=== PATIENT | male | born 1935 | race Caucasian/White ===

== ENCOUNTER → 2017-01-27 | Outpatient (CLI) | payer OTHER ==
[~2017-01-27] MED LIST: ASPEC81 PO; ASPI325T39 PO; ASPI81TA28 PO; BUME2TAB3 PO; CHOL1000 PO; DIGO0.1219 PO; DILT-115 PO; DILT360C8 PO; DIPH-437 PO; DOCU-94 PO; ELQ25 PO; EMOLOIN3 TOP; FINA5TAB4 PO; GABA1CAP PO; GLC5 PO; GLCSR25 PO; GLIP10TA3 PO; INSDGIPEN SC; LNX125 PO; LPR50X PO; LPT40 PO; MCRK20 PO; MELA1TAB5 PO; METO-551 PO; POLY1POW2 PO; POTA10TA PO; PRD/1 PO; PRED-301 PO; RANI300T2 PO; SELE1SHA3; SENN-63 PO; TRIA0.5O TOP; WARF1TAB6 PO
== END | disposition home or self-care (01) ==
LOC: C.RDSM 13:45
PROVIDERS: ATTEND Physical Medicine & Rehabilitation Sports Medicine
DX: Z09 Encounter for follow-up examination after completed treatment for conditions other than malignant neoplasm (principal); S72.011K Unspecified intracapsular fracture of right femur, subsequent encounter for closed fracture with nonunion; Z96.649 Presence of unspecified artificial hip joint; X58.XXXA Exposure to other specified factors, initial encounter

== ENCOUNTER 2017-03-12 16:15 | Emergency (ER) | payer OTHER ==
[~2017-03-12] VITALS: Ht 182.9 cm; Wt 105.5 kg
[2017-03-12 16:05] VITALS: TEMP 36.7; Ht 182.9 cm; Wt 105.5 kg
[~2017-03-12 16:15] MED LIST changes: -ASPEC81 PO; -ASPI325T39 PO; -BUME2TAB3 PO; -CHOL1000 PO; -DILT-115 PO; -DIPH-437 PO; -ELQ25 PO; -EMOLOIN3 TOP; -GLC5 PO; -GLIP10TA3 PO; -INSDGIPEN SC; -LNX125 PO; -LPR50X PO; -LPT40 PO; -MCRK20 PO; -MELA1TAB5 PO; -POLY1POW2 PO; -POTA10TA PO; -PRED-301 PO; -RANI300T2 PO; -SELE1SHA3; -SENN-63 PO; -TRIA0.5O TOP
[2017-03-12] MEDS ORDERED: SODIUM CHLORIDE 0.9% 500ML 500 ML IV STA ×2 (16:29→17:53)
[2017-03-12 16:40] LABS: URINE APPEARANCE CLEAR (CLEAR); URINE BILIRUBIN NEG (NEG); URINE COLOR YELLOW; URINE EPITHELIAL CELL AUTO 0-5 /lpf (0-5); URINE NITRITE NEG (NEG); URINE PH 7.5 (4.5-7.5); URINE SPECIFIC GRAVITY 1.015 (1.000-1.030); UROBILINOGEN NEG (NEG); ZZUR CULT IF INDIC CLEAN CATCH NO
[2017-03-12 16:49] LABS: MANUAL MICROSCOPIC REQUIRED? NO; REVIEW REQ? NO
[2017-03-12 16:52] LABS: BUN/CREATININE RATIO 7.8 (10-20); CALCIUM 9.2 mg/dl (8.5-10.1); CREATININE 1.7 mg/dl (0.60-1.40); POTASSIUM 3.4 mmol/L (3.5-5.1)
[2017-03-12] MEDS ORDERED: DILT-115 PO (16:56)
[2017-03-12] MEDS ORDERED: RANI300T2 PO (16:56)
[2017-03-12] MEDS ORDERED: GLIP10TA3 PO (16:56)
[2017-03-12] MEDS ORDERED: ASPI325T39 PO (16:56)
[2017-03-12] MEDS ORDERED: TRIA0.5O TOP (16:56)
[2017-03-12] MEDS ORDERED: LPR50X PO (16:56)
[2017-03-12] MEDS ORDERED: PRED-301 PO (16:56)
[2017-03-12] MEDS ORDERED: LNX125 PO (16:56)
[2017-03-12] MEDS ORDERED: BUME2TAB3 PO (16:56)
[2017-03-12] MEDS ORDERED: POTA10TA PO (16:56)
[2017-03-12] MEDS ORDERED: SELE1SHA3 (16:56)
[2017-03-12] MEDS ORDERED: GLC5 PO (16:56)
[2017-03-12] MEDS ORDERED: SENN-63 PO (16:56)
[2017-03-12] MEDS ORDERED: EMOLOIN3 TOP (16:56)
[2017-03-12 17:08] LABS: MEAN CORPUSCULAR HGB CONC 33.9 g/dl (32-36)
[2017-03-12 17:09] LABS: VEN BLD GAS O2 SATURATION 69.1 %; VEN BLOOD GAS BASE EXCESS 5.3 mmol/L; VENOUS BLOOD GAS PCO2 45 mmHg (38.0-50.0); VENOUS BLOOD GAS PO2 35 mmHg
[2017-03-12 17:14] LABS: BETA-HYDROXYBUTYRATE 1.45 mg/dL (0.2-2.81)
[2017-03-12 17:27] LABS: HEMATOCRIT 43.6 % (42-52); MEAN CELL VOLUME 91.6 fL (80-100); MEAN CORPUSCULAR HEMOGLOBIN 31.1 pg (25-34); PLATELET COUNT 128 K/uL (130-400); RED BLOOD COUNT 4.76 M/uL (4.7-6.1); WHITE BLOOD COUNT 5.06 K/uL (4.8-10.8)
[2017-03-12 17:28] LABS: BASO % 0.2 %; BASO ABS # 0.01 K/uL (0-0.2); COMPLETE YES; EOS % 1.6 %; IG% 0.2 %; LYMPH % 23.7 %; MONO % 5.5 %; NEUT % 68.8 %; PLT ESTIMATE DECREASED
[2017-03-12] MEDS ORDERED: NovoLIN-R INSULIN PER UNIT CHARGE SC STA (17:53)
--- NOTE | 2017-03-12 18:54 | DIAGNOSTIC IMAGING REPORT ---
HEAD CT NONCONTRAST CT DOSE: 1768.17 mGy.cm HISTORY: Headache. TECHNIQUE: Multiaxial CT images of the head were performed without the use of intravenous contrast. Automated exposure control was utilized for this study. Comparison: Head CT 12/01/2014. Findings: The paranasal sinuses and mastoid air cells are clear. The calvarium and skull base are intact. There is no mass, hematoma, midline shift, acute infarct. White matter hypodensity is nonspecific but suggestive of microvascular ischemic change. The ventricles and sulci demonstrate mild age-related involutional changes. Stable 1.4 cm cluster of calcifications within the right cerebellar hemisphere. Impression: No acute intracranial abnormality. Atrophy and microvascular ischemic changes. Electronically signed by: Andrea Nixon M.D. 03/12/2017 6:52 PM Dictated Date/Time: 03/12/2017 6:48 PM
--- NOTE | 2017-03-12 19:51 | DIAGNOSTIC IMAGING REPORT ---
CHEST ONE VIEW PORTABLE HISTORY: hyperglycemia COMPARISON: Chest 04/06/2015. FINDINGS: Old, healed right-sided rib fractures. The lungs are clear. No pleural effusions. No pneumothorax. The cardiac silhouette is mildly enlarged. IMPRESSION: Mild cardiomegaly. Otherwise, no acute process within the chest. Electronically signed by: Andrea Nixon M.D. 03/12/2017 7:49 PM Dictated Date/Time: 03/12/2017 7:48 PM
[2017-03-12] MEDS ORDERED: POTASSIUM CHLORIDE 10 MEQ TABCR PO STA (20:51)
[2017-03-12 21:08] VITALS: BP 168/91; PULSE 57; O2SAT 95
--- NOTE | 2017-03-12 23:03 | EMERGENCY ROOM VISIT NOTE ---
History Report prepared by Tori: Linus Matthew Under the Supervision of: Dr. Breezy Vance D.O. First contact with patient: 16:18 Chief Complaint: HYPERGLYCEMIA Stated Complaint: HYPERGLYCEMIA Nursing Triage Summary: Patient arrived to ED via EMS. Patient c/o feeling tired and weak as well as dizzy for approx 4 days. BSG for EMS was 570. Pt states he is diabetic but takes only pills. Patient received NSS 500ml from EMS History of Present Illness The patient is a 81 year old male with a history of diabetes who presents to the Emergency Room with complaints of constant weakness beginning five days prior to arrival. He associates high blood sugar with today's symptoms. The patient states he takes pills for his diabetes, but he missed a dose two nights ago. He notes he usually takes two pills in the morning and one in the evening. The patient associates intermittent shortness of breath, increased urination, and dizziness like the room is spinning with today's symptoms, as well. He notes his shortness of breath has been noticeable with exertion over the last couple of weeks, but he denies experiencing it today. The patient states he has intermittent dizziness for the past two years, in which, he experienced some dizziness this morning with movement. It is noted the patient's BSG was 570 for EMS. Pt denies headache, change in vision, fevers, chest pain, abdominal pain, shortness of breath, numbness in the arms or legs, nausea, vomiting, diarrhea, pain with urination, and melena. Source of History: patient Onset: five days [employer] Position: other (global) Quality: other (fatigue) Timing: constant Associated Symptoms: + SOB (intermittent), + urinary symptoms (increased urination), + weakness Note: Associated symptoms: high blood sugar, intermittent dizziness described as spinning, Review of Systems See HPI for pertinent positives & negatives. A total of 10 systems reviewed and were otherwise negative. Past Medical & Surgical Surgical Problems: (1) History of coronary artery stent placement Family History No pertinent family history Social History Smoking Status: Never Smoker Alcohol Use: none Marital Status: single, Housing Status: other Occupation Status: retired Current/Historical Medications Scheduled Aspirin (Aspirin Ec), 325 MG PO DAILY Bumetanide (Bumex), 2 MG PO DAILY Digoxin (Digoxin), 0.125 MG PO QD@1800 Diltiazem Hcl Extended Release (Tiazac 240 Mg), 240 MG PO DAILY Emollient (Aquaphor), 1 APPLN TOP BID Glipizide (Glipizide), 5 MG PO HS Glipizide (Glucotrol), 10 MG PO QAM Metoprolol Tartrate (Metoprolol Tartrate), 50 MG PO BID Potassium Chloride (K-Tabs), 20 MEQ PO DAILY Prednisone (Prednisone), 5 MG PO DAILY Ranitidine (Zantac), 300 MG PO HS Selenium Sulfide (Selsun Blue), UD Triamcinolone Acetonide (Topic (Triamcinolone Acetonide), 1 APPLN TOP BID Scheduled PRN Docusate Sodium (Colace), 200 MG PO BID PRN for Constipation Sennosides (Senokot), 8.6 MG PO DAILY PRN for Constipation Allergies Coded Allergies: Felodipine (Verified Allergy, Unknown, unk, 03/12/17) Furosemide (Unverified Allergy, Unknown, unknown, 03/12/17) Metformin (Verified Allergy, Unknown, unk, 03/12/17) Simvastatin (Verified Allergy, Unknown, unk, 03/12/17) Sulfa Antibiotics (Verified Allergy, Unknown, ., 03/12/17) Sulfamethoxazole w/Trimethoprim (Unverified Allergy, Unknown, unknown, ) Physical Exam Vital Signs Date Time Temp Pulse Resp B/P Pulse Ox O2 Delivery O2 Flow Rate FiO2 03/12/17 21:08 57 18 168/91 95 Room Air 03/12/17 18:41 65 17 128/66 95 Room Air 03/12/17 16:57 72 24 124/70 95 Room Air 03/12/17 16:44 67 03/12/17 16:05 36.7 79 20 163/90 97 Room Air Physical Exam GENERAL: sitting up in bed, disheveled, no acute distress, hard of hearing. EYE EXAM: normal conjunctiva, PERRL and EOM's intact OROPHARYNX: no exudate, no erythema, lips, buccal mucosa, and tongue normal and mucous membranes are moist NECK: supple, no nuchal rigidity, no adenopathy, non-tender LUNGS: Clear to auscultation. Normal chest wall mechanics HEART: no murmurs, S1 normal and S2 normal ABDOMEN: abdomen soft, non-tender, normo-active bowel sounds, no masses, no rebound or guarding. BACK: Back is symmetrical on inspection and there is no deformity, no midline tenderness, no CVA tenderness. SKIN: no rashes and no bruising UPPER EXTREMITIES: upper extremities are grossly normal. LOWER EXTREMITIES: No pitting edema. NEURO EXAM: Normal sensorium, cranial nerves II-XII intact, normal speech, no weakness of arms, no weakness of legs. No drift. Finger to nose intact. Gross sensation intact. Medical Decision & Procedures ER Provider Diagnostic Interpretation: Radiology results as stated below per my review and the radiologist's interpretation: HEAD CT NONCONTRAST CT DOSE: 1768.17 mGy.cm HISTORY: Headache. TECHNIQUE: Multiaxial CT images of the head were performed without the use of intravenous contrast. Automated exposure control was utilized for this study. Comparison: Head CT 12/01/2014. Findings: The paranasal sinuses and mastoid air cells are clear. The calvarium and skull base are intact. There is no mass, hematoma, midline shift, acute infarct. White matter hypodensity is nonspecific but suggestive of microvascular ischemic change. The ventricles and sulci demonstrate mild age-related involutional changes. Stable 1.4 cm cluster of calcifications within the right cerebellar hemisphere. Impression: No acute intracranial abnormality. Atrophy and microvascular ischemic changes. Electronically signed by: Andrea Nixon M.D. 03/12/2017 6:52 PM CHEST ONE VIEW PORTABLE HISTORY: hyperglycemia COMPARISON: Chest 04/06/2015. FINDINGS: Old, healed right-sided rib fractures. The lungs are clear. No pleural effusions. No pneumothorax. The cardiac silhouette is mildly enlarged. IMPRESSION: Mild cardiomegaly. Otherwise, no acute process within the chest. Electronically signed by: Andrea Nixon M.D. 03/12/2017 7:49 PM Laboratory Results 03/12/17 16:56 Red Blood Count 4.76, Mean Corpuscular Volume 91.6, Mean Corpuscular Hemoglobin 31.1, Mean Corpuscular Hemoglobin Concent 33.9, Neutrophils (%) (Auto) 68.8, Lymphocytes (%) (Auto) 23.7, Monocytes (%) (Auto) 5.5, Eosinophils (%) (Auto) 1.6, Basophils (%) (Auto) 0.2, Neutrophils # (Auto) 3.48, Lymphocytes # (Auto) 1.20, Monocytes # (Auto) 0.28, Eosinophils # (Auto) 0.08, Basophils # (Auto) 0.01 03/12/17 15:34 Test 03/12/17 15:34 03/12/17 16:15 03/12/17 16:56 03/12/17 20:34 Anion Gap 9.0 mmol/L (3-11) Est Creatinine Clear Calc Drug Dose 44.2 ml/min Estimated GFR () 43.5 Estimated GFR (Non- 37.5 BUN/Creatinine Ratio 7.8 (10-20) Calcium Level 9.2 mg/dl (8.5-10.1) Total Bilirubin 0.7 mg/dl (0.2-1) Direct Bilirubin 0.2 mg/dl (0-0.2) Aspartate Amino Transf (AST/SGOT) 40 U/L (15-37) Alanine Aminotransferase (ALT/SGPT) 49 U/L (12-78) Alkaline Phosphatase 75 U/L (45-117) Total Protein 7.8 gm/dl (6.4-8.2) Albumin 3.4 gm/dl (3.4-5.0) Lipase 437 U/L (73-393) Beta-Hydroxybutyric Acid 1.45 mg/dL (0.2-2.81) Urine Color YELLOW Urine Appearance CLEAR (CLEAR) Urine pH 7.5 (4.5-7.5) Urine Specific [place] 1.015 (1.000-1.030) Urine Protein NEG (NEG) Urine Glucose (UA) 3+ (NEG) Urine Ketones NEG (NEG) Urine Occult Blood NEG (NEG) Urine Nitrite NEG (NEG) Urine Bilirubin NEG (NEG) Urine Urobilinogen NEG (NEG) Urine Leukocyte Esterase NEG (NEG) Urine WBC (Auto) 0 /hpf (0-5) Urine RBC (Auto) 0-4 /hpf (0-4) Urine Hyaline Casts (Auto) 0 /lpf (0-5) Urine Epithelial Cells (Auto) 0-5 /lpf (0-5) Urine Bacteria (Auto) NEG (NEG) White Blood Count 5.06 K/uL (4.8-10.8) Red Blood Count 4.76 M/uL (4.7-6.1) Hemoglobin 14.8 g/dL (14.0-18.0) Hematocrit 43.6 % (42-52) Mean Corpuscular Volume 91.6 fL (80-100) Mean Corpuscular Hemoglobin 31.1 pg (25-34) Mean Corpuscular Hemoglobin Concent 33.9 g/dl (32-36) Platelet Count 128 K/uL (130-400) Neutrophils (%) (Auto) 68.8 % Lymphocytes (%) (Auto) 23.7 % Monocytes (%) (Auto) 5.5 % Eosinophils (%) (Auto) 1.6 % Basophils (%) (Auto) 0.2 % Neutrophils # (Auto) 3.48 K/uL (1.4-6.5) Lymphocytes # (Auto) 1.20 K/uL (1.2-3.4) Monocytes # (Auto) 0.28 K/uL (0.11-0.59) Eosinophils # (Auto) 0.08 K/uL (0-0.5) Basophils # (Auto) 0.01 K/uL (0-0.2) RDW Standard Deviation 60.6 fL (36.4-46.3) RDW Coefficient of Variation 17.9 % (11.5-14.5) Immature Granulocyte % (Auto) 0.2 % Immature Granulocyte # (Auto) 0.01 K/uL (0.00-0.02) Platelet Estimate DECREASED Venous Blood pH 7.44 (7.36-7.41) Venous Blood Partial Pressure CO2 45 mmHg (38.0-50.0) Venous Blood Partial Pressure O2 35 mmHg Venous Blood HCO3 30 meq/L Venous Blood Oxygen Saturation 69.1 % Venous Blood Base Excess 5.3 mmol/L Bedside Glucose 308 mg/dl (70-99) Laboratory results per my review. Medications Administered Medications (Trade) Dose Ordered Sig/Sandra Route Start Time Stop Time Status Last Admin Dose Admin Sodium Chloride 500 ml @ 999 mls/hr Q31M STAT IV 03/12/17 16:29 03/12/17 16:59 DC 03/12/17 16:50 999 MLS/HR Sodium Chloride (Nss 500ml) 500 ml @ 999 mls/hr Q31M STAT IV 03/12/17 17:53 03/12/17 18:23 DC 03/12/17 19:05 999 MLS/HR Insulin Human Regular (novoLIN-R U-100 PER UNIT) 8 units NOW STAT SC 03/12/17 17:53 03/12/17 17:55 DC 03/12/17 19:07 8 UNITS Potassium Chloride (Klor-Con M10) 30 meq NOW STAT PO 03/12/17 20:51 03/12/17 20:52 DC 03/12/17 21:06 30 MEQ ECG Indication: weakness Rate (beats per minute): 58 Rhythm: atrial fibrillation Findings: T-wave inversion (in lead III), other (Normal axis) Comparison ECG Date: 04/06/2015 Change: no significant change ED Course ED COURSE: Vital signs were reviewed and showed hypertension. The patients medical record was reviewed The above diagnostic studies were performed and reviewed. ED treatments and interventions as stated above. 1622: The patient was evaluated in room C2B. A complete history and physical examination was performed. 162: Ordered Sodium Chloride 500 ml @ 999 mls/hr IV. 165: Reevaluated the patient at this time, and he is getting blood work done. 1752: Ordered Insulin Human Regular 8 units SC, Sodium Chloride 500 ml @ 999 mls /hr IV. 1850: Reevaluated the patient at this time, and he is doing well. 1922: Reevaluated and updated the patient at this time. 2033: Reevaluated the patient at this time, and he is feeling all better. 2050: Ordered Potassium Chloride 30 meq PO. 2104: Upon reevaluation, the patient is doing well.I discussed my findings with the patient and he understands and agrees with the treatment plan. Based on the patients age, coexisting illnesses, exam and lab findings the decision to treat as an outpatient was made. The patient remained stable while under my care. The patient appeared well at the time of discharge. Medical Decision Differential Diagnosis includes but is not limited to dehydration, stroke, anemia, hypoglycemia, hyponatremia, hypernatremia, urinary tract infection, pneumonia, bronchitis, sepsis, gastroenteritis, additional abdominal pathology, metabolic abnormalities and infections. Patient is a 81-year-old male who presents the ER for diffuse weakness which has been going on for the past couple days. Blood sugars were elevated this morning. He has missed a couple doses of his glipizide. He notes dizziness which is unchanged for the past 2 years. He does admit shortness of breath previously but none today. No new cough. Labs were obtained patient was given a bolus normal saline. He is given 8 units subcutaneous insulin. Labs were obtained and show no significant leukocytosis or anemia. BMP shows no anion gap. CO2 of 30. He was dehydrated. Creatinine was slightly elevated at 1.7. Previous was 1.4. Blood sugar trended down from 530 to 308. Lipase is slightly elevated at 437 although he has no abdominal pain or vomiting. I do not believe he has pancreatitis. Beta hydroxybutyric acid was negative. Patient is clearly not in DKA. His symptoms completely resolved following insulin. Sandeep chest x-ray show no signs of infection. Patient was updated regards to his findings. Care management will try to get him into see his PCP tomorrow for his elevated blood sugars and for additional monitoring along with a recheck of his creatinine. Patient's son was present at bedside to come home and was agreeable. Discussed with Pt concerning signs and symptoms to watch out for. Pt was instructed to follow up with their PCP and discussed with the patient their option to return to the ED at anytime for persistent or worsening symptoms. The appropriate anticipatory guidance and out-patient management, including indications for return to the emergency department, were explained at length to the patient and understood. Impression Primary Impression: Hyperglycemia Additional Impressions: HERB (acute kidney injury) Hypokalemia Scribe Attestation The scribe's documentation has been prepared under my direction and personally reviewed by me in its entirety. I confirm that the note above accurately reflects all work, treatment, procedures, and medical decision making performed by me. Departure Information Dispostion Home / Self-Care Referrals Ulysses-García Brenner M.D. (PCP) Forms HOME CARE DOCUMENTATION FORM, IMPORTANT VISIT INFORMATION, WORK / SCHOOL INSTRUCTIONS Patient Instructions ED Hyperglycemia Diabetic, My [facility] Additional Instructions Please follow up with your primary care doctor with in the next 24 hours. Any worsening of your symptoms, please return to the ED immediately. This includes fevers greater than 100.4, chest pain, shortness of breath, dizziness, or any other concerning signs or symptoms from your standpoint. Please follow up with your primary care doctor in regards to your kidney function and elevated blood sugars. Problem Qualifiers
[2017-08-06] MEDS ORDERED: ASPEC81 PO (17:03)
[2017-08-06] MEDS ORDERED: MCRK20 PO (17:03)
[2017-08-06] MEDS ORDERED: LPT40 PO (17:03)
[2017-08-06] MEDS ORDERED: ELQ25 PO (17:03)
[2017-08-06] MEDS ORDERED: INSDGIPEN SC (17:03)
== END 2017-03-12 21:17 | disposition home or self-care (01) ==
LOC: EDBD 16:15 → C.EDC 16:15
DX: E11.65 Type 2 diabetes mellitus with hyperglycemia (principal); N17.9 Acute kidney failure, unspecified; E87.6 Hypokalemia; Z79.82 Long term (current) use of aspirin; Z79.52 Long term (current) use of systemic steroids; Z79.899 Other long term (current) drug therapy

== ENCOUNTER 2017-03-15 00:54 | Emergency (ER) | payer OTHER ==
[~2017-03-15] VITALS: Ht 185.4 cm; Wt 106.8 kg
[~2017-03-15 00:54] MED LIST changes: +ASPI325T39 PO; -ASPI81TA28 PO; +BUME2TAB3 PO; -DIGO0.1219 PO; +DILT-115 PO; -DILT360C8 PO; +EMOLOIN3 TOP; -FINA5TAB4 PO; -GABA1CAP PO; +GLC5 PO; -GLCSR25 PO; +GLIP10TA3 PO; +LNX125 PO; +LPR50X PO; -METO-551 PO; +POTA10TA PO; -PRD/1 PO; +PRED-301 PO; +RANI300T2 PO; +SELE1SHA3; +SENN-63 PO; +TRIA0.5O TOP; -WARF1TAB6 PO
[2017-03-15] MEDS ORDERED: SODIUM CHLORIDE 0.9% 1000ML 1,000 ML IV STA (01:12)
--- NOTE | 2017-03-15 01:15 | EMERGENCY ROOM VISIT NOTE ---
History Report prepared by Tori: Bakari Arreaga Under the Supervision of: Dr. Som Parks D.O. First contact with patient: 01:07 Chief Complaint: HYPERGLYCEMIA Stated Complaint: HYPERGLYCEMIA History of Present Illness The patient is a 81 year old male who presents to the Emergency Room with complaints of worsening hyperglycemia throughout the day. The patient woke up feeling dizzy today. He denies chest pain, abdominal pain, nausea or vomiting. He is feeling very thirsty and has a dry mouth. The patient is not sure what his baseline sugar is as he does not regularly check. The patient was in the ED with hyperglycemia three days ago. The patient is not on insulin but does take Glipizide 5 mg. He is supposed to take 2 pills in the morning and 1 in the evening. Source of History: patient Onset: throughout the day Position: other (global) Quality: other (hyperglycemia) Timing: worsening Associated Symptoms: No abdominal pain, No chest pain, No nausea, No vomiting Review of Systems See HPI for pertinent positives and negatives. A total of ten systems were reviewed and were otherwise negative. Past Medical & Surgical Surgical Problems: (1) History of coronary artery stent placement Family History No pertinent family history Social History Smoking Status: Never Smoker Alcohol Use: none Marital Status: single, Housing Status: other Occupation Status: retired Current/Historical Medications Scheduled Aspirin (Aspirin Ec), 325 MG PO DAILY Bumetanide (Bumex), 2 MG PO DAILY Digoxin (Digoxin), 0.125 MG PO QD@1800 Diltiazem Hcl Extended Release (Tiazac 240 Mg), 240 MG PO DAILY Emollient (Aquaphor), 1 APPLN TOP BID Glipizide (Glipizide), 5 MG PO BID Glipizide (Glucotrol), 10 MG PO QAM Metoprolol Tartrate (Metoprolol Tartrate), 50 MG PO BID Potassium Chloride (K-Tabs), 20 MEQ PO DAILY Prednisone (Prednisone), 5 MG PO DAILY Ranitidine (Zantac), 300 MG PO HS Selenium Sulfide (Selsun Blue), UD Triamcinolone Acetonide (Topic (Triamcinolone Acetonide), 1 APPLN TOP BID Scheduled PRN Docusate Sodium (Colace), 200 MG PO BID PRN for Constipation Sennosides (Senokot), 8.6 MG PO DAILY PRN for Constipation Allergies Coded Allergies: Felodipine (Verified Allergy, Unknown, unk, 03/12/17) Furosemide (Unverified Allergy, Unknown, unknown, 03/12/17) Metformin (Verified Allergy, Unknown, unk, 03/12/17) Simvastatin (Verified Allergy, Unknown, unk, 03/12/17) Sulfa Antibiotics (Verified Allergy, Unknown, ., 03/12/17) Sulfamethoxazole w/Trimethoprim (Unverified Allergy, Unknown, unknown, ) Physical Exam Vital Signs Date Time Temp Pulse Resp B/P Pulse Ox O2 Delivery O2 Flow Rate FiO2 03/15/17 01:43 86 20 187/98 96 Room Air 106 155/105 113 127/87 03/15/17 01:43 97 Room Air 03/15/17 01:02 100 Physical Exam GENERAL: Awake, alert, well-appearing, in no distress HENT: Normocephalic, atraumatic. Oropharynx unremarkable. Hearing aid right ear. EYES: Normal conjunctiva. Sclera non-icteric. NECK: Supple. No nuchal rigidity. FROM. No JVD. RESPIRATORY: Clear to auscultation. CARDIAC: Regular rate, normal rhythm. Extremities warm and well perfused. Pulses equal. ABDOMEN: Soft, non-distended. No tenderness to palpation. No rebound or guarding. No masses. RECTAL: Deferred. MUSCULOSKELETAL: Chest examination reveals no tenderness. The back is symmetrical on inspection without obvious abnormality. There is no CVA tenderness to palpation. No joint edema. LOWER EXTREMITIES: Calves are equal size bilaterally and non-tender. No edema. No discoloration. NEURO: Normal sensorium. No sensory or motor deficits noted. SKIN: No rash or jaundice noted. Medical Decision & Procedures Laboratory Results 03/15/17 01:06 Red Blood Count 5.00, Mean Corpuscular Volume 90.8, Mean Corpuscular Hemoglobin 31.0, Mean Corpuscular Hemoglobin Concent 34.1, Mean Platelet Volume 12.8, Neutrophils (%) (Auto) 50.9, Lymphocytes (%) (Auto) 38.7, Monocytes (%) (Auto) 7.3, Eosinophils (%) (Auto) 2.3, Basophils (%) (Auto) 0.5, Neutrophils # (Auto) 3.38, Lymphocytes # (Auto) 2.56, Monocytes # (Auto) 0.48, Eosinophils # (Auto) 0.15, Basophils # (Auto) 0.03 03/15/17 01:06 Test 03/15/17 01:06 03/15/17 01:12 03/15/17 01:35 White Blood Count 6.62 K/uL (4.8-10.8) Red Blood Count 5.00 M/uL (4.7-6.1) Hemoglobin 15.5 g/dL (14.0-18.0) Hematocrit 45.4 % (42-52) Mean Corpuscular Volume 90.8 fL (80-100) Mean Corpuscular Hemoglobin 31.0 pg (25-34) Mean Corpuscular Hemoglobin Concent 34.1 g/dl (32-36) Platelet Count 152 K/uL (130-400) Mean Platelet Volume 12.8 fL (7.4-10.4) Neutrophils (%) (Auto) 50.9 % Lymphocytes (%) (Auto) 38.7 % Monocytes (%) (Auto) 7.3 % Eosinophils (%) (Auto) 2.3 % Basophils (%) (Auto) 0.5 % Neutrophils # (Auto) 3.38 K/uL (1.4-6.5) Lymphocytes # (Auto) 2.56 K/uL (1.2-3.4) Monocytes # (Auto) 0.48 K/uL (0.11-0.59) Eosinophils # (Auto) 0.15 K/uL (0-0.5) Basophils # (Auto) 0.03 K/uL (0-0.2) RDW Standard Deviation 59.9 fL (36.4-46.3) RDW Coefficient of Variation 17.8 % (11.5-14.5) Immature Granulocyte % (Auto) 0.3 % Immature Granulocyte # (Auto) 0.02 K/uL (0.00-0.02) Anion Gap 12.0 mmol/L (3-11) Est Creatinine Clear Calc Drug Dose 51.2 ml/min Estimated GFR () 50.6 Estimated GFR (Non- 43.7 BUN/Creatinine Ratio 9.4 (10-20) Calcium Level 9.2 mg/dl (8.5-10.1) Total Bilirubin 0.6 mg/dl (0.2-1) Direct Bilirubin mg/dl (0-0.2) Aspartate Amino Transf (AST/SGOT) 46 U/L (15-37) Alanine Aminotransferase (ALT/SGPT) 52 U/L (12-78) Alkaline Phosphatase 84 U/L (45-117) Total Protein 7.7 gm/dl (6.4-8.2) Albumin 3.5 gm/dl (3.4-5.0) Beta-Hydroxybutyric Acid 1.53 mg/dL (0.2-2.81) Chemistry Specimen Hemolysis Bedside Glucose 300 mg/dl (70-99) Urine Color YELLOW Urine Appearance CLEAR (CLEAR) Urine pH 5.5 (4.5-7.5) Urine Specific [place] 1.025 (1.000-1.030) Urine Protein NEG (NEG) Urine Glucose (UA) 3+ (NEG) Urine Ketones NEG (NEG) Urine Occult Blood NEG (NEG) Urine Nitrite NEG (NEG) Urine Bilirubin NEG (NEG) Urine Urobilinogen NEG (NEG) Urine Leukocyte Esterase NEG (NEG) Laboratory results reviewed by me Medications Administered Medications (Trade) Dose Ordered Sig/Sandra Route Start Time Stop Time Status Last Admin Dose Admin Sodium Chloride (Nss 1000ml) 1,000 ml @ 999 mls/hr Q1H1M STAT IV 03/15/17 01:12 03/15/17 02:12 DC 03/15/17 02:46 999 MLS/HR Insulin Human Regular (novoLIN-R U-100 PER UNIT) 6 units NOW STAT SC 03/15/17 01:38 03/15/17 01:39 DC 03/15/17 02:48 6 UNITS ED Course 0107: The patient was evaluated in room B2. A complete history and physical exam was performed. 0112: NSS 1000 ml @ 999 mls/hr. 0138: Insulin Human Regular 6 units SC. 0252: Reassessed the patient. He is is no distress. Discussed the discharged instructions with him. He will be prepared for discharge. Medical Decision Differential diagnosis includes hyperglycemia, metabolic derangement, medication noncompliance. Doubt DKA. Patient resting in no distress blood sugars down I discussed the workup he needs to follow-up with his primary care physician to get better glycemic control. There is no evidence of DKA. I discussed the workup at 2:55 AM Impression Primary Impression: Hyperglycemia Scribe Attestation The scribe's documentation has been prepared under my direction and personally reviewed by me in its entirety. I confirm that the note above accurately reflects all work, treatment, procedures, and medical decision making performed by me. Departure Information Dispostion Home / Self-Care Referrals García Melo M.D. (PCP) Forms HOME CARE DOCUMENTATION FORM, IMPORTANT VISIT INFORMATION, WORK / SCHOOL INSTRUCTIONS Patient Instructions ED Hyperglycemia Diabetic, My [facility]
[2017-03-15 01:36] LABS: BASO % 0.5 %; BASO ABS # 0.03 K/uL (0-0.2); COMPLETE YES; EOS % 2.3 %; HEMATOCRIT 45.4 % (42-52); IG% 0.3 %; LYMPH % 38.7 %; LYMPH ABS # 2.56 K/uL (1.2-3.4); MEAN CELL VOLUME 90.8 fL (80-100); MEAN CORPUSCULAR HGB CONC 34.1 g/dl (32-36); MEAN PLATELET VOLUME 12.8 fL (7.4-10.4); MONO % 7.3 %; NEUT % 50.9 %; PLATELET COUNT 152 K/uL (130-400); WHITE BLOOD COUNT 6.62 K/uL (4.8-10.8)
[2017-03-15] MEDS ORDERED: NovoLIN-R INSULIN PER UNIT CHARGE SC STA (01:38)
[2017-03-15 01:43] VITALS: O2SAT 97
[2017-03-15 01:45] VITALS: TEMP 36.6
[2017-03-15 01:47] VITALS: Ht 185.4 cm; Wt 106.8 kg
[2017-03-15 02:00] LABS: URINE APPEARANCE CLEAR (CLEAR); URINE BILIRUBIN NEG (NEG); URINE COLOR YELLOW; URINE NITRITE NEG (NEG); URINE PH 5.5 (4.5-7.5); URINE SPECIFIC GRAVITY 1.025 (1.000-1.030); UROBILINOGEN NEG (NEG)
[2017-03-15 02:02] LABS: MANUAL MICROSCOPIC REQUIRED? NO; REVIEW REQ? NO
[2017-03-15 02:07] LABS: ALKALINE PHOSPHATASE 84 U/L (45-117); ALT/SGPT 52 U/L (12-78); AST/SGOT 46 U/L (15-37); BLOOD UREA NITROGEN 14 mg/dl (7-18); BUN/CREATININE RATIO 9.4 (10-20); CALCIUM 9.2 mg/dl (8.5-10.1); CARBON DIOXIDE 30 mmol/L (21-32); CHLORIDE 96 mmol/L (98-107); GLUCOSE 371 mg/dl (70-99); POTASSIUM 3.1 mmol/L (3.5-5.1); SODIUM 138 mmol/L (136-145)
[2017-03-15 02:22] LABS: BETA-HYDROXYBUTYRATE 1.53 mg/dL (0.2-2.81)
[2017-03-15] MEDS ORDERED: CHOL1000 PO (03:05)
[2017-03-15 04:14] VITALS: BP 139/99; PULSE 89; O2SAT 94
[2017-08-06] MEDS ORDERED: MCRK20 PO (17:03)
[2017-08-06] MEDS ORDERED: INSDGIPEN SC (17:03)
[2017-08-06] MEDS ORDERED: ASPEC81 PO (17:03)
[2017-08-06] MEDS ORDERED: LPT40 PO (17:03)
[2017-08-06] MEDS ORDERED: ELQ25 PO (17:03)
== END 2017-03-15 04:16 | disposition home or self-care (01) ==
LOC: EDBD 00:54 → C.EDB 00:59
DX: R73.9 Hyperglycemia, unspecified (principal); Z79.82 Long term (current) use of aspirin; Z79.899 Other long term (current) drug therapy; Z79.52 Long term (current) use of systemic steroids

== ENCOUNTER 2017-08-04 11:58 | Inpatient (IN) | payer OTHER ==
[~2017-08-04] VITALS: Ht 185.4 cm; Wt 99.2 kg
[~2017-08-04 11:58] MED LIST changes: +CHOL1000 PO; -GLIP10TA3 PO
[2017-08-04] MEDS ORDERED: INSDGIPEN SC (12:38)
[2017-08-04] MEDS ORDERED: DIPH-437 PO (12:38)
[2017-08-04] MEDS ORDERED: MELA1TAB5 PO (12:38)
[2017-08-04] MEDS ORDERED: POLY1POW2 PO (12:38)
[2017-08-04] MEDS ORDERED: GLIP10TA3 PO (12:38)
[2017-08-04 13:02] LABS: BASO % 0.3 %; BASO ABS # 0.02 K/uL (0-0.2); COMPLETE YES; EOS % 5.8 %; HEMATOCRIT 44.9 % (42-52); IG% 0.3 %; LYMPH % 28.1 %; MEAN CELL VOLUME 94.7 fL (80-100); MEAN CORPUSCULAR HEMOGLOBIN 31.2 pg (25-34); MEAN PLATELET VOLUME 13.3 fL (7.4-10.4); MONO % 7.7 %; NEUT % 57.8 %; PLATELET COUNT 185 K/uL (130-400); RED BLOOD COUNT 4.74 M/uL (4.7-6.1); WHITE BLOOD COUNT 6.77 K/uL (4.8-10.8)
--- NOTE | 2017-08-04 13:02 | DIAGNOSTIC IMAGING REPORT ---
CHEST ONE VIEW PORTABLE CLINICAL HISTORY: Stroke mental status change COMPARISON STUDY: 03/12/2017 FINDINGS: The bones soft tissues and hemidiaphragms are normal. The cardiomediastinal silhouette is normal. The lungs are clear. The pulmonary vasculature is normal. IMPRESSION: Negative chest. The above report was generated using voice recognition software. It may contain grammatical, syntax or spelling errors. Electronically signed by: Blue Mcguire M.D. 08/04/2017 1:01 PM Dictated Date/Time: 08/04/2017 1:01 PM
[2017-08-04 13:10] LABS: MANUAL MICROSCOPIC REQUIRED? NO; REVIEW REQ? YES; URINE APPEARANCE CLOUDY (CLEAR); URINE BILIRUBIN NEG (NEG); URINE COLOR YELLOW; URINE EPITHELIAL CELL AUTO 0-5 /lpf (0-5); URINE NITRITE NEG (NEG); URINE PH 7.5 (4.5-7.5); URINE SPECIFIC GRAVITY 1.012 (1.000-1.030); UROBILINOGEN NEG (NEG); ZZUR CULT IF INDIC CLEAN CATCH NO
[2017-08-04 13:20] LABS: BUN/CREATININE RATIO 10.8 (10-20); CALCIUM 9.2 mg/dl (8.5-10.1); CREATININE 1.4 mg/dl (0.60-1.40); MAGNESIUM 1.9 mg/dl (1.8-2.4); POTASSIUM 2.9 mmol/L (3.5-5.1)
--- NOTE | 2017-08-04 14:02 | DIAGNOSTIC IMAGING REPORT ---
HEAD WITHOUT CONTRAST (CT) CT DOSE: 788.63 mGycm HISTORY: Mental status change dysarthria TECHNIQUE: Multiaxial CT images of the head were performed without the use of intravenous contrast. A dose lowering technique was utilized adhering to the principles of ALARA. Comparison: 03/12/2017 Findings: The paranasal sinuses and mastoid air cells are clear. Moderate chronic small vessel change. No acute intracranial hemorrhage. Benign calcification the medial right tentorium. All findings are unchanged in the prior exam. No acute intracranial hemorrhage. Impression: Chronic and age-related change. No acute process. The above report was generated using voice recognition software. It may contain grammatical, syntax or spelling errors. Electronically signed by: Blue Mcguire M.D. 08/04/2017 2:00 PM Dictated Date/Time: 08/04/2017 1:59 PM
[2017-08-04] MEDS ORDERED: POTASSIUM CHLORIDE 10 MEQ TABCR PO STA (14:13)
[2017-08-04] MEDS ORDERED: ONDANSETRON INJ 2 MG/ML 2 ML VIAL IV PRN (15:30)
[2017-08-04] MEDS ORDERED: ACETAMINOPHEN 325 MG TAB PO PRN (15:30)
[2017-08-04] MEDS ORDERED: SENNA 8.6 MG TAB PO PRN (15:45)
[2017-08-04] MEDS ORDERED: DEXTROSE 50% 50 ML SYR IV PRN (15:45)
[2017-08-04] MEDS ORDERED: GLUCOSE 10 TABS/TUBE PO PRN (15:45)
[2017-08-04] MEDS ORDERED: GLUCAGON FOR INJ 1 MG VIAL SQ PRN (15:45)
[2017-08-04] MEDS ORDERED: DOCUSATE SODIUM 100 MG CAP PO PRN (15:45)
[2017-08-04] MEDS ORDERED: GLUCOSE 40% GEL 15 GM TUBE PO PRN (15:45)
[2017-08-04] MEDS ORDERED: PHARMACIST DISCHARGE MED REC CONSULT PRN (15:45)
--- NOTE | 2017-08-04 15:45 | EMERGENCY ROOM VISIT NOTE ---
History Report prepared by Tori: Denisha Garland Under the Supervision of: Dr. Wayne Vieyra M.D. First contact with patient: 12:37 Chief Complaint: CVA SYMPTOMS Stated Complaint: CVA SYMPTOMS Nursing Triage Summary: Patient arrived by ambulance per medic patient has been having slurred speech for approx three days with generalized weakness and decreased intake. Patient ambulated into bathroom with standby assist on arrival to ED. Patient states he just has not felt like eating or drinking recently. History of Present Illness The patient is an 82 year old male who presents to the Emergency Room with complaints of worsening slurred speech starting 4 days ago. The patient lives at home alone. He is also concerned because his sugars have been elevated recently. They usually run in the 200s, but 4 days ago it was up in the 300s. Last night it was 405. The patient has a history of insulin dependent diabetes. He feels weak all over. He denies any weakness just on one side. He has trouble swallowing. He denies any fever, chills, cough, congestion, nausea, vomiting, or dizziness. He is not on any blood thinners. He has had a stroke before. He has no weakness from that stroke. He is on prednisone. He denies any history of COPD. Source of History: patient Onset: 4 days ago Position: other (global) Quality: other (slurred speech) Timing: worsening Associated Symptoms: + weakness, No fevers, No chills, No cough, No nausea, No vomiting Note: Pt reports high blood sugar, trouble swallowing. Pt denies congestion, dizziness. Review of Systems See HPI for pertinent positives and negatives. A total of ten systems were reviewed and were otherwise negative. Past Medical & Surgical Medical Problems: (1) Slurred speech Surgical Problems: (1) History of coronary artery stent placement Family History No pertinent family history Social History Smoking Status: Former Smoker Alcohol Use: none Marital Status: single, Housing Status: other Occupation Status: retired Current/Historical Medications Scheduled Acetaminophen/Diphenhydramine (Tylenol Pm), 1 TAB PO HS Aspirin (Aspirin Ec), 325 MG PO DAILY Bumetanide (Bumex), 4 MG PO DAILY Cholecalciferol (Vitamin D3), 1,000 UNITS PO DAILY Digoxin (Digoxin), 0.125 MG PO QD@1800 Diltiazem Hcl Extended Release (Tiazac 240 Mg), 240 MG PO DAILY Emollient (Aquaphor), 1 APPLN TOP BID Glipizide (Glucotrol), 20 MG PO BID Insulin Glargine (Lantus Solostar), 20 UNITS SC DAILY Melatonin (Kp Melatonin), 1 TAB PO HS Metoprolol Tartrate (Metoprolol Tartrate), 50 MG PO BID Potassium Chloride (K-Tabs), 20 MEQ PO DAILY Ranitidine (Zantac), 300 MG PO HS Selenium Sulfide (Selsun Blue), UD Triamcinolone Acetonide (Topic (Triamcinolone Acetonide), 1 APPLN TOP BID Scheduled PRN Docusate Sodium (Colace), 200 MG PO BID PRN for Constipation Polyethylene Glycol 3350 (Bulk (Polyethylene Glycol 3350), 17 GM PO BID PRN for Constipation Sennosides (Senokot), 8.6 MG PO DAILY PRN for Constipation Allergies Coded Allergies: Felodipine (Verified Allergy, Unknown, unk, 03/12/17) Furosemide (Unverified Allergy, Unknown, unknown, 03/12/17) Metformin (Verified Allergy, Unknown, unk, 03/12/17) Simvastatin (Verified Allergy, Unknown, unk, 03/12/17) Sulfa Antibiotics (Verified Allergy, Unknown, ., 03/12/17) Sulfamethoxazole w/Trimethoprim (Unverified Allergy, Unknown, unknown, ) Physical Exam Vital Signs Date Time Temp Pulse Resp B/P (MAP) Pulse Ox O2 Delivery O2 Flow Rate FiO2 08/04/17 14:17 71 18 149/69 97 Room Air 08/04/17 14:15 69 18 145/69 94 Room Air 08/04/17 12:12 96 Room Air 08/04/17 12:12 36.6 72 18 161/87 96 Room Air 08/04/17 12:09 65 Physical Exam GENERAL: Awake, alert, well-appearing, in no distress HENT: Normocephalic, atraumatic. Oropharynx unremarkable. Dry mucous membranes. EYES: Normal conjunctiva. Sclera non-icteric. NECK: Supple. No nuchal rigidity. FROM. No JVD. RESPIRATORY: Clear to auscultation. CARDIAC: Regular rate, normal rhythm. Extremities warm and well perfused. Pulses equal. ABDOMEN: Soft, non-distended. No tenderness to palpation. No rebound or guarding. No masses. RECTAL: Deferred. MUSCULOSKELETAL: Chest examination reveals no tenderness. The back is symmetrical on inspection without obvious abnormality. There is no CVA tenderness to palpation. No joint edema. LOWER EXTREMITIES: Calves are equal size bilaterally and non-tender. No edema. No discoloration. NEURO: Normal sensorium. No sensory deficits noted. Very mild dysarthria. Slight dysmetria on finger to nose bilaterally. SKIN: No rash or jaundice noted. Medical Decision & Procedures ER Provider Diagnostic Interpretation: Radiology results as stated below per my review and radiologist interpretation: CHEST ONE VIEW PORTABLE CLINICAL HISTORY: Stroke mental status change COMPARISON STUDY: 03/12/2017 FINDINGS: The bones soft tissues and hemidiaphragms are normal. The cardiomediastinal silhouette is normal. The lungs are clear. The pulmonary vasculature is normal. IMPRESSION: Negative chest. The above report was generated using voice recognition software. It may contain grammatical, syntax or spelling errors. Electronically signed by: Blue Mcguire M.D. 08/04/2017 1:01 PM Dictated Date/Time: 08/04/2017 1:01 PM HEAD WITHOUT CONTRAST (CT) CT DOSE: 788.63 mGycm HISTORY: Mental status change dysarthria TECHNIQUE: Multiaxial CT images of the head were performed without the use of intravenous contrast. A dose lowering technique was utilized adhering to the principles of ALARA. Comparison: 03/12/2017 Findings: The paranasal sinuses and mastoid air cells are clear. Moderate chronic small vessel change. No acute intracranial hemorrhage. Benign calcification the medial right tentorium. All findings are unchanged in the prior exam. No acute intracranial hemorrhage. Impression: Chronic and age-related change. No acute process. The above report was generated using voice recognition software. It may contain grammatical, syntax or spelling errors. Electronically signed by: Blue Mcguire M.D. 08/04/2017 2:00 PM Dictated Date/Time: 08/04/2017 1:59 PM Laboratory Results 08/04/17 12:10 Red Blood Count 4.74, Mean Corpuscular Volume 94.7, Mean Corpuscular Hemoglobin 31.2, Mean Corpuscular Hemoglobin Concent 33.0, Mean Platelet Volume 13.3, Neutrophils (%) (Auto) 57.8, Lymphocytes (%) (Auto) 28.1, Monocytes (%) (Auto) 7.7, Eosinophils (%) (Auto) 5.8, Basophils (%) (Auto) 0.3, Neutrophils # (Auto) 3.92, Lymphocytes # (Auto) 1.90, Monocytes # (Auto) 0.52, Eosinophils # (Auto) 0.39, Basophils # (Auto) 0.02 08/04/17 12:10 Test 08/04/17 12:10 08/04/17 12:20 08/04/17 12:50 White Blood Count 6.77 K/uL (4.8-10.8) Red Blood Count 4.74 M/uL (4.7-6.1) Hemoglobin 14.8 g/dL (14.0-18.0) Hematocrit 44.9 % (42-52) Mean Corpuscular Volume 94.7 fL (80-100) Mean Corpuscular Hemoglobin 31.2 pg (25-34) Mean Corpuscular Hemoglobin Concent 33.0 g/dl (32-36) Platelet Count 185 K/uL (130-400) Mean Platelet Volume 13.3 fL (7.4-10.4) Neutrophils (%) (Auto) 57.8 % Lymphocytes (%) (Auto) 28.1 % Monocytes (%) (Auto) 7.7 % Eosinophils (%) (Auto) 5.8 % Basophils (%) (Auto) 0.3 % Neutrophils # (Auto) 3.92 K/uL (1.4-6.5) Lymphocytes # (Auto) 1.90 K/uL (1.2-3.4) Monocytes # (Auto) 0.52 K/uL (0.11-0.59) Eosinophils # (Auto) 0.39 K/uL (0-0.5) Basophils # (Auto) 0.02 K/uL (0-0.2) RDW Standard Deviation 48.4 fL (36.4-46.3) RDW Coefficient of Variation 13.9 % (11.5-14.5) Immature Granulocyte % (Auto) 0.3 % Immature Granulocyte # (Auto) 0.02 K/uL (0.00-0.02) Anion Gap 10.0 mmol/L (3-11) Est Creatinine Clear Calc Drug Dose 52.8 ml/min Estimated GFR () 54.6 Estimated GFR (Non- 47.1 BUN/Creatinine Ratio 10.8 (10-20) Calcium Level 9.2 mg/dl (8.5-10.1) Magnesium Level 1.9 mg/dl (1.8-2.4) Troponin I 0.024 ng/ml (0-0.045) Pro-B-Type Natriuretic Peptide 2946 pg/ml (0-1800) Digoxin Level 0.5 ng/ml (0.8-2.0) Prothrombin Time 11.8 SECONDS (9.0-12.0) Prothromb Time International Ratio 1.1 (0.9-1.1) Activated Partial Thromboplast Time 27.4 SECONDS (21.0-31.0) Partial Thromboplastin Ratio 1.1 Urine Color YELLOW Urine Appearance CLOUDY (CLEAR) Urine pH 7.5 (4.5-7.5) Urine Specific [place] 1.012 (1.000-1.030) Urine Protein NEG (NEG) Urine Glucose (UA) 1+ (NEG) Urine Ketones NEG (NEG) Urine Occult Blood NEG (NEG) Urine Nitrite NEG (NEG) Urine Bilirubin NEG (NEG) Urine Urobilinogen NEG (NEG) Urine Leukocyte Esterase NEG (NEG) Urine WBC (Auto) 1-5 /hpf (0-5) Urine RBC (Auto) 5-10 /hpf (0-4) Urine Hyaline Casts (Auto) 1-5 /lpf (0-5) Urine Epithelial Cells (Auto) 0-5 /lpf (0-5) Urine Bacteria (Auto) NEG (NEG) Urine Crystals (NONE PRSENT) Laboratory results reviewed by me Medications Administered Medications (Trade) Dose Ordered Sig/Sandra Route Start Time Stop Time Status Last Admin Dose Admin Potassium Chloride (Klor-Con M10) 40 meq NOW STAT PO 08/04/17 14:13 08/04/17 14:16 DC 08/04/17 15:10 40 MEQ ECG Indication: weakness Rate (beats per minute): 61 Rhythm: atrial fibrillation Findings: no acute ischemic change, other (normal axis) Comparison ECG Date: 12-Mar-2017 Change: no significant change ED Course 1241: The patient was evaluated in room C10. A complete history and physical exam was performed. 1413: Potassium Chloride 40 meq PO. 1433: I discussed the patient's case with IRAM Borrego hospitalist service. The patient will be evaluated for further treatment and disposition. 1506: Upon reexamination, the patient was resting comfortably. I discussed the test results and treatment plan with him and his family. The patient will be evaluated for further management. Medical Decision I reviewed the patient's past medical history, medications, and the nursing notes as described above. Differential diagnosis: stroke, dehydration, electrolyte abnormality, hyperglycemia, pneumonia, UTI, ACS. Patient is an 82-year-old gentleman with a past medical history of TIA, A. fib on Coumadin, diabetes, CHF on digoxin presents to the emergency department with dysarthria for the past several days in the setting of generalized fatigue and concern for elevated glucose. On arrival the patient is in no acute distress, afebrile with stable vital signs. Exam the patient has mild dysarthria, mild dysmetria with finger to nose bilaterally, otherwise he is neurologically intact. Considering the symptoms have been ongoing for 3 days there is no indication for stroke activation. NIHSS 2. EKG with afib. K 2.9, BNP 2900 CXR negative. Labs otherwise unremarkable including WBC and trop wnl. CT head unremarkable. Given atient's clear dysarthria which upon arrival of family the also report that this is different from his baseline, MRI ordered to rule out stroke. Case discussed with medicine hospitalist will admit the patient for further management. Medication Reconcilliation Current Medication List: was personally reviewed by me Blood Pressure Screening Patient's blood pressure: Elevated blood pressure Referred to hospitalist. Consults Time Called: 1416 Consulting Physician: IRAM Borrego hospitalist service Returned Call: [phone] Discussed the patient's case. The patient will be evaluated for further treatment and disposition. Impression Primary Impression: Dysarthria Scribe Attestation The scribe's documentation has been prepared under my direction and personally reviewed by me in its entirety. I confirm that the note above accurately reflects all work, treatment, procedures, and medical decision making performed by me. Departure Information Dispostion Being Evaluated By Hospitalist Referrals García Melo M.D. (PCP) Patient Instructions My [facility]
[2017-08-04] MEDS ORDERED: POLYETHYLENE (MIRALAX) 17 GM PACK PO PRN (16:00)
[2017-08-04] MEDS ORDERED: PHARMACY GLYCEMIC MGMT CONSULT PRN (16:06)
--- NOTE | 2017-08-04 16:29 | DIAGNOSTIC IMAGING REPORT ---
MR ANGIOGRAM OF THE BRAIN CLINICAL HISTORY: Slurred speech. Difficulty swallowing. COMPARISON STUDY: MRI of the brain performed concurrently on 08/04/2017. TECHNIQUE: 3-D [id number] MR angiography of the intracranial circulation is performed. 3-D tumble views are created and assessed. IV contrast was not administered for this examination. FINDINGS: The right A1 segment is atretic. The right anterior cerebral artery is supplied via the anterior communicating artery. The internal carotid arteries at the skull base are widely patent bilaterally, as are the anterior and middle cerebral arteries. The vertebral arteries and the basilar artery are patent. The right vertebral artery is dominant. The left posterior cerebral artery is widely patent. The right posterior cerebral artery is not clearly seen. There is no aneurysm identified. IMPRESSION: 1. The right posterior cerebral artery flow void is not clearly identified. This may be due to diminutive vessel caliber; however, occlusion of the vessel is not excluded. There is no large right posterior cerebral artery territory infarct identified on the concurrently performed MRI. 2. Otherwise unremarkable MR angiogram of the brain noting an atretic right A1 segment. Electronically signed by: Jamaal Cordova M.D. 08/04/2017 4:28 PM Dictated Date/Time: 08/04/2017 4:20 PM
--- NOTE | 2017-08-04 16:42 | DIAGNOSTIC IMAGING REPORT ---
BRAIN WITHOUT CONTRAST CLINICAL HISTORY: 82 years-old Male presenting with dysarthria, high blood sugar, difficulty swallowing, no history of cancer. TECHNIQUE: Multisequence, multiplanar MR imaging of the brain was performed without the use of intravenous contrast. IV contrast: None. COMPARISON: MRA head performed earlier the same day. CT head performed earlier the same day. FINDINGS: Proportional ventricular and sulcal prominence, likely age-related parenchymal volume loss. Periventricular and subcortical white matter T2/FLAIR hyperintensity, nonspecific but likely indicative of chronic small vessel ischemic change. Possible old lacunar infarct in the right cerebellum. No mass effect or midline shift. Several small foci of restricted diffusion noted in the right frontal lobe and periventricular white matter. No extra-axial fluid collection. T2 skull base flow voids preserved. Degenerative changes of the atlantoaxial articulation with prominent pannus formation. Bone marrow signal intensity within the calvarium within normal limits. The lovelock lenses of the globes are absent bilaterally. IMPRESSION: Findings consistent with acute embolic infarcts with multifocal diminutive foci of ischemia in the right frontal lobe and periventricular white matter. Electronically signed by: Luis Alberto Montano M.D. 08/04/2017 4:41 PM Dictated Date/Time: 08/04/2017 4:37 PM
[2017-08-04] MEDS ORDERED: ATORVASTATIN 40 MG TAB PO SCH (17:00)
[2017-08-04 17:31] LABS: INR 1.1 (0.9-1.1); PARTIAL THROMBOPLASTIN RATIO 1.1; PROTHROMBIN TIME (PATIENT) 11.8 SECONDS (9.0-12.0)
[2017-08-04] MEDS: DIGOXIN 0.125 MG TAB PO SCH (18:00)
--- NOTE | 2017-08-04 18:09 | DIAGNOSTIC IMAGING REPORT ---
ULTRASOUND OF THE CAROTID ARTERIES CLINICAL HISTORY: Stroke. COMPARISON STUDY: Carotid artery ultrasound dated 12/04/2014. TECHNIQUE: Real-time, grayscale, and color Doppler sonography of the carotid arteries is performed. Images are reviewed in the transverse and longitudinal planes. FINDINGS: Blood pressure in the right arm measures 143/73 and blood pressure in the left arm measures 131/65. The carotid arteries are patent bilaterally and demonstrate antegrade flow. There is advanced echogenic atherosclerotic plaque seen bilaterally, right significantly greater than left. Normal doppler arterial waveforms are seen throughout. Velocity measurements are listed below. Common carotid peak systolic velocity (cm/sec): RIGHT: 69 LEFT: 83 ICA proximal peak systolic velocity (cm/sec): RIGHT: 152 LEFT: 118 ICA mid peak systolic velocity (cm/sec): RIGHT: 214 LEFT: 121 ICA distal peak systolic velocity (cm/sec): RIGHT: 173 LEFT: 97 ICA/CC peak systolic ratio: RIGHT: 3.1 LEFT: 1.5 Antegrade flow was shown in the vertebral arteries. The external carotid arteries are patent. IMPRESSION: 1. 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 This is similar to the 12/04/2014 examination. 2. There is no sonographic evidence of hemodynamically significant stenosis in the left carotid arterial system. 3. Antegrade flow is shown in the vertebral arteries. Electronically signed by: Jamaal Cordova M.D. 08/04/2017 6:08 PM Dictated Date/Time: 08/04/2017 6:05 PM
[2017-08-04 18:10] VITALS: BP 156/80; PULSE 53; TEMP 36.7; O2SAT 95; BMI 28.4
[2017-08-04] MEDS ORDERED: HEPARIN IV LOW DOSE NO BOLUS SCH (18:20)
--- NOTE | 2017-08-04 18:35 | Pharmacy Progress Note ---
Glycemic Control Intl Consult Date of Service Aug 04, 2017. Scope Glycemic Pharmacist consulted by Nati Shepherd on 08/04 for glycemic control and to write orders per [facility] inpatient glycemic control protocol Objective Weight (Kilograms): 102.000 Accuchecks BSG (last 24hrs): Test 08/04/17 12:10 Random Glucose 276 mg/dl (70-99) Laboratory Data (last 24hrs) Test 08/04/17 12:10 Anion Gap 10.0 mmol/L BUN/Creatinine Ratio 10.8 Blood Urea Nitrogen 15 mg/dl Creatinine 1.40 mg/dl Potassium Level 2.9 mmol/L Sodium Level 138 mmol/L White Blood Count 6.77 K/uL Red Blood Count 4.74 M/uL Hemoglobin 14.8 g/dL Hematocrit 44.9 % Mean Corpuscular Volume 94.7 fL Mean Corpuscular Hemoglobin 31.2 pg Mean Corpuscular Hemoglobin Concent 33.0 g/dl Platelet Count 185 K/uL Mean Platelet Volume 13.3 fL Neutrophils (%) (Auto) 57.8 % Lymphocytes (%) (Auto) 28.1 % Monocytes (%) (Auto) 7.7 % Eosinophils (%) (Auto) 5.8 % Basophils (%) (Auto) 0.3 % Neutrophils # (Auto) 3.92 K/uL Lymphocytes # (Auto) 1.90 K/uL Monocytes # (Auto) 0.52 K/uL Eosinophils # (Auto) 0.39 K/uL Basophils # (Auto) 0.02 K/uL HbA1c Test 08/04/17 12:10 Recent Pertinent Medications Outpatient Anti-diabetic Regimen: * glipizide 20mg BID * lantus 20 units SQ daily * A1c = pending 08/04 Assessment & Plan ASSESSMENT: * ADA & AACE recommend a goal blood sugar range 140-180 mg/dl for the majority of critically ill & non-critically ill patients. However, more stringent targets may be selected in individual cases. * Patient was on max dose glipizide (20mg BID) as outpatient, which is concerning given renal function. As such, gave patient one time dose of lantus tonight based on 20% reduction of home dose (20 units SQ daily) as other pertinent labs are pending. Novolog dose based on weight-based estimate with moderate stress. PLAN FOR INPATIENT GLYCEMIC CONTROL: * Holding outpatient oral diabetes medications * Basal insulin with LANTUS 16 units SQ once * Correctional Insulin with NOVOLOG per scale ACHS or Q6hrs * Goal Range: Low 140 mg/dL - High 180 mg/dL * Correction Factor: 25 mg/dL/unit * Nutritional / Prandial insulin per carb ratio of 1 unit per 8 grams CHO consumed * Please note that the plan above was derived based on current level of insulin resistance and hospital stress. These recommendations are appropriate for inpatient admission only. Plan of care upon discharge will need to be reassessed to avoid potential outpatient hypo/hyperglycemia. Thank you.
[2017-08-04] MEDS ORDERED: INSULIN GLARGINE SOLOSTAR 100 UNITS/ML 3 ML PEN SC ONE (20:00)
[2017-08-04 20:28] VITALS: BP 132/69; PULSE 50; TEMP 37; O2SAT 95
[2017-08-04] MEDS ORDERED: HEPARIN 25,000 UNIT/500ML D5W 500 ML IV PRN (20:30)
[2017-08-04] MEDS: ATORVASTATIN 40 MG TAB PO SCH (20:33)
[2017-08-04] MEDS: RANITIDINE HCL 150 MG TAB PO SCH (20:38)
--- NOTE | 2017-08-04 20:39 | History and Physical ---
History & Physical Date & Time of Service: Aug 04, 2017 ~ 15:00 Chief Complaint: Slurred Speech Primary Care Physician: García Melo M.D. History of Present Illness 82 year old male who presents to the ER with slurred speech. Symptoms started 4 days ago and have been persistent. He also notes difficulty swallowing at times. Over the past week he notes large fluctuations in his blood sugars ranging from 100 to 400 at times. He was self adjusting his Lantus. Patient denies any headache. He feels as though his vision has been worsening over the past couple of months. He has chronic dizziness at times which is unchanged. No lightheadedness or syncopal events. He denies any unilateral weakness, numbness or tingling. He reports chronic intermittent chest pain for the past several years which has been unchanged as well. He denies any recent nitroglycerin use. No shortness of breath. He denies abdominal pain, nausea, vomiting, or diarrhea. No fever or chills. He denies urinary symptoms. In the ED, head CT was negative but brain MRI shows acute embolic infarcts with multifocal diminutive foci of ischemia in the right frontal lobe and periventricular white matter. Noted that patient took full dose ASA at home today. Past Medical/Surgical History Medical Problems: (1) Atrial fibrillation Status: Chronic (2) CAD (coronary artery disease) Permanent Comment: ID ~ [id number], s/p 2 stents @ [facility] [place] - details unknown Status: Chronic (3) DM type 2 (diabetes mellitus, type 2) Status: Chronic (4) Dyslipidemia Status: Chronic (5) Hip fracture, right Permanent Comment: s/p OIRF and subsequent revision Status: Chronic (6) HTN (hypertension) Status: Chronic (7) TIA (transient ischemic attack) Status: Chronic Family History non contributory due to patient's advanced age Social History Smoking Status: Former Smoker Alcohol Use: none Multi-Drug Resistant Organisms History of MDRO: No Allergies Coded Allergies: Felodipine (Verified Allergy, Unknown, unk, 03/12/17) Furosemide (Unverified Allergy, Unknown, unknown, 03/12/17) Metformin (Verified Allergy, Unknown, unk, 03/12/17) Simvastatin (Verified Allergy, Unknown, unk, 03/12/17) Sulfa Antibiotics (Verified Allergy, Unknown, ., 03/12/17) Sulfamethoxazole w/Trimethoprim (Unverified Allergy, Unknown, unknown, ) Home Medications Scheduled Acetaminophen/Diphenhydramine (Tylenol Pm), 1 TAB PO HS Aspirin (Aspirin Ec), 325 MG PO DAILY Bumetanide (Bumex), 4 MG PO DAILY Cholecalciferol (Vitamin D3), 1,000 UNITS PO DAILY Digoxin (Digoxin), 0.125 MG PO QD@1800 Diltiazem Hcl Extended Release (Tiazac 240 Mg), 240 MG PO DAILY Emollient (Aquaphor), 1 APPLN TOP BID Glipizide (Glucotrol), 20 MG PO BID Insulin Glargine (Lantus Solostar), 20 UNITS SC DAILY Melatonin (Kp Melatonin), 1 TAB PO HS Metoprolol Tartrate (Metoprolol Tartrate), 50 MG PO BID Potassium Chloride (K-Tabs), 20 MEQ PO DAILY Ranitidine (Zantac), 300 MG PO HS Selenium Sulfide (Selsun Blue), UD Triamcinolone Acetonide (Topic (Triamcinolone Acetonide), 1 APPLN TOP BID Scheduled PRN Docusate Sodium (Colace), 200 MG PO BID PRN for Constipation Polyethylene Glycol 3350 (Bulk (Polyethylene Glycol 3350), 17 GM PO BID PRN for Constipation Sennosides (Senokot), 8.6 MG PO DAILY PRN for Constipation Review of Systems ROS per HPI, all other systems reviewed and negative Physical Exam Vital Signs Date Time Temp Pulse Resp B/P (MAP) Pulse Ox O2 Delivery O2 Flow Rate FiO2 08/04/17 18:10 36.7 53 18 156/80 95 Room Air 08/04/17 18:00 50 08/04/17 16:50 53 18 136/89 93 Room Air 08/04/17 14:17 71 18 149/69 97 Room Air 08/04/17 14:15 69 18 145/69 94 Room Air 08/04/17 12:12 96 Room Air 08/04/17 12:12 36.6 72 18 161/87 96 Room Air 08/04/17 12:09 65 General Appearance: no apparent distress Head: normocephalic Eyes: normal inspection, sclerae normal ENT: hearing grossly normal Neck: supple, no JVD, no carotid bruits Respiratory/Chest: lungs clear, normal breath sounds, no respiratory distress Cardiovascular: no edema, normal peripheral pulses, + irregularly irregular ( rate controlled) Abdomen/GI: normal bowel sounds, non tender, soft Extremities/Musculoskelatal: normal inspection, no calf tenderness Neurologic/Psych: alert, oriented x 3, + pertinent finding (slurred speech noted but speech is understandable; mild difficulty with fine motor movement and finger to nose with the left hand; no other focal deficits noted) Skin: normal color, warm/dry Diagnostics Laboratory Results Results Past 24 Hours Test 08/04/17 12:10 08/04/17 12:20 08/04/17 12:50 08/04/17 18:46 Range/Units White Blood Count 6.77 4.8-10.8 K/uL Red Blood Count 4.74 4.7-6.1 M/uL Hemoglobin 14.8 14.0-18.0 g/dL Hematocrit 44.9 42-52 % Mean Corpuscular Volume 94.7 80-100 fL Mean Corpuscular Hemoglobin 31.2 25-34 pg Mean Corpuscular Hemoglobin Concent 33.0 32-36 g/dl Platelet Count 185 130-400 K/uL Mean Platelet Volume 13.3 7.4-10.4 fL Neutrophils (%) (Auto) 57.8 % Lymphocytes (%) (Auto) 28.1 % Monocytes (%) (Auto) 7.7 % Eosinophils (%) (Auto) 5.8 % Basophils (%) (Auto) 0.3 % Neutrophils # (Auto) 3.92 1.4-6.5 K/uL Lymphocytes # (Auto) 1.90 1.2-3.4 K/uL Monocytes # (Auto) 0.52 0.11-0.59 K/uL Eosinophils # (Auto) 0.39 0-0.5 K/uL Basophils # (Auto) 0.02 0-0.2 K/uL RDW Standard Deviation 48.4 36.4-46.3 fL RDW Coefficient of Variation 13.9 11.5-14.5 % Immature Granulocyte % (Auto) 0.3 % Immature Granulocyte # (Auto) 0.02 0.00-0.02 K/uL Sodium Level 138 136-145 mmol/L Potassium Level 2.9 3.5-5.1 mmol/L Chloride Level 99 98-107 mmol/L Carbon Dioxide Level 29 21-32 mmol/L Anion Gap 10.0 3-11 mmol/L Blood Urea Nitrogen 15 7-18 mg/dl Creatinine 1.40 0.60-1.40 mg/dl Est Creatinine Clear Calc Drug Dose 52.8 ml/min Estimated GFR () 54.6 Estimated GFR (Non- 47.1 BUN/Creatinine Ratio 10.8 10-20 Random Glucose 276 70-99 mg/dl Calcium Level 9.2 8.5-10.1 mg/dl Magnesium Level 1.9 1.8-2.4 mg/dl Troponin I 0.024 0-0.045 ng/ml Pro-B-Type Natriuretic Peptide 2946 0-1800 pg/ml Digoxin Level 0.5 0.8-2.0 ng/ml Prothrombin Time 11.8 9.0-12.0 SECONDS Prothromb Time International Ratio 1.1 0.9-1.1 Activated Partial Thromboplast Time 27.4 21.0-31.0 SECONDS Partial Thromboplastin Ratio 1.1 Urine Color YELLOW Urine Appearance CLOUDY CLEAR Urine pH 7.5 4.5-7.5 Urine Specific [place] 1.012 1.000-1.030 Urine Protein NEG NEG Urine Glucose (UA) 1+ NEG Urine Ketones NEG NEG Urine Occult Blood NEG NEG Urine Nitrite NEG NEG Urine Bilirubin NEG NEG Urine Urobilinogen NEG NEG Urine Leukocyte Esterase NEG NEG Urine WBC (Auto) 1-5 0-5 /hpf Urine RBC (Auto) 5-10 0-4 /hpf Urine Hyaline Casts (Auto) 1-5 0-5 /lpf Urine Epithelial Cells (Auto) 0-5 0-5 /lpf Urine Bacteria (Auto) NEG NEG Urine Crystals NONE PRSENT Bedside Glucose 178 70-99 mg/dl Diagnostic Radiology Head CT Impression: Chronic and age-related change. No acute process. CXR IMPRESSION: Negative chest. BRAIN MRI IMPRESSION: Findings consistent with acute embolic infarcts with multifocal diminutive foci of ischemia in the right frontal lobe and periventricular white matter. HEAD MRA IMPRESSION: 1. The right posterior cerebral artery flow void is not clearly identified. This may be due to diminutive vessel caliber; however, occlusion of the vessel is not excluded. There is no large right posterior cerebral artery territory infarct identified on the concurrently performed MRI. 2. Otherwise unremarkable MR angiogram of the brain noting an atretic right A1 segment CAROTID US IMPRESSION: 1. 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 This is similar to the 12/04/2014 examination. 2. There is no sonographic evidence of hemodynamically significant stenosis in the left carotid arterial system. 3. Antegrade flow is shown in the vertebral arteries. Impression Assessment and Plan ACUTE RIGHT FRONTAL EMBOLIC INFARCTS - admit to tele - patient presenting with slurred speech and difficulty swallowing x 4 days; MRI obtained in the ED showing acute right frontal embolic infarcts - likely cardioembolic source since patient has history of afib and is not anticoagulated - patient reports he was taken off Coumadin a couple of years ago due to rash development - case discussed with Dr. Helton and Dr. Zapata - will start low dose IV heparin for now with consideration of transition to NOAC - noted carotid US with 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 which is unchanged from 11/2014 - will reduce ASA to 81mg daily due to initiation of heparin; start high intensity statin - check echo - neuro checks, swallow eval, PT/OT, speech therapy ATRIAL FIBRILLATION - rate controlled on digoxin, diltiazem, and metoprolol - anticoagulation as above CAD - appears stable - continue ASA and beta katherine DIASTOLIC DYSFUNCTION - appears euvolemic - continue home Bumex DM - continue Lantus and add on SSI - check hgb a1c DVT PROPHYLAXIS - on Heparin gtt CODE STATUS - Patient is a full code as per my discussion with him. DISPO - In my clinical judgment this beneficiary meets acute admission criteria, established by [facility], that includes being hospitalized through two midnights. ADDENDUM: I have seen and examined the patient and have discussed the case with the provider above. I agree with the assessment and plan as stated. DO Dhiraj Level of Care Telemetry Advanced Directives Existing Living Will: Yes Existing Power of Sales Order Coordinator: Yes Resuscitation Status FULL RESUSCITATION VTE Prophylaxis VTE Risk Assessment Done? Y/N: Yes Risk Level: Moderate Given or contraindicated: Other Anticoagulation
[2017-08-04] MEDS: INSULIN ASPART 100 UNITS/ML 3 ML PEN SC SCH (20:40)
[2017-08-04] MEDS: METOPROLOL TARTRATE 50 MG TAB PO SCH (20:52)
[2017-08-04] MEDS: GABAPENTIN 100 MG CAP PO SCH (21:24)
[2017-08-05] VITALS (9 sets, daily range): BP systolic 126–177; BP diastolic 64–94; PULSE 52–79; TEMP 36.5–36.7; O2SAT 94–97; BMI 29.7
[2017-08-05 02:46] LABS: PARTIAL THROMBOPLASTIN RATIO 1.4
[2017-08-05] MEDS ORDERED: HEPARIN IV BOLUS 4,500 UNIT in SYRINGE 0 ML IV STA (03:12)
[2017-08-05 06:25] LABS: ESTIMATED AVERAGE GLUCOSE 252 mg/dl; HA1C FLAG Normal (Normal)
[2017-08-05 06:38] LABS: BASO % 0.2 %; BASO ABS # 0.01 K/uL (0-0.2); COMPLETE YES; HEMATOCRIT 39.1 % (42-52); IG% 0.3 %; LYMPH % 36.5 %; LYMPH ABS # 2.13 K/uL (1.2-3.4); MEAN CELL VOLUME 94.9 fL (80-100); MEAN CORPUSCULAR HEMOGLOBIN 32.5 pg (25-34); MEAN CORPUSCULAR HGB CONC 34.3 g/dl (32-36); MEAN PLATELET VOLUME 12.1 fL (7.4-10.4); MONO % 9.1 %; NEUT % 47.9 %; PLATELET COUNT 147 K/uL (130-400); RED BLOOD COUNT 4.12 M/uL (4.7-6.1); WHITE BLOOD COUNT 5.83 K/uL (4.8-10.8)
[2017-08-05 07:09] LABS: BUN/CREATININE RATIO 10.6 (10-20); CALCIUM 8.4 mg/dl (8.5-10.1); CREATININE 1.3 mg/dl (0.60-1.40); POTASSIUM 2.7 mmol/L (3.5-5.1)
[2017-08-05 07:11] LABS: CHOLESTEROL/HDL RATIO 3.7
[2017-08-05] MEDS: GABAPENTIN 100 MG CAP PO SCH ×2 (08:15→20:25)
[2017-08-05] MEDS: INSULIN ASPART 100 UNITS/ML 3 ML PEN SC SCH ×4 (08:15→20:40)
[2017-08-05] MEDS: CHOLECALCIFEROL 1000 INTER.UNIT TAB PO SCH (08:16)
[2017-08-05] MEDS: BUMETANIDE 1 MG TAB PO SCH (08:16)
[2017-08-05] MEDS: DILTIAZEM HCL 120 MG EXT REL CAP PO SCH (08:17)
[2017-08-05] MEDS: POTASSIUM CHLORIDE 20 MEQ TABCR PO SCH (08:18)
[2017-08-05] MEDS: METOPROLOL TARTRATE 50 MG TAB PO SCH ×2 (08:18→20:25)
[2017-08-05] MEDS: ASPIRIN 81 MG ECTAB PO SCH (08:19)
[2017-08-05] MEDS ORDERED: POTASSIUM CHLORIDE 20 MEQ TABCR PO ONE (09:00)
[2017-08-05] MEDS ORDERED: ASPIRIN 325 MG ECTAB PO SCH (09:00)
--- NOTE | 2017-08-05 09:31 | Progress Note ---
Medicine Progress Note Date & Time of Visit: Aug 05, 2017 at 09:24. Subjective patient seen resting in bedside chair, alert, oriented x 3, not in distress states slurred speech seems to be better today hand and feet paresthesias also seem to be improving has very mild left side weakness no bleeding otherwise denies other symptoms Objective Last 8 Hrs Date Time Temp Pulse Resp B/P (MAP) Pulse Ox O2 Delivery O2 Flow Rate FiO2 08/05/17 07:07 36.6 79 18 177/94 (121) 94 Room Air 08/05/17 04:00 Room Air 08/05/17 04:00 36.7 72 18 134/68 (90) 96 Room Air Physical Exam: General- oriented x 3, not in distress, speaks in sentences with no effort Head- atraumatic Eyes- PERRL, EOMI, anicteric ENT- oropharynx clear Neck- supple, no JVD, no adenopathy Lungs- clear breath sounds bilaterally, no rales/wheezes Heart- regular rhythm; no murmur, normal rate Abdomen- normal bowel sounds, soft, nontender Extremities- no pretibial edema, no calf tenderness Neuro- alert, oriented x 3; PERRL, EOMI; no facial palsy; (+) mild dysarthria; motor 5/5 bilaterally; sensation 100% Skin- warm & dry Laboratory Results: Last 24 Hours Test 08/04/17 12:10 08/04/17 12:20 08/04/17 12:50 08/04/17 18:46 White Blood Count 6.77 K/uL Red Blood Count 4.74 M/uL Hemoglobin 14.8 g/dL Hematocrit 44.9 % Mean Corpuscular Volume 94.7 fL Mean Corpuscular Hemoglobin 31.2 pg Mean Corpuscular Hemoglobin Concent 33.0 g/dl Platelet Count 185 K/uL Mean Platelet Volume 13.3 fL Neutrophils (%) (Auto) 57.8 % Lymphocytes (%) (Auto) 28.1 % Monocytes (%) (Auto) 7.7 % Eosinophils (%) (Auto) 5.8 % Basophils (%) (Auto) 0.3 % Neutrophils # (Auto) 3.92 K/uL Lymphocytes # (Auto) 1.90 K/uL Monocytes # (Auto) 0.52 K/uL Eosinophils # (Auto) 0.39 K/uL Basophils # (Auto) 0.02 K/uL RDW Standard Deviation 48.4 fL RDW Coefficient of Variation 13.9 % Immature Granulocyte % (Auto) 0.3 % Immature Granulocyte # (Auto) 0.02 K/uL Sodium Level 138 mmol/L Potassium Level 2.9 mmol/L Chloride Level 99 mmol/L Carbon Dioxide Level 29 mmol/L Anion Gap 10.0 mmol/L Blood Urea Nitrogen 15 mg/dl Creatinine 1.40 mg/dl Est Creatinine Clear Calc Drug Dose 52.8 ml/min Estimated GFR () 54.6 Estimated GFR (Non- 47.1 BUN/Creatinine Ratio 10.8 Random Glucose 276 mg/dl Estimated Average Glucose 252 mg/dl Hemoglobin A1c 10.4 % Calcium Level 9.2 mg/dl Magnesium Level 1.9 mg/dl Troponin I 0.024 ng/ml Pro-B-Type Natriuretic Peptide 2946 pg/ml Digoxin Level 0.5 ng/ml Prothrombin Time 11.8 SECONDS Prothromb Time International Ratio 1.1 Activated Partial Thromboplast Time 27.4 SECONDS Partial Thromboplastin Ratio 1.1 Urine Color YELLOW Urine Appearance CLOUDY Urine pH 7.5 Urine Specific [place] 1.012 Urine Protein NEG Urine Glucose (UA) 1+ Urine Ketones NEG Urine Occult Blood NEG Urine Nitrite NEG Urine Bilirubin NEG Urine Urobilinogen NEG Urine Leukocyte Esterase NEG Urine WBC (Auto) 1-5 /hpf Urine RBC (Auto) 5-10 /hpf Urine Hyaline Casts (Auto) 1-5 /lpf Urine Epithelial Cells (Auto) 0-5 /lpf Urine Bacteria (Auto) NEG Urine Crystals Bedside Glucose 178 mg/dl Test 08/04/17 20:26 08/05/17 02:27 08/05/17 04:44 08/05/17 06:24 Bedside Glucose 220 mg/dl Activated Partial Thromboplast Time 36.3 SECONDS Partial Thromboplastin Ratio 1.4 White Blood Count 5.83 K/uL Red Blood Count 4.12 M/uL Hemoglobin 13.4 g/dL Hematocrit 39.1 % Mean Corpuscular Volume 94.9 fL Mean Corpuscular Hemoglobin 32.5 pg Mean Corpuscular Hemoglobin Concent 34.3 g/dl Platelet Count 147 K/uL Mean Platelet Volume 12.1 fL Neutrophils (%) (Auto) 47.9 % Lymphocytes (%) (Auto) 36.5 % Monocytes (%) (Auto) 9.1 % Eosinophils (%) (Auto) 6.0 % Basophils (%) (Auto) 0.2 % Neutrophils # (Auto) 2.79 K/uL Lymphocytes # (Auto) 2.13 K/uL Monocytes # (Auto) 0.53 K/uL Eosinophils # (Auto) 0.35 K/uL Basophils # (Auto) 0.01 K/uL RDW Standard Deviation 48.7 fL RDW Coefficient of Variation 14.2 % Immature Granulocyte % (Auto) 0.3 % Immature Granulocyte # (Auto) 0.02 K/uL Sodium Level 141 mmol/L Potassium Level 2.7 mmol/L Chloride Level 104 mmol/L Carbon Dioxide Level 30 mmol/L Anion Gap 7.0 mmol/L Blood Urea Nitrogen 14 mg/dl Creatinine 1.30 mg/dl Est Creatinine Clear Calc Drug Dose 56.9 ml/min Estimated GFR () 59.7 Estimated GFR (Non- 51.5 BUN/Creatinine Ratio 10.6 Random Glucose 115 mg/dl Calcium Level 8.4 mg/dl Triglycerides Level 124 mg/dl Cholesterol Level 118 mg/dl HDL Cholesterol 32 mg/dl LDL Cholesterol, Calculated 61 mg/dl VLDL Cholesterol, Calculated 25 mg/dl Cholesterol/HDL Ratio 3.7 Test 08/05/17 06:36 08/05/17 09:17 Bedside Glucose 107 mg/dl Assessment & Plan ACUTE RIGHT FRONTAL EMBOLIC INFARCTS - patient presenting with slurred speech and difficulty swallowing x 4 days; MRI obtained in the ED showing acute right frontal embolic infarcts - noted carotid US with 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 which is unchanged from 11/2014 - likely cardioembolic source since patient has history of afib and is not anticoagulated - patient reports he was taken off Coumadin a couple of years ago due to rash development - echo: pending - Heparin IV started, will likely need to be transitioned to NOAC Lipitor 80mg po daily started Aspirin reduced to 81mg po -- BP ok -- Neuro and Cardio consulted -- PT/OT/Speech Tx consulted will need Rehab placement ATRIAL FIBRILLATION - rate controlled on digoxin, diltiazem, and metoprolol - anticoagulation as above CAD - appears stable - continue ASA and beta katherine DIASTOLIC DYSFUNCTION - appears euvolemic - continue home Bumex HYPOKALEMIA - from diuretics - additional K ordered check Mg DM - continue Lantus and add on SSI - A1c 10.4 DVT PROPHYLAXIS - on Heparin gtt CODE STATUS - Patient is a full code as per my discussion with him. DISPO will need Rehab/SNF Current Inpatient Medications: Current Inpatient Medications Medications (Trade) Dose Ordered Sig/Sandra Route Start Time Stop Time Status Last Admin Dose Admin Acetaminophen (Tylenol Tab) 650 mg Q4H PRN PO 08/04/17 15:30 09/03/17 15:29 Ondansetron HCl (Zofran Inj) 4 mg Q6H PRN IV 08/04/17 15:30 09/03/17 15:29 Miscellaneous Information (Pharmacist Discharge Med Rec Consult) 1 ea UD PRN N/A 08/04/17 15:45 09/03/17 15:44 Insulin Aspart (novoLOG ASPART) SLIDING SCALE If C... ACHS SC 08/04/17 18:30 09/03/17 18:29 08/05/17 08:15 2 UNITS Glucose (Glucose 40% Gel) 15-30 GRAMS 15 GRAMS... UD PRN PO 08/04/17 15:45 09/03/17 15:44 Glucose (Glucose Chew Tab) 4-8 Tablets 4 Tabl... UD PRN PO 08/04/17 15:45 09/03/17 15:44 Dextrose (Dextrose 50% 50ML Syringe) 25-50ML OF 50% DW IV FOR... UD PRN IV 08/04/17 15:45 09/03/17 15:44 Glucagon (Glucagon Inj) 1 mg UD PRN SQ 08/04/17 15:45 09/03/17 15:44 Miscellaneous Information (Consult Glycemic Management Pharmacy) 1 ea UD PRN N/A 08/04/17 16:06 09/03/17 16:05 Bumetanide (Bumex Tab) 4 mg DAILY PO 08/05/17 09:00 09/04/17 08:59 08/05/17 08:16 4 MG Cholecalciferol (Vitamin D Tab) 1,000 inter.unit DAILY PO 08/05/17 09:00 09/04/17 08:59 08/05/17 08:16 1,000 INTER.UNIT Digoxin (Lanoxin Tab) 0.125 mg QD@1800 PO 08/04/17 18:00 09/03/17 17:59 Diltiazem HCl (TIAzac CAP) 240 mg DAILY PO 08/05/17 09:00 09/04/17 08:59 08/05/17 08:17 240 MG Docusate Sodium (coLACE CAP) 200 mg BID PRN PO 08/04/17 15:45 09/03/17 15:44 Metoprolol Tartrate (Lopressor Tab) 50 mg BID PO 08/04/17 21:00 09/03/17 20:59 08/05/17 08:18 50 MG Senna (Senokot Tab) 8.6 mg DAILY PRN PO 08/04/17 15:45 09/03/17 15:44 Polyethylene (Miralax Powder Packet) 17 gm BID PRN PO 08/04/17 16:00 09/03/17 15:59 Potassium Chloride (Klor-Con Tab) 20 meq DAILY PO 08/05/17 09:00 09/04/17 08:59 08/05/17 08:18 20 MEQ Ranitidine HCl (zANTac TAB) 300 mg HS PO 08/04/17 21:00 09/03/17 20:59 08/04/17 20:38 300 MG Aspirin (Ecotrin Tab) 81 mg QAM PO 08/05/17 09:00 09/04/17 08:59 08/05/17 08:19 81 MG Atorvastatin Calcium (Lipitor Tab) 80 mg DAILY@2000 PO 08/04/17 20:00 09/03/17 19:59 08/04/17 20:33 80 MG Heparin Sodium/ Dextrose 500 ml @ 24 mls/hr [id number] PRN IV 08/04/17 20:30 09/03/17 20:29 08/04/17 20:30 20 MLS/HR Gabapentin (Neurontin Cap) 100 mg BID PO 08/04/17 21:00 09/03/17 20:59 08/05/17 08:15 100 MG
[2017-08-05 09:56] LABS: PARTIAL THROMBOPLASTIN RATIO 2.2
--- NOTE | 2017-08-05 11:10 | ECHOCARDIOGRAM REPORT ---
*NOTICE TO RECEIVING CONSTITUTION PARTY AGENCY This information is strictly Confidential and protected under [place] law. [place] law prohibits you from making any further disclosure of this information unless further disclosure is expressly permitted by the written consent of the person to whom it pertains or is authorized by law. A general authorization for the release of medical or other information is not sufficient for this purpose. Hospital accepts no responsibility if the information is made available to any other person, INCLUDING THE PATIENT. Interpretation Summary * Name: DEANA SPEAR Study Date: 08/05/2017 07:11 AM BP: 134/68 mmHg * Patient Location: .2T\S\E216\S\1 HR: 89 * : 1935 (M/d/yyyy) Gender: Male Height: 71 in * Age: 82 yrs Ethnicity: [place] Weight: 224 lb * Ordering Physician: Nati Shepherd * Referring Physician: Self, Referred * Performed By: Meryl Cedeno RCS * * Reason For Study: Stroke * BSA: 2.2 m2 * -- Conclusions -- * Atrial fibrillation with controlled ventricualar rate was present during the echocardiogram. * There is mild concentric left ventricular hypertrophy. * The basal septum is thickened and angulated consistent with sigmoid septum. * No regional wall motion abnormalities noted. * Left ventricular systolic function is normal. * The LV Ejection Fraction = 60-65%. * Severe biatrial enlargement is present. * There is mild tricuspid regurgitation. * Doppler findings do not suggest pulmonary hypertension. * Compared to the prior study dated 12/02/14, biatrial enlargement is now present. Procedure Details * A saline contrast injection was performed to assess for cardiac shunting. * The injection was performed through an intravenous line in the left arm. * The attending nurse who injected the saline contrast was ED, RN. * A total of 9 cc of agitated saline was given. * A complete two-dimensional transthoracic echocardiogram was performed (2D, M-mode, Doppler and color flow Doppler). Left Ventricle * The left ventricle is normal in size. * There is mild concentric left ventricular hypertrophy. * The basal septum is thickened and angulated consistent with sigmoid septum. * Ejection Fraction = 60-65%. * Left ventricular systolic function is normal. * The left ventricular wall motion is normal. * No regional wall motion abnormalities noted. Right Ventricle * The right ventricle is normal size. * The right ventricular systolic function is normal as assessed by tricuspid annular plane systolic excursion (TAPSE) (normal >1.5 cm). Atria * The left atrium is severely dilated. * The right atrium is severely dilated. * There is no evidence of atrial septal defect, but resolution does not allow assessment for a patent foramen ovale. Mitral Valve * The mitral valve is normal. * There is no mitral valve stenosis. * Significant mitral regurgitation is absent. Tricuspid Valve * The tricuspid valve is normal. * There is no tricuspid stenosis. * There is mild tricuspid regurgitation. * Doppler findings do not suggest pulmonary hypertension. Aortic Valve * The aortic valve is trileaflet. * Aortic valve sclerosis moderate, without significant aortic valvular stenosis. * Aortic stenosis is absent. * There is no significant aortic regurgitation. Pulmonic Valve * The pulmonary valve is not well seen, but the Doppler examination is normal without significant regurgitation or stenosis. Great Vessels * The aortic root and proximal ascending aorta are normal sized. Pericardium/Pleural * There is no pericardial effusion. Great Vessels * Normal inferior vena cava diameter and respiratory variation suggests normal central venous pressure. * There is no evidence of pulmonary hypertension. The PA systolic pressure is less than 36 mmHg. Left Ventricular Diastolic Function * The LV diastolic function is abnormal based on left atrial enlargement. MMode 2D Measurements and Calculations IVSd 1.3 cm LVIDd 3.4 cm LVIDs 2.2 cm LVPWd 1.3 cm IVS/LVPW 1.0 FS 33.9 % EDV(Teich) 46.3 ml ESV(Teich) 16.7 ml EF(Teich) 64.0 % EDV(cubed) 38.2 ml ESV(cubed) 11.0 ml EF(cubed) 71.1 % LV mass(C)d 138.8 grams LV mass(C)dI 62.7 grams/m\S\2 SV(Teich) 29.6 ml SI(Teich) 13.4 ml/m\S\2 SV(cubed) 27.1 ml SI(cubed) 12.3 ml/m\S\2 Ao root diam 3.7 cm Ao root area 10.5 cm\S\2 LVOT diam 2.1 cm LVOT area 3.6 cm\S\2 LVOT area(traced) 3.5 cm\S\2 LVAd ap4 30.6 cm\S\2 LVLd ap4 8.4 cm EDV(MOD-sp4) 92.4 ml LVAs ap4 16.0 cm\S\2 LVLs ap4 6.8 cm ESV(MOD-sp4) 32.8 ml EF(MOD-sp4) 64.5 % LVAd ap2 24.4 cm\S\2 LVLd ap2 8.0 cm EDV(MOD-sp2) 63.4 ml LVAs ap2 14.3 cm\S\2 LVLs ap2 6.7 cm ESV(MOD-sp2) 27.2 ml EF(MOD-sp2) 57.1 % SV(MOD-sp4) 59.6 ml SI(MOD-sp4) 26.9 ml/m\S\2 SV(MOD-sp2) 36.2 ml SI(MOD-sp2) 16.4 ml/m\S\2 Doppler Measurements and Calculations Ao V2 max 109.8 cm/sec Ao max PG 4.8 mmHg Ao max PG (full) 1.9 mmHg IKER(V,A) 2.8 cm\S\2 IKER(V,D) 2.8 cm\S\2 LV V1 max PG 2.9 mmHg LV V1 max 85.9 cm/sec TR max maggy 240.5 cm/sec
--- NOTE | 2017-08-05 11:48 | Cardiology Consultation ---
Cardiology Consultation Date of Consultation: Aug 05, 2017 History of Present Illness Perla Patino is a 82 year old male seen in cardiology consultation per the request of IRAM Cee for cardiology advice regarding atrial fibrillation, stroke , and anticoagulation advice. 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 The patient presented via the emergency room yesterday with acute onset of slurred speech. He is also known to have hyperglycemia. EKG revealed atrial fibrillation which is chronic for him. He went on to have an MRI performed 08/04 that revealed changes in the right frontal lobe consistent with acute embolic infarcts as well as a second area suggestive of a chronic lacunar infarction. The patient was placed on anticoagulation with heparin, and overnight, he is done well. He just completed a walking trial with physical therapy. He still has some degree of residual slurred speech. The patient lives independently. He has a history of coronary artery disease and apparent to cardiac stents in the past performed in [place] in approximately 2012. He had been seen by Dr. Villafuerte of our practice in March 2015 for chest discomfort and a nuclear stress test performed at [facility] revealed a fixed apical perfusion defect with no ischemia and normal LVEF at that time. The patient had since been seen once in our office on 03/31/15 and preoperative evaluation prior to a right hip revision. At that time, he was noted to have what was felt to be chronic atrial fibrillation. Was recommended that since Coumadin was planned for postoperative DVT prophylaxis, that long-term Coumadin should be continued for stroke prevention. The patient apparently finished a course of Coumadin, but this was subsequently discontinued. He cites that he was not tolerant to the medications with multiple emergency room visits for epistaxis, and bleeding per rectum. History PAST MEDICAL HISTORY: 1. Coronary artery disease status post stents x2. He believes in 2 different arteries in about 2012 in [place]. 2. History of transient ischemic attack. 3. History of diabetes. 4. History of hypertension. 5. Dyslipidemia. 6. chronic atrial fibrillation PAST SURGICAL HISTORY: 1. Cardiac catheterization, 2-3 years ago. 2. History of surgical intervention to the toes, details unknown. 3. Femur fracture/repair 11/2014 revision, FAMILY HISTORY: Noncontributory. SOCIAL HISTORY: The patient is a nonsmoker, denies alcohol use. 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 Review Of Systems See above for pertinent positives & negatives. A total of 10 systems reviewed and were otherwise negative. Allergies Coded Allergies: Felodipine (Verified Allergy, Unknown, unk, 03/12/17) Furosemide (Unverified Allergy, Unknown, unknown, 03/12/17) Metformin (Verified Allergy, Unknown, unk, 03/12/17) Simvastatin (Verified Allergy, Unknown, unk, 03/12/17) Sulfa Antibiotics (Verified Allergy, Unknown, ., 03/12/17) Sulfamethoxazole w/Trimethoprim (Unverified Allergy, Unknown, unknown, ) Medications Reported Home Medications Medications Dose Route/Sig Max Daily Dose Days Date Category Dose Instructions Tylenol Pm (Acetaminophen/Diphenhydramine HCl) 500 Mg/25 Mg Tab 1 Tab PO HS 08/04/17 Reported Kp Melatonin (Melatonin) 3 Mg Tab 1 Tab PO HS 30 08/04/17 Reported Polyethylene Glycol 3350 (Polyethylene Glycol 3350 (Bulk) 1 Pow Pow 17 Gm PO BID PRN 08/04/17 Reported Glucotrol (Glipizide) 10 Mg Tab 20 Mg PO BID 08/04/17 Reported Lantus Solostar (Insulin Glargine) 100 Unit/Ml Inj 20 Units SC DAILY 08/04/17 Reported Vitamin D3 (Cholecalciferol) 1,000 Unit Tab 1,000 Units PO DAILY 03/15/17 Reported Zantac (Ranitidine HCl) 300 Mg Tab 300 Mg PO HS 03/12/17 Reported Bumex (Bumetanide) 2 Mg Tab 4 Mg PO DAILY 03/12/17 Reported Aspirin Ec (Aspirin) 325 Mg Tab 325 Mg PO DAILY 03/12/17 Reported Triamcinolone Acetonide (Triamcinolone Acetonide (Topic) 0.5 % Oin 1 Appln TOP BID 03/12/17 Reported APPLY TO LEGS TWICE DAILY, COVER WITH SARAN WRAP FOR 2 HOURS. Senokot (Sennosides) 8.6 Mg Tab 8.6 Mg PO DAILY PRN 03/12/17 Reported Selsun Blue (Selenium Sulfide) 1 % Sha UD 03/12/17 Reported APPLY SMALL AMOUNT TO SKIN BID, LATHER WITH SMALL AMOUNT OF WATER AND APPLY TO NECK AND CHEST, ALLOW TO SIT ON SKIN 10 MINUTES, THEN RINSE OFF. K-Tabs (Potassium Chloride) 10 Meq Tab 20 Meq PO DAILY 03/12/17 Reported Aquaphor (Emollient) 1 Oin Oin 1 Appln TOP BID 03/12/17 Reported Tiazac 240 Mg (Diltiazem Hcl Extended Release) 240 Mg Cap 240 Mg PO DAILY 03/12/17 Reported Digoxin 0.125 Mg Tab 0.125 Mg PO QD@1800 03/12/17 Reported Metoprolol Tartrate 50 Mg Tab 50 Mg PO BID 03/12/17 Reported Colace (Docusate Sodium) 100 Mg Cap 200 Mg PO BID PRN 06/29/16 Reported Physical Exam Vital Signs (Last 8hrs): Last 8 Hrs Date Time Temp Pulse Resp B/P (MAP) Pulse Ox O2 Delivery O2 Flow Rate FiO2 08/05/17 07:07 36.6 79 18 177/94 (121) 94 Room Air 08/05/17 04:00 Room Air 08/05/17 04:00 36.7 72 18 134/68 (90) 96 Room Air General Appearance: Alert and Oriented x3. NAD. Head: Normocephalic Atraumatic. Eyes: PERRLA, EOMI, conjunctiva and sclera clear Neck: Supple. No carotid bruits noted. No JVD. No HJD. Respiratory: Breath sounds clear to auscultation bilaterally. No w/r/r. Cardiovascular: Irregular rhythm, no murmurs Abdomen: Normal bowel sounds, soft nontender. no abdominal bruits. Extremities: Trace ankle edema, chronic venous stasis changes Neuro: Slurred speech, follows commands, no focal motor deficits Psychiatric: Normal affect. Data Last Resulted 08/05/17 06:24 Red Blood Count 4.12, Mean Corpuscular Volume 94.9, Mean Corpuscular Hemoglobin 32.5, Mean Corpuscular Hemoglobin Concent 34.3, Mean Platelet Volume 12.1, Neutrophils (%) (Auto) 47.9, Lymphocytes (%) (Auto) 36.5, Monocytes (%) (Auto) 9.1, Eosinophils (%) (Auto) 6.0, Basophils (%) (Auto) 0.2, Neutrophils # (Auto) 2.79, Lymphocytes # (Auto) 2.13, Monocytes # (Auto) 0.53, Eosinophils # (Auto) 0.35, Basophils # (Auto) 0.01 Last Resulted 08/05/17 06:24 Past 24 Hours Test 08/04/17 12:10 08/04/17 12:20 Range/Units Troponin I 0.024 0-0.045 ng/ml Prothromb Time International Ratio 1.1 0.9-1.1 Prothrombin Time 11.8 9.0-12.0 SECONDS EKG performed 08/04/70 reviewed independently by the undersigned: Atrial fibrillation at 61 bpm, no significant ST changes. MRI performed 08/04/17, per radiology report reveals right frontal lobe acute embolic infarctions. Carotid duplex: 50-60% right internal carotid artery stenosis No significant left internal carotid artery stenosis Telemetry: Ongoing rate controlled atrial fibrillation Echocardiogram performed today 08/05/70 reviewed independently by the undersigned : Normal biventricular wall motion and systolic function. Mild tricuspid regurgitation. Severe biatrial enlargement Assessment & Plan Impression: 82-year-old male 1. 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 History of coronary artery disease, past coronary stents 3. Normal LVEF 4. Hypokalemia Discussion/recommendations: The patient states she did not tolerate Coumadin in the past. Yesterday there was concern that there and perhaps been a rash. But when I discussed this with the patient, he cites concerns over epistaxis and blood per rectum. I spoke to the patient's primary care provider by telephone, García Brenner MD of the [facility]. He reviewed the patient's chart. He noted that the patient has a history of adjusting his own medications and taking a lot of [id number] supplements instead of taking prescribed medications in the past. I discussed the options of proceeding with a direct oral anticoagulant medication, and the patient stated he was agreeable to this if we could find an affordable solution. Dr. Melo stated that Eliquis could be obtained on the [place] formulary in setting of coumadin intolerance. Although the patient is 82 years old, his creatinine is less than 1.5 milligrams per deciliter, and his weight is over 60 kg, and therefore the appropriate anticoagulation dose in the setting of atrial fibrillation is 5 mg by mouth twice a day. I plan to have his heparin infusion discontinued at 20:00 hours tonight, and then start the first is felt was an hour later at 2100 on 08/05/17. Typically I would should off the heparin and start the Eliquis at the same time , however given the patient's age, and bleeding risk in the setting of a recent stroke, I think it is most prudent to hold the heparin for an hour before starting the other medication which will likely come to full effect within 30 minutes after administration. A repeat potassium level is planned for 2:00 PM as already ordered by the primary team. 45 minutes were spent in direct patient care this patient including reviewing prior records, examining and interviewing the patient, and discussing the case with his primary care provider, Dr Helton of neurology, and pharmacy to coordinate care. Rae Zapata DO
--- NOTE | 2017-08-05 12:33 | Pharmacy Progress Note ---
Glycemic Control Progress Note Date of Service Aug 05, 2017. Scope Glycemic Pharmacist consulted for glycemic control to write orders per [facility] inpatient glycemic control protocol. Objective Accuchecks BSG (last 24hrs): Test 08/04/17 18:46 08/04/17 20:26 08/05/17 06:24 08/05/17 06:36 Bedside Glucose 178 mg/dl (70-99) 220 mg/dl (70-99) 107 mg/dl (70-99) Random Glucose 115 mg/dl (70-99) Test 08/05/17 11:11 Bedside Glucose 222 mg/dl (70-99) HbA1c: Test 08/04/17 12:10 Hemoglobin A1c 10.4 % (4.5-5.6) H Recent Pertinent Medications The patient is currently receiving: * Basal insulin: Lantus 16 units every 24 hours * Correctional Insulin: Novolog Correction per scale ACHS Goal Range: Low 140 mg/dL - High 180 mg/dL Correction Factor: 25 mg/dL/unit * Prandial insulin: Per carb ratio of 1 unit per 8 grams CHO consumed * Oral Agents: on hold Outpatient Anti-Diabetic Meds Oral Agents Basal Insulin Assessment & Plan ASSESSMENT: * See progress note from 08/04/17 for more background info, in short: * Pt receiving SQ basal bolus insulin regimen for hyperglycemia secondary to baseline DM (outpatient regimen on hold) * BSGs ranging 107 - 276 mg/dl over the past 24hrs * Changes needed to insulin regimen: * AM Fasting BSG = 107 mg/dl. This is near goal for patient based on inpatient targets and co-morbidities. Lantus was reduced 20% (from home dose) last evening. We have not seen full effect of this change. Lantus will be ordered per scale tonight (16 or 20 units) in the event that BSGs become elevated. * Post-prandial BSGs are elevated, therefore need to tighten CF/CR. PLAN FOR INPATIENT GLYCEMIC CONTROL: * Oral Agents * Continue to hold outpatient oral diabetes medications. * Basal insulin * Lantus 16-20 units SQ BID * 16 units for BSG less than 180 mg/dL * 20 units for BSG 180 mg/dL or more * Bolus insulin * NovoLog per scale ACHS or Q6hrs while NPO * Goal Range: Low 140 mg/dL - High 180 mg/dL * Correction Factor: 20 mg/dL/unit * Nutritional / Prandial insulin per carb ratio of 1 unit per 7 grams CHO consumed RECOMMENDATIONS FOR DISCHARGE: * Poor outpatient control evidenced by A1c of 10.4% (08/04/17) * Patient is agreeable to adding meal coverage with short acting insulin on discharge (set doses) * Recommend continuing Lantus 20 units SQ daily * will determine Novolog doses when more BSG data is available * Please note that the plan above was derived based on current level of insulin resistance and hospital stress. These recommendations are appropriate for inpatient admission only. Plan of care upon discharge will need to be reassessed to avoid potential outpatient hypo/hyperglycemia. Thank you.
--- NOTE | 2017-08-05 13:06 | Neurology Consultation ---
Neurology Consultation Date of Consultation: Aug 05, 2017. Attending Physician: Wilber Suarez MD Primary Care Physician: García Melo M.D. Reason for Consultation: CVA History of Present Illness Source: patient, hospital records Perla is a 82 year old male with a PMH CAD, IL, TIA, DM, HTN, DL afib, who presents to the ER with slurred speech. Symptoms started 4 days ago and have been persistent. He also notes difficulty swallowing at times. Over the past week he notes large fluctuations in his blood sugars ranging from 100 to 400 at times. He was self adjusting his Lantus. He feels as though his vision has been worsening over the past couple of months. He has chronic dizziness at times which is unchanged. No lightheadedness or syncopal events. He states his chronic intermittent chest pain for the past several years which has been unchanged as well. He denies any recent nitroglycerin use. No shortness of breath. He denies abdominal pain, nausea, vomiting, or diarrhea. No fever or chills. In the ED, head CT was negative but brain MRI shows acute embolic infarcts with multifocal diminutive foci of ischemia in the right frontal lobe and periventricular white matter. Noted that patient took full dose ASA at home. Currently he is lying in bed states his speech is still somewhat effected. Some weakness in his right arm and LE weakness which has persisted since his hip replacement surgery. Past Medical/Surgical History Medical Problems: (1) Encounter for removal of nasal packing Status: Acute (2) Hyperglycemia Status: Acute (3) Hypokalemia Status: Acute Social History Alcohol Use: none Housing Status: other Allergies Coded Allergies: Felodipine (Verified Allergy, Unknown, unk, 03/12/17) Furosemide (Unverified Allergy, Unknown, unknown, 03/12/17) Metformin (Verified Allergy, Unknown, unk, 03/12/17) Simvastatin (Verified Allergy, Unknown, unk, 03/12/17) Sulfa Antibiotics (Verified Allergy, Unknown, ., 03/12/17) Sulfamethoxazole w/Trimethoprim (Unverified Allergy, Unknown, unknown, ) Current Inpatient Medications Current Inpatient Medications Medications (Trade) Dose Ordered Sig/Sandra Route Start Time Stop Time Status Last Admin Dose Admin Acetaminophen (Tylenol Tab) 650 mg Q4H PRN PO 08/04/17 15:30 09/03/17 15:29 Ondansetron HCl (Zofran Inj) 4 mg Q6H PRN IV 08/04/17 15:30 09/03/17 15:29 Miscellaneous Information (Pharmacist Discharge Med Rec Consult) 1 ea UD PRN N/A 08/04/17 15:45 09/03/17 15:44 Insulin Aspart (novoLOG ASPART) SLIDING SCALE If C... ACHS SC 08/04/17 18:30 09/03/17 18:29 08/05/17 11:44 5 UNITS Glucose (Glucose 40% Gel) 15-30 GRAMS 15 GRAMS... UD PRN PO 08/04/17 15:45 09/03/17 15:44 Glucose (Glucose Chew Tab) 4-8 Tablets 4 Tabl... UD PRN PO 08/04/17 15:45 09/03/17 15:44 Dextrose (Dextrose 50% 50ML Syringe) 25-50ML OF 50% DW IV FOR... UD PRN IV 08/04/17 15:45 09/03/17 15:44 Glucagon (Glucagon Inj) 1 mg UD PRN SQ 08/04/17 15:45 09/03/17 15:44 Miscellaneous Information (Consult Glycemic Management Pharmacy) 1 UD PRN N/A 08/04/17 16:06 09/03/17 16:05 Bumetanide (Bumex Tab) 4 mg DAILY PO 08/05/17 09:00 09/04/17 08:59 08/05/17 08:16 4 MG Cholecalciferol (Vitamin D Tab) 1,000 inter.unit DAILY PO 08/05/17 09:00 09/04/17 08:59 08/05/17 08:16 1,000 INTER.UNIT Digoxin (Lanoxin Tab) 0.125 mg QD@1800 PO 08/04/17 18:00 09/03/17 17:59 Diltiazem HCl (TIAzac CAP) 240 mg DAILY PO 08/05/17 09:00 09/04/17 08:59 08/05/17 08:17 240 MG Docusate Sodium (coLACE CAP) 200 mg BID PRN PO 08/04/17 15:45 09/03/17 15:44 Metoprolol Tartrate (Lopressor Tab) 50 mg BID PO 08/04/17 21:00 09/03/17 20:59 08/05/17 08:18 50 MG Senna (Senokot Tab) 8.6 mg DAILY PRN PO 08/04/17 15:45 09/03/17 15:44 Polyethylene (Miralax Powder Packet) 17 gm BID PRN PO 08/04/17 16:00 09/03/17 15:59 Potassium Chloride (Klor-Con Tab) 20 meq DAILY PO 08/05/17 09:00 09/04/17 08:59 08/05/17 08:18 20 MEQ Ranitidine HCl (zANTac TAB) 300 mg HS PO 08/04/17 21:00 09/03/17 20:59 08/04/17 20:38 300 MG Aspirin (Ecotrin Tab) 81 mg QAM PO 08/05/17 09:00 09/04/17 08:59 08/05/17 08:19 81 MG Atorvastatin Calcium (Lipitor Tab) 80 mg DAILY@1999 PO 08/04/17 20:00 09/03/17 19:59 08/04/17 20:33 80 MG Heparin Sodium/ Dextrose 500 ml @ 24 mls/hr [id number] PRN IV 08/04/17 20:30 09/03/17 20:29 08/04/17 20:30 20 MLS/HR Gabapentin (Neurontin Cap) 100 mg BID PO 08/04/17 21:00 09/03/17 20:59 08/05/17 08:15 100 MG Apixaban (Eliquis Tab) 5 mg BID PO 08/05/17 21:00 09/04/17 20:59 Miscellaneous (Stop Order) 1 ea TODAY@1999 ONCE N/A 08/05/17 20:00 08/05/17 20:01 Insulin Glargine (Lantus Solostar Pen) SEE PROTOCOL TEXT HS SC 08/05/17 21:00 09/04/17 20:59 Physical Exam Vital Signs (Past 24 Hrs): Date Time Temp Pulse Resp B/P (MAP) Pulse Ox O2 Delivery O2 Flow Rate FiO2 08/05/17 12:00 96 Room Air 08/05/17 11:29 36.5 71 18 155/86 (109) 97 Room Air 08/05/17 08:00 95 Room Air 08/05/17 07:07 36.6 79 18 177/94 (121) 94 Room Air 08/05/17 04:00 Room Air 08/05/17 04:00 36.7 72 18 134/68 (90) 96 Room Air 08/05/17 00:01 Room Air 08/05/17 00:00 36.6 52 20 136/64 (88) 97 Room Air 08/04/17 20:28 37.0 50 18 132/69 (90) 95 Room Air 08/04/17 20:00 Room Air 08/04/17 18:10 36.7 53 18 156/80 95 Room Air 08/04/17 18:00 50 08/04/17 16:50 53 18 136/89 93 Room Air 08/04/17 14:17 71 18 149/69 97 Room Air 08/04/17 14:15 69 18 145/69 94 Room Air Physical Exam: Constitutional:appearance nourished, healthy and normal Ears, Nose, Mouth and Throat: mucous membranes moist, no injection and skin normal, eyes normal Cardiovascular: irregular Respiratory: clear to auscultation (CTA) and no rales, rhonchi or wheeze Musculoskeletal: no peripheral edema and good distal pulses Skin: LE neurocutaneous disease noted Eyes: extraocular muscles intact (EOMI) and pupils equal, round and reactive to light (PERRL) NEUROLOGIC EXAMINATION: Mental status: Alert and interactive, able to say no ifs ands or buts, able to close eye point to ceiling, stick out tongue Oriented to full date and location, [facility], 2017 knowsupa Frost is the president Oriented to person Speech dysarthria Cranial Nerves smile symmetric, eye brow raise symmetric, tongue midline Reflexes: Deep tendon reflexes were symmetrical and graded 2/5. Plantar decreased Sensory: decreased sensation to light touch left GT proprioception absent, right intact, vibration diminished bilaterally Coordination: finger to nose without bi pass Gait/Stance: Posture laying in bed Motor: Negative for pronator drift of out stretched arms with eyes closed. 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, hip flex 4/5 bilaterally plantar flex ext 5/5 Laboratory Results Past 24 Hours: 08/05/17 06:24 Red Blood Count 4.12, Mean Corpuscular Volume 94.9, Mean Corpuscular Hemoglobin 32.5, Mean Corpuscular Hemoglobin Concent 34.3, Mean Platelet Volume 12.1, Neutrophils (%) (Auto) 47.9, Lymphocytes (%) (Auto) 36.5, Monocytes (%) (Auto) 9.1, Eosinophils (%) (Auto) 6.0, Basophils (%) (Auto) 0.2, Neutrophils # (Auto) 2.79, Lymphocytes # (Auto) 2.13, Monocytes # (Auto) 0.53, Eosinophils # (Auto) 0.35, Basophils # (Auto) 0.01 08/05/17 06:24 Test 08/04/17 12:50 08/05/17 06:24 08/05/17 09:17 08/05/17 11:11 Urine Color YELLOW Urine Appearance CLOUDY (CLEAR) Urine pH 7.5 (4.5-7.5) Urine Specific [place] 1.012 (1.000-1.030) Urine Protein NEG (NEG) Urine Glucose (UA) 1+ (NEG) Urine Ketones NEG (NEG) Urine Occult Blood NEG (NEG) Urine Nitrite NEG (NEG) Urine Bilirubin NEG (NEG) Urine Urobilinogen NEG (NEG) Urine Leukocyte Esterase NEG (NEG) Urine WBC (Auto) 1-5 /hpf (0-5) Urine RBC (Auto) 5-10 /hpf (0-4) Urine Hyaline Casts (Auto) 1-5 /lpf (0-5) Urine Epithelial Cells (Auto) 0-5 /lpf (0-5) Urine Bacteria (Auto) NEG (NEG) Urine Crystals (NONE PRSENT) White Blood Count 5.83 K/uL (4.8-10.8) Red Blood Count 4.12 M/uL (4.7-6.1) Hemoglobin 13.4 g/dL (14.0-18.0) Hematocrit 39.1 % (42-52) Mean Corpuscular Volume 94.9 fL (80-100) Mean Corpuscular Hemoglobin 32.5 pg (25-34) Mean Corpuscular Hemoglobin Concent 34.3 g/dl (32-36) Platelet Count 147 K/uL (130-400) Mean Platelet Volume 12.1 fL (7.4-10.4) Neutrophils (%) (Auto) 47.9 % Lymphocytes (%) (Auto) 36.5 % Monocytes (%) (Auto) 9.1 % Eosinophils (%) (Auto) 6.0 % Basophils (%) (Auto) 0.2 % Neutrophils # (Auto) 2.79 K/uL (1.4-6.5) Lymphocytes # (Auto) 2.13 K/uL (1.2-3.4) Monocytes # (Auto) 0.53 K/uL (0.11-0.59) Eosinophils # (Auto) 0.35 K/uL (0-0.5) Basophils # (Auto) 0.01 K/uL (0-0.2) RDW Standard Deviation 48.7 fL (36.4-46.3) RDW Coefficient of Variation 14.2 % (11.5-14.5) Immature Granulocyte % (Auto) 0.3 % Immature Granulocyte # (Auto) 0.02 K/uL (0.00-0.02) Anion Gap 7.0 mmol/L (3-11) Est Creatinine Clear Calc Drug Dose 56.9 ml/min Estimated GFR () 59.7 Estimated GFR (Non- 51.5 BUN/Creatinine Ratio 10.6 (10-20) Calcium Level 8.4 mg/dl (8.5-10.1) Triglycerides Level 124 mg/dl (0-150) Cholesterol Level 118 mg/dl (0-200) HDL Cholesterol 32 mg/dl LDL Cholesterol, Calculated 61 mg/dl VLDL Cholesterol, Calculated 25 mg/dl Cholesterol/HDL Ratio 3.7 Activated Partial Thromboplast Time 56.6 SECONDS (21.0-31.0) Partial Thromboplastin Ratio 2.2 Magnesium Level 1.8 mg/dl (1.8-2.4) Bedside Glucose 222 mg/dl (70-99) Imaging MRI brain-Findings consistent with acute embolic infarcts with multifocal diminutive foci of ischemia in the right frontal lobe and periventricular white matter. MRA brain- The right posterior cerebral artery flow void is not clearly identified. This may be due to diminutive vessel caliber; however, occlusion of the vessel is not excluded. There is no large right posterior cerebral artery territory infarct identified on the concurrently performed MRI. Otherwise unremarkable MR angiogram of the brain noting an atretic right A1 segment. carotid doppler- Findings are consistent with 50-69% stenosis in the proximal to mid right internal carotid artery by velocity criteria. This is similar to the 12/04/2014 examination. There is no sonographic evidence of hemodynamically significant stenosis in the left carotid arterial system. Antegrade flow is shown in the vertebral arteries. TTE- Atrial fibrillation with controlled ventricualar rate was present during the echocardiogram. * There is mild concentric left ventricular hypertrophy. * The basal septum is thickened and angulated consistent with sigmoid septum. * No regional wall motion abnormalities noted. * Left ventricular systolic function is normal. * The LV Ejection Fraction = 60-65%. * Severe biatrial enlargement is present. * There is mild tricuspid regurgitation. * Doppler findings do not suggest pulmonary hypertension. * Compared to the prior study dated 12/02/14, biatrial enlargement is now present. NO ASD Impression 82 year old male CVA with history of afib off anticoagulation-cardiology to start Eliquis Plan 1. PT/OT speech for discharge needs 2. optimize DL, DM, HTN 3. fall precautions 4. cardiology for anticoag recommendations ok with neurology to start Eliquis at Dr Zapata's discretion 5. may need physical therapy prior to return home 6. 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
[2017-08-05] MEDS: DIGOXIN 0.125 MG TAB PO SCH (17:23)
[2017-08-05] MEDS ORDERED: POTASSIUM CHLORIDE 10 MEQ TABCR PO ONE (17:45)
[2017-08-05] MEDS: APIXABAN 2.5 MG TAB PO SCH (20:25)
[2017-08-05] MEDS: RANITIDINE HCL 150 MG TAB PO SCH (20:25)
[2017-08-05] MEDS: ATORVASTATIN 40 MG TAB PO SCH (20:26)
[2017-08-05] MEDS ORDERED: INSULIN GLARGINE SOLOSTAR 100 UNITS/ML 3 ML PEN SC SCH (21:00)
[2017-08-06] VITALS (9 sets, daily range): BP systolic 134–176; BP diastolic 73–98; PULSE 67–88; TEMP 36.7–37.1; O2SAT 92–96; Ht 185.4 cm; Wt 99.2 kg
[2017-08-06 05:52] LABS: BASO % 0.2 %; BASO ABS # 0.01 K/uL (0-0.2); COMPLETE YES; EOS % 5.4 %; HEMATOCRIT 41.8 % (42-52); IG% 0.2 %; LYMPH % 34.1 %; LYMPH ABS # 1.82 K/uL (1.2-3.4); MEAN CELL VOLUME 95.2 fL (80-100); MEAN CORPUSCULAR HEMOGLOBIN 30.8 pg (25-34); MEAN CORPUSCULAR HGB CONC 32.3 g/dl (32-36); MEAN PLATELET VOLUME 12.7 fL (7.4-10.4); MONO % 9.9 %; NEUT % 50.2 %; PLATELET COUNT 152 K/uL (130-400); RED BLOOD COUNT 4.39 M/uL (4.7-6.1); WHITE BLOOD COUNT 5.34 K/uL (4.8-10.8)
[2017-08-06 06:21] LABS: BUN/CREATININE RATIO 12.8 (10-20); CALCIUM 8.3 mg/dl (8.5-10.1); CREATININE 1.3 mg/dl (0.60-1.40); POTASSIUM 3.3 mmol/L (3.5-5.1)
--- NOTE | 2017-08-06 07:29 | Clinical Documentation Query ---
CLINICAL DOCUMENTATION QUERY 82 year old male who presents to the Emergency Room with complaints of worsening slurred speech. H&P states patient has diastolic dysfunction and is on Bumex. In your clinical opinion is this patient being managed for: ( ) Chronic diastolic CHF treated with continued Bumex ( ) Not Agree ( ) Other explanation of clinical findings (Please Explain) ( ) Unable to determine (Please Define) ( ) Need to Discuss The medical record reflects the following clinical findings, treatment, and risk factors. Clinical Indicators: Diastolic dysfunction by H&P. Echo showes normal EF with tricuspid regurgitation, and new biatrial enlargement. Treatment: Bumex, Metoprolol, Diltiazem, I/O's, daily weights, telemetry Risk Factors: Age, Afib, HTN, diastolic dysfunction Please clarify and document your clinical opinion in the progress notes and discharge summary. Terms such as "probable", "suspected", "likely", "questionable", "possible", or "still to be ruled out" are acceptable. IF IN AGREEMENT, YOU MUST DOCUMENT ABOVE DIAGNOSTIC STATEMENT IN DAILY PROGRESS NOTES AND DISCHARGE SUMMARY. This document is not part of the patient's record. Thank You, Ramon Shelby, RN [phone]
[2017-08-06] MEDS ORDERED: INSULIN GLARGINE SOLOSTAR 100 UNITS/ML 3 ML PEN SC SCH (09:00)
[2017-08-06] MEDS: METOPROLOL TARTRATE 50 MG TAB PO SCH (09:16)
[2017-08-06] MEDS: GABAPENTIN 100 MG CAP PO SCH (09:16)
[2017-08-06] MEDS: ASPIRIN 81 MG ECTAB PO SCH (09:16)
[2017-08-06] MEDS: APIXABAN 2.5 MG TAB PO SCH (09:16)
[2017-08-06] MEDS: CHOLECALCIFEROL 1000 INTER.UNIT TAB PO SCH (09:17)
[2017-08-06] MEDS: POTASSIUM CHLORIDE 20 MEQ TABCR PO SCH (09:17)
[2017-08-06] MEDS: DILTIAZEM HCL 120 MG EXT REL CAP PO SCH (09:17)
[2017-08-06] MEDS: BUMETANIDE 1 MG TAB PO SCH (09:18)
[2017-08-06] MEDS: INSULIN ASPART 100 UNITS/ML 3 ML PEN SC SCH ×3 (09:31→16:15)
--- NOTE | 2017-08-06 09:42 | Cardiology Follow-Up ---
Subjective General Date of Service: Aug 06, 2017. Chief Complaint: follow up dysarthria, AF, stroke Pt evaluation today including: conversation w/ patient, physical exam History of Present Illness The patient is a 82 year old male seen in follow up. Patient without complaints. Still has dysarthria. Telemetry reveals rate controlled AF. Mildly elevated ventricular rates with walking, but acceptable. Allergies Coded Allergies: Felodipine (Verified Allergy, Unknown, unk, 03/12/17) Furosemide (Unverified Allergy, Unknown, unknown, 03/12/17) Metformin (Verified Allergy, Unknown, unk, 03/12/17) Simvastatin (Verified Allergy, Unknown, unk, 03/12/17) Sulfa Antibiotics (Verified Allergy, Unknown, ., 03/12/17) Sulfamethoxazole w/Trimethoprim (Unverified Allergy, Unknown, unknown, ) Social History Smoking Status: Former Smoker Hx Tobacco Use In Past Year?: No Hx Alcohol Use - Type And Amou: No Hx Substance Use - Type And Am: No Problem List Medical Problems: (1) Encounter for removal of nasal packing Status: Acute (2) Hyperglycemia Status: Acute (3) Hypokalemia Status: Acute Physical Exam Vital Signs Last Vital Signs Documentation Date Time Temp Pulse Resp B/P (MAP) Pulse Ox O2 Delivery O2 Flow Rate FiO2 08/06/17 07:28 36.8 82 20 176/98 (124) 96 Room Air Physical Exam Constitutional: Level of Distress: NAD Head: normocephalic, atraumatic Neck: supple Lungs: Auscultation: no wheezing, no rales/crackles, no rhonchi Cardiovascular: Heart Auscultation: no murmurs, no rubs, irregular rate rhythm Extremities: no edema Neurologic: Gait & Station: pertinent finding (dysarthria, follows commands, no motor deficits.) Assessment and Plan Assessment and Plan Summary of transthoracic echocardiogram performed 08/05/70 and reviewed independently by the undersigned: * Atrial fibrillation with controlled ventricular rate was present during the echocardiogram. * There is mild concentric left ventricular hypertrophy. * The basal septum is thickened and angulated consistent with sigmoid septum. * No regional wall motion abnormalities noted. * Left ventricular systolic function is normal. * The LV Ejection Fraction = 60-65%. * Severe biatrial enlargement is present. * There is mild tricuspid regurgitation. * Doppler findings do not suggest pulmonary hypertension. * Compared to the prior study dated 12/02/14, biatrial enlargement is now present. Impression: 82-year-old male 1. 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 History of coronary artery disease, past coronary stents 3. Normal LVEF 4. Hypokalemia 5. HTN Plan: Patient has been transitioned from heparin to Eliquis and is tolerating it so far. Did not tolerate coumadin in the past due to personal preference, recurrent nose bleeds, blood per rectum. Need to be on aspirin given history of CAD, coronary stents. I spoke to Pt's PCP at [facility] yesterday who placed order for Eliquis. pt states it usually takes 3 days for meds to arrive in the mail from the [place] pharmacy. Will need to perhaps provide home travel pack for patient to remain on Eliquis in interim if discharged or will need to remain in the hospital, as his risk of recurrent stroke off of anticoagulation is high. Continue PT. Will need speech therapy. Laboratory Results Last 24 Hours Test 08/05/17 11:11 08/05/17 13:48 08/05/17 15:41 08/05/17 20:21 Bedside Glucose 222 mg/dl 180 mg/dl 189 mg/dl Potassium Level 3.1 mmol/L Test 08/06/17 05:32 08/06/17 07:03 White Blood Count 5.34 K/uL Red Blood Count 4.39 M/uL Hemoglobin 13.5 g/dL Hematocrit 41.8 % Mean Corpuscular Volume 95.2 fL Mean Corpuscular Hemoglobin 30.8 pg Mean Corpuscular Hemoglobin Concent 32.3 g/dl Platelet Count 152 K/uL Mean Platelet Volume 12.7 fL Neutrophils (%) (Auto) 50.2 % Lymphocytes (%) (Auto) 34.1 % Monocytes (%) (Auto) 9.9 % Eosinophils (%) (Auto) 5.4 % Basophils (%) (Auto) 0.2 % Neutrophils # (Auto) 2.68 K/uL Lymphocytes # (Auto) 1.82 K/uL Monocytes # (Auto) 0.53 K/uL Eosinophils # (Auto) 0.29 K/uL Basophils # (Auto) 0.01 K/uL RDW Standard Deviation 50.0 fL RDW Coefficient of Variation 14.2 % Immature Granulocyte % (Auto) 0.2 % Immature Granulocyte # (Auto) 0.01 K/uL Sodium Level 140 mmol/L Potassium Level 3.3 mmol/L Chloride Level 104 mmol/L Carbon Dioxide Level 33 mmol/L Anion Gap 3.0 mmol/L Blood Urea Nitrogen 17 mg/dl Creatinine 1.30 mg/dl Est Creatinine Clear Calc Drug Dose 56.2 ml/min Estimated GFR () 59.7 Estimated GFR (Non- 51.5 BUN/Creatinine Ratio 12.8 Random Glucose 148 mg/dl Calcium Level 8.3 mg/dl Bedside Glucose 151 mg/dl
--- NOTE | 2017-08-06 10:48 | Pharmacy Progress Note ---
Glycemic Control Progress Note Date of Service Aug 06, 2017. Scope Glycemic Pharmacist consulted for glycemic control to write orders per [facility] inpatient glycemic control protocol. Objective Accuchecks BSG (last 24hrs): Test 08/05/17 11:11 08/05/17 15:41 08/05/17 20:21 08/06/17 05:32 Bedside Glucose 222 mg/dl (70-99) 180 mg/dl (70-99) 189 mg/dl (70-99) Random Glucose 148 mg/dl (70-99) Test 08/06/17 07:03 Bedside Glucose 151 mg/dl (70-99) HbA1c: Test 08/04/17 12:10 Hemoglobin A1c 10.4 % (4.5-5.6) H Recent Pertinent Medications The patient is currently receiving: * Basal insulin: Lantus 16-20 units every 24 hours * Correctional Insulin: Novolog Correction per scale ACHS Goal Range: Low 140 mg/dL - High 180 mg/dL Correction Factor: 20 mg/dL/unit * Prandial insulin: Per carb ratio of 1 unit per 7 grams CHO consumed * Oral Agents: on hold Outpatient Anti-Diabetic Meds Oral Agents Basal Insulin Assessment & Plan ASSESSMENT: * See progress note from 08/04/17 for more background info, in short: * Pt receiving SQ basal bolus insulin regimen for hyperglycemia secondary to baseline DM (outpatient regimen on hold) * BSGs ranging 107 - 222 mg/dl over the past 24hrs * Changes needed to insulin regimen: * AM Fasting BSG = 151 mg/dl. This is above goal range based on inpatient targets and co-morbidities. Will give additional 5 units of Lantus this morning and continue to titrate to goal. * Post-prandial BSGs are improving but remain elevated. Continue to tighten CF/ CR. * Anticipate needing about 40-50 units of insulin per day. PLAN FOR INPATIENT GLYCEMIC CONTROL: * Oral Agents * Continue to hold outpatient oral diabetes medications. * Basal insulin * Lantus 5 units SQ this am * Lantus 20-25 units SQ qHS (25 units for BSG 180 mg/dL or greater) * Bolus insulin * NovoLog per scale ACHS or Q6hrs while NPO * Goal Range: Low 110 mg/dL - High 140 mg/dL * Correction Factor: 18 mg/dL/unit * Nutritional / Prandial insulin per carb ratio of 1 unit per 6 grams CHO consumed RECOMMENDATIONS FOR DISCHARGE: * Poor outpatient control evidenced by A1c of 10.4% (08/04/17) * Patient is agreeable to adding meal coverage with short acting insulin on discharge (set doses) * Recommend discharge on Lantus and Novolog * Lantus 20 units SQ daily * Novolog 6-8 units SQ TID with meals. - If premeal BSG is 200 mg/dL or less, administer 6 units - If premeal BSG is greater than 200 mg/dL, administer 8 units * Titrate doses per PCP * Please note that the plan above was derived based on current level of insulin resistance and hospital stress. These recommendations are appropriate for inpatient admission only. Plan of care upon discharge will need to be reassessed to avoid potential outpatient hypo/hyperglycemia. Thank you.
[2017-08-06 15:09] LABS: POTASSIUM 3.3 mmol/L (3.5-5.1)
[2017-08-06 15:13] LABS: MAGNESIUM 2.1 mg/dl (1.8-2.4)
[2017-08-06] MEDS ORDERED: POTASSIUM CHLORIDE 20 MEQ TABCR PO ONE (16:30)
--- NOTE | 2017-08-06 16:53 | Progress Note ---
Medicine Progress Note Date & Time of Visit: Aug 06, 2017 at 16:46. Subjective patient seen resting in bed, family at bedside states he feels fine overall still has dysarthria but states it is improving, family agrees denies new weakness, numbness or any other focal neuro deficits denies signs of bleeding no other symptoms states he is ready and would like to be discharged home today Objective Last 8 Hrs Date Time Temp Pulse Resp B/P (MAP) Pulse Ox O2 Delivery O2 Flow Rate FiO2 08/06/17 15:21 36.7 86 18 145/92 (109) 96 Room Air 08/06/17 12:09 Room Air 08/06/17 12:04 134/90 (105) 08/06/17 11:15 36.7 78 19 153/84 (107) 96 Room Air 08/06/17 10:05 96 Room Air Physical Exam: General- oriented x 3, not in distress, speaks in sentences with no effort Head- atraumatic Eyes- EOMI, anicteric Neck- supple, no JVD Lungs- clear breath sounds bilaterally, no rales/wheezes Heart- regular rhythm; no murmur, normal rate Abdomen- normal bowel sounds, soft, nontender Extremities- no pretibial edema, no calf tenderness Neuro- alert, oriented x 3; PERRL, EOMI; no facial palsy; (+) mild dysarthria; motor 5/5 bilaterally; sensation 100% Skin- warm & dry Laboratory Results: Last 24 Hours Test 08/05/17 20:21 08/06/17 05:32 08/06/17 07:03 08/06/17 10:54 Bedside Glucose 189 mg/dl 151 mg/dl 264 mg/dl White Blood Count 5.34 K/uL Red Blood Count 4.39 M/uL Hemoglobin 13.5 g/dL Hematocrit 41.8 % Mean Corpuscular Volume 95.2 fL Mean Corpuscular Hemoglobin 30.8 pg Mean Corpuscular Hemoglobin Concent 32.3 g/dl Platelet Count 152 K/uL Mean Platelet Volume 12.7 fL Neutrophils (%) (Auto) 50.2 % Lymphocytes (%) (Auto) 34.1 % Monocytes (%) (Auto) 9.9 % Eosinophils (%) (Auto) 5.4 % Basophils (%) (Auto) 0.2 % Neutrophils # (Auto) 2.68 K/uL Lymphocytes # (Auto) 1.82 K/uL Monocytes # (Auto) 0.53 K/uL Eosinophils # (Auto) 0.29 K/uL Basophils # (Auto) 0.01 K/uL RDW Standard Deviation 50.0 fL RDW Coefficient of Variation 14.2 % Immature Granulocyte % (Auto) 0.2 % Immature Granulocyte # (Auto) 0.01 K/uL Sodium Level 140 mmol/L Potassium Level 3.3 mmol/L Chloride Level 104 mmol/L Carbon Dioxide Level 33 mmol/L Anion Gap 3.0 mmol/L Blood Urea Nitrogen 17 mg/dl Creatinine 1.30 mg/dl Est Creatinine Clear Calc Drug Dose 56.2 ml/min Estimated GFR () 59.7 Estimated GFR (Non- 51.5 BUN/Creatinine Ratio 12.8 Random Glucose 148 mg/dl Calcium Level 8.3 mg/dl Test 08/06/17 14:47 Potassium Level 3.3 mmol/L Magnesium Level 2.1 mg/dl Assessment & Plan ACUTE RIGHT FRONTAL EMBOLIC INFARCTS - patient presenting with slurred speech and difficulty swallowing x 4 days; MRI obtained in the ED showing acute right frontal embolic infarcts - noted carotid US with 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 which is unchanged from 11/2014 - likely cardioembolic source since patient has history of afib and is not anticoagulated - patient reports he was taken off Coumadin a couple of years ago due to rash development - echo: noted - Heparin IV started,then transitioned to Eliquis (coumadin not preferred due to history of intolerance) Lipitor 80mg po daily started Aspirin reduced to 81mg po will need good blood glucose control -- Neuro and Cardio consulted cleared for discharge -- patient and family advised that patient may benefit from going to short term Rehab to get stronger they politely declined, home health services with Speech therapy was set up by Case Management per daughter, the patient's son will check on him twice a day ATRIAL FIBRILLATION - rate controlled on digoxin, diltiazem, and metoprolol - anticoagulation with Eliquis as above CAD - stable - continue ASA and beta katherine DIASTOLIC DYSFUNCTION - appears euvolemic - continue home Bumex HYPOKALEMIA - from diuretics increase Potassium to 40meqs p daily repeat K level on ff up with PCP DM - A1c 10.4 - increase Lantus to 25 units further management per PCP DVT PROPHYLAXIS - heparin CODE STATUS - Patient is a full code DISPO d/c home with home health ff up with PCP in 3-5 days ff up with [facility] Dr. Zapata and Neurologist Dr. Helton in 2 weeks Current Inpatient Medications: Current Inpatient Medications Medications (Trade) Dose Ordered Sig/Sandra Route Start Time Stop Time Status Last Admin Dose Admin Acetaminophen (Tylenol Tab) 650 mg Q4H PRN PO 08/04/17 15:30 09/03/17 15:29 Ondansetron HCl (Zofran Inj) 4 mg Q6H PRN IV 08/04/17 15:30 09/03/17 15:29 Miscellaneous Information (Pharmacist Discharge Med Rec Consult) 1 ea UD PRN N/A 08/04/17 15:45 09/03/17 15:44 Insulin Aspart (novoLOG ASPART) SLIDING SCALE If C... ACHS SC 08/04/17 18:30 09/03/17 18:29 08/06/17 12:08 14 UNITS Glucose (Glucose 40% Gel) 15-30 GRAMS 15 GRAMS... UD PRN PO 08/04/17 15:45 09/03/17 15:44 Glucose (Glucose Chew Tab) 4-8 Tablets 4 Tabl... UD PRN PO 08/04/17 15:45 09/03/17 15:44 Dextrose (Dextrose 50% 50ML Syringe) 25-50ML OF 50% DW IV FOR... UD PRN IV 08/04/17 15:45 09/03/17 15:44 Glucagon (Glucagon Inj) 1 mg UD PRN SQ 08/04/17 15:45 09/03/17 15:44 Miscellaneous Information (Consult Glycemic Management Pharmacy) 1 ea UD PRN N/A 08/04/17 16:06 09/03/17 16:05 Bumetanide (Bumex Tab) 4 mg DAILY PO 08/05/17 09:00 09/04/17 08:59 08/06/17 09:18 4 MG Cholecalciferol (Vitamin D Tab) 1,000 inter.unit DAILY PO 08/05/17 09:00 09/04/17 08:59 08/06/17 09:17 1,000 INTER.UNIT Digoxin (Lanoxin Tab) 0.125 mg QD@1800 PO 08/04/17 18:00 09/03/17 17:59 08/05/17 17:23 0.125 MG Diltiazem HCl (TIAzac CAP) 240 mg DAILY PO 08/05/17 09:00 09/04/17 08:59 08/06/17 09:17 240 MG Docusate Sodium (coLACE CAP) 200 mg BID PRN PO 08/04/17 15:45 09/03/17 15:44 Metoprolol Tartrate (Lopressor Tab) 50 mg BID PO 08/04/17 21:00 09/03/17 20:59 08/06/17 09:16 50 MG Senna (Senokot Tab) 8.6 mg DAILY PRN PO 08/04/17 15:45 09/03/17 15:44 Polyethylene (Miralax Powder Packet) 17 gm BID PRN PO 08/04/17 16:00 09/03/17 15:59 Potassium Chloride (Klor-Con Tab) 20 meq DAILY PO 08/05/17 09:00 09/04/17 08:59 08/06/17 09:17 20 MEQ Ranitidine HCl (zANTac TAB) 300 mg HS PO 08/04/17 21:00 09/03/17 20:59 08/05/17 20:25 300 MG Aspirin (Ecotrin Tab) 81 mg QAM PO 08/05/17 09:00 09/04/17 08:59 08/06/17 09:16 81 MG Atorvastatin Calcium (Lipitor Tab) 80 mg DAILY@2000 PO 08/04/17 20:00 09/03/17 19:59 08/05/17 20:26 80 MG Gabapentin (Neurontin Cap) 100 mg BID PO 08/04/17 21:00 09/03/17 20:59 08/06/17 09:16 100 MG Apixaban (Eliquis Tab) 5 mg BID PO 08/05/17 21:00 09/04/17 20:59 08/06/17 09:16 5 MG Insulin Glargine (Lantus Solostar Pen) SEE PROTOCOL TEXT HS SC 08/05/17 21:00 09/04/17 20:59 08/05/17 20:41 20 UNITS
[2017-08-06] MEDS ORDERED: MCRK20 PO (17:03)
[2017-08-06] MEDS ORDERED: LPT40 PO (17:03)
[2017-08-06] MEDS ORDERED: ELQ25 PO (17:03)
[2017-08-06] MEDS ORDERED: INSDGIPEN SC (17:03)
[2017-08-06] MEDS ORDERED: ASPEC81 PO (17:03)
--- NOTE | 2017-08-06 17:11 | Discharge Instructions ---
Discharge Instructions Date of Service Aug 06, 2017. Admission Reason for Admission: Slurred Speech Discharge Discharge Diagnosis / Problem: STROKE Discharge Goals Goal(s): Diagnostic testing, Therapeutic intervention Activity Recommendations Activity Limitations: as noted below (NO HEAVY EXERTION UNTIL RE-EVALUATION BY PRIMARY CARE PHYSICIAN) Lifting Limitations: until after follow-up appointment Exercise/Sports Limitations: until after follow-up appointment . Instructions / Follow-Up Instructions / Follow-Up PLEASE REVIEW YOUR NEW MEDICATION LIST AND FOLLOW INSTRUCTIONS CAREFULLY. ALWAYS TAKE ELIQUIS DIRECTED. ALWAYS BE CAREFUL AMBULATING. PROCEED TO ER IMMEDIATELY FOR EVALUATION IF YOU HAVE ANY HEAD TRAUMA. FOR MINOR BLEEDING, CALL PRIMARY CARE PHYSICIAN FOR ADVICE. IF YOU HAVE ANY MAJOR BLEEDING, CALL 911. CONTINUE SPEECH THERAPY AT HOME. FOLLOW UP WITH PRIMARY CARE PHYSICIAN IN 1 WEEK. FOLLOW UP WITH INTAKE ASSESSOR DR. BENITES IN 2 WEEKS. TEL. NO. FOLLOW UP WITH NEUROLOGIST DR. MELO IN 2 WEEKS. TEL. NO. Risk Factors for Stroke: You can reduce your chances of stroke by working with your medical provider to adopt a healthy lifestyle. Some specific ways to lower your chance of stroke are: * If you are a smoker, now is the time to stop smoking cigarettes * If you are diabetic, improve the control of your blood sugars * Avoid excessive amounts of alcohol * Control high blood pressure * Lose weight if you are overweight * Be sure to lead an active lifestyle * Eat a healthy diet low in salt, cholesterol and fat You should know about other risk factors for stroke that you are unable to control. These include: * Age 55 years or older * Male gender * Certain racial groups: , or / * Family History of Stroke, Mini stroke or Heart Attack * Sickle Cell Disease Follow Up: It is important for you to keep your follow up appointments with your medical provider. Current Hospital Diet Patient's current hospital diet: AHA Diet (Heart Healthy), Diabetes Type 2 Diet Discharge Diet Recommended Diet: AHA Diet (Heart Healthy), Diabetes Type 2 Diet Procedures Procedures Performed: BRAIN MRI, HEAD MRA, 2 DECHO Pending Studies Studies pending at discharge: no Laboratory Results Hemoglobin A1c Test 08/04/17 12:10 Range/Units Estimated Average Glucose 252 mg/dl Hemoglobin A1c 10.4 H 4.5-5.6 % Lipid Panel Test 08/05/17 06:24 Range/Units Triglycerides Level 124 0-150 mg/dl Cholesterol Level 118 0-200 mg/dl HDL Cholesterol 32 mg/dl Cholesterol/HDL Ratio 3.7 LDL Cholesterol, Calculated 61 mg/dl Medical Emergencies . Who to Call and When: Medical Emergencies: Call 911 immediately if you experience any of the following warning signs and symptoms of Stroke: * Sudden numbness or weakness of the face, arm or leg, especially on one side of the body * Sudden confusion, trouble speaking or understanding * Sudden trouble seeing in one or both eyes * Sudden trouble walking, dizziness, loss of balance or coordination * Sudden severe headache with no cause Do not delay calling 911 if you experience any warning signs or symptoms of a stroke. Delay in seeking medical attention may affect what treatments can be given to you. . Non-Emergent Contact Non-Emergency issues call your: Primary Care Provider Call Non-Emergent contact if: you have a fever, you have any medication questions . . "Provider Documentation" section prepared by Tom Hart. . Stroke Core Measures Reason no t-PA for Stroke: Treatment not indicated Reason no antithrom by day 2: Treatment provided - N/A Reason no antithrom at D/C: Treatment provided - N/A Reason no statin at D/C: Treatment provided - N/A Reason no anticoag w/a fib: Treatment provided - N/A VTE Core Measure Inpt VTE Proph given/why not?: Other Anticoagulation (ELIQUIS)
--- NOTE | 2017-08-06 17:16 | Discharge Summary ---
Discharge Summary Date of Service Aug 06, 2017. Discharge Summary Admission Date: Aug 04, 2017 at 15:32 Discharge Date: Aug 06, 2017 Discharge Disposition: Home with services Principal Diagnosis: ACUTE CVA, RIGHT FRONTAL EMBOLIC INFARCTS Secondary Diagnoses/Problems: PLEASE REFER TO HOSPITAL COURSE BELOW. Procedures: BRAIN WITHOUT CONTRAST CLINICAL HISTORY: 82 years-old Male presenting with dysarthria, high blood sugar, difficulty swallowing, no history of cancer. TECHNIQUE: Multisequence, multiplanar MR imaging of the brain was performed without the use of intravenous contrast. IV contrast: None. COMPARISON: MRA head performed earlier the same day. CT head performed earlier the same day. FINDINGS: Proportional ventricular and sulcal prominence, likely age-related parenchymal volume loss. Periventricular and subcortical white matter T2/FLAIR hyperintensity, nonspecific but likely indicative of chronic small vessel ischemic change. Possible old lacunar infarct in the right cerebellum. No mass effect or midline shift. Several small foci of restricted diffusion noted in the right frontal lobe and periventricular white matter. No extra-axial fluid collection. T2 skull base flow voids preserved. Degenerative changes of the atlantoaxial articulation with prominent pannus formation. Bone marrow signal intensity within the calvarium within normal limits. The nez perce lenses of the globes are absent bilaterally. IMPRESSION: Findings consistent with acute embolic infarcts with multifocal diminutive foci of ischemia in the right frontal lobe and periventricular white matter. MR ANGIOGRAM OF THE BRAIN CLINICAL HISTORY: Slurred speech. Difficulty swallowing. COMPARISON STUDY: MRI of the brain performed concurrently on 08/04/2017. TECHNIQUE: 3-D [id number] MR angiography of the intracranial circulation is performed. 3-D tumble views are created and assessed. IV contrast was not administered for this examination. FINDINGS: The right A1 segment is atretic. The right anterior cerebral artery is supplied via the anterior communicating artery. The internal carotid arteries at the skull base are widely patent bilaterally, as are the anterior and middle cerebral arteries. The vertebral arteries and the basilar artery are patent. The right vertebral artery is dominant. The left posterior cerebral artery is widely patent. The right posterior cerebral artery is not clearly seen. There is no aneurysm identified. IMPRESSION: 1. The right posterior cerebral artery flow void is not clearly identified. This may be due to diminutive vessel caliber; however, occlusion of the vessel is not excluded. There is no large right posterior cerebral artery territory infarct identified on the concurrently performed MRI. 2. Otherwise unremarkable MR angiogram of the brain noting an atretic right A1 segment. ULTRASOUND OF THE CAROTID ARTERIES CLINICAL HISTORY: Stroke. COMPARISON STUDY: Carotid artery ultrasound dated 12/04/2014. TECHNIQUE: Real-time, grayscale, and color Doppler sonography of the carotid arteries is performed. Images are reviewed in the transverse and longitudinal planes. FINDINGS: Blood pressure in the right arm measures 143/73 and blood pressure in the left arm measures 131/65. The carotid arteries are patent bilaterally and demonstrate antegrade flow. There is advanced echogenic atherosclerotic plaque seen bilaterally, right significantly greater than left. Normal doppler arterial waveforms are seen throughout. Velocity measurements are listed below. Common carotid peak systolic velocity (cm/sec): RIGHT: 69 LEFT: 83 ICA proximal peak systolic velocity (cm/sec): RIGHT: 152 LEFT: 118 ICA mid peak systolic velocity (cm/sec): RIGHT: 214 LEFT: 121 ICA distal peak systolic velocity (cm/sec): RIGHT: 173 LEFT: 97 ICA/CC peak systolic ratio: RIGHT: 3.1 LEFT: 1.5 Antegrade flow was shown in the vertebral arteries. The external carotid arteries are patent. IMPRESSION: 1. 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 This is similar to the 12/04/2014 examination. 2. There is no sonographic evidence of hemodynamically significant stenosis in the left carotid arterial system. 3. Antegrade flow is shown in the vertebral arteries. 2D ECHO: Interpretation Summary * Name: DEANA SPEAR Study Date: 08/05/2017 07:11 AM BP: 134/68 mmHg * Patient Location: [facility]1 HR: 89 * : 1935 (M/d/yyyy) Gender: Male Height: 71 in * Age: 82 yrs Ethnicity: [place] Weight: 224 lb * Ordering Physician: Nati Shepherd * Referring Physician: Self, Referred * Performed By: Meryl Cedeno RCS * * Reason For Study: Stroke * BSA: 2.2 m2 * -- Conclusions -- * Atrial fibrillation with controlled ventricualar rate was present during the echocardiogram. * There is mild concentric left ventricular hypertrophy. * The basal septum is thickened and angulated consistent with sigmoid septum. * No regional wall motion abnormalities noted. * Left ventricular systolic function is normal. * The LV Ejection Fraction = 60-65%. * Severe biatrial enlargement is present. * There is mild tricuspid regurgitation. * Doppler findings do not suggest pulmonary hypertension. * Compared to the prior study dated 12/02/14, biatrial enlargement is now present. Procedure Details * A saline contrast injection was performed to assess for cardiac shunting. * The injection was performed through an intravenous line in the left arm. * The attending nurse who injected the saline contrast was RODNEY, RN. * A total of 9 cc of agitated saline was given. * A complete two-dimensional transthoracic echocardiogram was performed (2D, M- mode, Doppler and color flow Doppler). Left Ventricle * The left ventricle is normal in size. * There is mild concentric left ventricular hypertrophy. * The basal septum is thickened and angulated consistent with sigmoid septum. * Ejection Fraction = 60-65%. * Left ventricular systolic function is normal. * The left ventricular wall motion is normal. * No regional wall motion abnormalities noted. Right Ventricle * The right ventricle is normal size. * The right ventricular systolic function is normal as assessed by tricuspid annular plane systolic excursion (TAPSE) (normal >1.5 cm). Atria * The left atrium is severely dilated. * The right atrium is severely dilated. * There is no evidence of atrial septal defect, but resolution does not allow assessment for a patent foramen ovale. Mitral Valve * The mitral valve is normal. * There is no mitral valve stenosis. * Significant mitral regurgitation is absent. Tricuspid Valve * The tricuspid valve is normal. * There is no tricuspid stenosis. * There is mild tricuspid regurgitation. * Doppler findings do not suggest pulmonary hypertension. Aortic Valve * The aortic valve is trileaflet. * Aortic valve sclerosis moderate, without significant aortic valvular stenosis. * Aortic stenosis is absent. * There is no significant aortic regurgitation. Pulmonic Valve * The pulmonary valve is not well seen, but the Doppler examination is normal without significant regurgitation or stenosis. Great Vessels * The aortic root and proximal ascending aorta are normal sized. Pericardium/Pleural * There is no pericardial effusion. Great Vessels * Normal inferior vena cava diameter and respiratory variation suggests normal central venous pressure. * There is no evidence of pulmonary hypertension. The PA systolic pressure is less than 36 mmHg. Left Ventricular Diastolic Function * The LV diastolic function is abnormal based on left atrial enlargement. Consultations: NEUROLOGIST DR. MELO, CORRUGATOR DR. BENITES Pending Studies/Follow-Up: Insulin increased to 25 units, ff up response; Monitor K and LFTs (re: hypokalemia; started on Lipitor 80mg po daily); Please refer to hospital course below for further details. Medication Reconciliation New Medications: Potassium Chloride (Klor-Con M20) 20 Meq Tabcr 40 MEQ PO DAILY for 30 Days, #60 TABS 2 Refills Apixaban (Eliquis) 2.5 Mg Tab 5 MG PO BID for 30 Days, #120 TAB 2 Refills Aspirin (Aspirin EC Low Dose) 81 Mg Ectab 81 MG PO QAM for 30 Days, #30 TABS 2 Refills Atorvastatin (Atorvastatin Calcium) 40 Mg Tab 80 MG PO DAILY@2000 for 30 Days, #60 TAB 2 Refills Changed Medications: Insulin Glargine (Lantus Solostar) 100 Unit/Ml Inj 25 UNITS SC DAILY for 30 Days (Changed from: 20 UNITS) Continued Medications: Acetaminophen/Diphenhydramine (Tylenol Pm) 500 Mg/25 Mg Tab 1 TAB PO HS, TAB Bumetanide (Bumex) 2 Mg Tab 4 MG PO DAILY, TAB Cholecalciferol (Vitamin D3) 1,000 Unit Tab 1000 UNITS PO DAILY, TAB Digoxin (Digoxin) 0.125 Mg Tab 0.125 MG PO QD@1800 Diltiazem Hcl Extended Release (Tiazac 240 Mg) 240 Mg Cap 240 MG PO DAILY, CAP Docusate Sodium (Colace) 100 Mg Cap 200 MG PO BID PRN for Constipation Emollient (Aquaphor) 1 Oin Oin 1 APPLN TOP BID Glipizide (Glucotrol) 10 Mg Tab 20 MG PO BID, TAB Melatonin (Kp Melatonin) 3 Mg Tab 1 TAB PO HS for 30 Days, #30 TAB Metoprolol Tartrate (Metoprolol Tartrate) 50 Mg Tab 50 MG PO BID Polyethylene Glycol 3350 (Bulk (Polyethylene Glycol 3350) 1 Pow Pow 17 GM PO BID PRN for Constipation Ranitidine (Zantac) 300 Mg Tab 300 MG PO HS, TAB Selenium Sulfide (Selsun Blue) 1 % Sha UD APPLY SMALL AMOUNT TO SKIN BID, LATHER WITH SMALL AMOUNT OF WATER AND APPLY TO NECK AND CHEST, ALLOW TO SIT ON SKIN 10 MINUTES, THEN RINSE OFF. Sennosides (Senokot) 8.6 Mg Tab 8.6 MG PO DAILY PRN for Constipation, TAB Triamcinolone Acetonide (Topic (Triamcinolone Acetonide) 0.5 % Oin 1 APPLN TOP BID APPLY TO LEGS TWICE DAILY, COVER WITH SARAN WRAP FOR 2 HOURS. Discontinued Medications: Aspirin (Aspirin Ec) 325 Mg Tab 325 MG PO DAILY Potassium Chloride (K-Tabs) 10 Meq Tab 20 MEQ PO DAILY Admission Information HPI (per Admitting provider): 82 year old male who presents to the ER with slurred speech. Symptoms started 4 days ago and have been persistent. He also notes difficulty swallowing at times. Over the past week he notes large fluctuations in his blood sugars ranging from 100 to 400 at times. He was self adjusting his Lantus. Patient denies any headache. He feels as though his vision has been worsening over the past couple of months. He has chronic dizziness at times which is unchanged. No lightheadedness or syncopal events. He denies any unilateral weakness, numbness or tingling. He reports chronic intermittent chest pain for the past several years which has been unchanged as well. He denies any recent nitroglycerin use. No shortness of breath. He denies abdominal pain, nausea, vomiting, or diarrhea. No fever or chills. He denies urinary symptoms. In the ED, head CT was negative but brain MRI shows acute embolic infarcts with multifocal diminutive foci of ischemia in the right frontal lobe and periventricular white matter. Noted that patient took full dose ASA at home today. Physical Exam (per Admitting): General Appearance: no apparent distress Head: normocephalic Eyes: normal inspection, sclerae normal ENT: hearing grossly normal Neck: supple, no JVD, no carotid bruits Respiratory/Chest: lungs clear, normal breath sounds, no respiratory distress Cardiovascular: no edema, normal peripheral pulses, + irregularly irregular (rate controlled) Abdomen/GI: normal bowel sounds, non tender, soft Extremities/Musculoskelatal: normal inspection, no calf tenderness Neurologic/Psych: alert, oriented x 3, + pertinent finding (slurred speech noted but speech is understandable; mild difficulty with fine motor movement and finger to nose with the left hand; no other focal deficits noted) Skin: normal color, warm/dry Hospital Course ACUTE CVA, RIGHT FRONTAL EMBOLIC INFARCTS - patient presenting with slurred speech and difficulty swallowing x 4 days MRI obtained in the ED showing acute right frontal embolic infarcts carotid US with 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 which is unchanged from 11/2014 echo: normal LVEF - likely cardioembolic source since patient has history of afib and is not anticoagulated - patient reports he was taken off Coumadin a couple of years ago due to rash development - Cardiology and Neurology consulted Heparin IV started,then transitioned to Eliquis (coumadin not preferred due to history of intolerance) Lipitor 80mg po daily started (monitor LFTs) Aspirin reduced to 81mg po will need good blood glucose control -- Neuro and Cardio cleared patient for discharge -- patient and family advised that patient may benefit from going to short term Rehab for further therapy, medical management they declined at this time, home health services with Speech therapy was set up by Case Management per daughter, the patient's son will check on him twice a day -- ff up with Neurologist Dr. Melo and Sporting Goods Sales Associate Dr. Benites in 2 weeks ATRIAL FIBRILLATION - rate controlled on digoxin, diltiazem, and metoprolol - anticoagulation restarted with Eliquis as above CAD - stable - continue ASA and beta katherine DIASTOLIC DYSFUNCTION - appears euvolemic - continue home Bumex HYPOKALEMIA - from diuretics increase Potassium to 40meqs p daily repeat K level on ff up with PCP DM - A1c 10.4 - increase Lantus to 25 units further management per PCP DVT PROPHYLAXIS - heparin given CODE STATUS - Patient is a full code DISPO d/c home with home health ff up with PCP in 3-5 days ff up with Sporting Goods Sales Associate Dr. Benites and Neurologist Dr. Melo in 2 weeks Total time spent on discharge = 45 minutes This includes examination of the patient, discharge planning, medication reconciliation, and communication with other providers. Discharge Instructions Discharge Instructions Date of Service Aug 06, 2017. Admission Reason for Admission: Slurred Speech Discharge Discharge Diagnosis / Problem: STROKE Discharge Goals Goal(s): Diagnostic testing, Therapeutic intervention Activity Recommendations Activity Limitations: as noted below (NO HEAVY EXERTION UNTIL RE-EVALUATION BY PRIMARY CARE PHYSICIAN) Lifting Limitations: until after follow-up appointment Exercise/Sports Limitations: until after follow-up appointment . Instructions / Follow-Up Instructions / Follow-Up PLEASE REVIEW YOUR NEW MEDICATION LIST AND FOLLOW INSTRUCTIONS CAREFULLY. ALWAYS TAKE ELIQUIS DIRECTED. ALWAYS BE CAREFUL AMBULATING. PROCEED TO ER IMMEDIATELY FOR EVALUATION IF YOU HAVE ANY HEAD TRAUMA. FOR MINOR BLEEDING, CALL PRIMARY CARE PHYSICIAN FOR ADVICE. IF YOU HAVE ANY MAJOR BLEEDING, CALL 911. CONTINUE SPEECH THERAPY AT HOME. FOLLOW UP WITH PRIMARY CARE PHYSICIAN IN 1 WEEK. FOLLOW UP WITH CORRUGATOR DR. BENITES IN 2 WEEKS. TEL. NO. FOLLOW UP WITH NEUROLOGIST DR. MELO IN 2 WEEKS. TEL. NO. Risk Factors for Stroke: You can reduce your chances of stroke by working with your medical provider to adopt a healthy lifestyle. Some specific ways to lower your chance of stroke are: * If you are a smoker, now is the time to stop smoking cigarettes * If you are diabetic, improve the control of your blood sugars * Avoid excessive amounts of alcohol * Control high blood pressure * Lose weight if you are overweight * Be sure to lead an active lifestyle * Eat a healthy diet low in salt, cholesterol and fat You should know about other risk factors for stroke that you are unable to control. These include: * Age 55 years or older * Male gender * Certain racial groups: , or / * Family History of Stroke, Mini stroke or Heart Attack * Sickle Cell Disease Follow Up: It is important for you to keep your follow up appointments with your medical provider. Current Hospital Diet Patient's current hospital diet: AHA Diet (Heart Healthy), Diabetes Type 2 Diet Discharge Diet Recommended Diet: AHA Diet (Heart Healthy), Diabetes Type 2 Diet Procedures Procedures Performed: BRAIN MRI, HEAD MRA, 2 DECHO Pending Studies Studies pending at discharge: no Laboratory Results Hemoglobin A1c Test 08/04/17 12:10 Range/Units Estimated Average Glucose 252 mg/dl Hemoglobin A1c 10.4 H 4.5-5.6 % Lipid Panel Test 08/05/17 06:24 Range/Units Triglycerides Level 124 0-150 mg/dl Cholesterol Level 118 0-200 mg/dl HDL Cholesterol 32 mg/dl Cholesterol/HDL Ratio 3.7 LDL Cholesterol, Calculated 61 mg/dl Medical Emergencies . Who to Call and When: Medical Emergencies: Call 911 immediately if you experience any of the following warning signs and symptoms of Stroke: * Sudden numbness or weakness of the face, arm or leg, especially on one side of the body * Sudden confusion, trouble speaking or understanding * Sudden trouble seeing in one or both eyes * Sudden trouble walking, dizziness, loss of balance or coordination * Sudden severe headache with no cause Do not delay calling 911 if you experience any warning signs or symptoms of a stroke. Delay in seeking medical attention may affect what treatments can be given to you. . Non-Emergent Contact Non-Emergency issues call your: Primary Care Provider Call Non-Emergent contact if: you have a fever, you have any medication questions . . "Provider Documentation" section prepared by Tom Hart. . Stroke Core Measures Reason no t-PA for Stroke: Treatment not indicated Reason no antithrom by day 2: Treatment provided - N/A Reason no antithrom at D/C: Treatment provided - N/A Reason no statin at D/C: Treatment provided - N/A Reason no anticoag w/a fib: Treatment provided - N/A VTE Core Measure Inpt VTE Proph given/why not?: Other Anticoagulation (ELIQUIS)
--- NOTE | 2017-08-06 17:55 | PROGRESS NOTE ---
DATE: 08/06/2017 SUBJECTIVE: Perla was seen today. His speech is still significantly dysarthric but better than yesterday. He has no left-sided robbi-motor or hemisensory deficits. 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 Hopefully, this will be paid by the [place] insurance. I really do not think he needs regular neurologic follow up. This was clearly a series of embolic infarctions originating from his atrial fibrillation and certainly could be handled through the [facility] if necessary, but if his primary care physician wants neurology to take a look at him in the future, would be happy to take a reassessment in about a month. RUBI
[2017-08-06] MEDS: DIGOXIN 0.125 MG TAB PO SCH (18:33)
--- NOTE | 2017-08-06 19:27 | Pharmacy Progress Note ---
Pharmacist Stroke Counseling Date of Service Aug 06, 2017. Scope Pharmacy has been consulted to provide medication discharge counseling for this patient admitted with ischemic stroke as per the Pharmacist Discharge Counseling for Stroke Patients Protocol. Medications on Discharge New Medications: Potassium Chloride (Klor-Con M20) 20 Meq Tabcr 40 MEQ PO DAILY for 30 Days, #60 TABS 2 Refills Apixaban (Eliquis) 2.5 Mg Tab 5 MG PO BID for 30 Days, #120 TAB 2 Refills Aspirin (Aspirin EC Low Dose) 81 Mg Ectab 81 MG PO QAM for 30 Days, #30 TABS 2 Refills Atorvastatin (Atorvastatin Calcium) 40 Mg Tab 80 MG PO DAILY@2000 for 30 Days, #60 TAB 2 Refills Changed Medications: Insulin Glargine (Lantus Solostar) 100 Unit/Ml Inj 25 UNITS SC DAILY for 30 Days (Changed from: 20 UNITS) Continued Medications: Acetaminophen/Diphenhydramine (Tylenol Pm) 500 Mg/25 Mg Tab 1 TAB PO HS, TAB Bumetanide (Bumex) 2 Mg Tab 4 MG PO DAILY, TAB Cholecalciferol (Vitamin D3) 1,000 Unit Tab 1000 UNITS PO DAILY, TAB Digoxin (Digoxin) 0.125 Mg Tab 0.125 MG PO QD@1800 Diltiazem Hcl Extended Release (Tiazac 240 Mg) 240 Mg Cap 240 MG PO DAILY, CAP Docusate Sodium (Colace) 100 Mg Cap 200 MG PO BID PRN for Constipation Emollient (Aquaphor) 1 Oin Oin 1 APPLN TOP BID Glipizide (Glucotrol) 10 Mg Tab 20 MG PO BID, TAB Melatonin (Kp Melatonin) 3 Mg Tab 1 TAB PO HS for 30 Days, #30 TAB Metoprolol Tartrate (Metoprolol Tartrate) 50 Mg Tab 50 MG PO BID Polyethylene Glycol 3350 (Bulk (Polyethylene Glycol 3350) 1 Pow Pow 17 GM PO BID PRN for Constipation Ranitidine (Zantac) 300 Mg Tab 300 MG PO HS, TAB Selenium Sulfide (Selsun Blue) 1 % Sha UD APPLY SMALL AMOUNT TO SKIN BID, LATHER WITH SMALL AMOUNT OF WATER AND APPLY TO NECK AND CHEST, ALLOW TO SIT ON SKIN 10 MINUTES, THEN RINSE OFF. Sennosides (Senokot) 8.6 Mg Tab 8.6 MG PO DAILY PRN for Constipation, TAB Triamcinolone Acetonide (Topic (Triamcinolone Acetonide) 0.5 % Oin 1 APPLN TOP BID APPLY TO LEGS TWICE DAILY, COVER WITH SARAN WRAP FOR 2 HOURS. Discontinued Medications: Aspirin (Aspirin Ec) 325 Mg Tab 325 MG PO DAILY Potassium Chloride (K-Tabs) 10 Meq Tab 20 MEQ PO DAILY Action The above medications, specifically ones for stroke treatment/prophylaxis, have been reviewed in detail with the patient and his daughter prior to discharge. This includes indication, common adverse reactions, drug interactions, and medication administration. Medication counseling has been employed using the teach-back method to ensure understanding. Outcome The patient and his daughter have demonstrated understanding of the medications. Please note, they are aware that the pharmacist will call them within 72 hours post-discharge to confirm that the appropriate medications are being taken and answer any further medication related questions the patient might have at that time. Contact information Individual to be contacted: patient Relationship to patient (if applicable): Phone number: [phone] Best time to call: anytime but between 10 am - 12 pm would be best Additional comments: I met with the patient and his daughter prior to discharge and performed a thorough review of his discharge medications, in addition to providing him with a pillbox. Since he gets his prescriptions through the [place] and it usually takes a few days to get new prescriptions, a plan was already worked out to have him case picker a few days supply of his new medications at [facility] [place] and the [place] would reimburse him. The daughter asked if the Rx[facility] were also [facility] the [facility]. The nurse spoke with Tanner about this and he will take care of tonight or tomorrow AM. I told the patient that we would f/u to make sure this was done when we called him. Of note, the Lipitor was noted on his med list to be given at 1999. I told him this is bedtime but he would be fine to take it at any time of day. Zocor is listed on his allergy list but patient could not tell me what the reaction was. He has been tolerating Lipitor while in the hospital. He is aware to stop taking the ASA 325 mg and will now be taking a baby ASA. Patient also made aware this is OTC. I stressed the importance of monitoring for s/sx bleeding since he will be on the ASA and now apixaban. He reports having nosebleeds w/ warfarin so was taken off of this before. I noted that this could potentially happen with apixaban too. The patient and his daughter were both appreciative of the counseling provided today. Thank you for allowing pharmacy to be involved in the care of this patient. Please call [phone] or [phone] with any additional questions
--- NOTE | 2017-08-08 10:33 | Pharmacy Progress Note ---
Pharmacist Post D/C Phone Note Date of phone call: Aug 08, 2017. Individual with whom pharmacist spoke to: Patient The following questions were reviewed during the phone call with responses listed below each: Medications Dose Route/Sig Max Daily Dose Days Date Category Dose Instructions Klor-Con M20 (Potassium Chloride) 20 Meq Tabcr 40 Meq PO DAILY 30 08/06/17 Rx Aspirin EC Low Dose (Aspirin) 81 Mg Ectab 81 Mg PO QAM 30 08/06/17 Rx Atorvastatin Calcium (Atorvastatin) 40 Mg Tab 80 Mg PO DAILY@1999 30 08/06/17 Rx Eliquis (Apixaban) 5 Mg Tab 5 Mg PO BID 30 08/06/17 Rx Lantus Solostar (Insulin Glargine) 100 Unit/Ml Inj 25 Units SC DAILY 30 08/06/17 Rx Tylenol Pm (Acetaminophen/Diphenhydramine HCl) 500 Mg/25 Mg Tab 1 Tab PO HS 08/04/17 Reported Kp Melatonin (Melatonin) 3 Mg Tab 1 Tab PO HS 30 08/04/17 Reported Polyethylene Glycol 3350 (Polyethylene Glycol 3350 (Bulk) 1 Pow 17 Gm PO BID PRN 08/04/17 Reported Glucotrol (Glipizide) 10 Mg Tab 20 Mg PO BID 08/04/17 Reported Vitamin D3 (Cholecalciferol) 1,000 Unit Tab 1,000 Units PO DAILY 03/15/17 Reported Zantac (Ranitidine HCl) 300 Mg Tab 300 Mg PO HS 03/12/17 Reported Bumex (Bumetanide) 2 Mg Tab 4 Mg PO DAILY 03/12/17 Reported Triamcinolone Acetonide (Triamcinolone Acetonide (Topic) 0.5 % Oin 1 Appln TOP BID 03/12/17 Reported APPLY TO LEGS TWICE DAILY, COVER WITH SARAN WRAP FOR 2 HOURS. Senokot (Sennosides) 8.6 Mg Tab 8.6 Mg PO DAILY PRN 03/12/17 Reported Selsun Blue (Selenium Sulfide) 1 % Sha UD 03/12/17 Reported APPLY SMALL AMOUNT TO SKIN BID, LATHER WITH SMALL AMOUNT OF WATER AND APPLY TO NECK AND CHEST, ALLOW TO SIT ON SKIN 10 MINUTES, THEN RINSE OFF. Aquaphor (Emollient) 1 Oin 1 Appln TOP BID 03/12/17 Reported Tiazac 240 Mg (Diltiazem Hcl Extended Release) 240 Mg Cap 240 Mg PO DAILY 4/26/17 Reported Digoxin 0.125 Mg Tab 0.125 Mg PO QD@1800 03/12/17 Reported Metoprolol Tartrate 50 Mg Tab 50 Mg PO BID 03/12/17 Reported Colace (Docusate Sodium) 100 Mg Cap 200 Mg PO BID PRN 06/29/16 Reported Can you tell me the medications that you are currently taking as well as when and how you take each medication? - Nursing agency was over yesterday filled pillbox per [facility] discharge summary medications and new Rx labels. He is taking his pills as prescribed. When have you missed any doses of your medications? - Yes - he did not get Lipitor filled because he thought that he had some of this at home. He is going to get this filled today after our conversation. He did not realize this was important for stroke prevention. -- Of note, * pt did not buy new baby aspirin because he had this at home. He was previously on this before coumadin. Ensured me that the medication was not . * pt did not fill potassium since he has this at home as well. He is now taking 2 instead of one. What side effects are you having from your medications? - None What questions do you have about your medications? - None What problems are you having obtaining your medications? - May not be able to ge Apixaban from the [place]. He has purchased a 5 day supply from Rx sent to pharmacy ([facility]). [facility] called him and wanted him to try Coumadin again. [facility] in [place] (3pm) to be evaluated for Apixaban. Pt was on Coumadin before but was taken off for various reasons (nose bleeds? herb interactions?). When he was taken off of Coumadin he was switched to Aspirin 235mg daily (from Aspirin 81mg/day). When is your next appointment with your primary care doctor? - [facility] on Friday in [place] (3pm) As per the Pharmacist Discharge Counseling for Stroke Patients Protocol, this phone call has been completed within 72 hours of discharge. Thank you for allowing us to be involved in the care of this patient.
== END 2017-08-06 18:50 | disposition home health service (06) | DRG 66 ==
LOC: EDBD 11:58 → C.EDC 11:59 → C.2T 15:32 → EDBEDREQ 15:42 → ENRESERV 16:29
PROVIDERS: ADMIT Hospitalist; ATTEND Internal Medicine
DX: I63.40 Cerebral infarction due to embolism of unspecified cerebral artery (principal); I65.21 Occlusion and stenosis of right carotid artery; E11.9 Type 2 diabetes mellitus without complications; I48.2 Chronic atrial fibrillation; I25.10 Atherosclerotic heart disease of native coronary artery without angina pectoris; E78.5 Hyperlipidemia, unspecified; I10 Essential (primary) hypertension; E87.6 Hypokalemia; Z79.4 Long term (current) use of insulin; Z79.82 Long term (current) use of aspirin; Z79.899 Other long term (current) drug therapy; Z87.891 Personal history of nicotine dependence

== ENCOUNTER 2019-10-15 11:07 | Inpatient (IN) ==
[2019-10-15] MEDS ORDERED: MECLIZINE HCL 25 MG TAB PO STA (12:26)
[2019-10-15] MEDS ORDERED: SODIUM CHLORIDE 0.9% 1000ML 1,000 ML IV SCH (12:30)
[2019-10-15 12:45] LABS: Appearance Urine Clear (Clear); Bacteria Urine Automated Negative (Negative); Bilirubin Urine Negative (Negative); Blood Urine Negative (Negative); Color Urine Yellow; Glucose Urine UA Negative (Negative); Ketones Urine Negative (Negative); Leukocyte Esterase Urine Negative (Negative); Nitrite Urine Negative (Negative); Protein Urine Trace (Negative); RBC Urine Automated 0-4 /hpf (0-4); Specific Gravity Urine 1.016 (1.000-1.030); Urobilinogen Urine Negative (Negative)
[2019-10-15 12:49] LABS: Basophils # (auto) 0.02 K/uL (0-0.2); Basophils % (auto) 0.3 %; Eosinophils # (auto) 0.26 K/uL (0-0.5); Eosinophils % (auto) 3.3 %; Hematocrit (blood only) 46.9 % (42-52); Hemoglobin 15.8 g/dL (14.0-18.0); Immature Granulocytes # (auto) 0.02 K/uL (0.00-0.02); Immature Granulocytes % (auto) 0.3 %; Lymphocytes # (auto) 2.15 K/uL (1.2-3.4); Lymphocytes % (auto) 27.4 %; Mean Corpuscular Hemoglobin 34.1 pg (25-34); Mean Corpuscular Hgb Conc 33.7 g/dL (32-36); Mean Corpuscular Volume 101.1 fL (80-100); Mean Platelet Volume 12.4 fL (7.4-10.4); Monocytes # (auto) 0.54 K/uL (0.11-0.59); Monocytes % (auto) 6.9 %; Neutrophils # (auto) 4.86 K/uL (1.4-6.5); Neutrophils % (auto) 61.8 %; Platelet Count 183 K/uL (130-400); RDW Coefficient of Variation 13.5 % (11.5-14.5); RDW Standard Deviation 49.8 fL (36.4-46.3); Red Blood Count 4.64 M/uL (4.7-6.1); White Blood Count 7.85 K/uL (4.8-10.8)
--- NOTE | 2019-10-15 12:56 | XRay Report ---
XR chest 1V portable CLINICAL HISTORY: dizzy COMPARISON STUDY: 08/04/2017 FINDINGS: The bones soft tissues and hemidiaphragms are normal. The cardiomediastinal silhouette is n ormal. The lungs are clear. The pulmonary vasculature is normal. IMPRESSION: Negative chest. The above report was generated using voice recognition software. It may contain grammatical, syntax or spelling errors. Electronically signed by: Blue Mcguire M.D. 10/15/2019 12:55 PM
[2019-10-15 12:57] LABS: INR 1.1 (0.9-1.1); Prothrombin Time 11.6 Seconds (9.0-12.0)
[2019-10-15 13:16] LABS: Albumin Level 3.6 gm/dl (3.4-5.0); BUN Creatinine Ratio 8.7 (10-20); Calcium 9.7 mg/dl (8.5-10.1); Creatinine Clr Calc Pharmacy 33.9 ml/min; Est GFR (African American) 37.2; Est GFR (Non-African American) 32.1; Potassium 3.6 mmol/L (3.5-5.1)
[2019-10-15 13:24] LABS: Albumin Globulin Ratio 0.8 (0.9-2); Globulin 4.7 gm/dl (2.5-4.0); Total Protein 8.3 gm/dl (6.4-8.2); Troponin I 0.023 ng/ml (0-0.045)
--- NOTE | 2019-10-15 13:28 | CT Scan Report ---
CT SCAN OF THE BRAIN WITHOUT IV CONTRAST CLINICAL HISTORY: Dizziness. COMPARISON STUDY: CT of the brain dated 08/04/2017. TECHNIQUE: Unenhanced axial CT scan of the brain is performed from the vertex to the skull base. A do se lowering technique was utilized adhering to the principles of ALARA. CT DOSE: 810.83 mGy.cm FINDINGS: Brain parenchyma: There are age-related involutional changes noting moderate patchy subcortical and periventricular microangiopathic change. There is no hemorrhage, mass effect, or evidence of acute te rritorial ischemia by CT criteria. A right cerebellar calcification is unchanged from 2017. Allan-whit e matter differentiation is preserved. No extra-axial fluid collection is seen. Ventricles, sulci, cisterns: Prominent secondary to involutional change. Intracranial vasculature: There is atherosclerotic calcification of the cavernous carotid and vertebr al arteries. Calvarium: Unremarkable. Sinuses and mastoids: The visualized paranasal sinuses are clear. The mastoid air cells are well pneu matized. Orbits: The bony orbits are grossly intact. There are bilateral ocular lens implants. IMPRESSION: There is no hemorrhage, mass effect, or evidence of acute territorial ischemia by CT vanna ortiz. Electronically signed by: Jamaal Cordova M.D. 10/15/2019 1:26 PM
[2019-10-15] MEDS ORDERED: ASPIRIN CHEW 324 MG PO STA (14:33)
[2019-10-15] MEDS ORDERED: DEXTROSE 50% 50 ML SYRINGE IV PRN (16:22)
[2019-10-15] MEDS ORDERED: PHARMACIST DISCHARGE MED REC CONSULT PRN (16:22)
[2019-10-15] MEDS ORDERED: CARBOHYDRATES FOR HYPOGLYCEMIA PO PRN (16:22)
[2019-10-15] MEDS ORDERED: GLUCOSE 10 TABS/TUBE PO PRN (16:22)
[2019-10-15] MEDS ORDERED: GLUCAGON FOR INJ 1 MG VIAL SQ PRN (16:22)
[2019-10-15] MEDS ORDERED: GLUCOSE 40% GEL 15 GM TUBE PO PRN (16:22)
--- NOTE | 2019-10-15 16:36 | Emergency Department Note ---
Entered by Vanesa Ellison acting as a scribe for Breezy Vance DO History of Present Illness General Chief complaint: Vertigo Source: patient History of Present Illness Onset (ago): day(s) (last night) Location: head (general) Pain Consistency: + intermittent Maximum Pain Intensity: 7 Quality: + other (dizziness) Associated symptoms: + denies other symptoms (recent falls, abdominal pain, ) and + other (blurred vision, sinus drainage); no chest pain and no shortness of breath The patient is a 84 year old male who presents to the Emergency Room with complaints of intermittent dizziness beginning last night. The patient states the dizziness occurs when standing up, but not with head movement. The patient reports constant blurred vision beginning around the same time. He reports left- sided weakness different feeling in his face, left upper extremity and left lower extremity. He notes worsening sinus drainage over the past couple of days. The patient denies recent falls, chest pain, abdominal pain, shortness of breath, and any new medications. The patient reports previous episodes of dizziness, but denies a history of vertigo. Home Medications Home Medications Medication Instructions Recorded Confirmed Type acetaminophen [Tylenol] 650 mg PO TID PRN 10/15/19 10/15/19 History apixaban 2.5 mg PO BID 10/15/19 10/15/19 History artificial saliva (yerbas-lyt) 1 spray MUCOUS MEMBRANE UD PRN 10/15/19 10/15/19 History bumetanide 4 mg PO DAILY 10/15/19 10/15/19 History calcium carbonate [Tums] 1,000 mg PO BID PRN 10/15/19 10/15/19 History cholecalciferol (vitamin D3) 1,000 unit PO DAILY 10/15/19 10/15/19 History digoxin [Digox] 125 mcg PO QPM 10/15/19 10/15/19 History diltiazem HCl [Tiazac] 240 mg PO DAILY 10/15/19 10/15/19 History glipizide 20 mg PO BID 10/15/19 10/15/19 History insulin glargine [Lantus Solostar 32 unit SUBCUT HS 10/15/19 10/15/19 History U-100 Insulin] metoprolol tartrate [Lopressor] 50 mg PO BID 10/15/19 10/15/19 History nitroglycerin [Nitrostat] 0.4 mg SUBLINGUAL UD PRN 10/15/19 10/15/19 History omeprazole 20 mg PO DAILY 10/15/19 10/15/19 History pravastatin 40 mg PO DAILY 10/15/19 10/15/19 History sennosides [senna] 17.2 mg PO BID PRN 10/15/19 10/15/19 History triamcinolone acetonide 1 applic TOPICAL BID 10/15/19 10/15/19 History trolamine salicylate [Arthricream] 1 applic TOPICAL TID PRN 10/15/19 10/15/19 History urea 1 applic TOPICAL BID 10/15/19 10/15/19 History urea 1 applic TOPICAL Q3D 10/15/19 10/15/19 History Allergies Allergy/AdvReac Type Severity Reaction Status Date / Time Bactrim Allergy Unknown unknown Unverified 03/12/17 16:36 felodipine Allergy Unknown unk Verified 10/15/19 13:20 furosemide Allergy Unknown unknown Unverified 10/15/19 13:20 metformin Allergy Unknown unk Verified 10/15/19 13:20 simvastatin Allergy Unknown unk Verified 10/15/19 13:20 Sulfa (Sulfonamide Allergy Unknown . Verified 10/15/19 13:20 Antibiotics) sulfamethoxazole Allergy Unknown unknown Unverified 10/15/19 13:20 trimethoprim Allergy Unknown unknown Unverified 10/15/19 13:20 Past Med/Surg History Medical History Atrial fibrillation (Chronic) CAD (coronary artery disease) (Chronic) "[place] ~ 2012, s/p 2 stents @ [facility] [place] - details unknown" Diastolic dysfunction (Chronic) "echo 11/2014 - EF 65-70%, diastolic dysfunction" DM type 2 (diabetes mellitus, type 2) (Chronic) Dyslipidemia (Chronic) Hip fracture, right (Chronic) "s/p OIRF and subsequent revision" History of CVA (cerebrovascular accident) HTN (hypertension) (Chronic) TIA (transient ischemic attack) (Chronic) Surgical History No pertinent past surgical history Family History Other Family history non-contributory Social History Preferred Language: Bulgarian Communication Ability: Effective Storage Engineer Required: No Beliefs That Will Affect Care: Adventist Adventist Beliefs: Caodaism. Current Living Situation: Alone Other Information That Helps Us Care for You: No Feels Safe at Home: Yes Safety Concerns: Feels Safe At This Time Smoking Status: Never smoker Hx Alcohol Use: No Hx Substance Use: No Review of Systems See HPI for pertinent positives & negatives. and A total of 10 systems reviewed and were otherwise negative Physical Exam Vital Signs Vital Signs - 24 hr 10/15/19 11:17 10/15/19 11:50 10/15/19 11:53 Temperature 36.3 C L Temperature Source Oral Pulse Rate - Lying Pulse Rate - Sitting Pulse Rate - Standing Pulse Rate 71 61 Pulse Rate [Left] 56 L Respiratory Rate 16 18 Respiratory Effort / Characteristics Non-Labored Spontaneous Respiratory Depth Normal Blood Pressure - Lying Blood Pressure - Sitting Blood Pressure- Standing Blood Pressure 150/76 H Blood Pressure [Right Arm] 156/86 H Blood Pressure Mean 100 Blood Pressure Mean [Right Arm] 109 Blood Pressure Position Sitting Blood Pressure Position [Right Arm] Lying Pulse Oximetry 99 95 98 Oxygen Delivery Method Room Air Room Air Room Air Sepsis Recent Fever Within 48 Hours No Sepsis Action Taken by Nursing No Action Required 10/15/19 14:02 10/15/19 14:29 Temperature Temperature Source Pulse Rate - Lying 67 Pulse Rate - Sitting 74 Pulse Rate - Standing 79 Pulse Rate Pulse Rate [Left] 53 L Respiratory Rate 18 Respiratory Effort / Characteristics Non-Labored Spontaneous Respiratory Depth Normal Blood Pressure - Lying 172/104 H Blood Pressure - Sitting 170/87 H Blood Pressure- Standing 140/76 Blood Pressure Blood Pressure [Right Arm] 140/76 Blood Pressure Mean Blood Pressure Mean [Right Arm] 97 Blood Pressure Position Blood Pressure Position [Right Arm] Standing Pulse Oximetry 93 Oxygen Delivery Method Room Air Sepsis Recent Fever Within 48 Hours Sepsis Action Taken by Nursing GENERAL: Sitting up, garbled speech, disheveled, non-toxic EYE EXAM: normal conjunctiva, PERRL and EOM's grossly intact OROPHARYNX: no exudate, no erythema, lips, buccal mucosa, and tongue normal and mucous membranes are moist NECK: supple, no nuchal rigidity, no adenopathy, non-tender LUNGS: Clear to auscultation. Normal chest wall mechanics HEART: no murmurs, S1 normal and S2 normal ABDOMEN: abdomen soft, non-tender, normo-active bowel sounds, no masses, no rebound or guarding. BACK: Back is symmetrical on inspection and there is no deformity, no midline tenderness, no CVA tenderness. SKIN: no rashes and no bruising UPPER EXTREMITIES: upper extremities are grossly normal. LOWER EXTREMITIES: No pitting edema. NEURO EXAM: Normal sensorium, cranial nerves II-XII intact, garbled speech, no weakness of arms, no weakness of legs. Course Course ED COURSE: Vital signs were reviewed and showed situational hypertension The patients medical record was reviewed The above diagnostic studies were performed and reviewed. ED treatments and interventions as stated above. 1218: The patient was evaluated in room C01B. A complete history and physical examination was performed. 1415: Upon reevaluation, the patient is resting more comfortably.I discussed my findings with the patient and he understands and agrees with the treatment plan. 1435: The patient is complaining of left arm and leg numbness which he reported to the nurse. Based on the patients age, coexisting illnesses, exam and lab findings the decision to treat as an inpatient was made. I reviewed the patient's case with Nati GARCIA. Dr. Jimenez [facility] Hospitalist will evaluate the patient for further management. The patient remained stable while under my care. The patient will be evaluated for further management. Administered Medications Digoxin (Lanoxin) 0.125 mg PO DAILY@1800 [facility] Stop: 11/14/19 17:59 Last Admin: 10/15/19 17:59 Dose: 0.125 mg Documented by: [id number] Sodium Chloride (Nss 1000ml) 1,000 mls @ 80 mls/hr IV .[id number] CHRIS Stop: 11/14/19 16:21 Last Admin: 10/15/19 17:53 Dose: 80 mls/hr Documented by: [id number] Insulin Aspart (Novolog Flexpen) 0 units SC ACHS CHRIS Stop: 11/14/19 16:29 Last Admin: 10/15/19 17:57 Dose: 4 units Documented by: [id number] Cosigned by: [id number] Discontinued Medications Aspirin (Aspirin) 324 mg PO NOW [facility] Stop: 10/15/19 14:34 Last Admin: 10/15/19 14:43 Dose: 324 mg Documented by: [id number] Sodium Chloride (Nss 1000ml) 1,000 mls @ 999 mls/hr IV .[id number] CHRIS Stop: 10/15/19 13:30 Last Infusion: 10/15/19 14:01 Dose: 0 mls/hr Documented by: [id number] Admin: 10/15/19 12:52 Dose: 999 mls/hr Documented by: [id number] Meclizine HCl (Antivert) 25 mg PO NOW STA Stop: 10/15/19 12:27 Last Admin: 10/15/19 12:52 Dose: 25 mg Documented by: [id number] Medical Decision Making Differential Diagnosis Differential diagnosis includes etiologies such as benign positional vertigo, dehydration, hypovolemia, anemia, tumor, infection, hypoglycemia, electrolyte abnormalities, cardiac sources, intracerebral event, toxicologic, neurologic, as well as others were entertained. Medical Records Attestation: I reviewed the patient's medical records. Home Medications Current Medication List: was personally reviewed by me Laboratory Data Attestation: I reviewed the patient's lab results. Result diagrams: 10/15/19 12:35 10/15/19 12:35 Lab Results 10/15/19 10/15/19 10/15/19 Range/Units 12:30 12:35 12:35 WBC 7.85 (4.8-10.8) K/uL RBC 4.64 L (4.7-6.1) M/uL Hgb 15.8 (14.0-18.0) g/dL Hct 46.9 (42-52) % MCV 101.1 H (80-100) fL MCH 34.1 H (25-34) pg MCHC 33.7 (32-36) g/dL RDW Std Deviation 49.8 H (36.4-46.3) fL RDW Coeff of Liya 13.5 (11.5-14.5) % Plt Count 183 (130-400) K/uL MPV 12.4 H (7.4-10.4) fL Immature Gran % (Auto) 0.3 % Neut % (Auto) 61.8 % Lymph % (Auto) 27.4 % [place] % (Auto) 6.9 % Eos % (Auto) 3.3 % Baso % (Auto) 0.3 % Immature Gran # (Auto) 0.02 (0.00-0.02) K/uL Neut # (Auto) 4.86 (1.4-6.5) K/uL Lymph # (Auto) 2.15 (1.2-3.4) K/uL [place] # (Auto) 0.54 (0.11-0.59) K/uL Eos # (Auto) 0.26 (0-0.5) K/uL Baso # (Auto) 0.02 (0-0.2) K/uL PT 11.6 (9.0-12.0) Seconds INR 1.1 (0.9-1.1) Sodium (136-145) mmol/L Potassium (3.5-5.1) mmol/L Chloride (98-107) mmol/L Carbon Dioxide (21-32) mmol/L Anion Gap (3-11) BUN (7-18) mg/dl Creatinine (0.6-1.4) mg/dl Est Cr Clr Drug Dosing ml/min Est GFR ( Amer) Est GFR (Non-Af Amer) BUN/Creatinine Ratio (10-20) Glucose (70-99) mg/dl Calcium (8.5-10.1) mg/dl Total Bilirubin (0.2-1) mg/dl AST (15-37) U/L ALT (12-78) U/L Alkaline Phosphatase (45-117) U/L Troponin I (0-0.045) ng/ml Total Protein (6.4-8.2) gm/dl Albumin (3.4-5.0) gm/dl Globulin (2.5-4.0) gm/dl Albumin/Globulin Ratio (0.9-2) Urine Color Yellow Urine Appearance Clear (Clear) Urine pH 6.0 (4.5-7.5) Ur Specific [place] 1.016 (1.000-1.030) Urine Protein Trace H (Negative) Urine Glucose (UA) Negative (Negative) Urine Ketones Negative (Negative) Urine Blood Negative (Negative) Urine Nitrite Negative (Negative) Urine Bilirubin Negative (Negative) Urine Urobilinogen Negative (Negative) Ur Leukocyte Esterase Negative (Negative) Urine WBC (Auto) 1-5 (0-5) /hpf Urine RBC (Auto) 0-4 (0-4) /hpf U Hyaline Cast (Auto) 1-5 (0-5) /lpf U Epithel Cells (Auto) 5-10 H (0-5) /lpf Urine Bacteria (Auto) Negative (Negative) 10/15/19 Range/Units 12:35 WBC (4.8-10.8) K/uL RBC (4.7-6.1) M/uL Hgb (14.0-18.0) g/dL Hct (42-52) % MCV (80-100) fL MCH (25-34) pg MCHC (32-36) g/dL RDW Std Deviation (36.4-46.3) fL RDW Coeff of Liya (11.5-14.5) % Plt Count (130-400) K/uL MPV (7.4-10.4) fL Immature Gran % (Auto) % Neut % (Auto) % Lymph % (Auto) % [place] % (Auto) % Eos % (Auto) % Baso % (Auto) % Immature Gran # (Auto) (0.00-0.02) K/uL Neut # (Auto) (1.4-6.5) K/uL Lymph # (Auto) (1.2-3.4) K/uL [place] # (Auto) (0.11-0.59) K/uL Eos # (Auto) (0-0.5) K/uL Baso # (Auto) (0-0.2) K/uL PT (9.0-12.0) Seconds INR (0.9-1.1) Sodium 139 (136-145) mmol/L Potassium 3.6 (3.5-5.1) mmol/L Chloride 102 (98-107) mmol/L Carbon Dioxide 31 (21-32) mmol/L Anion Gap 6.0 (3-11) BUN 17 (7-18) mg/dl Creatinine 1.90 H (0.6-1.4) mg/dl Est Cr Clr Drug Dosing 33.9 ml/min Est GFR ( Amer) 37.2 Est GFR (Non-Af Amer) 32.1 BUN/Creatinine Ratio 8.7 L (10-20) Glucose 233 H (70-99) mg/dl Calcium 9.7 (8.5-10.1) mg/dl Total Bilirubin 1.0 (0.2-1) mg/dl AST 20 (15-37) U/L ALT 21 (12-78) U/L Alkaline Phosphatase 70 (45-117) U/L Troponin I 0.023 (0-0.045) ng/ml Total Protein 8.3 H (6.4-8.2) gm/dl Albumin 3.6 (3.4-5.0) gm/dl Globulin 4.7 H (2.5-4.0) gm/dl Albumin/Globulin Ratio 0.8 L (0.9-2) Urine Color Urine Appearance (Clear) Urine pH (4.5-7.5) Ur Specific [place] (1.000-1.030) Urine Protein (Negative) Urine Glucose (UA) (Negative) Urine Ketones (Negative) Urine Blood (Negative) Urine Nitrite (Negative) Urine Bilirubin (Negative) Urine Urobilinogen (Negative) Ur Leukocyte Esterase (Negative) Urine WBC (Auto) (0-5) /hpf Urine RBC (Auto) (0-4) /hpf U Hyaline Cast (Auto) (0-5) /lpf U Epithel Cells (Auto) (0-5) /lpf Urine Bacteria (Auto) (Negative) Imaging Data Radiologist's Impression: Radiology results as stated below per my review and the radiologist's interpretation: CT SCAN OF THE BRAIN WITHOUT IV CONTRAST CLINICAL HISTORY: Dizziness. COMPARISON STUDY: CT of the brain dated 08/04/2017. TECHNIQUE: Unenhanced axial CT scan of the brain is performed from the vertex to the skull base. A dose lowering technique was utilized adhering to the principles of ALARA. CT DOSE: 810.83 mGy.cm FINDINGS: Brain parenchyma: There are age-related involutional changes noting moderate patchy subcortical and periventricular microangiopathic change. There is no hemorrhage, mass effect, or evidence of acute territorial ischemia by CT criteria. A right cerebellar calcification is unchanged from 2017. Allan-white matter differentiation is preserved. No extra-axial fluid collection is seen. Ventricles, sulci, cisterns: Prominent secondary to involutional change. Intracranial vasculature: There is atherosclerotic calcification of the cavernous carotid and vertebral arteries. Calvarium: Unremarkable. Sinuses and mastoids: The visualized paranasal sinuses are clear. The mastoid air cells are well pneumatized. Orbits: The bony orbits are grossly intact. There are bilateral ocular lens implants. IMPRESSION: There is no hemorrhage, mass effect, or evidence of acute territorial ischemia by CT criteria. Electronically signed by: Jamaal Cordova M.D. 10/15/2019 1:26 PM XR chest 1V portable CLINICAL HISTORY: dizzy COMPARISON STUDY: 08/04/2017 FINDINGS: The bones soft tissues and hemidiaphragms are normal. The cardiomediastinal silhouette is normal. The lungs are clear. The pulmonary vasculature is normal. IMPRESSION: Negative chest. The above report was generated using voice recognition software. It may contain grammatical, syntax or spelling errors. Electronically signed by: Blue Mcguire M.D. 10/15/2019 12:55 PM ECG Data Attestation: I personally reviewed and interpreted this ECG as follows: Indication: + weakness Rate (beats per minute): 51 Rhythm: + atrial fibrillation ECG [place]: + Normal ECG Findings: + Other (poor baseline, normal QTC); no PVCs Blood Pressure Blood Pressure Findings: Elevated blood pressure Blood Pressure Disposition: further management by hospitalist LEVY Narrative Patient is an 84-year-old male that presents to the ER for dizziness which started yesterday. He notes that this is mainly positional with getting up or sitting up. He also admits to some blurry vision, sinus drainage and left-sided numbness/weakness. This also started yesterday. On my exam there is no obvious focal weakness. He is neurologically intact but does have some garbled speech which son notes is normal for him. He is on a 10 a inhibitor. IV was established blood work is obtained and showed no significant leukocytosis or anemia. INR was unremarkable. BMP with a creatinine 1.9 up from a baseline of 1.3. Glucose was elevated to 33. Troponin was detectable but negative. Bilirubin LFTs was unremarkable. UA was negative. Digoxin was low. CT of the head was negative. Chest x-ray without a focal infiltrate. Discussed with the patient. He was given IV fluids. Discussed with the son as well at bedside and recommended observation due to the weakness. He has a previous MRI which shows diminished/no flow in the posterior circulation. Question if this could be getting worse. Cannot CTA him at this time due to the creatinine. Impression & Plan TIA (transient ischemic attack), Dizziness, Paresthesias Discharge Plan Visit Data *Final* Discharge Date/Time: 10/15/19 15:51 Chief Complaint: Vertigo ED Provider: Breezy Vance Discharge Problem: TIA (transient ischemic attack), Dizziness, Paresthesias Patient Disposition: Admitted As Inpatient Discharge Instructions Interventions: ED Discharge Assessment Last Done: 10/15/19 15:51 The scribe's documentation has been prepared under my direction and personally reviewed by me in its entirety. I confirm that the note above accurately reflects all work, treatment, procedures, and medical decision making performed by me.
--- NOTE | 2019-10-15 16:40 | History & Physical Report ---
Date of Service October 15, 2019 Assessment & Plan (1) Lightheadedness: (2) Dizziness: (3) Ambulatory dysfunction: (4) History of CVA (cerebrovascular accident): -Admit to telemetry -Patient presenting from home with reports of lightheadedness, dizziness, "feelings of off balance"; patient is somewhat of a poor historian and has difficulty describing his symptoms -History of CVA in 2017 with underlying atrial fibrillation; patient admits to noncompliance with Eliquis at times -Head CT negative for acute findings; check brain MRI and MRA - may need echo and carotid Doppler if positive -Neurochecks -Also noted to have positive orthostatic BPs, which could be contributing symptoms as well; hold diuretics and give gentle IVF, continue to monitor orthostatic BPs (5) Abnormal kidney function: -Creatinine noted to be 1.9, was 1.3 in 2017, no other labs to compare to at this time -Holding diuretics and giving gentle IVF due to positive orthostatic BPs -Continue monitor renal functions (6) Atrial fibrillation: -Rate controlled on digoxin, diltiazem, metoprolol -Anticoagulated on apixaban (patient reports intermittent noncompliance with medications) (7) DM type 2 (diabetes mellitus, type 2): -Unknown HgbA1c, will check with a.m. labs -Hold oral agents and utilize Lantus and NovoLog per protocol hospitalized (8) CAD (coronary artery disease): -Appears stable, no reports of chest pain -Continue beta-katherine and statin (9) Diastolic dysfunction: -Appears euvolemic on exam -Holding diuretics due to orthostasis as above (10) DVT prophylaxis: -Anticoagulated on apixaban History of Present Illness Chief Complaint: Dizziness, feeling off balance Primary Care Provider: García Melo MD 84-year-old male who presents the ED for evaluation of dizziness and feeling off balance. Patient is somewhat of a poor historian. Reports his symptoms have been going on for the past several weeks however have acutely worsened over the past 1 week. Reports that when he attempts to ambulate, he feels dizzy, lightheaded, and off-balance. Patient denies any unilateral weakness, numbness, tingling. No syncopal events. Has some occasional headaches which are unchanged from baseline. No visual changes. Has had slurred speech since CVA in 2017, patient feels as though his speech has been worsening over the past 1 year. He denies chest pain shortness of breath. Denies any other recent illness, fevers, chills. No abdominal pain, nausea, vomiting, diarrhea. He denies any urinary symptoms. In the ED, patient's head CT is negative for acute findings. Orthostatic BPs are found to be positive. Labs show creatinine 1.9 (was 1.3 in 2017, no other labs to compare to at this time), other labs unremarkable. Vital signs are stable. Patient was given full dose aspirin, meclizine, IVF. Allergies Allergy/AdvReac Type Severity Reaction Status Date / Time Bactrim Allergy Unknown unknown Unverified 03/12/17 16:36 felodipine Allergy Unknown unk Verified 10/15/19 13:20 furosemide Allergy Unknown unknown Unverified 10/15/19 13:20 metformin Allergy Unknown unk Verified 10/15/19 13:20 simvastatin Allergy Unknown unk Verified 10/15/19 13:20 Sulfa (Sulfonamide Allergy Unknown . Verified 10/15/19 13:20 Antibiotics) sulfamethoxazole Allergy Unknown unknown Unverified 10/15/19 13:20 trimethoprim Allergy Unknown unknown Unverified 10/15/19 13:20 Home Medications Home Medications Medication Instructions Recorded Confirmed Type acetaminophen [Tylenol] 650 mg PO TID PRN 10/15/19 10/15/19 History apixaban 2.5 mg PO BID 10/15/19 10/15/19 History artificial saliva (yerbas-lyt) 1 spray MUCOUS MEMBRANE UD PRN 10/15/19 10/15/19 History bumetanide 4 mg PO DAILY 10/15/19 10/15/19 History calcium carbonate [Tums] 1,000 mg PO BID PRN 10/15/19 10/15/19 History cholecalciferol (vitamin D3) 1,000 unit PO DAILY 10/15/19 10/15/19 History digoxin [Digox] 125 mcg PO QPM 10/15/19 10/15/19 History diltiazem HCl [Tiazac] 240 mg PO DAILY 10/15/19 10/15/19 History glipizide 20 mg PO BID 10/15/19 10/15/19 History insulin glargine [Lantus Solostar 32 unit SUBCUT HS 10/15/19 10/15/19 History U-100 Insulin] metoprolol tartrate [Lopressor] 50 mg PO BID 10/15/19 10/15/19 History nitroglycerin [Nitrostat] 0.4 mg SUBLINGUAL UD PRN 10/15/19 10/15/19 History omeprazole 20 mg PO DAILY 10/15/19 10/15/19 History pravastatin 40 mg PO DAILY 10/15/19 10/15/19 History sennosides [senna] 17.2 mg PO BID PRN 10/15/19 10/15/19 History triamcinolone acetonide 1 applic TOPICAL BID 10/15/19 10/15/19 History trolamine salicylate [Arthricream] 1 applic TOPICAL TID PRN 10/15/19 10/15/19 History urea 1 applic TOPICAL BID 10/15/19 10/15/19 History urea 1 applic TOPICAL Q3D 10/15/19 10/15/19 History Past Med/Surg History Medical History Atrial fibrillation (Chronic) CAD (coronary artery disease) (Chronic) "[place] ~ 2012, s/p 2 stents @ [facility] [place] - details unknown" Diastolic dysfunction (Chronic) "echo 11/2014 - EF 65-70%, diastolic dysfunction" DM type 2 (diabetes mellitus, type 2) (Chronic) Dyslipidemia (Chronic) Hip fracture, right (Chronic) "s/p OIRF and subsequent revision" History of CVA (cerebrovascular accident) HTN (hypertension) (Chronic) TIA (transient ischemic attack) (Chronic) Surgical History No pertinent past surgical history Family History Other Family history non-contributory Social History Preferred Language: Thai Communication Ability: Effective Household Chores Required: No Beliefs That Will Affect Care: Worship Worship Beliefs: Orthodox. Current Living Situation: Alone Other Information That Helps Us Care for You: No Feels Safe at Home: Yes Safety Concerns: Feels Safe At This Time Smoking Status: Never smoker Hx Alcohol Use: No Hx Substance Use: No Review of Systems Review of Systems: ROS per HPI, all other systems reviewed and negative Physical Exam Constitutional: WD/WN, vitals as above Eyes: PERRL, conjunctivae normal, anicteric sclerae ENMT: external ear and nose normal, oropharynx normal Respiratory: normal respiratory effort, lungs clear to auscultation Cardiovascular: Rate/Rhythm: regular rate and + irregularly irregular Vessels: normal peripheral pulses Extremities: no edema Gastrointestinal (Abdomen): normal bowel sounds, soft, nontender, no hepatosplenomegaly Musculoskeletal: no cyanosis or clubbing, extremities motor strength 5/5 Skin: no rashes, warm and dry Neurologic: moves all extremities and awake Speech / Cognition: + abnormal speech (Mild slurred speech noted) Cranial Nerves: PERRL, normal accommodation, EOM intact bilaterally and normal facial strength Coordination: + abnormal jmnjas-fg-wevk test (Mild difficulty with gpauvj-mx-qsxp BLUE); normal zegr-mb-qjed test Psychiatric: A+Ox3, euthymic affect Results & Data Vital Signs (Past 12 Hours) Vital Signs Temp Pulse Pulse Resp BP BP Pulse Ox 10/15/19 15:51 80 16 151/82 H 96 10/15/19 14:02 53 L 18 140/76 93 10/15/19 11:53 56 L 18 156/86 H 98 10/15/19 11:50 61 95 10/15/19 11:17 36.3 C L 71 16 150/76 H 99 Laboratory Results Short CBC 10/15/19 Range/Units 12:35 WBC 7.85 (4.8-10.8) K/uL Hgb 15.8 (14.0-18.0) g/dL Hct 46.9 (42-52) % Plt Count 183 (130-400) K/uL BMP 10/15/19 12:35 Sodium 139 Potassium 3.6 Chloride 102 Carbon Dioxide 31 BUN 17 Creatinine 1.90 H Glucose 233 H Calcium 9.7 Cardiac Enzymes 10/15/19 Range/Units 12:35 Troponin I 0.023 (0-0.045) ng/ml Liver Function 10/15/19 Range/Units 12:35 Total Bilirubin 1.0 (0.2-1) mg/dl AST 20 (15-37) U/L ALT 21 (12-78) U/L Alkaline Phosphatase 70 (45-117) U/L Albumin 3.6 (3.4-5.0) gm/dl Urine 10/15/19 Range/Units 12:30 Urine Color Yellow Urine Appearance Clear (Clear) Urine pH 6.0 (4.5-7.5) Ur Specific [place] 1.016 (1.000-1.030) Urine Protein Trace H (Negative) Urine Glucose (UA) Negative (Negative) Diagnostic Findings CXR IMPRESSION: Negative chest. HEAD CT IMPRESSION: There is no hemorrhage, mass effect, or evidence of acute territorial ischemia by CT criteria. Code Status & VTE Plan Code Status Patient is a full code as per my discussion with him. VTE Prophylaxis Plan VTE Prophylaxis will be ordered: Yes Supervising Physician Co-Signing Physician Notes Attending addendum Pt seen and examined care co ordinated with Nati WALDEN this is a 84 yo M with PMHx of Afib,on eliquis ;prior hx of CVA ' type 2 DM presented to ER with complain of dizzy spell PHYSICAL EXAM no focal neurological deficit appreciated in exam GENERAL: No sign of distress, HEENT: Sclera nonicteric, pink-purple bilateral equal reactive to light extraocular muscle intact Normal oral mucosa, neck: No JVD, no thyromegaly, trachea midline Lungs: Clear to auscultate, no wheeze or rales Cardiovascular: Regular S1 and S2, no murmur or gallop, no JVD, no lower extremity edema Abdomen: Soft, nontender, bowel sounds active, no hepatosplenomegaly Extremities: No rash or deformity, normal joint, Neuro: No focal neurological deficit, , no facial droop DIZZY SPELL will observe in tele remain rate controlled afib CT HEAD: no acute change MRI/ MRA of brain ordered orthostatic hypotension noted ordered for IVF ACUTE RENAL FAILURE with unknown baseline ivf hold diuretics avoid nephrotoxin drugs please refer to further documentation by Nati WALDEN for discussion of other chronic issues Morena Yost MD
[2019-10-15] MEDS: SODIUM CHLORIDE 0.9% 1000ML 1,000 ML IV SCH (17:53)
[2019-10-15] MEDS: INSULIN ASPART 100 UNITS/ML 3 ML PEN SC SCH ×2 (17:57→20:18)
[2019-10-15] MEDS ORDERED: DIGOXIN 0.125 MG TAB PO SCH (18:00)
--- NOTE | 2019-10-15 19:52 | Magnetic Resonance Report ---
MRI OF THE BRAIN WITHOUT CONTRAST CLINICAL HISTORY: ataxia COMPARISON STUDY: August 04, 2017 FINDINGS: The patient was only able to tolerate a sagittal T1-weighted sequence. No mass lesions are visualized on this sagittal T1 weighted sequence. There is corpus callosal thinni ng. There is no significant hydrocephalus. IMPRESSION: 1. Incomplete study. The the patient was only able to tolerate a single sagittal T1-weighted sequence 2. No evidence of hydrocephalus. No mass lesions identified on this single sequence. Electronically signed by: Quang House M.D. 10/15/2019 7:51 PM
--- NOTE | 2019-10-15 20:01 | Magnetic Resonance Report ---
MR ANGIOGRAPHY OF THE [place] OF [place] NO CONTRAST CLINICAL HISTORY: ataxia BLURRY VISION. COMPARISON STUDY: August 04, 2017 A 3-D xvzu-km-gapfcz MR angiographic sequence of the [place] of [place] was performed. Both the source and projection images were reviewed. No aneurysms are visualized. There is a diminutive right posterior cerebral artery, unchanged from th e preceding study. Slightly diminished signal within the right MCA territory as compared to the left remains unchanged from the prior study. No discrete stenotic lesions or major branch occlusions are v isualized. IMPRESSION: 1. No significant change when compared the preceding study 2. Diminutive right posterior cerebral artery 3. No evidence of aneurysm Electronically signed by: Quang House M.D. 10/15/2019 7:59 PM
[2019-10-15] MEDS: METOPROLOL TARTRATE 50 MG TAB PO SCH (20:12)
[2019-10-15] MEDS: APIXABAN 2.5 MG TAB PO SCH (20:12)
[2019-10-15] MEDS: INSULIN GLARGINE SOLOSTAR 100 UNITS/ML 3 ML PEN SC SCH (20:13)
[2019-10-15] MEDS: ACETAMINOPHEN 325 MG TAB PO PRN (22:26)
[2019-10-16] MEDS: SODIUM CHLORIDE 0.9% 1000ML 1,000 ML IV SCH (04:58)
[2019-10-16 06:53] LABS: Basophils # (auto) 0.02 K/uL (0-0.2); Basophils % (auto) 0.3 %; Eosinophils # (auto) 0.36 K/uL (0-0.5); Eosinophils % (auto) 5.4 %; Hematocrit (blood only) 41.6 % (42-52); Hemoglobin 13.5 g/dL (14.0-18.0); Lymphocytes # (auto) 2.34 K/uL (1.2-3.4); Lymphocytes % (auto) 35.1 %; Mean Corpuscular Hemoglobin 32.4 pg (25-34); Mean Corpuscular Hgb Conc 32.5 g/dL (32-36); Mean Corpuscular Volume 99.8 fL (80-100); Mean Platelet Volume 12.1 fL (7.4-10.4); Monocytes # (auto) 0.46 K/uL (0.11-0.59); Monocytes % (auto) 6.9 %; Neutrophils # (auto) 3.49 K/uL (1.4-6.5); Neutrophils % (auto) 52.3 %; Platelet Count 162 K/uL (130-400); RDW Coefficient of Variation 13.5 % (11.5-14.5); RDW Standard Deviation 48.4 fL (36.4-46.3); Red Blood Count 4.17 M/uL (4.7-6.1); White Blood Count 6.67 K/uL (4.8-10.8)
[2019-10-16 07:06] LABS: Estimated Average Glucose 192 mg/dl; Hemoglobin A1C 8.3 % (4.5-5.6)
[2019-10-16 07:26] LABS: BUN Creatinine Ratio 9.5 (10-20); Calcium 8.7 mg/dl (8.5-10.1); Creatinine Clr Calc Pharmacy 39.2 ml/min; Est GFR (African American) 44.5; Est GFR (Non-African American) 38.4
[2019-10-16] MEDS: ACETAMINOPHEN 325 MG TAB PO PRN (08:18)
[2019-10-16] MEDS: INSULIN ASPART 100 UNITS/ML 3 ML PEN SC SCH ×2 (08:19→12:09)
[2019-10-16] MEDS: APIXABAN 2.5 MG TAB PO SCH (08:20)
[2019-10-16] MEDS: INSULIN GLARGINE SOLOSTAR 100 UNITS/ML 3 ML PEN SC SCH (08:20)
[2019-10-16] MEDS: METOPROLOL TARTRATE 50 MG TAB PO SCH (08:21)
[2019-10-16] MEDS ORDERED: CHOLECALCIFEROL 1,000 UNITS TAB PO SCH (09:00)
[2019-10-16] MEDS ORDERED: PANTOprazole 40 MG TAB PO SCH (09:00)
[2019-10-16] MEDS ORDERED: PRAVASTATIN SOD 40 MG TAB PO SCH (09:00)
[2019-10-16] MEDS ORDERED: dilTIAZem ER 120 MG CAPCR PO SCH (09:00)
[2019-10-16] MEDS ORDERED: POTASSIUM CHLORIDE 20 MEQ TABCR PO ONE (12:30)
--- NOTE | 2019-10-16 12:39 | Hospitalist Progress Note ---
Date of Service October 16, 2019 Assessment & Plan (1) Lightheadedness: possible due to dehydration orthostatic drop on BP noted in ER symptom resolved after IV hydration will hold pt;s home diuretics follow up with PCP in a week for readjustment of meds (2) Dizziness: due to above symptom resolved after IV hydration no evidence of CVA in MRI/MRA of brain (3) Ambulatory dysfunction: (4) History of CVA (cerebrovascular accident): - -History of CVA in 2017 with underlying atrial fibrillation; patient admits to noncompliance with Eliquis at times -Head CT negative for acute findings; MRI and MRA -no evidence of acute CVA pt is continued with current meds counselling provided for medication compliance ACUTE RENAL FAILURE IN SETTING OF CKD STAGE 3 : cr improved from 1.9 to 1.6 with iv hydration unknown baseline will need close follow up with family physician and referral to Nephrology for CKD /diabetic nephropathy (5) Atrial fibrillation: -Rate controlled on digoxin, diltiazem, metoprolol -Anticoagulated on apixaban - counselling provided for compliance of meds (6) DM type 2 (diabetes mellitus, type 2): poorly controlled Hb a1 C > 8 pt will cont with basal Lantus and glipizide needs close follow up with Family Physician for diabetic management (7) CAD (coronary artery disease): stable, no reports of chest pain -Continue beta-katherine and statin (8) Diastolic dysfunction: -Appears euvolemic on exam -Holding diuretics due to orthostasis as above pt is asked not to resume the diuretics till seen by his family physician (9) DVT prophylaxis: -Anticoagulated on apixaban DISPOSITION : discharged home today Subjective awake and alert no complain of dizzy spell or lightheadedness no arrythmia noted on tele very eager to be discharged home Ambulated on the hallway with no dizzy spell or lightheadedness noted stable to be discharged home today with close follow up with Family physician Physical Exam Constitutional: WD/WN, vitals as above Eyes: PERRL, conjunctivae normal, anicteric sclerae ENMT: external ear and nose normal, oropharynx normal Respiratory: normal respiratory effort, lungs clear to auscultation Cardiovascular: Rate/Rhythm: regular rate and + irregularly irregular Vessels: normal peripheral pulses Extremities: no edema Gastrointestinal (Abdomen): normal bowel sounds, soft, nontender, no hepatosplenomegaly Musculoskeletal: no cyanosis or clubbing, extremities motor strength 5/5 Skin: no rashes, warm and dry Neurologic: PERRL, EOMI, accommodation nl, no face palsy, no dysarthria moves all extremities and awake Cranial Nerves: PERRL, normal accommodation, EOM intact bilaterally and normal facial strength Coordination: + abnormal ddlvbj-dh-wtec test (Mild difficulty with ikgmiy-ju-bqry BLUE); normal pajl-yo-gpuk test Psychiatric: A+Ox3, euthymic affect Results & Data Vital Signs (Past 12 Hours) Vital Signs Temp Pulse Resp BP Pulse Ox 10/16/19 11:10 36.4 C L 52 L 20 152/71 H 97 10/16/19 07:45 36.4 C L 60 20 164/98 H 94 10/16/19 04:19 36.9 C 70 20 162/90 H 99
[2019-10-16] MEDS ORDERED: STROKE PATIENT DISCHARGE STA (13:56)
--- NOTE | 2019-10-16 15:55 | Discharge Summary ---
Date of Service October 16, 2019 Admission HPI Per Admitting Provider 84-year-old male who presents the ED for evaluation of dizziness and feeling off balance. Patient is somewhat of a poor historian. Reports his symptoms have been going on for the past several weeks however have acutely worsened over the past 1 week. Reports that when he attempts to ambulate, he feels dizzy, lightheaded, and off-balance. Patient denies any unilateral weakness, numbness, tingling. No syncopal events. Has some occasional headaches which are unchanged from baseline. No visual changes. Has had slurred speech since CVA in 2017, patient feels as though his speech has been worsening over the past 1 year. He denies chest pain shortness of breath. Denies any other recent illness, fevers, chills. No abdominal pain, nausea, vomiting, diarrhea. He denies any urinary symptoms. In the ED, patient's head CT is negative for acute findings. Orthostatic BPs are found to be positive. Labs show creatinine 1.9 (was 1.3 in 2017, no other labs to compare to at this time), other labs unremarkable. Vital signs are stable. Patient was given full dose aspirin, meclizine, IVF. Principal Diagnosis SYNCOPE /DIZZY SPELL /NO EVIDENCE OF STROKE Discharge Exam Constitutional WD/WN, vitals as above Eyes PERRL, conjunctivae normal, anicteric sclerae ENMT external ear and nose normal, oropharynx normal Respiratory normal respiratory effort, lungs clear to auscultation Cardiovascular Rate/Rhythm: regular rate and + irregularly irregular Vessels: normal peripheral pulses Extremities: no edema Gastrointestinal (Abdomen) normal bowel sounds, soft, nontender, no hepatosplenomegaly Musculoskeletal no cyanosis or clubbing, extremities motor strength 5/5 Skin no rashes, warm and dry Neurologic PERRL, EOMI, accommodation nl, no face palsy, no dysarthria moves all extremities and awake Speech / Cognition: + abnormal speech (Mild slurred speech noted) Cranial Nerves: PERRL, normal accommodation, EOM intact bilaterally and normal facial strength Coordination: + abnormal fhqwqj-vm-icgy test (Mild difficulty with izmtkj-dr-alwt BLUE); normal xauh-hf-cepw test Psychiatric A+Ox3, euthymic affect Discharge Data Allergies Allergy/AdvReac Type Severity Reaction Status Date / Time Bactrim Allergy Unknown unknown Unverified 03/12/17 16:36 felodipine Allergy Unknown unk Verified 10/15/19 13:20 furosemide Allergy Unknown unknown Unverified 10/15/19 13:20 metformin Allergy Unknown unk Verified 10/15/19 13:20 simvastatin Allergy Unknown unk Verified 10/15/19 13:20 Sulfa (Sulfonamide Allergy Unknown . Verified 10/15/19 13:20 Antibiotics) sulfamethoxazole Allergy Unknown unknown Unverified 10/15/19 13:20 trimethoprim Allergy Unknown unknown Unverified 10/15/19 13:20 Consultations 10/15/19 14:24 ED Decision to Admit Stat 10/15/19 16:22 Consult Case Management - Discharge Planning Routine Consult Case Management - Discharge Planning Routine Ordered Studies 10/15/19 12:26 CT head/brain wo con Stat 10/15/19 16:22 MR brain wo con Routine 10/15/19 16:22 MR angio head wo con Urgent Hospital Course (1) Lightheadedness: possible due to dehydration orthostatic drop on BP noted in ER symptom resolved after IV hydration will hold pt;s home diuretics follow up with PCP in a week for readjustment of meds (2) Dizziness: due to above symptom resolved after IV hydration no evidence of CVA in MRI/MRA of brain (3) Ambulatory dysfunction: (4) History of CVA (cerebrovascular accident): - -History of CVA in 2017 with underlying atrial fibrillation; patient admits to noncompliance with Eliquis at times -Head CT negative for acute findings; MRI and MRA -no evidence of acute CVA pt is continued with current meds counselling provided for medication compliance ACUTE RENAL FAILURE IN SETTING OF CKD STAGE 3 : cr improved from 1.9 to 1.6 with iv hydration unknown baseline will need close follow up with family physician and referral to Nephrology for CKD /diabetic nephropathy (5) Atrial fibrillation: -Rate controlled on digoxin, diltiazem, metoprolol -Anticoagulated on apixaban - counselling provided for compliance of meds (6) DM type 2 (diabetes mellitus, type 2): poorly controlled Hb a1 C > 8 pt will cont with basal Lantus and glipizide needs close follow up with Family Physician for diabetic management (7) CAD (coronary artery disease): stable, no reports of chest pain -Continue beta-katherine and statin (8) Diastolic dysfunction: -Appears euvolemic on exam -Holding diuretics due to orthostasis as above pt is asked not to resume the diuretics till seen by his family physician (9) DVT prophylaxis: -Anticoagulated on apixaban DISPOSITION : discharged home today Total Time Total Time Spent Total Time Spent (In Minutes): 35 mins Total Time Includes: Examination of the Patient, Discharge Planning and Medica tion Reconciliation Discharge Plan Discharge Items Patient Disposition: Home - Self-Care Reason For Visit: TIA VS CVA Discharge Diagnosis: SYNCOPE /DIZZY SPELL /NO EVIDENCE OF STROKE Activity: Resume your previous activity Non-emergency contact: Primary Care Provider Call non-emergency contact if: you have any medication questions Follow-up/Referrals: García Melo MD [Primary Care Provider] - Diet: Heart Healthy Addtl Attending Provider Instructions: follow up with family physician in 1 week it is very important to take your medicine as directed your Diabetes is not well controlled please follow up with family physician for close follow up -medication adjustment , diet and exercise periodic Eye and foot exam Pending Studies at Discharge: No Stand-Alone Forms: My [employer], Smoking Cessation Medications and DC Order Prescriptions: Continued sennosides [senna] 8.6 mg Tablet 17.2 mg PO BID PRN (Reason: Constipation) RF: 0 acetaminophen [Tylenol] 325 mg Tablet 650 mg PO TID PRN (Reason: Pain (Scale Score 1-3)) RF: 0 pravastatin 40 mg Tablet 40 mg PO DAILY RF: 0 urea 40 % Cream 1 applic TOPICAL BID RF: 0 glipizide 10 mg Tablet 20 mg PO BID RF: 0 diltiazem HCl [Tiazac] 240 mg Capsule,Extended Release 24 Hr 240 mg PO DAILY RF: 0 triamcinolone acetonide 0.5 % Ointment 1 applic TOPICAL BID RF: 0 calcium carbonate [Tums] 200 mg calcium (500 mg) Tablet,Chewable 1,000 mg PO BID PRN (Reason: upset stomach) RF: 0 metoprolol tartrate [Lopressor] 50 mg Tablet 50 mg PO BID RF: 0 urea 10 % Cream 1 applic TOPICAL Q3D RF: 0 nitroglycerin [Nitrostat] 0.4 mg Tablet, Sublingual 0.4 mg sublingual UD PRN (Reason: Chest Pain) RF: 0 omeprazole 20 mg Capsule,Delayed Release(Dr/Ec) 20 mg PO DAILY RF: 0 digoxin [Digox] 125 mcg (0.125 mg) Tablet 125 mcg PO QPM RF: 0 trolamine salicylate [Arthricream] 10 % Cream 1 applic TOPICAL TID PRN (Reason: Pain) RF: 0 artificial saliva (yerbas-lyt) Aerosol,[place] 1 spray MUCOUS MEMBRANE UD PRN (Reason: Dry Mouth) RF: 0 cholecalciferol (vitamin D3) 25 mcg (1,000 unit) Tablet 1,000 unit PO DAILY RF: 0 Lantus Solostar U-100 Insulin 100 unit/mL (3 mL) Insulin Pen 32 unit SUBCUT HS RF: 0 apixaban 5 mg Tablet 2.5 mg PO BID RF: 0 Discontinued bumetanide 2 mg Tablet 4 mg PO DAILY RF: 0 Discharge Orders: Discharge Order (Routine); Ordered 10/16/19 Ordered By: Morena Sanders/Other Patient Handouts: Blood Sugar Check, Diabetes Healthy Meals, Diabetes Carbs, Diabetes Eating Out, Blood Sugar Manage Exercise, Diabetes Keep Feet Healthy, Diabetes Inspect Feet, Diabetes Shopping Preparing Meals, Diabetes Exercise Benefits, Diabetes Exercise Get Started, Diabetes Activity Tips, Diabetes Exams Tests, Diabetes Living Life, Diabetes Exercise Plan, Diabetes Meal Planning, Diabetes Get Support, Diabetes Foot Care Program, A1C Admission Data Admit Date/Time: 10/15/19 15:03 Attending Provider: Morena Yost Admit Provider: Morena Yost Primary Care Provider: García Melo Other Providers: Camila Jimenez Other Interventions: Discharge Summary Assessment (RN) Last Done: 10/16/19 14:49
== END 2019-10-16 16:27 | disposition home or self-care (01) | DRG 149 ==
LOC: ED 11:07 → 2E 15:03

== ENCOUNTER 2021-09-18 12:51 | Inpatient (IN) ==
--- NOTE | 2021-09-18 13:33 | XRay Report ---
SINGLE VIEW CHEST CLINICAL HISTORY: Generalized weakness. FINDINGS: An AP, portable, upright chest radiograph is compared to study dated 10/15/2019. The examin ation is degraded by portable technique and patient rotation. The patient's head partially obscures t he apices. The heart is enlarged noting atherosclerotic calcification of the thoracic aorta. The pulm onary vasculature is noncongested. Enlargement of the central pulmonary arteries suggests pulmonary a rtery hypertension. Chronic interstitial thickening is similar to previous. No airspace consolidation or large pleural effusion is identified. No pneumothorax is seen. The skeletal structures are osteop enic. The bony thorax is grossly intact. Arthritic change is seen in the shoulders. IMPRESSION: Cardiomegaly with no acute cardiopulmonary abnormality. ACT 112: Negative or not required by law. Electronically signed by: Jamaal Cordova M.D. 09/18/2021 1:32 PM
[2021-09-18 14:19] LABS: Basophils # (auto) 0.02 K/uL (0-0.2); Basophils % (auto) 0.3 %; Eosinophils # (auto) 0.07 K/uL (0-0.5); Eosinophils % (auto) 1.2 %; Hematocrit (blood only) 46.5 % (42-52); Hemoglobin 15.8 g/dL (14.0-18.0); Immature Granulocytes # (auto) 0.01 K/uL (0.00-0.02); Immature Granulocytes % (auto) 0.2 %; Lymphocytes # (auto) 1.84 K/uL (1.2-3.4); Lymphocytes % (auto) 31.5 %; Mean Corpuscular Hemoglobin 30.6 pg (25-34); Mean Corpuscular Volume 89.9 fL (80-100); Mean Platelet Volume 12.7 fL (7.4-10.4); Monocytes # (auto) 0.76 K/uL (0.11-0.59); Neutrophils # (auto) 3.14 K/uL (1.4-6.5); Neutrophils % (auto) 53.8 %; Platelet Count 175 K/uL (130-400); RDW Coefficient of Variation 16.6 % (11.5-14.5); RDW Standard Deviation 55.1 fL (36.4-46.3); Red Blood Count 5.17 M/uL (4.7-6.1); White Blood Count 5.84 K/uL (4.8-10.8)
[2021-09-18 14:30] LABS: Alanine Aminotransferase 36 U/L (12-78); Albumin Level 3.3 gm/dl (3.4-5.0); Aspartate Aminotransferase 57 U/L (15-37); BUN Creatinine Ratio 12.1 (10-20); Blood Urea Nitrogen 28 mg/dl (7-18); Calcium 9.4 mg/dl (8.5-10.1); Carbon Dioxide 25 mmol/L (21-32); Chloride 96 mmol/L (98-107); Est GFR (African American) 28.8 ml/min; Est GFR (Non-African American) 24.9 ml/min; Glucose 116 mg/dl (70-99); Potassium 2.9 mmol/L (3.5-5.1); Sodium 133 mmol/L (136-145)
[2021-09-18 14:33] LABS: Albumin Globulin Ratio 0.6 (0.9-2); Alkaline Phosphatase 67 U/L (45-117); Bilirubin,Total 1.7 mg/dl (0.2-1); Globulin 5.3 gm/dl (2.5-4.0); Total Protein 8.6 gm/dl (6.4-8.2)
--- NOTE | 2021-09-18 15:52 | Emergency Department Note ---
Impression & Plan COVID-19, Hypokalemia, Acute on chronic renal insufficiency ED Provider Note NAME: DEANA SPEAR AGE: 86 SEX: M ARRIVES VIA: Walk-In INFORMANT: Patient, ED PROVIDER(S): Wayne Vieyra MD CHIEF COMPLAINT: Weakness, poor oral intake. PLAN: Disposition: Admit MEDICAL DECISION MAKING: The patient is a pleasant 86-year-old gentleman with a past medical history of CVA, CKD, GERD, hypertension, diabetes, atrial fibrillation on Eliquis, CAD who presents to the emergency department, accompanied by his son with concern for generalized weakness and decreased appetite evolving over the past week where the patient has not been eating or drinking very well. They report they feel it is difficult to swallow and he did have recent outpatient testing for this which per the son's description suggests aspiration. They deny any fevers, cough, congestion, chest pain, vomiting, diarrhea or urinary symptoms. They deny any known COVID-19 exposures. He is not vaccinated for Covid-19. On arrival patient is fatigued appearing but no distress, afebrile stable vital signs. He appears clinically dry. Abdomen is benign. He has subtle dysarthria which the patient's son reports is his baseline. He has no focal extremity weakness. EKG without overt acute ischemia. CXR negative for acute cardiopulmonary process. WBC, H/H, platelets wnl. Chemistry without acidosis. Cr. 2.3 increased from prior range of 1.6-1.9. Potassium 2.9 with repletion initiated. Total bilirubin 1.7 and AST 57, nonspecific. CPK 400, nonspecific. Troponin 0.025, wnl. UA without convincing evidence of infection. Covid-19 PCR positive. Patient denies any prior Covid-19 infection and so likely represents acute infection. CT head negative for acute process. CT abd/pelvis with minimal groundglass opacities of right lung base, nonspecific. Upon re-evaluation the patient did feel somewhat improved following IVF hydration. However, given the patient's Covid-19 with decreased oral intake patient and his son did agree with plan for admission. Case was discussed with Dr. Hinds, [facility] hospitalist, who will evaluate the patient for admission. Triage Nursing notes reviewed and agree them. Prior medical records reviewed Vital Signs: reviewed and remarkable for no significant abnormalities Differential diagnosis: Infection, dehydration, metabolic abnormality, hypo/hyperglycemia, electrolyte disturbance, anemia, hypoxia, cardiac sources, intracerebral event, toxicologic, neurologic, as well as other pathologies. ER treatment provided: See below. Diagnostics interpreted by me: ECG: Atrial fibrillation, 94 bpm, no ectopy, nonspecific ST abnormality, no overt ST elevation or depression. Cardiac Monitoring: An order for continuous cardiac monitoring was placed and demonstrated Atrial fibrillation, 94 bpm, no ectopy. Laboratory studies: See below Imaging studies: See below Consultation(s): Case was discussed with Dr. Hinds, [facility] hospitalist, who will evaluate the patient for admission. HPI: The patient is a pleasant 86-year-old gentleman with a past medical history of CVA, CKD, GERD, hypertension, diabetes, atrial fibrillation on Eliquis, CAD who presents to the emergency department, accompanied by his son with concern for generalized weakness and decreased appetite evolving over the past week where the patient has not been eating or drinking very well. They report they feel it is difficult to swallow and he did have recent outpatient testing for this which per the son's description suggests aspiration. They deny any fevers, cough, congestion, chest pain, vomiting, diarrhea or urinary symptoms. They deny any known COVID-19 exposures. He is not vaccinated for Covid-19. ROS: See above HPI for pertinent positives & negatives. A total of 10 systems reviewed and were otherwise negative. PAST MEDICAL HISTORY:See Below PAST SURGICAL HISTORY:See Below FAMILY HISTORY:See Below SOCIAL HISTORY:See Below HOME MEDICATIONS:See Below ALLERGIES:See Below VITALS:See Below PHYSICAL EXAMINATION: GENERAL: Awake, alert, fatigued-appearing, in no distress HENT: Normocephalic, atraumatic. Oropharynx with dry mucous membranes and otherwise unremarkable. EYES: Normal conjunctiva. Sclera non-icteric. NECK: Supple. No nuchal rigidity. FROM. No JVD. RESPIRATORY: Clear to auscultation. CARDIAC: Regular rate, normal rhythm. Extremities warm and well perfused. Pulses equal. ABDOMEN: Soft, non-distended. No tenderness to palpation. No rebound or guarding. No masses. RECTAL: Deferred. MUSCULOSKELETAL: Chest examination reveals no tenderness. The back is symmetrical on inspection without obvious abnormality. There is no CVA ten derness to palpation. No joint edema. LOWER EXTREMITIES: Calves are equal size bilaterally and non-tender. No edema. No discoloration. NEURO: Mild dysarthria which is the patient's baseline. No focal extremity weakness with 4/5 strength and SILT x4 EXT. SKIN: No rash or jaundice noted. Wayne Vieyra MD Past Med/Surg History Medical History Atrial fibrillation CAD (coronary artery disease) "NH ~ 2012, s/p 2 stents @ [facility] [place] - details unknown" Diastolic dysfunction "echo 11/2014 - EF 65-70%, diastolic dysfunction" DM type 2 (diabetes mellitus, type 2) Dyslipidemia Hip fracture, right "s/p OIRF and subsequent revision" History of CVA (cerebrovascular accident) HTN (hypertension) TIA (transient ischemic attack) Surgical History No pertinent past surgical history Family History Other Family history non-contributory Social History Smoking Status: Smoker, status unknown Hx Alcohol Use: No Hx Substance Use: No Preferred Language: Yi Communication Ability: Effective Lapper Required: No Beliefs That Will Affect Care: None marital status: / Current Living Situation: Family Current Living Situation Comment: Lives with son Feels Safe at Home: Yes Assistive Devices: Hearing Aid - Bilateral and Walker Allergies Allergies Allergy/AdvReac Type Severity Reaction Status Date / Time Bactrim Allergy Unknown unknown Unverified 03/12/17 16:36 felodipine Allergy Unknown unk Verified 09/18/21 16:41 furosemide Allergy Unknown unknown Unverified 09/18/21 16:41 metformin Allergy Unknown unk Verified 09/18/21 16:41 simvastatin Allergy Unknown unk Verified 09/18/21 16:41 Sulfa (Sulfonamide Allergy Unknown . Verified 09/18/21 16:41 Antibiotics) sulfamethoxazole Allergy Unknown unknown Unverified 09/18/21 16:41 trimethoprim Allergy Unknown unknown Unverified 09/18/21 16:41 Home Meds Home Medications Medication Instructions Recorded Confirmed acetaminophen 325 mg tablet 650 mg PO TID PRN 10/15/19 10/15/19 (Tylenol) apixaban 5 mg tablet 2.5 mg PO BID 10/15/19 10/15/19 artificial saliva (yerba connor and 1 spray MUCOUS MEMBRANE UD PRN 10/15/19 10/15/19 lytes) spray calcium carbonate 200 mg calcium 1,000 mg PO BID PRN 10/15/19 10/15/19 (500 mg) chewable tablet (Tums) cholecalciferol (vitamin D3) 25 1,000 unit PO DAILY 10/15/19 10/15/19 mcg (1,000 unit) tablet digoxin 125 mcg (0.125 mg) tablet 125 mcg PO QPM 10/15/19 10/15/19 (Digox) diltiazem HCl 240 mg capsule,24 240 mg PO DAILY 10/15/19 10/15/19 hr,extended release (Tiazac) glipizide 10 mg tablet 20 mg PO BID 10/15/19 10/15/19 insulin glargine 100 unit/mL (3 32 unit SUBCUT HS 10/15/19 10/15/19 mL) subcutaneous pen (Lantus Solostar U-100 Insulin) metoprolol tartrate 50 mg tablet 50 mg PO BID 10/15/19 10/15/19 (Lopressor) nitroglycerin 0.4 mg sublingual 0.4 mg SUBLINGUAL UD PRN 10/15/19 10/15/19 tablet (Nitrostat) omeprazole 20 mg capsule,delayed 20 mg PO DAILY 10/15/19 10/15/19 release pravastatin 40 mg tablet 40 mg PO DAILY 10/15/19 10/15/19 sennosides 8.6 mg tablet (senna) 17.2 mg PO BID PRN 10/15/19 10/15/19 triamcinolone acetonide 0.5 % 1 applic TOPICAL BID 10/15/19 10/15/19 topical ointment trolamine salicylate 10 % topical 1 applic TOPICAL TID PRN 10/15/19 10/15/19 cream (Arthricream) urea 10 % topical cream 1 applic TOPICAL Q3D 10/15/19 10/15/19 urea 40 % topical cream 1 applic TOPICAL BID 10/15/19 10/15/19 Results & Data (ED) Vital Signs Vital Signs - 24 hr 09/18/21 12:54 09/18/21 15:30 09/18/21 17:00 Temperature 36.2 C L Temperature Source Temporal Artery Scan Pulse Rate 91 H Pulse Rate [Right Finger] 115 H 99 H Pulse Rhythm [Right Finger] Regular Irregular Pulse Strength [Right Finger] Normal Normal Respiratory Rate 18 16 26 H Respiratory Effort / Characteristics Non-Labored Non-Labored Respiratory Depth Normal Normal Normal Respiratory Pattern Regular Tachypnea Blood Pressure 121/79 Blood Pressure [Right Arm] 165/103 H 161/94 H Blood Pressure Mean 93 Blood Pressure Mean [Right Arm] 123 116 Blood Pressure Position [Right Arm] Lying Lying Pulse Oximetry 93 92 92 Oxygen Delivery Method Room Air Room Air Room Air Sepsis Recent Fever Within 48 Hours No Sepsis New/Unexplained Change in Mental Status No Sepsis Action Taken by Nursing No Action Required Laboratory Data Attestation: I reviewed the patient's lab results. Result diagrams: 09/18/21 13:55 09/18/21 13:55 Lab Results 09/18/21 09/18/21 09/18/21 Range/Units 13:55 13:55 16:35 WBC 5.84 (4.8-10.8) K/uL RBC 5.17 (4.7-6.1) M/uL Hgb 15.8 (14.0-18.0) g/dL Hct 46.5 (42-52) % MCV 89.9 (80-100) fL MCH 30.6 (25-34) pg MCHC 34.0 (32-36) g/dL RDW Std Deviation 55.1 H (36.4-46.3) fL RDW Coeff of Liya 16.6 H (11.5-14.5) % Plt Count 175 (130-400) K/uL MPV 12.7 H (7.4-10.4) fL Immature Gran % (Auto) 0.2 % Neut % (Auto) 53.8 % Lymph % (Auto) 31.5 % Bee % (Auto) 13.0 % Eos % (Auto) 1.2 % Baso % (Auto) 0.3 % Neut # (Auto) 3.14 (1.4-6.5) K/uL Lymph # (Auto) 1.84 (1.2-3.4) K/uL Bee # (Auto) 0.76 H (0.11-0.59) K/uL Eos # (Auto) 0.07 (0-0.5) K/uL Baso # (Auto) 0.02 (0-0.2) K/uL Immature Gran # (Auto) 0.01 (0.00-0.02) K/uL PT (9.0-12.0) Seconds INR (0.9-1.1) Sodium 133 L (136-145) mmol/L Potassium 2.9 L (3.5-5.1) mmol/L Chloride 96 L (98-107) mmol/L Carbon Dioxide 25 (21-32) mmol/L Anion Gap 12.0 H (3-11) BUN 28 H (7-18) mg/dl Creatinine 2.32 H (0.6-1.4) mg/dl Est Cr Clr Drug Dosing Not Reportable Est GFR ( Amer) 28.8 ml/min Est GFR (Non-Af Amer) 24.9 ml/min BUN/Creatinine Ratio 12.1 (10-20) Glucose 116 H (70-99) mg/dl Calcium 9.4 (8.5-10.1) mg/dl Phosphorus (2.5-4.9) mg/dl Magnesium (1.8-2.4) mg/dl Total Bilirubin 1.7 H (0.2-1) mg/dl AST 57 H (15-37) U/L ALT 36 (12-78) U/L Alkaline Phosphatase 67 (45-117) U/L Total Creatine Kinase (39-308) U/L Troponin I (0-0.045) ng/ml C-Reactive Protein (0-0.29) mg/dl Total Protein 8.6 H (6.4-8.2) gm/dl Albumin 3.3 L (3.4-5.0) gm/dl Globulin 5.3 H (2.5-4.0) gm/dl Albumin/Globulin Ratio 0.6 L (0.9-2) Urine Color Dark Yellow Urine Appearance Clear (Clear) Urine pH 6.0 (4.5-7.5) Ur Specific [place] 1.011 (1.000-1.030) Urine Protein Trace H (Negative) Urine Glucose (UA) Negative (Negative) Urine Ketones Negative (Negative) Urine Blood Negative (Negative) Urine Nitrite Negative (Negative) Urine Bilirubin Negative (Negative) Urine Urobilinogen Negative (Negative) Ur Leukocyte Esterase Negative (Negative) Urine WBC (Auto) 1-5 (0-5) /hpf Urine RBC (Auto) 0-4 (0-4) /hpf U Hyaline Cast (Auto) 10-30 H (0-5) /lpf U Epithel Cells (Auto) 10-20 H (0-5) /lpf Urine Bacteria (Auto) Negative (Negative) COVID-19 Eval Order SARS-CoV-2 (PCR) (Negative) 09/18/21 09/18/21 09/18/21 Range/Units 16:36 16:36 16:45 WBC (4.8-10.8) K/uL RBC (4.7-6.1) M/uL Hgb (14.0-18.0) g/dL Hct (42-52) % MCV (80-100) fL MCH (25-34) pg MCHC (32-36) g/dL RDW Std Deviation (36.4-46.3) fL RDW Coeff of Liya (11.5-14.5) % Plt Count (130-400) K/uL MPV (7.4-10.4) fL Immature Gran % (Auto) % Neut % (Auto) % Lymph % (Auto) % Bee % (Auto) % Eos % (Auto) % Baso % (Auto) % Neut # (Auto) (1.4-6.5) K/uL Lymph # (Auto) (1.2-3.4) K/uL Bee # (Auto) (0.11-0.59) K/uL Eos # (Auto) (0-0.5) K/uL Baso # (Auto) (0-0.2) K/uL Immature Gran # (Auto) (0.00-0.02) K/uL PT 12.0 (9.0-12.0) Seconds INR 1.2 H (0.9-1.1) Sodium (136-145) mmol/L Potassium (3.5-5.1) mmol/L Chloride (98-107) mmol/L Carbon Dioxide (21-32) mmol/L Anion Gap (3-11) BUN (7-18) mg/dl Creatinine (0.6-1.4) mg/dl Est Cr Clr Drug Dosing Est GFR ( Amer) ml/min Est GFR (Non-Af Amer) ml/min BUN/Creatinine Ratio (10-20) Glucose (70-99) mg/dl Calcium (8.5-10.1) mg/dl Phosphorus (2.5-4.9) mg/dl Magnesium (1.8-2.4) mg/dl Total Bilirubin (0.2-1) mg/dl AST (15-37) U/L ALT (12-78) U/L Alkaline Phosphatase (45-117) U/L Total Creatine Kinase (39-308) U/L Troponin I (0-0.045) ng/ml C-Reactive Protein (0-0.29) mg/dl Total Protein (6.4-8.2) gm/dl Albumin (3.4-5.0) gm/dl Globulin (2.5-4.0) gm/dl Albumin/Globulin Ratio (0.9-2) Urine Color Urine Appearance (Clear) Urine pH (4.5-7.5) Ur Specific [place] (1.000-1.030) Urine Protein (Negative) Urine Glucose (UA) (Negative) Urine Ketones (Negative) Urine Blood (Negative) Urine Nitrite (Negative) Urine Bilirubin (Negative) Urine Urobilinogen (Negative) Ur Leukocyte Esterase (Negative) Urine WBC (Auto) (0-5) /hpf Urine RBC (Auto) (0-4) /hpf U Hyaline Cast (Auto) (0-5) /lpf U Epithel Cells (Auto) (0-5) /lpf Urine Bacteria (Auto) (Negative) COVID-19 Eval Order Covid19 at [facility] SARS-CoV-2 (PCR) POSITIVE A* (Negative) 09/18/21 Range/Units 16:45 WBC (4.8-10.8) K/uL RBC (4.7-6.1) M/uL Hgb (14.0-18.0) g/dL Hct (42-52) % MCV (80-100) fL MCH (25-34) pg MCHC (32-36) g/dL RDW Std Deviation (36.4-46.3) fL RDW Coeff of Liya (11.5-14.5) % Plt Count (130-400) K/uL MPV (7.4-10.4) fL Immature Gran % (Auto) % Neut % (Auto) % Lymph % (Auto) % Bee % (Auto) % Eos % (Auto) % Baso % (Auto) % Neut # (Auto) (1.4-6.5) K/uL Lymph # (Auto) (1.2-3.4) K/uL Bee # (Auto) (0.11-0.59) K/uL Eos # (Auto) (0-0.5) K/uL Baso # (Auto) (0-0.2) K/uL Immature Gran # (Auto) (0.00-0.02) K/uL PT (9.0-12.0) Seconds INR (0.9-1.1) Sodium (136-145) mmol/L Potassium (3.5-5.1) mmol/L Chloride (98-107) mmol/L Carbon Dioxide (21-32) mmol/L Anion Gap (3-11) BUN (7-18) mg/dl Creatinine (0.6-1.4) mg/dl Est Cr Clr Drug Dosing Est GFR ( Amer) ml/min Est GFR (Non-Af Amer) ml/min BUN/Creatinine Ratio (10-20) Glucose (70-99) mg/dl Calcium (8.5-10.1) mg/dl Phosphorus 3.7 (2.5-4.9) mg/dl Magnesium 2.1 (1.8-2.4) mg/dl Total Bilirubin (0.2-1) mg/dl AST (15-37) U/L ALT (12-78) U/L Alkaline Phosphatase (45-117) U/L Total Creatine Kinase 405 H (39-308) U/L Troponin I 0.025 (0-0.045) ng/ml C-Reactive Protein 1.20 H (0-0.29) mg/dl Total Protein (6.4-8.2) gm/dl Albumin (3.4-5.0) gm/dl Globulin (2.5-4.0) gm/dl Albumin/Globulin Ratio (0.9-2) Urine Color Urine Appearance (Clear) Urine pH (4.5-7.5) Ur Specific [place] (1.000-1.030) Urine Protein (Negative) Urine Glucose (UA) (Negative) Urine Ketones (Negative) Urine Blood (Negative) Urine Nitrite (Negative) Urine Bilirubin (Negative) Urine Urobilinogen (Negative) Ur Leukocyte Esterase (Negative) Urine WBC (Auto) (0-5) /hpf Urine RBC (Auto) (0-4) /hpf U Hyaline Cast (Auto) (0-5) /lpf U Epithel Cells (Auto) (0-5) /lpf Urine Bacteria (Auto) (Negative) COVID-19 Eval Order SARS-CoV-2 (PCR) (Negative) Administered Medications Benzonatate (Benzonatate 100 Mg Capsule) 100 mg PO TID CHRIS Stop: 10/18/21 22:59 Last Admin: 09/18/21 23:47 Dose: 100 mg Documented by: [id number] Lactated Ringer's (Lr) 1,000 mls @ 100 mls/hr IV .Q10H CHRIS Stop: 09/19/21 18:59 Last Admin: 09/18/21 23:12 Dose: 100 mls/hr Documented by: [id number] Insulin Aspart (Insulin Aspart 100 Units/Ml 3 Ml Pen) 0 units SC ACHS CHRIS Stop: 10/18/21 22:59 Last Admin: 09/18/21 23:48 Dose: Not Given Documented by: [id number] Cosigned by: [id number] Insulin Glargine (Insulin Glargine Solostar 100 Units/Ml 3 Ml Pen) 10 units SC BID CHRIS Stop: 10/18/21 22:59 Last Admin: 09/18/21 23:48 Dose: 10 units Documented by: [id number] Cosigned by: [id number] Discontinued Medications Potassium Chloride (K Evangelist / Wtr) 10 meq in 100 mls @ 100 mls/hr IV Q1H CHRIS Stop: 09/18/21 18:14 Last Infusion: 09/18/21 22:04 Dose: 0 mls/hr Documented by: [id number] Admin: 09/18/21 19:27 Dose: 70 mls/hr Documented by: [id number] Infusion: 09/18/21 18:36 Dose: 0 mls/hr Documented by: [id number] Admin: 09/18/21 17:34 Dose: 100 mls/hr Documented by: [id number] Sodium Chloride (Nss 1000ml) 1,000 mls @ 999 mls/hr IV .Q1H1M ONE Stop: 11/02/21 17:06 Last Infusion: 09/18/21 18:36 Dose: 0 mls/hr Documented by: [id number] Admin: 09/18/21 17:33 Dose: 999 mls/hr Documented by: [id number] Lactated Ringer's (Lr) 1,000 mls @ 125 mls/hr IV .Q8H CHRIS Stop: 10/18/21 19:14 Last Admin: 09/18/21 23:33 Dose: Not Given Documented by: [id number] Potassium Chloride (Potassium Chloride 20 Meq/15 Ml Udc) 60 meq PO NOW STA Stop: 09/18/21 20:15 Last Admin: 09/18/21 22:13 Dose: 60 meq Documented by: [id number] Imaging Data Radiologist's Impression: Abdomen/Pelvis CT 09/18/21 16:04 CT SCAN OF THE ABDOMEN AND PELVIS WITHOUT IV CONTRAST CLINICAL HISTORY: Change in mental status. Generalized weakness. Lethargy. Loss of appetite. COMPARISON STUDY: Abdominal CT dated 12/01/2014. TECHNIQUE: CT scan of the abdomen and pelvis is performed from the lung bases to the proximal femora. Images are reviewed in the axial, sagittal, and coronal planes. IV contrast was not administered for this examination. Note that the examination is significantly suboptimal without oral and IV contrast. There is streak artifact from the arms which could not be elevated above the abdomen, as well as motion artifact. A dose lowering technique was utilized adhering to the principles of ALARA. CT DOSE: 755.69 mGy.cm FINDINGS: Lung bases: The heart is enlarged and without pericardial effusion. The coronary arteries are densely calcified. There is a small hiatal hernia. Mild patchy groundglass opacities are present at the right lung base. No pleural effusion is seen. Liver: The unenhanced liver is normal in size, contour, and attenuation. There is no intrahepatic biliary ductal dilatation. Gallbladder: Unremarkable. Spleen: Normal in size and attenuation. Pancreas: The unenhanced pancreas is moderately atrophic and grossly unremarkable. Adrenal glands: Unremarkable. Kidneys: The unenhanced kidneys demonstrate cortical atrophy and are without hydronephrosis. There are no renal calculi identified. A 1.9 cm cyst arises from the right upper pole. Abdominal vasculature: The abdominal aorta is normal in course and caliber noting advanced atherosclerotic calcification. 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 A 1.7 cm aneurysm is noted in the left internal iliac artery. Bowel: There are scattered colonic diverticula without CT evidence of acute diverticulitis. No bowel obstruction is seen. Mild/moderate fecal retention is noted throughout the colon. The appendix is normal as visualized. Peritoneum: There is no intraperitoneal free air or abdominal ascites. Lymphadenopathy: None. Pelvic viscera: Evaluation of the pelvis is degraded by streak artifact from a right hip arthroplasty. The prostate gland is enlarged and heterogeneous. The bladder wall appears thickened and trabeculated indicating chronic outlet obstruction. Skeletal structures: The skeletal structures are osteopenic. There is a mild chronic superior endplate compression deformity of T12. There is moderate to advanced lumbosacral spondylosis. No lytic or blastic lesions are seen. A right hip arthroplasty is in place. IMPRESSION: 1. Significantly suboptimal examination without oral and IV contrast. There is also significant streak and motion artifact. 2. No acute infectious or inflammatory findings are identified in the abdomen or pelvis. 3. Minimal groundglass opacities are seen at the right lung base. This could present atelectasis versus a mild infectious/inflammatory pneumonitis and clinical correlation will be required. 4. Mild to moderate clonic fecal retention. 5. 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 6. Cardiomegaly. 7. Additional findings as above. ACT 112: Negative or not required by law. Electronically signed by: Jamaal Cordova M.D. 09/18/2021 5:[address] 09/18/21 16:08 CT SCAN OF THE BRAIN WITHOUT IV CONTRAST CLINICAL HISTORY: Generalized weakness. Nausea. Change in mental status. COMPARISON STUDY: CT of the brain dated 10/15/2019. TECHNIQUE: Unenhanced axial CT scan of the brain is performed from the vertex to the skull base. A dose lowering technique was utilized adhering to the principles of ALARA. CT DOSE: 691.05 mGy.cm FINDINGS: Brain parenchyma: There are age-related involutional changes noting moderate subcortical and periventricular microangiopathic change. There is no hemorrhage, mass effect, or evidence of acute territorial ischemia by CT criteria. Right cerebellar calcifications are unchanged. Allan-white matter differentiation is preserved. No extra-axial fluid collection is seen. Ventricles, sulci, cisterns: Prominent secondary to involutional change. Intracranial vasculature: There is atherosclerotic calcification of the cave rnous carotid and vertebral arteries. Calvarium: Unremarkable. Sinuses and mastoids: There is trace mucosal thickening within the maxillary antra. Mild mucosal thickening is noted within the frontal and ethmoid sinuses. The mastoid air cells are well pneumatized. Orbits: The bony orbits are grossly intact. There are bilateral ocular lens implants. IMPRESSION: There is no hemorrhage, mass effect, or evidence of acute territorial ischemia by CT criteria. ACT 112: Negative or not required by law. Electronically signed by: Jamaal Cordova M.D. 09/18/2021 5:28 PM Discharge Plan Visit Data Chief Complaint: Weakness Stated Complaint: NO APPETITE ED Provider: Wayne Vieyra Discharge Problem: COVID-19, Hypokalemia, Acute on chronic renal insufficiency Patient Disposition: Admitted As Inpatient Discharge Instructions Interventions: ED Discharge Assessment Last Done: 09/18/21 22:35
[2021-09-18] MEDS ORDERED: SODIUM CHLORIDE 0.9% 1000ML 1,000 ML IV ONE (16:06)
--- NOTE | 2021-09-18 16:43 | Electrocardiogram Report ---
Test Reason : Blood Pressure : / mmHG Vent. Rate : 094 BPM Atrial Rate : 178 BPM P-R Int : 000 ms QRS Dur : 096 ms QT Int : 410 ms P-R-T Axes : 000 -19 -27 degrees QTc Int : 512 ms Atrial fibrillation Nonspecific ST abnormality Prolonged QT Abnormal ECG When compared with ECG of 15-OCT-2019 14:35, No significant change was found Confirmed by Ravinder Narvaez ([id number]) on 09/18/2021 4:42:49 PM Referred By: Confirmed By:Wily Narvaez
[2021-09-18 17:03] LABS: Appearance Urine Clear (Clear); Bacteria Urine Automated Negative (Negative); Bilirubin Urine Negative (Negative); Blood Urine Negative (Negative); Color Urine Dark Yellow; Glucose Urine UA Negative (Negative); Ketones Urine Negative (Negative); Leukocyte Esterase Urine Negative (Negative); Nitrite Urine Negative (Negative); Protein Urine Trace (Negative); RBC Urine Automated 0-4 /hpf (0-4); Specific Gravity Urine 1.011 (1.000-1.030); Urobilinogen Urine Negative (Negative)
[2021-09-18 17:18] LABS: INR 1.2 (0.9-1.1)
[2021-09-18 17:29] LABS: Magnesium 2.1 mg/dl (1.8-2.4); Phosphorus 3.7 mg/dl (2.5-4.9); Troponin I 0.025 ng/ml (0-0.045)
--- NOTE | 2021-09-18 17:30 | CT Scan Report ---
CT SCAN OF THE BRAIN WITHOUT IV CONTRAST CLINICAL HISTORY: Generalized weakness. Nausea. Change in mental status. COMPARISON STUDY: CT of the brain dated 10/15/2019. TECHNIQUE: Unenhanced axial CT scan of the brain is performed from the vertex to the skull base. A do se lowering technique was utilized adhering to the principles of ALARA. CT DOSE: 691.05 mGy.cm FINDINGS: Brain parenchyma: There are age-related involutional changes noting moderate subcortical and periven tricular microangiopathic change. There is no hemorrhage, mass effect, or evidence of acute territori al ischemia by CT criteria. Right cerebellar calcifications are unchanged. Allan-white matter differen tiation is preserved. No extra-axial fluid collection is seen. Ventricles, sulci, cisterns: Prominent secondary to involutional change. Intracranial vasculature: There is atherosclerotic calcification of the cavernous carotid and vertebr al arteries. Calvarium: Unremarkable. Sinuses and mastoids: There is trace mucosal thickening within the maxillary antra. Mild mucosal thic kening is noted within the frontal and ethmoid sinuses. The mastoid air cells are well pneumatized. Orbits: The bony orbits are grossly intact. There are bilateral ocular lens implants. IMPRESSION: There is no hemorrhage, mass effect, or evidence of acute territorial ischemia by CT vanna ortiz. ACT 112: Negative or not required by law. Electronically signed by: Jamaal Cordova M.D. 09/18/2021 5:28 PM
[2021-09-18] MEDS: POTASSIUM CHLORIDE / WTR 10 MEQ/100 ML PLCT IV SCH ×2 (17:34→19:27)
--- NOTE | 2021-09-18 17:47 | CT Scan Report ---
CT SCAN OF THE ABDOMEN AND PELVIS WITHOUT IV CONTRAST CLINICAL HISTORY: Change in mental status. Generalized weakness. Lethargy. Loss of appetite. COMPARISON STUDY: Abdominal CT dated 12/01/2014. TECHNIQUE: CT scan of the abdomen and pelvis is performed from the lung bases to the proximal femora. Images are reviewed in the axial, sagittal, and coronal planes. IV contrast was not administered for this examination. Note that the examination is significantly suboptimal without oral and IV contrast . There is streak artifact from the arms which could not be elevated above the abdomen, as well as mo tion artifact. A dose lowering technique was utilized adhering to the principles of ALARA. CT DOSE: 755.69 mGy.cm FINDINGS: Lung bases: The heart is enlarged and without pericardial effusion. The coronary arteries are densely calcified. There is a small hiatal hernia. Mild patchy groundglass opacities are present at the righ t lung base. No pleural effusion is seen. Liver: The unenhanced liver is normal in size, contour, and attenuation. There is no intrahepatic ingrid iary ductal dilatation. Gallbladder: Unremarkable. Spleen: Normal in size and attenuation. Pancreas: The unenhanced pancreas is moderately atrophic and grossly unremarkable. Adrenal glands: Unremarkable. Kidneys: The unenhanced kidneys demonstrate cortical atrophy and are without hydronephrosis. There ar e no renal calculi identified. A 1.9 cm cyst arises from the right upper pole. Abdominal vasculature: The abdominal aorta is normal in course and caliber noting advanced atheroscle rotic calcification. 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 A 1.7 cm aneurysm is not ed in the left internal iliac artery. Bowel: There are scattered colonic diverticula without CT evidence of acute diverticulitis. No bowel obstruction is seen. Mild/moderate fecal retention is noted throughout the colon. The appendix is no rmal as visualized. Peritoneum: There is no intraperitoneal free air or abdominal ascites. Lymphadenopathy: None. Pelvic viscera: Evaluation of the pelvis is degraded by streak artifact from a right hip arthroplasty . The prostate gland is enlarged and heterogeneous. The bladder wall appears thickened and trabeculat ed indicating chronic outlet obstruction. Skeletal structures: The skeletal structures are osteopenic. There is a mild chronic superior endplat e compression deformity of T12. There is moderate to advanced lumbosacral spondylosis. No lytic or bl astic lesions are seen. A right hip arthroplasty is in place. IMPRESSION: 1. Significantly suboptimal examination without oral and IV contrast. There is also significant strea k and motion artifact. 2. No acute infectious or inflammatory findings are identified in the abdomen or pelvis. 3. Minimal groundglass opacities are seen at the right lung base. This could present atelectasis vers us a mild infectious/inflammatory pneumonitis and clinical correlation will be required. 4. Mild to moderate clonic fecal retention. 5. 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 6. Cardiomegaly. 7. Additional findings as above. ACT 112: Negative or not required by law. Electronically signed by: Jamaal Cordova M.D. 09/18/2021 5:46 PM
[2021-09-18] MEDS ORDERED: LACTATED RINGER'S 1,000 ML IV SCH (19:15)
[2021-09-18] MEDS ORDERED: POTASSIUM CHLORIDE 20 MEQ/15 ML UDC PO STA (20:14)
--- NOTE | 2021-09-18 20:35 | History & Physical Report ---
Date of Service September 18, 2021 Assessment & Plan (1) COVID-19: Plan: 86yo male with history of HTN, DM, HLP, CAD, prior CVA and AF presenting with one month of progressive weakness, fatigue, poor PO intake. Also with cough, congestion and SOB. Found to be positive for Covid-19 infection. He is not vaccinated against Covid. Normal oxygenation in the ER. Afebrile. CXR and lung bases noted on CT of the abdomen with only mild bibasilar ground glass opacities -Admit to medical -Maintain isolation precautions -Monitor respiratory status - no Dexamethasone at this time -Albuterol PRN -Tylenol PRN -Check Procalcitonin, CRP (2) CAD (coronary artery disease): Plan: Patient reports some chest discomfort. No acute ischemic changes on EKG -Continue Metoprolol at home dose -Continue Pravastatin (3) DM type 2 (diabetes mellitus, type 2): Plan: Chronic. Blood sugar = 116 at present. Patient is on Lantus 32u qHS as wel as Glipizide as an outpatient. Last HgbA1c in 2018 = 8.3 -Hold Glipizide -Lantus 10u BID, ISS, goal blood sugar 100 - 140. -Check Hgb A1C with AM labs (4) HTN (hypertension): Plan: Blood pressure mildly elevated -Continue home medications, Diltiazem, Metoprolol (5) Dyslipidemia: Plan: Chronic -Continue Pravastatin (6) Atrial fibrillation: Plan: Chronic. Rate controlled -Continue Diltiazem, Metoprolol -Continue Digoxin -Continue Apixaban (7) History of CVA (cerebrovascular accident): Plan: Chronic -Continue Atorvastatin. Patient is on Apixaban as well. No antiplatelet therapy (8) HERB (acute kidney injury): Plan: Elevated BUN and Cr at 28 and 2.32 (from 16 and 1.64) Most likely pre-renal etiology in setting of decreased intake. Administered 1L NSS in the ER and LR at 125mL/hr -Continue LR at 100ml/hr x 1 liter- cautious use of fluids in patient with Covid -Repeat chemistry in AM -Avoid nephrotoxic agents -Renal dosing where needed (9) Hypokalemia: Plan: K=2.9 -KCL 60mEq elixir ordered - patient states he has difficulty swallowing - mucus membranes are quite dry -Repeat chemistry in AM Plan: F/E/N - LR at 100ml/hr x 1 L, K repletion as above, AHA/CC diet as tolerated Ppx - Apixaban as above Code - Conditional - would not want to be intubated or mechanically ventilated in event of respiratory failure Dispo - observation to medical, maintain isolation precautions Of note - unable to fully verify patient's home medications. Medication reconciliation team in the ER exhausted options. He receives his primary care at the NH, unable to access records- last record of hospitalization is in 2019. Patient is unaware of his medications. Recommend contacting NH in AM to confirm home medications. History of Present Illness Chief Complaint: Covid-19 Primary Care Provider: García Melo MD Perla Patino is an 86yo male with histoyr of AF, CAD, DM, HLP, HTN and prior CVA with mild residual left sided deficit presenting with progressive weakness, fatigue and poor oral intake over the last month with rapid decline over the last week. Patient has had minimal PO intake for the last week. Has been having difficulty ambulating in his home due to weakness. He also reports dry cough and progressive SOB over the last month as well as nasal congestion. He states he had a subjective fever with sweats approximately 2 weeks ago but does not believe he has had a fever since. Lives alone, ambulates with use of a walker. His son checks in on him daily. Is not vaccinated against Covid-19 No additional complaints at this time On arrival to the ER patient afebrile, HD stable, RR of 26, saturating 92% on room air ER Course: NSS x 1L +10mEq KCl, LR at 125mL/hr, KCl 60mEq Allergies Allergy/AdvReac Type Severity Reaction Status Date / Time Bactrim Allergy Unknown unknown Unverified 03/12/17 16:36 felodipine Allergy Unknown unk Verified 09/18/21 16:41 furosemide Allergy Unknown unknown Unverified 09/18/21 16:41 metformin Allergy Unknown unk Verified 09/18/21 16:41 simvastatin Allergy Unknown unk Verified 09/18/21 16:41 Sulfa (Sulfonamide Allergy Unknown . Verified 09/18/21 16:41 Antibiotics) sulfamethoxazole Allergy Unknown unknown Unverified 09/18/21 16:41 trimethoprim Allergy Unknown unknown Unverified 09/18/21 16:41 Home Medications Medication Instructions Recorded Confirmed Type acetaminophen 325 mg tablet 650 mg PO TID PRN 10/15/19 10/15/19 History (Tylenol) apixaban 5 mg tablet 2.5 mg PO BID 10/15/19 10/15/19 History artificial saliva (yerba connor and 1 spray MUCOUS MEMBRANE UD PRN 10/15/19 10/15/19 History lytes) spray calcium carbonate 200 mg calcium 1,000 mg PO BID PRN 10/15/19 10/15/19 History (500 mg) chewable tablet (Tums) cholecalciferol (vitamin D3) 25 1,000 unit PO DAILY 10/15/19 10/15/19 History mcg (1,000 unit) tablet digoxin 125 mcg (0.125 mg) tablet 125 mcg PO QPM 10/15/19 10/15/19 History (Digox) diltiazem HCl 240 mg capsule,24 240 mg PO DAILY 10/15/19 10/15/19 History hr,extended release (Tiazac) glipizide 10 mg tablet 20 mg PO BID 10/15/19 10/15/19 History insulin glargine 100 unit/mL (3 32 unit SUBCUT HS 10/15/19 10/15/19 History mL) subcutaneous pen (Lantus Solostar U-100 Insulin) metoprolol tartrate 50 mg tablet 50 mg PO BID 10/15/19 10/15/19 History (Lopressor) nitroglycerin 0.4 mg sublingual 0.4 mg SUBLINGUAL UD PRN 10/15/19 10/15/19 Hi story tablet (Nitrostat) omeprazole 20 mg capsule,delayed 20 mg PO DAILY 10/15/19 10/15/19 History release pravastatin 40 mg tablet 40 mg PO DAILY 10/15/19 10/15/19 History sennosides 8.6 mg tablet (senna) 17.2 mg PO BID PRN 10/15/19 10/15/19 History triamcinolone acetonide 0.5 % 1 applic TOPICAL BID 10/15/19 10/15/19 History topical ointment trolamine salicylate 10 % topical 1 applic TOPICAL TID PRN 10/15/19 10/15/19 History cream (Arthricream) urea 10 % topical cream 1 applic TOPICAL Q3D 10/15/19 10/15/19 History urea 40 % topical cream 1 applic TOPICAL BID 10/15/19 10/15/19 History Past Med/Surg History Medical History (Updated 09/18/21 @ 20:30 by Neida Hinds DO) Atrial fibrillation CAD (coronary artery disease) "DC ~ 2012, s/p 2 stents @ [facility] [place] - details unknown" Diastolic dysfunction "echo 11/2014 - EF 65-70%, diastolic dysfunction" DM type 2 (diabetes mellitus, type 2) Dyslipidemia Hip fracture, right "s/p OIRF and subsequent revision" History of CVA (cerebrovascular accident) HTN (hypertension) TIA (transient ischemic attack) Surgical History No pertinent past surgical history Family History Other Family history non-contributory Social History Smoking Status: Never smoker Hx Alcohol Use: No Hx Substance Use: No Preferred Language: Syrian Communication Ability: Effective Mortgage Loan Processor Required: No Beliefs That Will Affect Care: Mandaeism Mandaeism Beliefs: Religious. marital status: / Current Living Situation: Alone Feels Safe at Home: Yes Assistive Devices: Walker Review of Systems Review of Systems: All systems reviewed & are unremarkable except as noted in HPI & below Physical Exam Physical Exam: General: patient resting comfortably, NAD, non-toxic in appearance, AA&O x 4 Skin: warm, dry, intact, chronic venous stasis changes of bilateral LE HEENT: NC/AT, PERRL, EOMI, anicteric sclera, conjunctiva without injection, external ear normal to inspection and nontender, nares patent, dry mucus membranes, dentition intact, no oropharyngeal lesions, neck supple, trachea midline, no LAD, no thyromegaly, no JVD Heart: +S1/S2, irregularly irregular, no m/r/g Lungs: equal air entry bilaterally, no rales/rhonchi/wheezes Abd: +BS, soft, NT/ND, no masses/organomegaly/ascites Ext: warm, 2+ pulses in UE/LE bilaterally, no clubbing/cyanosis or edema Neuro: nonfocal, patient AA&O x 4, speech mildly garbled, no facial droop, moving all extremities on command, very mild weakness LUE Results & Data Results & Data ([facility] [place]) Vital Signs (Past 12 Hours) Vital Signs Temp Pulse Pulse Resp BP BP Pulse Ox 09/18/21 17:00 99 H 26 H 161/94 H 92 09/18/21 15:30 115 H 16 165/103 H 92 09/18/21 12:54 36.2 C L 91 H 18 121/79 93 Laboratory Results Laboratory Results WBC 5.84 K/uL (4.8-10.8) 09/18/21 13:55 RBC 5.17 M/uL (4.7-6.1) 09/18/21 13:55 Hgb 15.8 g/dL (14.0-18.0) 09/18/21 13:55 Hct 46.5 % (42-52) 09/18/21 13:55 MCV 89.9 fL (80-100) 09/18/21 13:55 MCH 30.6 pg (25-34) 09/18/21 13:55 MCHC 34.0 g/dL (32-36) 09/18/21 13:55 RDW Std Deviation 55.1 fL (36.4-46.3) H 09/18/21 13:55 RDW Coeff of Liya 16.6 % (11.5-14.5) H 09/18/21 13:55 Plt Count 175 K/uL (130-400) 09/18/21 13:55 MPV 12.7 fL (7.4-10.4) H 09/18/21 13:55 Immature Gran % (Auto) 0.2 % 09/18/21 13:55 Neut % (Auto) 53.8 % 09/18/21 13:55 Lymph % (Auto) 31.5 % 09/18/21 13:55 [place] % (Auto) 13.0 % 09/18/21 13:55 Eos % (Auto) 1.2 % 09/18/21 13:55 Baso % (Auto) 0.3 % 09/18/21 13:55 Neut # (Auto) 3.14 K/uL (1.4-6.5) 09/18/21 13:55 Lymph # (Auto) 1.84 K/uL (1.2-3.4) 09/18/21 13:55 [place] # (Auto) 0.76 K/uL (0.11-0.59) H 09/18/21 13:55 Eos # (Auto) 0.07 K/uL (0-0.5) 09/18/21 13:55 Baso # (Auto) 0.02 K/uL (0-0.2) 09/18/21 13:55 Immature Gran # (Auto) 0.01 K/uL (0.00-0.02) 09/18/21 13:55 PT 12.0 Seconds (9.0-12.0) 09/18/21 16:45 INR 1.2 (0.9-1.1) H 09/18/21 16:45 Sodium 133 mmol/L (136-145) L 09/18/21 13:55 Potassium 2.9 mmol/L (3.5-5.1) L 09/18/21 13:55 Chloride 96 mmol/L (98-107) L 09/18/21 13:55 Carbon Dioxide 25 mmol/L (21-32) 09/18/21 13:55 Anion Gap 12.0 (3-11) H 09/18/21 13:55 BUN 28 mg/dl (7-18) H 09/18/21 13:55 Creatinine 2.32 mg/dl (0.6-1.4) H 09/18/21 13:55 Est Cr Clr Drug Dosing Not Reportable 09/18/21 13:55 Est GFR ( Amer) 28.8 ml/min 09/18/21 13:55 Est GFR (Non-Af Amer) 24.9 ml/min 09/18/21 13:55 BUN/Creatinine Ratio 12.1 (10-20) 09/18/21 13:55 Glucose 116 mg/dl (70-99) H 09/18/21 13:55 Calcium 9.4 mg/dl (8.5-10.1) 09/18/21 13:55 Phosphorus 3.7 mg/dl (2.5-4.9) 09/18/21 16:45 Magnesium 2.1 mg/dl (1.8-2.4) 09/18/21 16:45 Total Bilirubin 1.7 mg/dl (0.2-1) H 09/18/21 13:55 AST 57 U/L (15-37) H 09/18/21 13:55 ALT 36 U/L (12-78) 09/18/21 13:55 Alkaline Phosphatase 67 U/L (45-117) 09/18/21 13:55 Total Creatine Kinase 405 U/L (39-308) H 09/18/21 16:45 Troponin I 0.025 ng/ml (0-0.045) 09/18/21 16:45 Total Protein 8.6 gm/dl (6.4-8.2) H 09/18/21 13:55 Albumin 3.3 gm/dl (3.4-5.0) L 09/18/21 13:55 Globulin 5.3 gm/dl (2.5-4.0) H 09/18/21 13:55 Albumin/Globulin Ratio 0.6 (0.9-2) L 09/18/21 13:55 Urine Color Dark Yellow 09/18/21 16:35 Urine Appearance Clear (Clear) 09/18/21 16:35 Urine pH 6.0 (4.5-7.5) 09/18/21 16:35 Ur Specific [place] 1.011 (1.000-1.030) 09/18/21 16:35 Urine Protein Trace (Negative) H 09/18/21 16:35 Urine Glucose (UA) Negative (Negative) 09/18/21 16:35 Urine Ketones Negative (Negative) 09/18/21 16:35 Urine Blood Negative (Negative) 09/18/21 16:35 Urine Nitrite Negative (Negative) 09/18/21 16:35 Urine Bilirubin Negative (Negative) 09/18/21 16:35 Urine Urobilinogen Negative (Negative) 09/18/21 16:35 Ur Leukocyte Esterase Negative (Negative) 09/18/21 16:35 Urine WBC (Auto) 1-5 /hpf (0-5) 09/18/21 16:35 Urine RBC (Auto) 0-4 /hpf (0-4) 09/18/21 16:35 U Hyaline Cast (Auto) 10-30 /lpf (0-5) H 09/18/21 16:35 U Epithel Cells (Auto) 10-20 /lpf (0-5) H 09/18/21 16:35 Urine Bacteria (Auto) Negative (Negative) 09/18/21 16:35 COVID-19 Eval Order Covid19 at [facility] 09/18/21 16:36 SARS-CoV-2 (PCR) POSITIVE (Negative) A* 09/18/21 16:36 Impressions Chest X-Ray 09/18/21 12:57 SINGLE VIEW CHEST CLINICAL HISTORY: Generalized weakness. FINDINGS: An AP, portable, upright chest radiograph is compared to study dated 10/15/2019. The examination is degraded by portable technique and patient rotation. The patient's head partially obscures the apices. The heart is enlarged noting atherosclerotic calcification of the thoracic aorta. The pulmonary vasculature is noncongested. Enlargement of the central pulmonary arteries suggests pulmonary artery hypertension. Chronic interstitial thickening is similar to previous. No airspace consolidation or large pleural effusion is identified. No pneumothorax is seen. The skeletal structures are osteopenic. The bony thorax is grossly intact. Arthritic change is seen in the shoulders. IMPRESSION: Cardiomegaly with no acute cardiopulmonary abnormality. ACT 112: Negative or not required by law. Electronically signed by: Jamaal Cordova M.D. 09/18/2021 1:32 PM Abdomen/Pelvis CT 09/18/21 16:04 CT SCAN OF THE ABDOMEN AND PELVIS WITHOUT IV CONTRAST CLINICAL HISTORY: Change in mental status. Generalized weakness. Lethargy. Loss of appetite. COMPARISON STUDY: Abdominal CT dated 12/01/2014. TECHNIQUE: CT scan of the abdomen and pelvis is performed from the lung bases to the proximal femora. Images are reviewed in the axial, sagittal, and coronal planes. IV contrast was not administered for this examination. Note that the examination is significantly suboptimal without oral and IV contrast. There is streak artifact from the arms which could not be elevated above the abdomen, as well as motion artifact. A dose lowering technique was utilized adhering to the principles of ALARA. CT DOSE: 755.69 mGy.cm FINDINGS: Lung bases: The heart is enlarged and without pericardial effusion. The coronary arteries are densely calcified. There is a small hiatal hernia. Mild patchy groundglass opacities are present at the right lung base. No pleural effusion is seen. Liver: The unenhanced liver is normal in size, contour, and attenuation. There is no intrahepatic biliary ductal dilatation. Gallbladder: Unremarkable. Spleen: Normal in size and attenuation. Pancreas: The unenhanced pancreas is moderately atrophic and grossly unremarkable. Adrenal glands: Unremarkable. Kidneys: The unenhanced kidneys demonstrate cortical atrophy and are without h ydronephrosis. There are no renal calculi identified. A 1.9 cm cyst arises from the right upper pole. Abdominal vasculature: The abdominal aorta is normal in course and caliber noting advanced atherosclerotic calcification. 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 A 1.7 cm aneurysm is noted in the left internal iliac artery. Bowel: There are scattered colonic diverticula without CT evidence of acute diverticulitis. No bowel obstruction is seen. Mild/moderate fecal retention is noted throughout the colon. The appendix is normal as visualized. Peritoneum: There is no intraperitoneal free air or abdominal ascites. Lymphadenopathy: None. Pelvic viscera: Evaluation of the pelvis is degraded by streak artifact from a right hip arthroplasty. The prostate gland is enlarged and heterogeneous. The bladder wall appears thickened and trabeculated indicating chronic outlet obstruction. Skeletal structures: The skeletal structures are osteopenic. There is a mild chronic superior endplate compression deformity of T12. There is moderate to advanced lumbosacral spondylosis. No lytic or blastic lesions are seen. A right hip arthroplasty is in place. IMPRESSION: 1. Significantly suboptimal examination without oral and IV contrast. There is also significant streak and motion artifact. 2. No acute infectious or inflammatory findings are identified in the abdomen or pelvis. 3. Minimal groundglass opacities are seen at the right lung base. This could present atelectasis versus a mild infectious/inflammatory pneumonitis and clinical correlation will be required. 4. Mild to moderate clonic fecal retention. 5. 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 6. Cardiomegaly. 7. Additional findings as above. ACT 112: Negative or not required by law. Electronically signed by: Jamaal Cordova M.D. 09/18/2021 5:[address] 09/18/21 16:08 CT SCAN OF THE BRAIN WITHOUT IV CONTRAST CLINICAL HISTORY: Generalized weakness. Nausea. Change in mental status. COMPARISON STUDY: CT of the brain dated 10/15/2019. TECHNIQUE: Unenhanced axial CT scan of the brain is performed from the vertex to the skull base. A dose lowering technique was utilized adhering to the principles of ALARA. CT DOSE: 691.05 mGy.cm FINDINGS: Brain parenchyma: There are age-related involutional changes noting moderate s ubcortical and periventricular microangiopathic change. There is no hemorrhage, mass effect, or evidence of acute territorial ischemia by CT criteria. Right cerebellar calcifications are unchanged. Allan-white matter differentiation is preserved. No extra-axial fluid collection is seen. Ventricles, sulci, cisterns: Prominent secondary to involutional change. Intracranial vasculature: There is atherosclerotic calcification of the cavernous carotid and vertebral arteries. Calvarium: Unremarkable. Sinuses and mastoids: There is trace mucosal thickening within the maxillary antra. Mild mucosal thickening is noted within the frontal and ethmoid sinuses. The mastoid air cells are well pneumatized. Orbits: The bony orbits are grossly intact. There are bilateral ocular lens implants. IMPRESSION: There is no hemorrhage, mass effect, or evidence of acute territorial ischemia by CT criteria. ACT 112: Negative or not required by law. Electronically signed by: Jamaal Cordova M.D. 09/18/2021 5:28 PM ECG Additional Comments: DICTATED BY:Ravinder Narvaez MD Test Reason : Blood Pressure : / mmHG Vent. Rate : 094 BPM Atrial Rate : 178 BPM P-R Int : 000 ms QRS Dur : 096 ms QT Int : 410 ms P-R-T Axes : 000 -19 -27 degrees QTc Int : 512 ms Atrial fibrillation Nonspecific ST abnormality Prolonged QT Abnormal ECG When compared with ECG of 15-OCT-2019 14:35, No significant change was found Confirmed by Ravinder Narvaez ([id number]) on 09/18/2021 4:42:49 PM Referred By: Confirmed By:Wily Narvaez Code Status & VTE Plan VTE Prophylaxis Plan VTE Prophylaxis will be ordered: Yes PG Care Time/CCT Total # of Minutes Spent Total Time Spent with Patient: Total time spent is greater than 50% in coordination of care (as documented) at patient's floor/unit and/or counseling patient: Coding Level of Care Code 67615 Initial Inpt Care Lvl 3 Diagnoses CAD (coronary artery disease) I25.10 DM type 2 (diabetes mellitus, type 2) E11.9 HTN (hypertension) I10 Dyslipidemia E78.5 Atrial fibrillation I48.91 History of CVA (cerebrovascular accident) Z86.73 COVID-19 U07.1 HERB (acute kidney injury) N17.9 Hypokalemia E87.6
[2021-09-18] MEDS ORDERED: DOCUSATE SODIUM 100 MG CAP PO PRN (22:46)
[2021-09-18] MEDS ORDERED: POLYETHYLENE (MIRALAX) 17 GM PACK PO PRN (22:46)
[2021-09-18] MEDS ORDERED: DEXTROSE 50% 50 ML SYRINGE IV PRN (22:46)
[2021-09-18] MEDS ORDERED: GLUCAGON FOR INJ 1 MG VIAL SQ PRN (22:46)
[2021-09-18] MEDS ORDERED: bisacodyL 10 MG SUPP PR PRN (22:46)
[2021-09-18] MEDS ORDERED: CARBOHYDRATES FOR HYPOGLYCEMIA PO PRN (22:46)
[2021-09-18] MEDS ORDERED: GLUCOSE 10 TABS/TUBE PO PRN (22:46)
[2021-09-18] MEDS ORDERED: ACETAMINOPHEN 325 MG TAB PO PRN (22:46)
[2021-09-18] MEDS ORDERED: ONDANSETRON INJ 2 MG/ML 2 ML VIAL IV PRN (22:46)
[2021-09-18] MEDS ORDERED: GLUCOSE 40% GEL 15 GM TUBE PO PRN (22:46)
[2021-09-18] MEDS: LACTATED RINGER'S 1,000 ML IV SCH (23:12)
[2021-09-18] MEDS: BENZONATATE 100 MG CAPSULE PO SCH (23:47)
[2021-09-18] MEDS: INSULIN GLARGINE SOLOSTAR 100 UNITS/ML 3 ML PEN SC SCH (23:48)
[2021-09-18] MEDS: INSULIN ASPART 100 UNITS/ML 3 ML PEN SC SCH (23:48)
[2021-09-19 00:31] LABS: C Reactive Protein 1.2 mg/dl (0-0.29)
[2021-09-19 06:23] LABS: Basophils # (auto) 0.01 K/uL (0-0.2); Basophils % (auto) 0.2 %; Eosinophils # (auto) 0.08 K/uL (0-0.5); Eosinophils % (auto) 1.8 %; Hematocrit (blood only) 42.4 % (42-52); Hemoglobin 14.3 g/dL (14.0-18.0); Immature Granulocytes # (auto) 0.01 K/uL (0.00-0.02); Immature Granulocytes % (auto) 0.2 %; Lymphocytes # (auto) 1.16 K/uL (1.2-3.4); Lymphocytes % (auto) 26.4 %; Mean Corpuscular Hemoglobin 30.4 pg (25-34); Mean Corpuscular Hgb Conc 33.7 g/dL (32-36); Mean Corpuscular Volume 90.2 fL (80-100); Mean Platelet Volume 12.9 fL (7.4-10.4); Monocytes # (auto) 0.59 K/uL (0.11-0.59); Monocytes % (auto) 13.4 %; Neutrophils # (auto) 2.55 K/uL (1.4-6.5); Platelet Count 148 K/uL (130-400); RDW Coefficient of Variation 16.7 % (11.5-14.5)
[2021-09-19 06:52] LABS: Albumin Level 2.7 gm/dl (3.4-5.0); BUN Creatinine Ratio 14.9 (10-20); Bilirubin Direct 0.4 mg/dl (0-0.2); Calcium 8.8 mg/dl (8.5-10.1); Creatinine Clr Calc Pharmacy 31.9 ml/min; Est GFR (African American) 35.6 ml/min; Est GFR (Non-African American) 30.7 ml/min; Potassium 2.9 mmol/L (3.5-5.1)
[2021-09-19 06:55] LABS: Bilirubin,Total 1.5 mg/dl (0.2-1); Total Protein 7.4 gm/dl (6.4-8.2)
[2021-09-19 09:29] LABS: Estimated Average Glucose 163 mg/dl; Hemoglobin A1C 7.3 % (4.5-5.6)
[2021-09-19] MEDS: LACTATED RINGER'S 1,000 ML IV SCH (09:39)
[2021-09-19] MEDS: BENZONATATE 100 MG CAPSULE PO SCH ×3 (09:41→20:45)
[2021-09-19] MEDS: APIXABAN 2.5 MG TAB PO SCH ×2 (09:41→20:45)
[2021-09-19] MEDS: METOPROLOL TARTRATE 50 MG TAB PO SCH ×2 (09:45→20:48)
[2021-09-19] MEDS: dilTIAZem ER 120 MG CAPCR PO SCH (09:45)
[2021-09-19] MEDS: INSULIN GLARGINE SOLOSTAR 100 UNITS/ML 3 ML PEN SC SCH ×2 (09:46→20:49)
[2021-09-19] MEDS: INSULIN ASPART 100 UNITS/ML 3 ML PEN SC SCH ×4 (09:48→20:45)
[2021-09-19] MEDS: DIGOXIN 0.125 MG TAB PO SCH (15:43)
[2021-09-19] MEDS: POTASSIUM CHLORIDE / WTR 10 MEQ/100 ML PLCT IV SCH ×4 (17:55→22:03)
[2021-09-19] MEDS: PRAVASTATIN SOD 40 MG TAB PO SCH (17:55)
[2021-09-19] MEDS ORDERED: CALCIUM CARBONATE 500 MG CHEWABLE TAB PO STA (19:39)
--- NOTE | 2021-09-19 20:43 | Hospitalist Progress Note ---
Date of Service September 19, 2021 Assessment & Plan (1) COVID-19: Plan: 86yo male with history of HTN, DM, HLP, CAD, prior CVA and AF presenting with one month of progressive weakness, fatigue, poor PO intake. Also with cough, congestion and SOB. Found to be positive for Covid-19 infection. He is not vaccinated against Covid. Normal oxygenation in the ER. Afebrile. CXR and lung bases noted on CT of the abdomen with only mild bibasilar ground glass opacities -Admit to medical -Maintain isolation precautions -Monitor respiratory status: now requiring 2 liters nasal cannula - Dexamethasone will be started at this time -Albuterol PRN -Tylenol PRN (2) CAD (coronary artery disease): Plan: Patient reports some chest discomfort. No acute ischemic changes on EKG -Continue Metoprolol at home dose -Continue Pravastatin (3) DM type 2 (diabetes mellitus, type 2): Plan: Chronic. Blood sugar = 116 at present. Patient is on Lantus 32u qHS as wel as Glipizide as an outpatient. Last HgbA1c in 2018 = 8.3 -Hold Glipizide -Lantus 10u BID, ISS, goal blood sugar 100 - 140. (4) HTN (hypertension): Plan: Blood pressure mildly elevated -Continue home medications, Diltiazem, Metoprolol (5) Dyslipidemia: Plan: Chronic -Continue Pravastatin (6) Atrial fibrillation: Plan: Chronic. Rate controlled -Continue Diltiazem, Metoprolol -Continue Digoxin -Continue Apixaban (7) History of CVA (cerebrovascular accident): Plan: Chronic -Continue Atorvastatin. Patient is on Apixaban as well. No antiplatelet therapy (8) HERB (acute kidney injury): Plan: Elevated BUN and Cr at 28 and 2.32 (from 16 and 1.64) Most likely pre-renal etiology in setting of decreased intake. Administered 1L NSS in the ER and LR at 125mL/hr -Continue LR at 100ml/hr x 1 liter- cautious use of fluids in patient with Covid -Repeat chemistry in AM -Avoid nephrotoxic agents -Renal dosing where needed (9) Hypokalemia: Plan: K=2.9 remains at this level. will replenish and recheck on 09/20 Plan: F/E/N - LR at 100ml/hr x 1 L, K repletion as above, AHA/CC diet as tolerated Ppx - Apixaban as above Code - Conditional - would not want to be intubated or mechanically ventilated in event of respiratory failure Admission and Anticipated Discharge Date Admission Date: September 18, 2021 Subjective 86 yo male is hard of hearing. He reports no new complaints. Is comforable on 2 liters nasal cannula. Updated son. Review of Systems Review of Systems: All systems reviewed & are unremarkable except as noted in HPI & below Physical Exam Physical Exam: General: patient resting comfortably, NAD, non-toxic in appearance, AA&O x 4 Skin: warm, dry, intact, chronic venous stasis changes of bilateral LE HEENT: NC/AT, PERRL, EOMI, neck supple, trachea midline, no LAD, no thyrom egaly, no JVD Heart: +S1/S2, irregularly irregular, no m/r/g Lungs: equal air entry bilaterally, no rales/rhonchi/wheezes Abd: +BS, soft, NT/ND, no masses/organomegaly/ascites Ext: warm, 2+ pulses in UE/LE bilaterally, no clubbing/cyanosis or edema Neuro: nonfocal, no facial droop, moving all extremities on command, very mild weakness LUE Results & Data Results & Data ([facility]) Vital Signs (Past 12 Hours) Vital Signs Temp Pulse Pulse Resp BP Pulse Ox 09/19/21 15:43 55 L 09/19/21 15:25 36.7 C 56 L 20 122/71 97 09/19/21 09:44 92 H 152/93 H PG Care Time/CCT Total # of Minutes Spent Total Time Spent with Patient: Total time spent is greater than 50% in coordination of care (as documented) at patient's floor/unit and/or counseling patient: Coding Level of Care Code 03832 Subseq Hosp Care Lvl 2 Diagnoses COVID-19 U07.1 CAD (coronary artery disease) I25.10 DM type 2 (diabetes mellitus, type 2) E11.9 HTN (hypertension) I10 Dyslipidemia E78.5 Atrial fibrillation I48.91 History of CVA (cerebrovascular accident) Z86.73 HERB (acute kidney injury) N17.9 Hypokalemia E87.6
[2021-09-19] MEDS: dexAMETHasone 6 MG in SYRINGE 0 ML IV SCH (21:17)
[2021-09-20 07:00] LABS: Hematocrit (blood only) 43.3 % (42-52); Hemoglobin 14.3 g/dL (14.0-18.0); Mean Corpuscular Hemoglobin 30.6 pg (25-34); Mean Corpuscular Volume 92.7 fL (80-100); Mean Platelet Volume 12.9 fL (7.4-10.4); Platelet Count 129 K/uL (130-400); Platelet Estimate Decreased (Normal); RDW Coefficient of Variation 16.7 % (11.5-14.5); RDW Standard Deviation 56.6 fL (36.4-46.3); Red Blood Count 4.67 M/uL (4.7-6.1); White Blood Count 2.71 K/uL (4.8-10.8)
[2021-09-20 07:06] LABS: BUN Creatinine Ratio 16.1 (10-20); C Reactive Protein 1.09 mg/dl (0-0.29); Creatinine Clr Calc Pharmacy 35.9 ml/min; Est GFR (African American) 41.1 ml/min; Est GFR (Non-African American) 35.5 ml/min; Potassium 3.6 mmol/L (3.5-5.1)
--- NOTE | 2021-09-20 08:38 | XRay Report ---
XR chest 1V portable CLINICAL HISTORY: hypoxia TECHNIQUE: Single frontal radiograph of the chest was obtained. Comparison: Comparison is made to chest one view 09/18/2021 FINDINGS: No lines and tubes are seen. Cardiomegaly is noted. Calcified aortic knob is seen. Trace atelectasis is at the left lung base. No evidence of pleural effusion or pneumothorax. IMPRESSION: Cardiomegaly without acute abnormality. ACT 112: Negative or not required by law. Electronically signed by: Tomi Luke M.D. 09/20/2021 8:37 AM
[2021-09-20] MEDS: BENZONATATE 100 MG CAPSULE PO SCH ×3 (09:16→23:03)
[2021-09-20] MEDS: APIXABAN 2.5 MG TAB PO SCH ×2 (09:16→23:03)
[2021-09-20] MEDS: METOPROLOL TARTRATE 50 MG TAB PO SCH ×2 (09:17→21:46)
[2021-09-20] MEDS: dilTIAZem ER 120 MG CAPCR PO SCH (09:17)
[2021-09-20] MEDS: INSULIN GLARGINE SOLOSTAR 100 UNITS/ML 3 ML PEN SC SCH ×2 (09:18→21:30)
[2021-09-20] MEDS: INSULIN ASPART 100 UNITS/ML 3 ML PEN SC SCH ×4 (09:20→21:30)
[2021-09-20] MEDS: dexAMETHasone 6 MG in SYRINGE 0 ML IV SCH (15:07)
[2021-09-20] MEDS: DIGOXIN 0.125 MG TAB PO SCH (15:07)
[2021-09-20] MEDS ORDERED: CALCIUM CARBONATE 500 MG CHEWABLE TAB PO PRN (15:43)
[2021-09-20] MEDS: PRAVASTATIN SOD 40 MG TAB PO SCH (17:12)
--- NOTE | 2021-09-20 20:20 | Hospitalist Progress Note ---
Date of Service September 20, 2021 Assessment & Plan (1) COVID-19: Plan: 86yo male with history of HTN, DM, HLP, CAD, prior CVA and AF presenting with one month of progressive weakness, fatigue, poor PO intake. Also with cough, congestion and SOB. Found to be positive for Covid-19 infection. He is not vaccinated against Covid. Normal oxygenation in the ER. Afebrile. CXR and lung bases noted on CT of the abdomen with only mild bibasilar ground glass opacities -Admitted to medical This is day 2 on 2 liters nasal cannula. CRP is also low. Patient is on dexamethasone. will complete 10 days. Today is day 2. Will consult PT/OT. Likely discharge tomorrow. -Albuterol PRN -Tylenol PRN (2) CAD (coronary artery disease): Plan: Patient reports some chest discomfort. No acute ischemic changes on EKG -Continue Metoprolol at home dose -Continue Pravastatin (3) DM type 2 (diabetes mellitus, type 2): Plan: Chronic. Blood sugar = 116 at present. Patient is on Lantus 32u qHS as wel as Glipizide as an outpatient. Last HgbA1c in 2018 = 8.3 -Hold Glipizide -Lantus 10u BID, ISS, goal blood sugar 100 - 140. (4) HTN (hypertension): Plan: Blood pressure mildly elevated -Continue home medications, Diltiazem, Metoprolol (5) Dyslipidemia: Plan: Chronic -Continue Pravastatin (6) Atrial fibrillation: Plan: Chronic. Rate controlled -Continue Diltiazem, Metoprolol -Continue Digoxin -Continue Apixaban (7) History of CVA (cerebrovascular accident): Plan: Chronic -Continue Atorvastatin. Patient is on Apixaban as well. No antiplatelet therapy (8) HERB (acute kidney injury): Plan: Elevated BUN and Cr at 28 and 2.32 (from 16 and 1.64) Most likely pre-renal etiology in setting of decreased intake. Administered 1L NSS in the ER and LR at 125mL/hr -Continue LR at 100ml/hr x 1 liter- cautious use of fluids in patient with Covid -Repeat chemistry in AM -Avoid nephrotoxic agents -Renal dosing where needed (9) Hypokalemia: Plan: K=3.6 Plan: Ppx - Apixaban as above Code - Conditional - would not want to be intubated or mechanically ventilated in event of respiratory failure Admission and Anticipated Discharge Date Admission Date: September 19, 2021 Subjective Patient reports feeling well. He has no new complaints. Updated his son Fadi. Review of Systems Review of Systems: All systems reviewed & are unremarkable except as noted in HPI & below Physical Exam Physical Exam: General: patient resting comfortably, NAD, non-toxic in appearance, AA&O x 4 Skin: warm, dry, intact, chronic venous stasis changes of bilateral LE HEENT: NC/AT, PERRL, EOMI, neck supple, trachea midline, no LAD, no thyromegaly, no JVD Heart: +S1/S2, irregularly irregular, no m/r/g Lungs: equal air entry bilaterally, no rales/rhonchi/wheezes Abd: +BS, soft, NT/ND, no masses/organomegaly/ascites Ext: warm, 2+ pulses in UE/LE bilaterally, no clubbing/cyanosis or edema Neuro: nonfocal, no facial droop, moving all extremities on command, very mild weakness LUE Results & Data Results & Data ([facility]) Vital Signs (Past 12 Hours) Vital Signs Temp Pulse Pulse Resp BP Pulse Ox 09/20/21 15:07 51 L 09/20/21 15:04 36.5 C 51 L 18 126/76 97 09/20/21 09:14 99 H 111/73 PG Care Time/CCT Total # of Minutes Spent Total Time Spent with Patient: Total time spent is greater than 50% in coordination of care (as documented) at patient's floor/unit and/or counseling patient: Coding Level of Care Code 92322 Subseq Hosp Care Lvl 2 Diagnoses COVID-19 U07.1 CAD (coronary artery disease) I25.10 DM type 2 (diabetes mellitus, type 2) E11.9 HTN (hypertension) I10 Dyslipidemia E78.5 Atrial fibrillation I48.91 History of CVA (cerebrovascular accident) Z86.73 HERB (acute kidney injury) N17.9 Hypokalemia E87.6
[2021-09-21 06:22] LABS: Mean Corpuscular Hgb Conc 33.2 g/dL (32-36)
[2021-09-21 06:53] LABS: Hemoglobin 13.6 g/dL (14.0-18.0); Mean Corpuscular Hemoglobin 30.6 pg (25-34); Mean Corpuscular Volume 92.1 fL (80-100); RDW Coefficient of Variation 16.7 % (11.5-14.5); RDW Standard Deviation 55.9 fL (36.4-46.3); Red Blood Count 4.45 M/uL (4.7-6.1)
[2021-09-21 06:55] LABS: BUN Creatinine Ratio 18.1 (10-20); Calcium 8.8 mg/dl (8.5-10.1); Creatinine Clr Calc Pharmacy 35.1 ml/min; Est GFR (Non-African American) 34.5 ml/min; Potassium 3.6 mmol/L (3.5-5.1)
[2021-09-21 07:48] LABS: Platelet Count 148 K/uL (130-400); Platelet Estimate Decreased (Normal)
[2021-09-21] MEDS: BENZONATATE 100 MG CAPSULE PO SCH ×2 (08:47→13:11)
[2021-09-21] MEDS: APIXABAN 2.5 MG TAB PO SCH (08:47)
[2021-09-21] MEDS: METOPROLOL TARTRATE 50 MG TAB PO SCH (08:47)
[2021-09-21] MEDS: dilTIAZem ER 120 MG CAPCR PO SCH (08:48)
[2021-09-21] MEDS: INSULIN GLARGINE SOLOSTAR 100 UNITS/ML 3 ML PEN SC SCH (08:48)
[2021-09-21] MEDS: dexAMETHasone 6 MG in SYRINGE 0 ML IV SCH (08:48)
[2021-09-21] MEDS: INSULIN ASPART 100 UNITS/ML 3 ML PEN SC SCH ×3 (08:49→17:15)
[2021-09-21] MEDS: DIGOXIN 0.125 MG TAB PO SCH (16:09)
[2021-09-21] MEDS: PRAVASTATIN SOD 40 MG TAB PO SCH (17:14)
--- NOTE | 2021-09-23 16:17 | Discharge Summary ---
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 Patient has had minimal PO intake for the last week. Has been having difficulty ambulating in his home due to weakness. He also reports dry cough and progressive SOB over the last month as well as nasal congestion. He states he had a subjective fever with sweats approximately 2 weeks ago but does not believe he has had a fever since. Lives alone, ambulates with use of a walker. His son checks in on him daily. Is not vaccinated against Covid-19 No additional complaints at this time On arrival to the ER patient afebrile, HD stable, RR of 26, saturating 92% on room air ER Course: NSS x 1L +10mEq KCl, LR at 125mL/hr, KCl 60mEq Principal Diagnosis COVID 19 Discharge Exam General: patient resting comfortably, NAD, non-toxic in appearance, AA&O x 4 Skin: warm, dry, intact, chronic venous stasis changes of bilateral LE HEENT: NC/AT, PERRL, EOMI, neck supple, trachea midline, no LAD, no thyromegaly, no JVD Heart: +S1/S2, irregularly irregular, no m/r/g Lungs: equal air entry bilaterally, no rales/rhonchi/wheezes Abd: +BS, soft, NT/ND, no masses/organomegaly/ascites Ext: warm, 2+ pulses in UE/LE bilaterally, no clubbing/cyanosis or edema Neuro: nonfocal, no facial droop, moving all extremities on command, very mild weakness LUE Discharge Data Allergies Allergy/AdvReac Type Severity Reaction Status Date / Time Bactrim Allergy Unknown unknown Unverified 03/12/17 16:36 felodipine Allergy Unknown unk Verified 09/18/21 16:41 furosemide Allergy Unknown unknown Unverified 09/18/21 16:41 metformin Allergy Unknown unk Verified 09/18/21 16:41 simvastatin Allergy Unknown unk Verified 09/18/21 16:41 Sulfa (Sulfonamide Allergy Unknown . Verified 09/18/21 16:41 Antibiotics) sulfamethoxazole Allergy Unknown unknown Unverified 09/18/21 16:41 trimethoprim Allergy Unknown unknown Unverified 09/18/21 16:41 Consultations 09/18/21 19:05 ED Decision to Admit Stat 09/20/21 10:00 Consult Health Information Management Routine Ordered Studies 09/18/21 16:04 CT abd pelvis wo con Stat 09/18/21 16:08 CT head/brain wo con Stat Hospital Course (1) COVID-19: 86yo male with history of HTN, DM, HLP, CAD, prior CVA and AF presenting with one month of progressive weakness, fatigue, poor PO intake. Also with cough, congestion and SOB. Found to be positive for Covid-19 infection. He is not vaccinated against Covid. Normal oxygenation in the ER. Afebrile. CXR and lung bases noted on CT of the abdomen with only mild bibasilar ground glass opacities -Admitted to medical patient required 2 liters of nasal cannula but improved on day of discharge. CRP is also low. Patient is on dexamethasone. will complete 10 days. Likely discharge tomorrow. -Albuterol PRN -Tylenol PRN Updated son. Agreeable to discharge. (2) CAD (coronary artery disease): Patient reports some chest discomfort. No acute ischemic changes on EKG -Continue Metoprolol at home dose -Continue Pravastatin (3) DM type 2 (diabetes mellitus, type 2): Chronic. Blood sugar = 116 at present. Patient is on Lantus 32u qHS as wel as Glipizide as an outpatient. Last HgbA1c in 2018 = 8.3 -Hold Glipizide -Lantus 10u BID, ISS, goal blood sugar 100 - 140. (4) HTN (hypertension): Blood pressure mildly elevated -Continue home medications, Diltiazem, Metoprolol (5) Dyslipidemia: Chronic -Continue Pravastatin (6) Atrial fibrillation: Chronic. Rate controlled -Continue Diltiazem, Metoprolol -Continue Digoxin -Continue Apixaban (7) History of CVA (cerebrovascular accident): Chronic -Continue Atorvastatin. Patient is on Apixaban as well. No antiplatelet therapy (8) HERB (acute kidney injury): Elevated BUN and Cr at 28 and 2.32 (from 16 and 1.64) Most likely pre- renal etiology in setting of decreased intake. Administered 1L NSS in the ER and LR at 125mL/hr -Continue LR at 100ml/hr x 1 liter- cautious use of fluids in patient with Covid -Repeat chemistry in AM -Avoid nephrotoxic agents -Renal dosing where needed (9) Hypokalemia: K=3.6 replaced Ppx - Apixaban as above Code - Conditional - would not want to be intubated or mechanically ventilated in event of respiratory failure Total Time Total Time Spent Total Time Spent (In Minutes): 32 Discharge Plan Discharge Items Patient Disposition: Home - Home Health Services Reason For Visit: COVID-19 Discharge Diagnosis: COVID 19 Activity: Resume your previous activity Non-emergency contact: Primary Care Provider Call non-emergency contact if: you have any medication questions Follow-up/Referrals: García Melo MD [Primary Care Provider] - (Per the [facility], please call them to schedule a follow up appt with your PCP.) Diet: Regular Addtl Attending Provider Instructions: You have been hospitalized for an acute medical problem. During your stay at [facility], we have made an effort to correct the problem that brought you to the hospital while keeping you as comfortable as possible. Medications were used to bring your condition under control and your discharge instructions will include directions for any medications you should take after leaving the hospital. Please make sure you see your Primary Care Provider as part of your follow up plan. Will need Dexamethasone for 7 more days. Pending Studies at Discharge: No Stand-Alone Forms: My [facility], Smoking Cessation Medications and DC Order Prescriptions: New dexamethasone 6 mg tablet 6 mg PO DAILY Qty: 7 RF: 0 Continued sennosides [senna] 8.6 mg Tablet 17.2 mg PO BID PRN (Reason: Constipation) RF: 0 acetaminophen [Tylenol] 325 mg Tablet 650 mg PO TID PRN (Reason: Pain (Scale Score 1-3)) RF: 0 pravastatin 40 mg Tablet 40 mg PO DAILY RF: 0 urea 40 % Cream 1 applic TOPICAL BID RF: 0 glipizide 10 mg Tablet 20 mg PO BID RF: 0 diltiazem HCl [Tiazac] 240 mg Capsule,Extended Release 24 Hr 240 mg PO DAILY RF: 0 triamcinolone acetonide 0.5 % Ointment 1 applic TOPICAL BID RF: 0 calcium carbonate [Tums] 200 mg calcium (500 mg) Tablet,Chewable 1,000 mg PO BID PRN (Reason: upset stomach) RF: 0 metoprolol tartrate [Lopressor] 50 mg Tablet 50 mg PO BID RF: 0 urea 10 % Cream 1 applic TOPICAL Q3D RF: 0 nitroglycerin [Nitrostat] 0.4 mg Tablet, Sublingual 0.4 mg sublingual UD PRN (Reason: Chest Pain) RF: 0 omeprazole 20 mg Capsule,Delayed Release(Dr/Ec) 20 mg PO DAILY RF: 0 digoxin [Digox] 125 mcg (0.125 mg) Tablet 125 mcg PO QPM RF: 0 trolamine salicylate [Arthricream] 10 % Cream 1 applic TOPICAL TID PRN (Reason: Pain) RF: 0 artificial saliva (yerbas-lyt) Aerosol,Ryan 1 spray MUCOUS MEMBRANE UD PRN (Reason: Dry Mouth) RF: 0 cholecalciferol (vitamin D3) 25 mcg (1,000 unit) Tablet 1,000 unit PO DAILY RF: 0 Lantus Solostar U-100 Insulin 100 unit/mL (3 mL) Insulin Pen 32 unit SUBCUT HS RF: 0 apixaban 5 mg Tablet 2.5 mg PO BID RF: 0 Discharge Orders: Discharge Order (Routine); Ordered 09/21/21 Ordered By: Casey Sanders/Other Patient Handouts: How COVID-19 Spreads, COVID-19 Home Care, High Blood Sugar (Hyperglycemia), Hypoglycemia (Low Blood Sugar), Managing Type 2 Diabetes Admission Data Admit Date/Time: 09/18/21 20:14 Attending Provider: Casey Costa Admit Provider: Neida Hinds Primary Care Provider: García Melo Other Providers: Neida Hinds ; [facility] Other Interventions: Discharge Summary Assessment (RN) Last Done: 09/21/21 13:42 Coding Level of Care Code D/C DAY MANAGEMENT >30 MINS Diagnoses COVID-19 U07.1 CAD (coronary artery disease) I25.10 DM type 2 (diabetes mellitus, type 2) E11.9 HTN (hypertension) I10 Dyslipidemia E78.5 Atrial fibrillation I48.91 History of CVA (cerebrovascular accident) Z86.73 HERB (acute kidney injury) N17.9 Hypokalemia E87.6
== END 2021-09-21 19:57 | disposition home health service (06) | DRG 178 ==
LOC: 3W 12:51 → ED 12:51 → SUATTDRO 20:14 → 3W 22:35

== ENCOUNTER 2022-06-10 21:31 | Inpatient (IN) ==
--- NOTE | 2022-06-10 21:53 | Emergency Department Note ---
History of Present Illness General Chief complaint: Chest Pain Stated complaint: chest pain Time Seen by Provider: 06/10/22 21:32 History of Present Illness Maximum Pain Intensity: 4 This 86-year-old on Eliquis and digoxin for A. fib but a prior heart attack 15 years ago with stent placement at [place] presents to the ER complaining of intermittent exertional chest pain for the past week Location: Chest Quality: Discomfort Severity: Moderate Duration: Past week Timing: Started a week ago Context: Symptoms got worse and patient came in Modifying factors: better with nitroglycerin; worse with activity Patient states with activity he gets chest pain that radiates down both arms. Patient denies abdominal pain, fever, chills, flulike illness. He is on Eliquis for A. fib. [facility] [place]. Home Medications Medication Instructions Recorded Confirmed Type apixaban 5 mg tablet 2.5 mg PO BID 10/15/19 06/10/22 History calcium carbonate 200 mg calcium 1,000 mg PO QPM 10/15/19 06/10/22 History (500 mg) chewable tablet (Tums) cholecalciferol (vitamin D3) 25 1,000 unit PO DAILY 10/15/19 06/10/22 History mcg (1,000 unit) tablet digoxin 125 mcg (0.125 mg) tablet 125 mcg PO QPM 10/15/19 06/10/22 History (Digox) insulin glargine 100 unit/mL (3 30 unit subcut BID 10/15/19 06/10/22 History mL) subcutaneous pen (Lantus Solostar U-100 Insulin) pravastatin 40 mg tablet 40 mg PO DAILY 10/15/19 06/10/22 History sennosides 8.6 mg tablet (senna) 17.2 mg PO BID PRN Constipation 10/15/19 06/10/22 History triamcinolone acetonide 0.5 % 1 applic topical BID 10/15/19 06/10/22 History topical ointment urea 10 % topical cream 1 applic topical DAILY 10/15/19 06/10/22 History alogliptin 12.5 mg tablet 12.5 mg PO DAILY 06/10/22 06/10/22 History amlodipine 10 mg tablet 10 mg PO DAILY 06/10/22 06/10/22 History famotidine 40 mg tablet 40 mg PO BID 06/10/22 06/10/22 History ketotifen fumarate 0.025 % (0.035 1 drp OPB BID 06/10/22 06/10/22 History %) eye drops magnesium oxide 420 mg tablet 420 mg PO DAILY 06/10/22 06/10/22 History metoprolol succinate 100 mg 100 mg PO DAILY 06/10/22 06/10/22 History tablet,extended release 24 hr polyethylene glycol 3350 17 34 g PO DAILY PRN Constipation 06/10/22 06/10/22 History gram/dose oral powder (Miralax) potassium chloride 20 mEq 40 meq PO DAILY 06/10/22 06/10/22 History tablet,extended release Allergies Allergy/AdvReac Type Severity Reaction Status Date / Time Sulfa (Sulfonamide Allergy Intermediate RASH, DRY Verified 06/10/22 22:36 Antibiotics) MOUTH sulfamethoxazole Allergy Intermediate RASH, DRY Verified 06/10/22 22:36 MOUTH trimethoprim Allergy Intermediate RASH, DRY Verified 06/10/22 22:36 MOUTH felodipine AdvReac Intermediate EDEMA Verified 06/10/22 22:36 furosemide AdvReac Intermediate DERMATITIS Verified 06/10/22 22:36 metformin AdvReac Intermediate CONSTIPATIO Verified 06/10/22 22:36 N/DIARRHEA simvastatin AdvReac Intermediate Muscle Pain Verified 06/10/22 22:36 Past Med/Surg History Medical History (Updated 06/10/22 @ 23:59 by Merari Willard PA-C) Atrial fibrillation CAD (coronary artery disease) "ID ~ 2012, s/p 2 stents @ [facility] [place] - details unknown" Diastolic dysfunction "echo 11/2014 - EF 65-70%, diastolic dysfunction" DM type 2 (diabetes mellitus, type 2) Dyslipidemia Hip fracture, right "s/p OIRF and subsequent revision" History of CVA (cerebrovascular accident) HTN (hypertension) TIA (transient ischemic attack) Surgical History No pertinent past surgical history Family History Other Family history non-contributory Social History Smoking Status: Never smoker Hx Alcohol Use: No Hx Substance Use: No Preferred Language: [place] Communication Ability: Effective 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 Required: No Beliefs That Will Affect Care: None marital status: Single Current Living Situation: Family Current Living Situation Comment: Lives with son How many Children do You have: 1 Feels Safe at Home: Yes Assistive Devices: Glasses, Hearing Aid - Bilateral and Walker Review of Systems A total of 10 systems reviewed and were otherwise negative Physical Exam Vital Signs Vital Signs - 24 hr 06/10/22 21:39 06/10/22 21:39 06/10/22 22:00 Temperature 37.1 C Temperature Source Oral Pulse Rate 68 Pulse Rate [Apical] 94 H Pulse Rhythm Regular Pulse Rhythm [Apical] Regular Pulse Strength Normal Pulse Strength [Apical] Normal Respiratory Rate 20 18 Respiratory Effort / Characteristics Non-Labored Spontaneous Non-Labored Spontaneous SOB on Exertion Non-Labored Spontaneous Respiratory Depth Normal Normal Normal Respiratory Pattern Regular Regular Blood Pressure 206/112 H Blood Pressure [Right Arm] 146/86 H Blood Pressure Mean 143 Blood Pressure Mean [Right Arm] 106 Blood Pressure Position Sitting Blood Pressure Position [Right Arm] Semi-fowlers Pulse Oximetry 94 96 Oxygen Delivery Method Room Air Room Air Sepsis Recent Fever Within 48 Hours No Sepsis New/Unexplained Change in Mental Status N/A Sepsis Action Taken by Nursing No Action Required 06/11/22 00:00 Temperature Temperature Source Pulse Rate Pulse Rate [Apical] 56 L Pulse Rhythm Pulse Rhythm [Apical] Regular Pulse Strength Pulse Strength [Apical] Normal Respiratory Rate 18 Respiratory Effort / Characteristics Non-Labored Spontaneous Respiratory Depth Normal Respiratory Pattern Regular Blood Pressure Blood Pressure [Right Arm] 108/82 Blood Pressure Mean Blood Pressure Mean [Right Arm] 90 Blood Pressure Position Blood Pressure Position [Right Arm] Semi-fowlers Pulse Oximetry 95 Oxygen Delivery Method Room Air Sepsis Recent Fever Within 48 Hours Sepsis New/Unexplained Change in Mental Status Sepsis Action Taken by Nursing VITALS: Vitals are noted on the nurse's note and reviewed by myself. Vital signs hypertensive. GENERAL: Pleasant elderly male hard of hearing, in no acute distress, nondiaphoretic, well-developed well-nourished. SKIN: The skin was without rashes, erythema, edema, or bruising. There is no tenting of the skin. Capillary reflex less than 2 seconds. HEAD: Normocephalic atraumatic. EARS: External auditory canals clear EYES: Pupils equal round and reactive to light and accommodation. Conjunctivae without injection, sclerae without icterus. Extraocular movements intact. NOSE: Patent, turbinates without inflammation or discharge. MOUTH: Mucous membranes moist. Pharynx without erythema or exudate. Uvula m idline. Airway patent. Tongue does not deviate. NECK: Supple without nuchal rigidity. No lymphadenopathy. No thyromegaly. Cervical spine is nontender. No JVD. HEART: Irregularly irregular LUNGS: Clear to auscultation bilaterally without wheezes, rales or rhonchi. No retractions or accessory muscle use. ABDOMEN: Positive bowel sounds x 4. Normal tympanic percussion. Soft, nontender, without masses or organomegaly. Hinojosa sign negative. No guarding or rebound tenderness. No CVA tenderness MUSCULOSKELETAL: No muscle atrophy noted. NEURO: Patient was alert and oriented to person place and time. Normal sensation to light and sharp touch. No focal neurological deficits. Course Administered Medications Heparin Sodium/Dextrose (Heparin Sodium/Dextrose) 25,000 units in 500 mls @ 30 mls/hr IV [id number] [facility]; Protocol Stop: 07/10/22 23:44 Last Admin: 06/11/22 00:51 Dose: 1,500 units/hr, 30 mls/hr Documented By: MARLYS Co-signed By: HG Discontinued Medications Nitroglycerin (Nitroglycerin 2% Ointment 30gm Tube) 0.5 inch EXT NOW ONE Stop: 06/10/22 22:12 Last Admin: 06/10/22 22:32 Dose: 0.5 inch Documented By: MARLYS Critical Care Time Critical Care Time: Yes Total Critical Care Time: 35 I have personally spent 35 minutes of critical care time in the direct management of this patient. This includes bedside care, interpretation of diagnostic studies, and testing, discussion with consultants, patient, and family members, and other required patient management activities. This 35 minutes is in excess of all separately billable procedures. Medical Decision Making Medical Records Attestation: I reviewed the patient's medical records. Home Medications Current Medication List: was personally reviewed by me Laboratory Data Attestation: I reviewed the patient's lab results. Result diagrams: 06/10/22 21:30 06/10/22 21:30 Lab Results 06/10/22 06/10/22 06/10/22 Range/Units 21:30 21:30 21:30 WBC 7.50 (4.8-10.8) K/ul RBC 4.96 (4.63-6.08) M/uL Hgb 15.0 (14.0-18.0) g/dl Hct 44.8 (40.1-51.0) % MCV 90.3 (80.0-100.0) fL MCH 30.2 (25.0-34.0) pg MCHC 33.5 (32.0-36.0) g/dL RDW Std Deviation 50.1 H (36.4-46.3) fL RDW Coeff of Liya 15.3 H (11.5-14.5) % Plt Count 168 (130-400) K/uL MPV 13.7 H (9.4-12.4) fL Immature Gran % (Auto) 0.4 % Neut % (Auto) 46.6 % Lymph % (Auto) 35.1 % Cloud % (Auto) 10.4 % Eos % (Auto) 6.8 % Baso % (Auto) 0.7 % Neut # (Auto) 3.50 (1.4-6.5) K/uL Lymph # (Auto) 2.63 (1.2-3.4) K/uL Cloud # (Auto) 0.78 (0.24-0.82) K/uL Eos # (Auto) 0.51 H (0-0.50) K/uL Baso # (Auto) 0.05 (0-0.2) K/uL Immature Gran # (Auto) 0.03 H (0.00-0.02) K/uL PT (9.0-12.0) Seconds INR (0.9-1.1) APTT (21.0-31.0) Seconds PTT Ratio Sodium 135 L (136-145) mmol/L Potassium 3.3 L (3.5-5.1) mmol/L Chloride 98 (98-107) mmol/L Carbon Dioxide 26 (21-32) mmol/L Anion Gap 11 (3-11) BUN 18 (6-23) mg/dl Creatinine 1.60 H (0.6-1.4) mg/dl Est Cr Clr Drug Dosing 38.8 ml/min Est GFR ( Amer) 45.2 ml/min Est GFR (Non-Af Amer) 39.0 ml/min BUN/Creatinine Ratio 11.3 (10-20) Glucose 194 H (70-99(Fasting)) mg/dl Calcium 10.2 H (8.5-10.1) mg/dl Total Bilirubin 1.0 (0.2-1.0) mg/dl AST 19 (13-39) U/L ALT 12 (7-52) U/L Alkaline Phosphatase 67 (34-104) U/L Troponin I High Sens 36.1 H (0-20) pg/ml B-Natriuretic Peptide (0-100) pg/ml Total Protein 7.7 (6.0-8.3) gm/dl Albumin 3.7 (3.4-5.0) gm/dl Globulin 4.0 (2.5-4.0) gm/dl Albumin/Globulin Ratio 0.9 (0.9-2) Lipase 66 (11-82) U/L Digoxin 0.6 L (0.8-2.0) ng/ml SARS-CoV-2, RNA, NAAT (NEGATIVE) 06/10/22 06/10/22 06/10/22 Range/Units 21:47 21:49 22:14 WBC (4.8-10.8) K/ul RBC (4.63-6.08) M/uL Hgb (14.0-18.0) g/dl Hct (40.1-51.0) % MCV (80.0-100.0) fL MCH (25.0-34.0) pg MCHC (32.0-36.0) g/dL RDW Std Deviation (36.4-46.3) fL RDW Coeff of Liya (11.5-14.5) % Plt Count (130-400) K/uL MPV (9.4-12.4) fL Immature Gran % (Auto) % Neut % (Auto) % Lymph % (Auto) % Cloud % (Auto) % Eos % (Auto) % Baso % (Auto) % Neut # (Auto) (1.4-6.5) K/uL Lymph # (Auto) (1.2-3.4) K/uL Cloud # (Auto) (0.24-0.82) K/uL Eos # (Auto) (0-0.50) K/uL Baso # (Auto) (0-0.2) K/uL Immature Gran # (Auto) (0.00-0.02) K/uL PT 11.5 (9.0-12.0) Seconds INR 1.1 (0.9-1.1) APTT 28.6 (21.0-31.0) Seconds PTT Ratio 1.0 Sodium (136-145) mmol/L Potassium (3.5-5.1) mmol/L Chloride (98-107) mmol/L Carbon Dioxide (21-32) mmol/L Anion Gap (3-11) BUN (6-23) mg/dl Creatinine (0.6-1.4) mg/dl Est Cr Clr Drug Dosing ml/min Est GFR ( Amer) ml/min Est GFR (Non-Af Amer) ml/min BUN/Creatinine Ratio (10-20) Glucose (70-99(Fasting)) mg/dl Calcium (8.5-10.1) mg/dl Total Bilirubin (0.2-1.0) mg/dl AST (13-39) U/L ALT (7-52) U/L Alkaline Phosphatase (34-104) U/L Troponin I High Sens (0-20) pg/ml B-Natriuretic Peptide 207 H (0-100) pg/ml Total Protein (6.0-8.3) gm/dl Albumin (3.4-5.0) gm/dl Globulin (2.5-4.0) gm/dl Albumin/Globulin Ratio (0.9-2) Lipase (11-82) U/L Digoxin (0.8-2.0) ng/ml SARS-CoV-2, RNA, NAAT NEGATIVE (NEGATIVE) 06/10/22 Range/Units 22:14 WBC (4.8-10.8) K/ul RBC (4.63-6.08) M/uL Hgb (14.0-18.0) g/dl Hct (40.1-51.0) % MCV (80.0-100.0) fL MCH (25.0-34.0) pg MCHC (32.0-36.0) g/dL RDW Std Deviation (36.4-46.3) fL RDW Coeff of Liya (11.5-14.5) % Plt Count (130-400) K/uL MPV (9.4-12.4) fL Immature Gran % (Auto) % Neut % (Auto) % Lymph % (Auto) % Cloud % (Auto) % Eos % (Auto) % Baso % (Auto) % Neut # (Auto) (1.4-6.5) K/uL Lymph # (Auto) (1.2-3.4) K/uL Cloud # (Auto) (0.24-0.82) K/uL Eos # (Auto) (0-0.50) K/uL Baso # (Auto) (0-0.2) K/uL Immature Gran # (Auto) (0.00-0.02) K/uL PT (9.0-12.0) Seconds INR (0.9-1.1) APTT (21.0-31.0) Seconds PTT Ratio Sodium (136-145) mmol/L Potassium (3.5-5.1) mmol/L Chloride (98-107) mmol/L Carbon Dioxide (21-32) mmol/L Anion Gap (3-11) BUN (6-23) mg/dl Creatinine (0.6-1.4) mg/dl Est Cr Clr Drug Dosing ml/min Est GFR ( Amer) ml/min Est GFR (Non-Af Amer) ml/min BUN/Creatinine Ratio (10-20) Glucose (70-99(Fasting)) mg/dl Calcium (8.5-10.1) mg/dl Total Bilirubin (0.2-1.0) mg/dl AST (13-39) U/L ALT (7-52) U/L Alkaline Phosphatase (34-104) U/L Troponin I High Sens 43.2 H (0-20) pg/ml B-Natriuretic Peptide (0-100) pg/ml Total Protein (6.0-8.3) gm/dl Albumin (3.4-5.0) gm/dl Globulin (2.5-4.0) gm/dl Albumin/Globulin Ratio (0.9-2) Lipase (11-82) U/L Digoxin (0.8-2.0) ng/ml SARS-CoV-2, RNA, NAAT (NEGATIVE) Imaging Data Attestation: I personally reviewed and interpreted this imaging study as follows: MDM Narrative Prior records/ancillary studies reviewed. Triage Nursing notes reviewed. Additional history obtained from EMS. The patient's history was concerning for chest pain. Differential diagnosis: Etiologies such as cardiac ischemia, aortic dissection, pulmonary embolism, pneumonia, pneumothorax, musculoskeletal, infections, pericarditis, myocarditis, esophageal rupture, gastrointestinal, as well as others were entertained. Physical examination: As above. ER treatment provided: An order was placed for continuous cardiac monitoring. The monitor shows a rate of 60-100 with a A. fib rhythm. EMS gave aspirin. Nitropaste was ordered On reassessment the patient felt better. Diagnostic interpretation by me: #1 the electrocardiogram was ordered for chest pain EKG: Irregularly irregular with ST depressions in the lateral leads, ventricular rate of 71. Impression A. fib rate controlled with ST depressions in the lateral leads interpreted by myself EKG shows no interval abnormalities such as QT prolongation or WPW. There are no findings to suggest Brugada syndrome. Cardiac monitoring in the emergency department reveals no tachycardic or bradycardic dysrhythmia. Hypertrophic cardiomyopathy was considered but there are no clear historical elements pointing toward this. EKG is not suggestive. The QRS voltage is not extremely large and there are no suggestive Q waves. #2 EKG ordered for chest pain EKG: Irregularly irregular with ventricular rate of 72. No acute ST-T wave changes. Impression A. fib rate controlled with improvement of ST depression in the lateral leads interpreted by myself EKG shows no interval abnormalities such as QT prolongation or WPW. There are no findings to suggest Brugada syndrome. Cardiac monitoring in the emergency department reveals no tachycardic or bradycardic dysrhythmia. Hypertrophic cardiomyopathy was considered but there are no clear historical elements pointing toward this. EKG is not suggestive. The QRS voltage is not extremely large and there are no suggestive Q waves. The labs revealed elevated troponin and repeat is higher Stable creatinine per chart review Imaging studies: Chest x-ray with no acute consolidation, pneumothorax or free air per my interp retation HEART SCORE: Hx: high/mod/low suspicion: 1 ECG: ST depression/nonspecific changes/normal: 1 Age: Greater than 65/45-64/less than 45: 2 Risk factors: (Hypertension, hyperlipidemia, diabetes, coronary disease, tobacco use, cocaine use): 2 Troponin: Greater than 2 times normal limits/1-2 times normal limits/normal: 1 Total: 7 Consultation: A consultation was placed with the hospitalist. The case was discussed and diagnostics were reviewed. The patient was evaluated in the ER for further treatment. Exam and history seem consistent with NSTEMI. Patient started on heparin. His last dose of Eliquis was on the morning. Patient was pain-free in the ER. He had new EKG changes. Medicine was consulted. He will be evaluated for admission. By the evaluation outlined above emergent etiologies such as aortic dissection, pulmonary embolism, pneumonia, pneumothorax, infections, pericarditis, myocarditis, gastrointestinal, as well as others were deemed relatively unlikely. The pt informed about the findings as listed above. All questions were answered and pleased with the treatment. The chart was completed utilizing [employer] Speech voice recognition software. Grammatical errors, random word insertions, pronoun errors, and incomplete sentences are an occassional consequence of this system due to software limitations, ambient noise, and hardware issues. Any formal questions or concerns about the content, text, or information contained within the body of this dictation should be directly addressed to the physician rehabilitation assistant for clarification. Impression & Plan Non-ST elevation ID (NSTEMI), Chest pain, Elevated troponin Discharge Plan Visit Data Chief Complaint: Chest Pain Stated Complaint: chest pain ED Provider: Kavya Alvarado ED Midlevel Provider: Merari Willard Discharge Problem: Non-ST elevation ID (NSTEMI), Chest pain, Elevated troponin Patient Disposition: Admitted As Inpatient Condition: Fair : Chest pain Qualifiers: Chest pain type: unspecified Qualified Code(s): R07.9 - Chest pain, unspecified
[2022-06-10 21:56] LABS: Hematocrit (blood only) 44.8 % (40.1-51.0); Mean Corpuscular Hemoglobin 30.2 pg (25.0-34.0); Mean Corpuscular Hgb Conc 33.5 g/dL (32.0-36.0); Mean Corpuscular Volume 90.3 fL (80.0-100.0); RDW Coefficient of Variation 15.3 % (11.5-14.5); RDW Standard Deviation 50.1 fL (36.4-46.3); Red Blood Count 4.96 M/uL (4.63-6.08)
[2022-06-10 22:01] LABS: Basophils # (auto) 0.05 K/uL (0-0.2); Basophils % (auto) 0.7 %; Eosinophils # (auto) 0.51 K/uL (0-0.50); Eosinophils % (auto) 6.8 %; Immature Granulocytes # (auto) 0.03 K/uL (0.00-0.02); Immature Granulocytes % (auto) 0.4 %; Lymphocytes # (auto) 2.63 K/uL (1.2-3.4); Lymphocytes % (auto) 35.1 %; Mean Platelet Volume 13.7 fL (9.4-12.4); Monocytes # (auto) 0.78 K/uL (0.24-0.82); Monocytes % (auto) 10.4 %; Neutrophils % (auto) 46.6 %; Platelet Count 168 K/uL (130-400)
[2022-06-10] MEDS ORDERED: NITROGLYCERIN 2% OINTMENT 30GM TUBE EXT ONE (22:11)
[2022-06-10 22:26] LABS: Albumin Globulin Ratio 0.9 (0.9-2); Albumin Level 3.7 gm/dl (3.4-5.0); BUN Creatinine Ratio 11.3 (10-20); Calcium 10.2 mg/dl (8.5-10.1); Creatinine Clr Calc Pharmacy 38.8 ml/min; Est GFR (African American) 45.2 ml/min; Potassium 3.3 mmol/L (3.5-5.1); Total Protein 7.7 gm/dl (6.0-8.3)
[2022-06-10 22:30] LABS: Troponin I High Sensitivity 36.1 pg/ml (0-20)
[2022-06-10] MEDS ORDERED: Heparin IV Adult Wt-Based Standard *NO* Bolus Protocol IV ONE (23:36)
[2022-06-11 00:01] LABS: INR 1.1 (0.9-1.1); Partial Thromboplastin Time 28.6 Seconds (21.0-31.0); Prothrombin Time 11.5 Seconds (9.0-12.0)
--- NOTE | 2022-06-11 00:27 | History & Physical Report ---
Date of Service June 11, 2022 Assessment & Plan (1) Non-ST elevation [place] (NSTEMI): Plan: 86yo male with history of stent placement (appx 2012 at [facility]) presenting with exertional chest discomfort with associated SOB, diaphoresis. Pain has become more severe and frequent over the last two weeks. HS-troponin initially 36.1 --> 43.2. Initial EKG with ST depressions in lateral leads. Patient is presently chest pain free. -Admit to medical with telemetry -Heparin gtt initiated in ER - will continue -Trend troponin -EKG as needed with chest pain -Nitro as needed for chest pain -Continue Metoprolol, Atorvastatin -Cardiology consultation appreciated -Will keep patient NPO for possible cardiac catheterization in AM (2) CAD (coronary artery disease): Plan: Chronic -Continue Metoprolol -Continue Pravastatin -Cardiology consultation (3) DM type 2 (diabetes mellitus, type 2): Plan: Chronic -Decrease lantus to 15u BID -ISS -Goal blood sugar 100 - 140 (4) HTN (hypertension): Plan: Chronic. Well controlled -Continue metoprolol 100mg po daily -Hold Amlodipine for now -Continue to monitor (5) Dyslipidemia: Plan: Chronic -Continue Pravastatin 40mg po daily (6) Atrial fibrillation: Plan: Rate controlled. Anticoagulated on Apixaban -Continue metoprolol 100mg po daily -Continue Digoxin -Hold Apixaban for now -Heparin gtt (7) Hypokalemia: Plan: K=3.3 -KCl 40mEq po given -Repeat chemistry in AM Plan F/E/N - [place]. K repletion. NPO for now Ppx - Heparin gtt Code -Full Dispo - Admit to medical with telemetry History of Present Illness Chief Complaint: exertional chest pain Primary Care Provider: García Melo MD Perla Patino is a pleasant 86yo male with history of CAD s/p stent placement in [place] in appx 2012, atrial fibrillation on Apixaban anticoagulation, HTN, HLP, DM and prior CVA. Patient presents today with exertional chest discomfort. He reports this has been ongoing for the last 2 weeks and has been increasing in frequency and severity. He describes the discomfort as substernal heaviness that occurs intermittently with exertion and straining. Pain radiates down arms and with associated shortness of breath and occasional diaphoresis as well. Relieved by rest and Nitro. Pain is non-pleuritic and non-positional. Denies palpitations, nausea, vomiting, diarrhea, constipation, fevers, chills Patient had a cardiac event in 2012 and was seen in [place] - had placement of stents (details unknown). He follows with [facility]. He reports having a chemical stress test appx 6-8 months ago which he reports was unremarkable. Presently chest pain free ER Course: Heparin gtt Allergies Allergy/AdvReac Type Severity Reaction Status Date / Time Sulfa (Sulfonamide Allergy Intermediate RASH, DRY Verified 06/10/22 22:36 Antibiotics) MOUTH sulfamethoxazole Allergy Intermediate RASH, DRY Verified 06/10/22 22:36 MOUTH trimethoprim Allergy Intermediate RASH, DRY Verified 06/10/22 22:36 MOUTH felodipine AdvReac Intermediate EDEMA Verified 06/10/22 22:36 furosemide AdvReac Intermediate DERMATITIS Verified 06/10/22 22:36 metformin AdvReac Intermediate CONSTIPATIO Verified 06/10/22 22:36 N/DIARRHEA simvastatin AdvReac Intermediate Muscle Pain Verified 06/10/22 22:36 Home Medications Medication Instructions Recorded Confirmed Type apixaban 5 mg tablet 2.5 mg PO BID 10/15/19 06/10/22 History calcium carbonate 200 mg calcium 1,000 mg PO QPM 10/15/19 06/10/22 History (500 mg) chewable tablet (Tums) cholecalciferol (vitamin D3) 25 1,000 unit PO DAILY 10/15/19 06/10/22 History mcg (1,000 unit) tablet digoxin 125 mcg (0.125 mg) tablet 125 mcg PO QPM 10/15/19 06/10/22 History (Digox) insulin glargine 100 unit/mL (3 30 unit subcut BID 10/15/19 06/10/22 History mL) subcutaneous pen (Lantus Solostar U-100 Insulin) pravastatin 40 mg tablet 40 mg PO DAILY 10/15/19 06/10/22 History sennosides 8.6 mg tablet (senna) 17.2 mg PO BID PRN Constipation 10/15/19 06/10/22 History triamcinolone acetonide 0.5 % 1 applic topical BID 10/15/19 06/10/22 History topical ointment urea 10 % topical cream 1 applic topical DAILY 10/15/19 06/10/22 History alogliptin 12.5 mg tablet 12.5 mg PO DAILY 06/10/22 06/10/22 History amlodipine 10 mg tablet 10 mg PO DAILY 06/10/22 06/10/22 History famotidine 40 mg tablet 40 mg PO BID 06/10/22 06/10/22 History ketotifen fumarate 0.025 % (0.035 1 drp OPB BID 06/10/22 06/10/22 History %) eye drops magnesium oxide 420 mg tablet 420 mg PO DAILY 06/10/22 06/10/22 History metoprolol succinate 100 mg 100 mg PO DAILY 06/10/22 06/10/22 History tablet,extended release 24 hr polyethylene glycol 3350 17 34 g PO DAILY PRN Constipation 06/10/22 06/10/22 History gram/dose oral powder (Miralax) potassium chloride 20 mEq 40 meq PO DAILY 06/10/22 06/10/22 History tablet,extended release Past Med/Surg History Medical History (Updated 06/10/22 @ 23:59 by Merari Willard PA-C) Atrial fibrillation CAD (coronary artery disease) "[place] ~ 2012, s/p 2 stents @ [facility] [place] - details unknown" Diastolic dysfunction "echo 11/2014 - EF 65-70%, diastolic dysfunction" DM type 2 (diabetes mellitus, type 2) Dyslipidemia Hip fracture, right "s/p OIRF and subsequent revision" History of CVA (cerebrovascular accident) HTN (hypertension) TIA (transient ischemic attack) Surgical History No pertinent past surgical history Family History Other Family history non-contributory Social History Smoking Status: Never smoker Hx Alcohol Use: No Hx Substance Use: No Preferred Language: Citizen Of [place] Communication Ability: Effective Crisis Mental Health Therapist Required: No Beliefs That Will Affect Care: None marital status: Single Current Living Situation: Family Current Living Situation Comment: Lives with son How many Children do You have: 1 Feels Safe at Home: Yes Assistive Devices: Glasses, Hearing Aid - Bilateral and Walker Review of Systems Review of Systems: All systems reviewed & are unremarkable except as noted in HPI & below Physical Exam Physical Exam: General: patient resting comfortably, NAD, non-toxic in appearance, AA&O x 4 Skin: warm, dry, intact, no rashes or lesions HEENT: NC/AT, PERRL, EOMI, anicteric sclera, conjunctiva without injection, external ear normal to inspection and nontender, nares patent, moist mucus membranes, dentition intact, no oropharyngeal lesions, neck supple, trachea midline, no LAD, no thyromegaly, no JVD Heart: +S1/S2, regular, no m/r/g, no reproducible chest wall pain Lungs: equal air entry bilaterally, no rales/rhonchi/wheezes Abd: +BS, soft, NT/ND, no masses/organomegaly/ascites Ext: warm, 2+ pulses in UE/LE bilaterally, no clubbing/cyanosis or edema Neuro: nonfocal, patient AA&O x 4, speech intact, no facial droop, moving all extremities on command with equal strength 5/5 Results & Data Results & Data ([facility]) Vital Signs (Past 12 Hours) Vital Signs Temp Pulse Pulse Resp BP BP Pulse Ox 06/10/22 22:00 94 H 18 146/86 H 96 06/10/22 21:39 37.1 C 68 20 206/112 H 94 O2 Del Method 06/10/22 22:00 Room Air 06/10/22 21:39 Room Air Laboratory Results Laboratory Results WBC 7.50 K/ul (4.8-10.8) 06/10/22 21:30 RBC 4.96 M/uL (4.63-6.08) 06/10/22 21:30 Hgb 15.0 g/dl (14.0-18.0) 06/10/22 21:30 Hct 44.8 % (40.1-51.0) 06/10/22 21:30 MCV 90.3 fL (80.0-100.0) 06/10/22 21:30 MCH 30.2 pg (25.0-34.0) 06/10/22 21:30 MCHC 33.5 g/dL (32.0-36.0) 06/10/22 21:30 RDW Std Deviation 50.1 fL (36.4-46.3) H 06/10/22 21: RDW Coeff of Liya 15.3 % (11.5-14.5) H 06/10/22: Plt Count 168 K/uL (130-400) 06/10/22 21: MPV 13.7 fL (9.4-12.4) H 06/10/22 21: Immature Gran % (Auto) 0.4 % 06/10/22: Neut % (Auto) 46.6 % 06/10/22: Lymph % (Auto) 35.1 % 06/10/22: Grand % (Auto) 10.4 % 06/10/22: Eos % (Auto) 6.8 % 06/10/22: Baso % (Auto) 0.7 % 06/10/22: Neut # (Auto) 3.50 K/uL (1.4-6.5) 06/10/22: Lymph # (Auto) 2.63 K/uL (1.2-3.4) 06/10/22 21: Grand # (Auto) 0.78 K/uL (0.24-0.82) 06/10/22 21: Eos # (Auto) 0.51 K/uL (0-0.50) H 06/10/22: Baso # (Auto) 0.05 K/uL (0-0.2) 06/10/22: Immature Gran # (Auto) 0.03 K/uL (0.00-0.02) H 06/10/22 21: PT 11.5 Seconds (9.0-12.0) 06/10/22: INR 1.1 (0.9-1.1) 06/10/22: APTT 28.6 Seconds (21.0-31.0) 06/10/22: PTT Ratio 1.0 06/10/22: Sodium 135 mmol/L (136-145) L 06/10/22 21: Potassium 3.3 mmol/L (3.5-5.1) L 06/10/22: Chloride 98 mmol/L (98-107) 06/10/22: Carbon Dioxide 26 mmol/L (21-32) 06/10/22 21:30 Anion Gap 11 (3-11) 06/10/22 21:30 BUN 18 mg/dl (6-23) 06/10/22 21:30 Creatinine 1.60 mg/dl (0.6-1.4) H 06/10/22 21:30 Est Cr Clr Drug Dosing 38.8 ml/min 06/10/22 21:30 Est GFR ( Amer) 45.2 ml/min 06/10/22 21:30 Est GFR (Non-Af Amer) 39.0 ml/min 06/10/22 21:30 BUN/Creatinine Ratio 11.3 (10-20) 06/10/22 21:30 Glucose 194 mg/dl (70-99(Fasting)) H 06/10/22 21: Calcium 10.2 mg/dl (8.5-10.1) H 06/10/22 21:30 Total Bilirubin 1.0 mg/dl (0.2-1.0) 06/10/22 21:30 AST 19 U/L (13-39) 06/10/22 21:30 ALT 12 U/L (7-52) 06/10/22 21:30 Alkaline Phosphatase 67 U/L (34-104) 06/10/22 21:30 Troponin I High Sens 43.2 pg/ml (0-20) H 06/10/22 22:14 B-Natriuretic Peptide 207 pg/ml (0-100) H 06/10/22 22:14 Total Protein 7.7 gm/dl (6.0-8.3) 06/10/22 21:30 Albumin 3.7 gm/dl (3.4-5.0) 06/10/22 21:30 Globulin 4.0 gm/dl (2.5-4.0) 06/10/22 21:30 Albumin/Globulin Ratio 0.9 (0.9-2) 06/10/22 21:30 Lipase 66 U/L (11-82) 06/10/22 21:30 Digoxin 0.6 ng/ml (0.8-2.0) L 06/10/22 21:30 SARS-CoV-2, RNA, NAAT NEGATIVE (NEGATIVE) 06/10/22 21:49 ECG Additional Comments: EKG with AF at 71bpm, ST depressions V4-V6 EKG with AF at 72bpm, no acute ischemic changes Code Status & VTE Plan VTE Prophylaxis Plan VTE Prophylaxis will be ordered: Yes PG Care Time/CCT Total # of Minutes Spent Total Time Spent with Patient: Total time spent is greater than 50% in coordination of care (as documented) at patient's floor/unit and/or counseling patient: Coding Level of Care Code 29354 Initial Inpt Care Lvl 3 Diagnoses Non-ST elevation IL (NSTEMI) I21.4 CAD (coronary artery disease) I25.10 DM type 2 (diabetes mellitus, type 2) E11.9 HTN (hypertension) I10 Dyslipidemia E78.5 Atrial fibrillation I48.91 Hypokalemia E87.6
[2022-06-11] MEDS: HEPARIN SODIUM/DEXTROSE 25,000 UNITS/500 ML BAG IV SCH ×2 (00:51→18:34)
[2022-06-11] MEDS ORDERED: SENNA 8.6 MG TAB PO PRN (01:27)
[2022-06-11] MEDS ORDERED: DEXTROSE 50% 50 ML SYRINGE IV PRN (01:27)
[2022-06-11] MEDS ORDERED: POLYETHYLENE (MIRALAX) 17 GM PACK PO PRN (01:27)
[2022-06-11] MEDS ORDERED: CARBOHYDRATES FOR HYPOGLYCEMIA PO PRN (01:27)
[2022-06-11] MEDS ORDERED: GLUCOSE 40% GEL 15 GM TUBE PO PRN (01:27)
[2022-06-11] MEDS ORDERED: GLUCAGON FOR INJ 1 MG VIAL SQ PRN (01:27)
[2022-06-11] MEDS ORDERED: ONDANSETRON INJ 2 MG/ML 2 ML VIAL IV PRN (01:27)
[2022-06-11] MEDS ORDERED: GLUCOSE 10 TAB/TUBE PO PRN (01:27)
[2022-06-11] MEDS ORDERED: POTASSIUM CHLORIDE CRTAB 20 MEQ TABCR PO STA (02:22)
[2022-06-11] MEDS: INSULIN ASPART PER UNIT SC SCH ×3 (06:12→17:36)
--- NOTE | 2022-06-11 07:16 | XRay Report ---
XR chest 1V portable HISTORY: 86 years-old Male Chest Pain acute atypical chest pain COMPARISON: Chest radiograph 09/20/2021 TECHNIQUE: Portable AP view of the chest FINDINGS: The cardiac silhouette is enlarged. Atherosclerosis of the thoracic aorta. No pneumothorax, pleural e ffusion, airspace consolidation or overt pulmonary edema. Mild chronic interstitial coarsening of the lung bases. Healed chronic right-sided rib fractures. Degenerative changes of the shoulders and spin e. IMPRESSION: Cardiomegaly without acute process. ACT 112: Negative or not required by law. The above report was generated using voice recognition software. It may contain grammatical, syntax o r spelling errors. Electronically signed by: Kg Mcbride M.D. 06/11/2022 7:15 AM
[2022-06-11] MEDS ORDERED: CALCIUM CARBONATE 500 MG CHEWABLE TAB PO PRN (07:35)
[2022-06-11 07:41] LABS: Chol HDL Ratio 5.2 (0-5); Magnesium 1.9 mg/dl (1.7-2.4); Partial Thromboplastin Ratio 2.9; Phosphorus 2.7 mg/dl (2.5-4.9)
[2022-06-11 07:48] LABS: Troponin I High Sensitivity 52.7 pg/ml (0-20)
[2022-06-11 08:18] LABS: Estimated Average Glucose 171 mg/dl; Hemoglobin A1C 7.6 % (4.5-5.6)
[2022-06-11 08:52] LABS: Partial Thromboplastin Time 81.1 Seconds (21.0-31.0)
[2022-06-11] MEDS: METOPROLOL SUCC 50MG EXT REL TAB PO SCH (09:29)
--- NOTE | 2022-06-11 11:21 | Cardiology Consultation ---
Date of Consultation June 11, 2022 Assessment & Plan (1) CKD (chronic kidney disease): (2) CAD (coronary artery disease): (3) Non-STEMI (non-ST elevated myocardial infarction): (4) Atrial fibrillation: Plan This is an elderly 87-year-old male patient who most likely is experiencing angina. He has some difficulty with speech which may be related to previous stroke. He also probably has some cognitive impairment. I spoke to his son by phone today. The issue is whether or not to treat this patient medically versus invasively and proceeding with a cardiac catheterization. Performing cardiac catheterization in this elderly patient with renal insufficiency is not without its risk. He is functional at home with a walker. We could potentially try medical treatment to see if that works for this patient and improves his angina. The patient's son is going to come in later today and speak with his dad. I have added Plavix and aspirin to his current medical regiment. He is currently on heparin which should be continued. I will also add Imdur. History of Present Illness Attending Physician: Luis Alberto Amaral MD History of Present Illness This is an 86-year-old soon-to-be 87 male patient who in 2012 received coronary stents at [facility]. The patient was admitted with chest pain. He is a reasonable historian but may have some cognitive slowing. The patient states that over the past 3 to 4 months he has been experiencing chest pain which at times he takes a Tums for relief but other times he takes sublingual nitroglycerin. He feels its been getting worse and on the day of admission he had what he describes as a severe episode. On admission his EKG showed atrial fibrillation which is chronic and no acute changes. He did have a slight bump in his high-sensitivity troponin which has remained consistently elevated without much of a delta change. He denies progressive shortness of breath orthopnea. He does utilize a walker to ambulate at home. He has had no dizziness lightheadedness or syncope. Allergies Allergy/AdvReac Type Severity Reaction Status Date / Time Sulfa (Sulfonamide Allergy Intermediate RASH, DRY Verified 06/10/22 22:36 Antibiotics) MOUTH sulfamethoxazole Allergy Intermediate RASH, DRY Verified 06/10/22 22:36 MOUTH trimethoprim Allergy Intermediate RASH, DRY Verified 06/10/22 22:36 MOUTH felodipine AdvReac Intermediate EDEMA Verified 06/10/22 22:36 furosemide AdvReac Intermediate DERMATITIS Verified 06/10/22 22:36 metformin AdvReac Intermediate CONSTIPATIO Verified 06/10/22 22:36 N/DIARRHEA simvastatin AdvReac Intermediate Muscle Pain Verified 06/10/22 22:36 Home Medications Medication Instructions Recorded Confirmed Type apixaban 5 mg tablet 2.5 mg PO BID 10/15/19 06/10/22 History calcium carbonate 200 mg calcium 1,000 mg PO QPM 10/15/19 06/10/22 History (500 mg) chewable tablet (Tums) cholecalciferol (vitamin D3) 25 1,000 unit PO DAILY 10/15/19 06/10/22 History mcg (1,000 unit) tablet digoxin 125 mcg (0.125 mg) tablet 125 mcg PO QPM 10/15/19 06/10/22 History (Digox) insulin glargine 100 unit/mL (3 30 unit subcut BID 10/15/19 06/10/22 History mL) subcutaneous pen (Lantus Solostar U-100 Insulin) pravastatin 40 mg tablet 40 mg PO DAILY 10/15/19 06/10/22 History sennosides 8.6 mg tablet (senna) 17.2 mg PO BID PRN Constipation 10/15/19 06/10/22 History triamcinolone acetonide 0.5 % 1 applic topical BID 10/15/19 06/10/22 History topical ointment urea 10 % topical cream 1 applic topical DAILY 10/15/19 06/10/22 History alogliptin 12.5 mg tablet 12.5 mg PO DAILY 06/10/22 06/10/22 History amlodipine 10 mg tablet 10 mg PO DAILY 06/10/22 06/10/22 History famotidine 40 mg tablet 40 mg PO BID 06/10/22 06/10/22 History ketotifen fumarate 0.025 % (0.035 1 drp OPB BID 06/10/22 06/10/22 History %) eye drops magnesium oxide 420 mg tablet 420 mg PO DAILY 06/10/22 06/10/22 History metoprolol succinate 100 mg 100 mg PO DAILY 06/10/22 06/10/22 History tablet,extended release 24 hr polyethylene glycol 3350 17 34 g PO DAILY PRN Constipation 06/10/22 06/10/22 History gram/dose oral powder (Miralax) potassium chloride 20 mEq 40 meq PO DAILY 06/10/22 06/10/22 History tablet,extended release Patient History Medical History (Updated 06/11/22 @ 11:27 by Fadi Heart DO) Atrial fibrillation CAD (coronary artery disease) "[place] ~ [place], s/p [address] [facility] [place] - details unknown" Diastolic dysfunction "echo 11/2014 - EF 65-70%, diastolic dysfunction" DM type 2 (diabetes mellitus, type 2) Dyslipidemia Hip fracture, right "s/p OIRF and subsequent revision" History of CVA (cerebrovascular accident) HTN (hypertension) TIA (transient ischemic attack) Surgical History No pertinent past surgical history Family History Other Family history non-contributory Social History Smoking Status: Never smoker Hx Alcohol Use: No Hx Substance Use: No Preferred Language: Greenlandic Communication Ability: Effective Child Support Case Officer Required: No Beliefs That Will Affect Care: None marital status: Single Current Living Situation: Alone Current Living Situation Comment: son checks in on patient throughout the day and daughter lives close by How many Children do You have: 1 Feels Safe at Home: Yes Assistive Devices: Walker Review of Systems Review of Systems: Review of Systems: See HPI for pertinent positives. All other 10 point review of systems are negative. Physical Exam Physical Exam: General: no acute distress and stated age Head: normocephalic, no masses, lesions, tenderness or abnormalities Eyes: conjunctiva are pink and non-injected, sclera clear Neck: supple, no adenopathy, no bruits, normal jugular venous pulse, no hepatojugular reflux Chest: normal shape and normal respiratory effort Lungs: clear to auscultation and percussion Cardiac Exam: - irregular rate & rhythm, no murmurs gallops or rubs - normal S1, normal S2 Pulses: 2(+) throughout Abdomen: abdomen soft, non-tender, no abnormal masses and no hepatosplenomegaly Musculoskeletal: no gait disturbance, no joint inflammation, no deforming arthritis Extremities: no edema and no cyanosis Neuro: grossly normal exam Results & Data ([facility]) Vital Signs (Past 12 Hours) Vital Signs Temp Pulse Pulse Pulse Resp BP BP 06/11/22 10:38 36.3 C L 57 L 20 136/82 06/11/22 09:41 36.8 C 57 L 18 151/81 H 06/11/22 09:34 06/11/22 09:33 46 L 06/11/22 00:15 06/11/22 06:22 53 L 20 145/81 H 06/11/22 04:20 77 20 158/71 H 06/11/22 03:07 54 L 20 178/101 H 06/11/22 00:00 56 L 18 108/82 Pulse Ox O2 Del Method 06/11/22 10:38 20 L 06/11/22 09:41 98 Room Air 06/11/22 09:34 Room Air 06/11/22 09:33 06/11/22 00:15 Room Air 06/11/22 06:22 92 Room Air 06/11/22 04:20 94 Room Air 06/11/22 03:07 90 06/11/22 00:00 95 Room Air Laboratory Results Laboratory Results - last 24 hr 06/10/22 06/10/22 06/10/22 21:30 21:30 21:30 WBC 7.50 RBC 4.96 Hgb 15.0 Hct 44.8 MCV 90.3 MCH 30.2 MCHC 33.5 RDW Std Deviation 50.1 H RDW Coeff of Liya 15.3 H Plt Count 168 MPV 13.7 H Immature Gran % (Auto) 0.4 Neut % (Auto) 46.6 Lymph % (Auto) 35.1 [place] % (Auto) 10.4 Eos % (Auto) 6.8 Baso % (Auto) 0.7 Neut # (Auto) 3.50 Lymph # (Auto) 2.63 [place] # (Auto) 0.78 Eos # (Auto) 0.51 H Baso # (Auto) 0.05 Immature Gran # (Auto) 0.03 H PT INR APTT PTT Ratio Sodium 135 L Potassium 3.3 L Chloride 98 Carbon Dioxide 26 Anion Gap 11 BUN 18 Creatinine 1.60 H Est Cr Clr Drug Dosing 38.8 Est GFR ( Amer) 45.2 Est GFR (Non-Af Amer) 39.0 BUN/Creatinine Ratio 11.3 Glucose 194 H POC Glucose Estimat Average Glucose Hemoglobin A1c Calcium 10.2 H Phosphorus Magnesium Total Bilirubin 1.0 AST 19 ALT 12 Alkaline Phosphatase 67 Troponin I High Sens 36.1 H B-Natriuretic Peptide Total Protein 7.7 Albumin 3.7 Globulin 4.0 Albumin/Globulin Ratio 0.9 Triglycerides Cholesterol LDL Cholesterol, Calc VLDL Cholesterol, Calc HDL Cholesterol Cholesterol/HDL Ratio Lipase 66 Digoxin 0.6 L SARS-CoV-2, RNA, NAAT 06/10/22 06/10/22 06/10/22 21:47 21:49 22:14 WBC RBC Hgb Hct MCV MCH MCHC RDW Std Deviation RDW Coeff of Liya Plt Count MPV Immature Gran % (Auto) Neut % (Auto) Lymph % (Auto) [place] % (Auto) Eos % (Auto) Baso % (Auto) Neut # (Auto) Lymph # (Auto) [place] # (Auto) Eos # (Auto) Baso # (Auto) Immature Gran # (Auto) PT 11.5 INR 1.1 APTT 28.6 PTT Ratio 1.0 Sodium Potassium Chloride Carbon Dioxide Anion Gap BUN Creatinine Est Cr Clr Drug Dosing Est GFR ( Amer) Est GFR (Non-Af Amer) BUN/Creatinine Ratio Glucose POC Glucose Estimat Average Glucose Hemoglobin A1c Calcium Phosphorus Magnesium Total Bilirubin AST ALT Alkaline Phosphatase Troponin I High Sens B-Natriuretic Peptide 207 H Total Protein Albumin Globulin Albumin/Globulin Ratio Triglycerides Cholesterol LDL Cholesterol, Calc VLDL Cholesterol, Calc HDL Cholesterol Cholesterol/HDL Ratio Lipase Digoxin SARS-CoV-2, RNA, NAAT NEGATIVE 06/10/22 06/11/22 06/11/22 22:14 05:52 06:45 WBC RBC Hgb Hct MCV MCH MCHC RDW Std Deviation RDW Coeff of Liya Plt Count MPV Immature Gran % (Auto) Neut % (Auto) Lymph % (Auto) [place] % (Auto) Eos % (Auto) Baso % (Auto) Neut # (Auto) Lymph # (Auto) [place] # (Auto) Eos # (Auto) Baso # (Auto) Immature Gran # (Auto) PT INR APTT 81.1 H* PTT Ratio 2.9 Sodium Potassium Chloride Carbon Dioxide Anion Gap BUN Creatinine Est Cr Clr Drug Dosing Est GFR ( Amer) Est GFR (Non-Af Amer) BUN/Creatinine Ratio Glucose POC Glucose 189 H Estimat Average Glucose Hemoglobin A1c Calcium Phosphorus Magnesium Total Bilirubin AST ALT Alkaline Phosphatase Troponin I High Sens 43.2 H B-Natriuretic Peptide Total Protein Albumin Globulin Albumin/Globulin Ratio Triglycerides Cholesterol LDL Cholesterol, Calc VLDL Cholesterol, Calc HDL Cholesterol Cholesterol/HDL Ratio Lipase Digoxin SARS-CoV-2, RNA, NAAT 06/11/22 06/11/22 06/11/22 06:45 06:45 08:31 WBC RBC Hgb Hct MCV MCH MCHC RDW Std Deviation RDW Coeff of Liya Plt Count MPV Immature Gran % (Auto) Neut % (Auto) Lymph % (Auto) [place] % (Auto) Eos % (Auto) Baso % (Auto) Neut # (Auto) Lymph # (Auto) [place] # (Auto) Eos # (Auto) Baso # (Auto) Immature Gran # (Auto) PT INR APTT PTT Ratio Sodium Potassium Chloride Carbon Dioxide Anion Gap BUN Creatinine Est Cr Clr Drug Dosing Est GFR ( Amer) Est GFR (Non-Af Amer) BUN/Creatinine Ratio Glucose POC Glucose 143 H Estimat Average Glucose 171 Hemoglobin A1c 7.6 H Calcium Phosphorus 2.7 Magnesium 1.9 Total Bilirubin AST ALT Alkaline Phosphatase Troponin I High Sens 52.7 H* B-Natriuretic Peptide Total Protein Albumin Globulin Albumin/Globulin Ratio Triglycerides 220 H Cholesterol 110 LDL Cholesterol, Calc 45 VLDL Cholesterol, Calc 44 H HDL Cholesterol 21 Cholesterol/HDL Ratio 5.2 H Lipase Digoxin SARS-CoV-2, RNA, NAAT 06/11/22 09:52 WBC RBC Hgb Hct MCV MCH MCHC RDW Std Deviation RDW Coeff of Liya Plt Count MPV Immature Gran % (Auto) Neut % (Auto) Lymph % (Auto) [place] % (Auto) Eos % (Auto) Baso % (Auto) Neut # (Auto) Lymph # (Auto) [place] # (Auto) Eos # (Auto) Baso # (Auto) Immature Gran # (Auto) PT INR APTT PTT Ratio Sodium Potassium Chloride Carbon Dioxide Anion Gap BUN Creatinine Est Cr Clr Drug Dosing Est GFR ( Amer) Est GFR (Non-Af Amer) BUN/Creatinine Ratio Glucose POC Glucose Estimat Average Glucose Hemoglobin A1c Calcium Phosphorus Magnesium Total Bilirubin AST ALT Alkaline Phosphatase Troponin I High Sens 53.7 H* B-Natriuretic Peptide Total Protein Albumin Globulin Albumin/Globulin Ratio Triglycerides Cholesterol LDL Cholesterol, Calc VLDL Cholesterol, Calc HDL Cholesterol Cholesterol/HDL Ratio Lipase Digoxin SARS-CoV-2, RNA, NAAT Medications Administered Current Inpatient Medications Acetaminophen (Acetaminophen 325 Mg Tab) 650 mg PO Q4H PRN PRN Reason: pain/fever Stop: 07/11/22 01:26 Aspirin (Aspirin 81 Mg Ectab) 81 mg PO QAM [facility] Stop: 07/11/22 11:29 Calcium Carbonate (Calcium Carbonate 500 Mg Chewable Tab) 1,500 mg PO BID PRN PRN Reason: Indigestion Stop: 07/11/22 07:34 Clopidogrel Bisulfate (Clopidogrel Bisulfate 75 Mg Tab) 75 mg PO QAM [facility] Stop: 07/11/22 11:29 Dextrose (Dextrose 50% 50 Ml Syringe) 25 - 50 ml IV UD PRN; Protocol PRN Reason: Hypoglycemia Protocol Stop: 07/11/22 01:26 Digoxin (Digoxin 0.125 Mg Tab) 0.125 mg PO QPM [facility] Stop: 07/11/22 20:59 Famotidine (Famotidine 40 Mg Tablet) 40 mg PO BID [facility] Stop: 07/11/22 08:59 Glucagon (Glucagon For Inj 1 Mg Vial) 1 mg SQ UD PRN; Protocol PRN Reason: Hypoglycemia Protocol Stop: 07/11/22 01:26 Glucose (Glucose 40% Gel 15 Gm Tube) 15 - 30 gm PO UD PRN; Protocol PRN Reason: Hypoglycemia Protocol Stop: 07/11/22 01:26 Glucose (Glucose 10 Tab/Tube) 4 - 8 tab PO UD PRN; Protocol PRN Reason: Hypoglycemia Treatment Stop: 07/11/22 01:26 Heparin Sodium/Dextrose (Heparin Sodium/Dextrose) 25,000 units in 500 mls @ 28 mls/hr IV .[id number] [facility]; Protocol Stop: 07/10/22 23:44 Last Titration: 06/11/22 08:54 Dose: 1,400 units/hr, 28 mls/hr Insulin Aspart (Insulin Aspart Per Unit) 0 units SC Q6 [facility] Stop: 07/11/22 05:59 Last Admin: 06/11/22 06:12 Dose: 2 units Insulin Glargine (Lantus Per Unit Charge) 15 units SQ BID [facility] Stop: 07/11/22 08:59 Metoprolol Succinate (Metoprolol Succ 50mg Ext Rel Tab) 100 mg PO DAILY [facility] Stop: 07/11/22 08:59 Last Admin: 06/11/22 09:29 Dose: Not Given Miscellaneous (Carbohydrates For Hypoglycemia ) 15 - 30 gm PO UD PRN PRN Reason: Hypoglycemia Protocol Stop: 07/11/22 01:26 Nitroglycerin (Nitroglycerin Sl 0.4 Mg/Tab Tab) 0.4 mg SL PRN PRN PRN Reason: Chest Pain Stop: 07/11/22 01:26 Ondansetron HCl (Ondansetron Inj 2 Mg/Ml 2 Ml Vial) 4 mg IV Q6H PRN PRN Reason: Nausea Stop: 07/11/22 01:26 Polyethylene Glycol (Polyethylene (Miralax) 17 Gm Pack) 34 gm PO DAILY PRN PRN Reason: Constipation Stop: 07/11/22 01:26 Pravastatin Sodium (Pravastatin Sod 40 Mg Tab) 40 mg PO DAILY [facility] Stop: 07/11/22 08:59 Sennosides (Senna 8.6 Mg Tab) 17.2 mg PO BID PRN PRN Reason: Constipation Stop: 07/11/22 01:26
[2022-06-11] MEDS: ASPIRIN 81 MG ECTAB PO SCH (11:34)
[2022-06-11] MEDS: FAMOTIDINE 40 MG TABLET PO SCH ×2 (11:34→21:34)
[2022-06-11] MEDS: CLOPIDOGREL BISULFATE 75 MG TAB PO SCH (11:34)
[2022-06-11] MEDS: PRAVASTATIN SOD 40 MG TAB PO SCH (11:34)
[2022-06-11] MEDS: LANTUS PER UNIT CHARGE SQ SCH ×2 (11:36→21:30)
[2022-06-11] MEDS: ISOSORBIDE MONO EXTENDED REL 30 MG TABCR PO SCH (12:48)
--- NOTE | 2022-06-11 14:37 | Electrocardiogram Report ---
Test Reason : Blood Pressure : / mmHG Vent. Rate : 071 BPM Atrial Rate : 062 BPM P-R Int : 000 ms QRS Dur : 092 ms QT Int : 404 ms P-R-T Axes : 000 -06 -14 degrees QTc Int : 439 ms Atrial fibrillation Diffuse Nonspecific ST abnormality Abnormal ECG When compared with ECG of 18-SEP-2021 13:39, QT has shortened Confirmed by Dane Bhatt ([id number]) on 06/11/2022 2:37:08 PM Referred By: REFERRED SELF Confirmed By:Dane Bhatt
--- NOTE | 2022-06-11 14:38 | Electrocardiogram Report ---
Test Reason : Blood Pressure : / mmHG Vent. Rate : 072 BPM Atrial Rate : 060 BPM P-R Int : 000 ms QRS Dur : 100 ms QT Int : 420 ms P-R-T Axes : 000 -13 -03 degrees QTc Int : 459 ms Atrial fibrillation Abnormal ECG When compared with ECG of 10-JUN-2022 21:38, Nonspecific ST abnormality no longer present Confirmed by Dane Bhatt ([id number]) on 06/11/2022 2:38:15 PM Referred By: REFERRED SELF Confirmed By:Dane Bhatt
--- NOTE | 2022-06-11 15:15 | Hospitalist Progress Note ---
Date of Service June 11, 2022 Assessment & Plan (1) Non-ST elevation OK (NSTEMI): Plan: 86yo male with history of stent placement (appx 2012 at [facility]) presenting with exertional chest discomfort with associated SOB, diaphoresis. Pain has become more severe and frequent over the last two weeks. HS-troponin initially 36.1 --> 43.2. Initial EKG with ST depressions in lateral leads. Patient is presently chest pain free. NSTEMI Admitted to medical telemetry Remains on heparin gtt. Chest pain-free at time of bedside assessment LDL 45, cholesterol 110. Pravastatin continued, relatively low LDL BNP 207 Magnesium normal Hemoglobin normal High sensitive troponin 43 --> 53, trended for peak TTE: pending EKG as needed, nitro as needed Metoprolol, atorvastatin continued Cardiology consulted. Seen this morning, patient with risk for catheterization in the setting of renal dysfunction. Will follow with medical management at this time. Plavix and aspirin added to her regimen. Imdur added. Appreciate recommendations Heart healthy DM diet N.p.o. at 0000 for reassess (2) CAD (coronary artery disease): Plan: CAD with history of PCI Past PCI in [place] 2012. Called [facility] Medical Records to clarify --> they are attempting to obtain old cath report and will fax to [phone] Echo 2017 with EF 60-65% -Continue Metoprolol -Continue Pravastatin -Cardiology consultation (3) DM type 2 (diabetes mellitus, type 2): Plan: Chronic -Lantus decreased to 15 SQ twice daily on admission while n.p.o. Lantus 30 twice daily while tolerating diabetic diet, dose reduce if/when n.p.o. -ISS -Goal blood sugar 100 - 140 (4) HTN (hypertension): Plan: Chronic. Well controlled -Continue metoprolol 100mg po daily -Remains normotensive with amlodipine held -Continue to monitor (5) Dyslipidemia: Plan: Chronic -Continue Pravastatin 40mg po daily (6) Atrial fibrillation: Plan: Rate controlled. Anticoagulated on Apixaban -Continue metoprolol 100mg po daily -Continue Digoxin -Hold Apixaban while on heparin drip -Heparin gtt (7) Hypokalemia: Plan: K=3.3, repleted Repeat pending (8) CKD (chronic kidney disease): Plan: Creatinine baseline appears around 1.61.73 Creatinine 1.6 on admit Repeat pending Renally dose medications No superimposed HERB at this time Plan F/E/N - Heplock. NPO at 0000 for reassessment, DM/HH diet otherwise Ppx - Heparin gtt Code -Full Dispo - Admit to medical with telemetry Admission and Anticipated Discharge Date Admission Date: June 11, 2022 Subjective Seen at the bedside this morning. He reports that he was having chest pain yesterday, has not had any chest pain this morning. Reports he has had worsening chest pain with exertion and going up stairs for several weeks, and that this was the worst it had been in a couple of weeks day prior to admission. He endorses shortness of breath associated with this chest pain and when going up stairs, and does have some additional shortness of breath when sleeping at night. He is not having chest pain at time evaluation, last time he had pain was last night and notes he has not been up walking around today. No lightheadedness, dizziness, syncope, presyncope, bleeding, nausea, vomiting, diarrhea. Notes his symptoms have been improved in the last few weeks with sublingual nitro. Endorses a prior history of PCI in [place], no history of CABG. Review of Systems Review of Systems: All systems reviewed & are unremarkable except as noted in Subjective Physical Exam Physical Exam: General: A&Ox3. NAD. Cooperative. Thought process occasionally circumferential HEENT: Atraumatic, normocephalic. Vision and hearing grossly intact, somewhat hard of hearing. Pulm: CTAB A&P. -wheezes, -rales, -rhonchi. Symmetrical chest rise. No increase in work of breathing. No respiratory distress. Cardiac: irir -mrg. Radial pulses intact and symmetrical. Abdominal: Nontender, nondistended, soft. BS present. Results & Data Results & Data ([facility]) Vital Signs (Past 12 Hours) Vital Signs Temp Pulse Pulse Pulse Resp BP BP 06/11/22 14:56 67 06/11/22 10:38 36.3 C L 57 L 20 136/82 06/11/22 09:41 36.8 C 57 L 18 151/81 H 06/11/22 09:34 06/11/22 09:33 46 L 06/11/22 06:22 53 L 20 145/81 H 06/11/22 04:20 77 20 158/71 H 06/11/22 03:07 54 L 20 178/101 H Pulse Ox O2 Del Method 06/11/22 14:56 06/11/22 10:38 20 L 06/11/22 09:41 98 Room Air 06/11/22 09:34 Room Air 06/11/22 09:33 06/11/22 06:22 92 Room Air 06/11/22 04:20 94 Room Air 06/11/22 03:07 90 PG Care Time/CCT Total # of Minutes Spent Total Time Spent with Patient: Total time spent is greater than 50% in coordination of care (as documented) at patient's floor/unit and/or counseling patient: Coding Level of Care Code 32488 Subseq Hosp Care Lvl 2 Diagnoses Non-ST elevation OK (NSTEMI) I21.4 CAD (coronary artery disease) I25.10 DM type 2 (diabetes mellitus, type 2) E11.9 HTN (hypertension) I10 Dyslipidemia E78.5 Atrial fibrillation I48.91 Hypokalemia E87.6 CKD (chronic kidney disease) N18.9
[2022-06-11 15:50] LABS: BUN Creatinine Ratio 9.6 (10-20); Calcium 9.6 mg/dl (8.5-10.1); Creatinine Clr Calc Pharmacy 29.7 ml/min; Est GFR (African American) 32.7 ml/min; Est GFR (Non-African American) 28.2 ml/min; Potassium 4.3 mmol/L (3.5-5.1)
[2022-06-11 15:51] LABS: Partial Thromboplastin Ratio 3.3
[2022-06-11] MEDS: DIGOXIN 0.125 MG TAB PO SCH (21:34)
[2022-06-11 23:05] LABS: Partial Thromboplastin Ratio 2.7
[2022-06-11 23:07] LABS: Partial Thromboplastin Time 73.3 Seconds (21.0-31.0)
[2022-06-12] MEDS: NITROGLYCERIN SL 0.4 MG/TAB TAB SL PRN ×4 (00:43→04:42)
--- NOTE | 2022-06-12 01:07 | Communication Note ---
Date of Service: June 12, 2022 Night resident note 00:45- RN notified me that patient developed new substernal 7/10 chest pain radiating down both arms. BP 181/91, HR 89, oxygen saturation adequate on 3L NC. EKG showed new downsloping ST depressions in V4-V6. CP remained 7/10 after one dose of nitroglycerin. A second dose of nitro was given, which resulted in an improvement in CP from 7/10 to 3/10. SBP fell to the 100s before improving to 123/70 a few minutes later, HR 89. I ordered morphine IV 1mg which led to a resolution of patient's CP. BP then varied between controlled and slightly elevated, pulse 70s, oxygen saturation adequate on 3L NC. Patient's hsTroponin had already peaked and fallen earlier in the night, but given new symptoms and EKG findings, ordered a repeat, which resulted at 48.1, representing an increase from prior. Heparin gtt was already running since admission. Will keep patient NPO in case cardiology decides to intervene today. 04:15- RN notified me that patient's CP returned, initially 4/10, then up to 9/10 within minutes. Patient was very restless and became agitated.Ordered morphine 1mg IV x1 and nitro. Went upstairs to evaluate patient, who was sitting comfortably and noted his pain had improved to 4/10, BP 131/86, HR 80. After five minutes, pain was 2/10, BP/HR unchanged, so I ordered an additional dose of nitro. BP dropped to 90/50 before improving to 130s/80s. Five minutes after nitro was given, patient reported his CP was 0/10. BP 134/82, HR 70. Upon reexamination, patient was sleeping comfortably. 06:00- RN notified me that patient still had 0/10 chest pain, but he had again become restless continued trying to get out of bed. Because patient responds well to verbal redirection, I ordered one-to-one observation. Patient did not have a recurrence of CP for the remainder of the overnight shift. Burton Mistry, PGY-3 Resident Activity Tracking Resident Involvement: Resident Care Provided and Utility Clerk Coverage Note Care Provided: Adult [facility]
[2022-06-12] MEDS ORDERED: MoRPHine SULFATE 2 MG/ML CARP IV STA ×3 (01:08→13:22)
[2022-06-12] MEDS: INSULIN ASPART PER UNIT SC SCH ×5 (01:18→20:29)
[2022-06-12] MEDS ORDERED: MoRPHine SULFATE 2 MG/ML CARP ONE (04:20)
[2022-06-12 06:57] LABS: Hematocrit (blood only) 41.3 % (40.1-51.0); Hemoglobin 13.6 g/dl (14.0-18.0); Mean Corpuscular Hemoglobin 30.8 pg (25.0-34.0); Mean Corpuscular Hgb Conc 32.9 g/dL (32.0-36.0); Mean Corpuscular Volume 93.7 fL (80.0-100.0); RDW Coefficient of Variation 15.7 % (11.5-14.5); RDW Standard Deviation 53.4 fL (36.4-46.3); Red Blood Count 4.41 M/uL (4.63-6.08); White Blood Count 8.02 K/ul (4.8-10.8)
[2022-06-12 07:02] LABS: Appearance Urine Clear (Clear); Bacteria Urine Automated Negative (Negative); Bilirubin Urine Negative (Negative); Blood Urine Negative (Negative); Cast Urine Automated 0 /lpf (0-5); Color Urine Yellow; Glucose Urine UA Negative (Negative); Ketones Urine Negative (Negative); Leukocyte Esterase Urine Negative (Negative); Nitrite Urine Negative (Negative); Protein Urine Trace (Negative); RBC Urine Automated 0-4 /hpf (0-4); Specific Gravity Urine 1.011 (1.000-1.030); Urobilinogen Urine Negative (Negative); pH Urine 6.5 (4.5-7.5)
[2022-06-12 07:07] LABS: Mean Platelet Volume 13.4 fL (9.4-12.4); Platelet Count 156 K/uL (130-400)
[2022-06-12 07:20] LABS: Albumin Level 3.5 gm/dl (3.4-5.0); BUN Creatinine Ratio 11.9 (10-20); Bilirubin Direct 0.2 mg/dl (0-0.2); Bilirubin,Total 1.3 mg/dl (0.2-1.0); Calcium 9.1 mg/dl (8.5-10.1); Creatinine Clr Calc Pharmacy 29.6 ml/min; Est GFR (African American) 32.5 ml/min; Est GFR (Non-African American) 28.1 ml/min; Potassium 3.5 mmol/L (3.5-5.1); Total Protein 6.9 gm/dl (6.0-8.3)
[2022-06-12] MEDS: ASPIRIN 81 MG ECTAB PO SCH (07:47)
[2022-06-12] MEDS: CLOPIDOGREL BISULFATE 75 MG TAB PO SCH (07:47)
[2022-06-12] MEDS: FAMOTIDINE 40 MG TABLET PO SCH (07:48)
[2022-06-12] MEDS: ISOSORBIDE MONO EXTENDED REL 30 MG TABCR PO SCH (07:55)
[2022-06-12] MEDS: METOPROLOL SUCC 50MG EXT REL TAB PO SCH (07:56)
[2022-06-12] MEDS: PRAVASTATIN SOD 40 MG TAB PO SCH (07:56)
[2022-06-12] MEDS ORDERED: SODIUM CHLORIDE 0.9% 1000ML 1,000 ML IV SCH (08:00)
[2022-06-12] MEDS: LANTUS PER UNIT CHARGE SQ SCH ×2 (08:14→20:29)
[2022-06-12 08:18] LABS: Basophils # (auto) 0.02 K/uL (0-0.2); Basophils % (auto) 0.2 %; Eosinophils # (auto) 0.52 K/uL (0-0.50); Eosinophils % (auto) 6.5 %; Immature Granulocytes # (auto) 0.03 K/uL (0.00-0.02); Immature Granulocytes % (auto) 0.4 %; Lymphocytes % (auto) 27.4 %; Monocytes # (auto) 0.74 K/uL (0.24-0.82); Monocytes % (auto) 9.2 %; Neutrophils # (auto) 4.51 K/uL (1.4-6.5); Neutrophils % (auto) 56.3 %
--- NOTE | 2022-06-12 08:34 | Cardiology Progress Note ---
Date of Service June 12, 2022 Assessment & Plan (1) CKD (chronic kidney disease): (2) CAD (coronary artery disease): (3) Non-STEMI (non-ST elevated myocardial infarction): (4) Atrial fibrillation: Plan The patient had chest pain throughout the night and required additional subling ual nitroglycerin. The sports editor notes are appreciated. There were some slight EKG changes. Yesterday, I had talked with the patient's son Fadi as well as the patient. In a shared decision-making process we had decided to try medical therapy in this elderly gentleman. After last night, unfortunately he has failed medical therapy and we will proceed with a cardiac catheterization today. I spoke to his son again early this morning as well as the patient and everyone is in agreement and understands the potential risk including renal failure due to the x-ray dye and other potential complications. The patient is currently pain-free and we will wait till later this morning. 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 Admission and Anticipated Discharge Date Admission Date: June 11, 2022 Subjective The patient had more chest pain through the night requiring sublingual nitroglycerin for relief. Review of Systems Review of Systems: Review of Systems: See HPI for pertinent positives. All other 10 point review of systems are negative. Physical Exam Physical Exam: General: no acute distress and stated age Head: normocephalic, no masses, lesions, tenderness or abnormalities Eyes: conjunctiva are pink and non-injected, sclera clear Neck: supple, no adenopathy, no bruits, normal jugular venous pulse, no hepatojugular reflux Chest: normal shape and normal respiratory effort Lungs: clear to auscultation and percussion Cardiac Exam: - irregular rate & rhythm, no murmurs gallops or rubs - normal S1, normal S2 Pulses: 2(+) throughout Abdomen: abdomen soft, non-tender, no abnormal masses and no hepatosplenomegaly Musculoskeletal: no gait disturbance, no joint inflammation, no deforming arthritis Extremities: no edema and no cyanosis Neuro: grossly normal exam Results & Data ([facility]) Vital Signs (Past 12 Hours) Vital Signs Temp Pulse Pulse Resp BP BP Pulse Ox 06/12/22 08:14 72 06/12/22 07:58 36.5 C 85 20 156/79 H 93 06/12/22 04:44 72 18 90/56 L 96 06/12/22 04:10 36.5 C 82 25 H 192/99 H 98 06/12/22 03:52 62 06/12/22 02:00 06/12/22 01:08 18 123/70 89 L 06/12/22 01:24 36.5 C 75 20 149/71 H 96 06/11/22 23:00 36.7 C 68 20 131/74 96 06/11/22 21:34 66 O2 Del Method O2 Flow Rate 06/12/22 08:14 06/12/22 07:58 Room Air 06/12/22 04:44 Nasal Cannula 3 06/12/22 04:10 Nasal Cannula 3 06/12/22 03:52 06/12/22 02:00 Nasal Cannula 3 06/12/22 01:08 06/12/22 01:24 Nasal Cannula 3 06/11/22 23:00 Room Air 06/11/22 21:34
[2022-06-12 08:37] LABS: Partial Thromboplastin Ratio 2.3
--- NOTE | 2022-06-12 08:42 | Hospitalist Progress Note ---
Date of Service June 12, 2022 Assessment & Plan (1) Non-ST elevation DC (NSTEMI): Plan: 86yo male with history of stent placement (appx 2012 at [facility]) presenting with exertional chest discomfort with associated SOB, diaphoresis. Pain has become more severe and frequent over the last two weeks. HS-troponin initially 36.1 --> 43.2. Initial EKG with ST depressions in lateral leads. Pt with CP overnight 06/11-, lateral ECG changes recurred, trop without significant bump NSTEMI Cardiology consulted. 01/13/2022 [facility] PCI with mid LAD single drug-eluting stent placed, recommending clopidogrel and apixaban for 1 year continuing statin and other cardiovascular risk reduction medications LDL 45, cholesterol 110. Pravastatin continued, relatively low LDL High sensitive troponin 43 --> 53, trended for peak Metoprolol, pravastatin continued - Plavix added to her regimen. Isosorbide was added we will discuss whether this should continue after PCI (2) Encephalopathy: Plan: pt with some confusion post procedure, redirected and family at bedside, Haldol and Ativan available (3) CAD (coronary artery disease): Plan: CAD with history of PCI Past PCI in [place] 2012. Echo 2016 with EF 60-65% -Continue Metoprolol -Continue Pravastatin -Cardiology consultation (4) DM type 2 (diabetes mellitus, type 2): Plan: Chronic -Lantus decreased to 15 SQ twice daily on admission while n.p.o. Lantus 30 twice daily while tolerating diabetic diet, dose reduce if/when n.p.o. -ISS -Goal blood sugar 100 - 140 (5) HTN (hypertension): Plan: Chronic. Well controlled -Continue metoprolol 100mg po daily -Remains normotensive with amlodipine held -Continue to monitor (6) Dyslipidemia: Plan: Chronic -Continue Pravastatin 40mg po daily (7) Atrial fibrillation: Plan: Rate controlled. -Continue metoprolol 100mg po daily plus Digoxin -Restart apixaban once vascular access site is secured likely on 06/13/2022 (8) Hypokalemia: Plan: replete (9) CKD (chronic kidney disease): Plan: Cr is in the 2 range, now with rachel from admission CKD 3 Plan Code -Full Transfer to [facility] post procedure due to cardiac intervention Admission and Anticipated Discharge Date Admission Date: June 11, 2022 Subjective Patient was seen post catheterization or he had some encephalopathy from sedating medications Family is at the bedside he was redirected attempt to place hearing aids to improve his confusion Nursing has Doroteo [employer] Shruthi available Review of Systems Review of Systems: Mild distress and confusion no headache, no visual changes no speech or swallowing issues Complains of some chest pain, denies sensation of pressure or palpitations no shortness of breath, cough or wheezes no abdominal pain, nausea or vomiting, diarrhea or constipation no dysuria, hematuria or frequency no focal joint pain or swelling T band in place on wrist no back pain, CVA tenderness or radicular pain Patient with some encephalopathy post procedure Physical Exam Physical Exam: The patient appeared well nourished and normally developed. He appeared younger than his stated age Vital signs as documented. Head exam is normocephalic atraumatic Neck is without JVD, thyromegaly, or carotid bruits. Lungs are clear to auscultation, no focal loss of breath sounds Cardiac exam, Rhythm is regular.. No murmurs, rubs or gallops. Abdominal exam reveals normal bowel sounds, soft non tender, no masses Extremities are nonedematous and still perfusion to his right hand is intact Neurologic exam is alert and oriented x1, no focal loss of strength or sensation, spontaneously moving extremities Results & Data Results & Data ([facility]) Vital Signs (Past 12 Hours) Vital Signs Temp Pulse Pulse Resp BP BP Pulse Ox 06/12/22 08:14 72 06/12/22 07:58 97.7 F 85 20 156/79 H 93 06/12/22 04:44 72 18 90/56 L 96 06/12/22 04:10 97.7 F 82 25 H 192/99 H 98 06/12/22 03:52 62 06/12/22 02:00 06/12/22 01:08 18 123/70 89 L 06/12/22 01:24 97.7 F 75 20 149/71 H 96 06/11/22 23:00 98.1 F 68 20 131/74 96 06/11/22 21:34 66 O2 Del Method O2 Flow Rate 06/12/22 08:14 06/12/22 07:58 Room Air 06/12/22 04:44 Nasal Cannula 3 06/12/22 04:10 Nasal Cannula 3 06/12/22 03:52 06/12/22 02:00 Nasal Cannula 3 06/12/22 01:08 06/12/22 01:24 Nasal Cannula 3 06/11/22 23:00 Room Air 06/11/22 21:34 PG Care Time/CCT Total # of Minutes Spent Total Time Spent with Patient: Total time spent is greater than 50% in coordination of care (as documented) at patient's floor/unit and/or counseling patient: Coding Level of Care Code 85569 Subseq Hosp Care Lvl 3 Diagnoses Non-ST elevation DC (NSTEMI) I21.4 Encephalopathy G93.40 CAD (coronary artery disease) I25.10 DM type 2 (diabetes mellitus, type 2) E11.9 HTN (hypertension) I10 Dyslipidemia E78.5 Atrial fibrillation I48.91 Hypokalemia E87.6 CKD (chronic kidney disease) N18.9
[2022-06-12] MEDS ORDERED: POTASSIUM CHLORIDE CRTAB 20 MEQ TABCR PO STA (08:43)
[2022-06-12] MEDS ORDERED: PANTOprazole 40 MG TAB PO SCH (09:15)
[2022-06-12 09:51] LABS: Partial Thromboplastin Time 63.6 Seconds (21.0-31.0)
[2022-06-12] MEDS ORDERED: niCARdipine HCL INJ 2.5 MG/ML 10 ML AMP ONE (10:55)
[2022-06-12] MEDS ORDERED: HEPARIN (PORCINE) 1000 UNIT/ML 10 ML (CATH LAB USE ONLY) ONE (10:55)
[2022-06-12] MEDS ORDERED: MIDAZOLAM HCL 1 MG/ML 2ML VIAL ONE (10:56)
[2022-06-12] MEDS ORDERED: fentaNYL citrate 100 MCG/2 ML VIAL ONE (10:56)
--- NOTE | 2022-06-12 11:19 | Pre Anesthesia Assessment ---
Date of Service June 12, 2022 Pre Sedation Assessment Vital Signs Temp Pulse Pulse Resp BP BP Pulse Ox 06/12/22 11:06 64 20 134/78 91 06/12/22 08:14 72 06/12/22 07:58 36.5 C 85 20 156/79 H 93 06/12/22 04:44 72 18 90/56 L 96 06/12/22 04:10 36.5 C 82 25 H 192/99 H 98 06/12/22 03:52 62 06/12/22 02:00 06/12/22 01:08 18 123/70 89 L 06/12/22 01:24 36.5 C 75 20 149/71 H 96 06/11/22 23:00 36.7 C 68 20 131/74 96 06/11/22 21:34 66 06/11/22 14:02 36.9 C 58 L 20 144/80 H 92 06/11/22 14:56 67 O2 Del Method O2 Flow Rate 06/12/22 11:06 Room Air 06/12/22 08:14 06/12/22 07:58 Room Air 06/12/22 04:44 Nasal Cannula 3 06/12/22 04:10 Nasal Cannula 3 06/12/22 03:52 06/12/22 02:00 Nasal Cannula 3 06/12/22 01:08 06/12/22 01:24 Nasal Cannula 3 06/11/22 23:00 Room Air 06/11/22 21:34 06/11/22 14:02 Room Air 06/11/22 14:56 Pre-Sedation Airway Assessment Smoking Status: Never smoker Hx Sleep Apnea: No Short, Thick Neck: No Thyromental Distance: > or= 3.5 Finger Breadths Oral Cavity: + Dentures Mallampati Class: III ASA: ASA2 NPO Status Date of Last Intake of Fluids: 06/11/22 Time of Last Intake of Fluids: 18:00 Date of Last Intake of Solid Food: 06/11/22 Time of Last Intake of Solid Foods: 18:00 Notes The planned sedation has been discussed with the patient. Informed Consent was obtained. I have identified the patient, determined the appropriateness of sedation and have assessed the patient immediately prior to the procedure. All medicine(s) and interventions are by my order.
--- NOTE | 2022-06-12 12:25 | Cardiac Catheterization ---
Date of Service June 12, 2022 Cardiac Cath Report Cardiac Cath Report Procedure: 1. Coronary angiography History: This is an 86-year-old male patient with a previous history of coronary artery disease and coronary stents placed at [facility] in 2012. He had done well until 3 to 4 months ago when he began to have exertional chest pain which has accelerated recently and resulted in this hospital admission. After an attempt at medical therapy, it was decided that we should proceed with a cardiac catheterization. Procedure summary: After informed consent was obtained the patient was brought to the cardiac catheterization lab where access was obtained using a retrograde Salinger technique from the right radial artery. Preformed 5 [place] diagnostic catheters were utilized for the coronary angiograms. Following the procedure the patient underwent coronary intervention. [facility] data: Start time 11:33 AM End time 12:04 PM Opening aortic pressure 115/58 Closing aortic pressure 111/56 LV pressurevalve not crossed Sedation 0 IV fluid 36 cc normal saline Contrast 54 cc Optiray Fluoroscopy time 3.1 minutes Radiation 1119 mGy DAP 112.5 Gy/cm Left dominant system AUC score 9 Coronary angiography: Selective injections of the left coronary artery reveal calcium in the proximal circumflex and LAD. The left main trunk is patent. There is a large ramus branch from the LAD which has evidence of her previous stent placement and is 100% occluded after the distal portion of the stent. The left circumflex artery is dominant. There is a large first marginal branch which has a 70% stenosis in its mid segment. A second smaller marginal branch is functionally occluded and then several smaller branches that supply the posterior septum. The LAD extends around the apex of the heart. Distally the artery is atretic. In the mid segment around the first septal specialty manufacturing supervisor there is a 80 to 90% stenoses of the LAD. Selective injections of the right coronary artery reveal it to be nondominant. Right coronary artery has diffuse nonobstructive disease. Summary: Previous intracoronary stent in the ramus artery from the LAD is occluded. The LAD has a 80 to 90% stenosis at the takeoff of the first septal specialty manufacturing supervisor. The left circumflex artery has a large first marginal branch with a 60 to 70% stenosis. The nondominant right coronary has diffuse nonobstructive disease. Recommendations: Believe the index artery for the patient's chest pain is the LAD. The patient will undergo stent placement of the LAD.
[2022-06-12] MEDS ORDERED: CLOPIDOGREL BISULFATE 300 MG TAB ONE (12:28)
--- NOTE | 2022-06-12 12:38 | Post Anesthesia Assessment ---
Date of Service June 12, 2022 Post Sedation Assessment Vital Signs Temp Pulse Pulse Resp BP BP Pulse Ox 06/12/22 11:06 64 20 134/78 91 06/12/22 08:14 72 06/12/22 07:58 97.7 F 85 20 156/79 H 93 06/12/22 04:44 72 18 90/56 L 96 06/12/22 04:10 97.7 F 82 25 H 192/99 H 98 06/12/22 03:52 62 06/12/22 02:00 06/12/22 01:08 18 123/70 89 L 06/12/22 01:24 97.7 F 75 20 149/71 H 96 06/11/22 23:00 98.1 F 68 20 131/74 96 06/11/22 21:34 66 06/11/22 14:02 98.4 F 58 L 20 144/80 H 92 06/11/22 14:56 67 O2 Del Method O2 Flow Rate 06/12/22 11:06 Room Air 06/12/22 08:14 06/12/22 07:58 Room Air 06/12/22 04:44 Nasal Cannula 3 06/12/22 04:10 Nasal Cannula 3 06/12/22 03:52 06/12/22 02:00 Nasal Cannula 3 06/12/22 01:08 06/12/22 01:24 Nasal Cannula 3 06/11/22 23:00 Room Air 06/11/22 21:34 06/11/22 14:02 Room Air 06/11/22 14:56 Recovery Score Activity: Moves 4 extremities Respiration: Deep Breath/Cough Circulation: +/-20% PreAnes Value Consciousness: Fully Awake Oxygen Saturation: O2 needed for >90% Discharge Sedation Level of Care: Fast Track Phase II Post Sedation Plan On clinical assessment, the patient appears to have tolerated the sedation without complications. Patient is recovering as anticipated. Patient will continue to be monitored by nursing and may be discharged when sedation discharge criteria are met per below protocol. Upon Completions of procedure up to 15 minutes continue every 5 minute vital signs and the P.A.R. score; then discharge to a Phase I or Fast Track to Phase II per the following guidelines: * Discharge Patient to appropriate Phase II area if PAR is 8 or greater or return to pre- procedure baseline. The post - procedure orders will be as directed. * If PAR score is less than 8 or not return to pre-procedure baseline then patient will follow Phase I monitoring till PAR is reached for Phase II. The Phase I may be done in procedure room or may call to secure a Phase I area. * If naloxone or flumazenil are used for reversal, hold in Phase I for continued monitoring from when last reversal dose was given for a minimum of 60 minutes or longer pending the nurse and/or physician discretion of patient condition before discharge to Phase II. Please call the Sedation Physician to re-evaluate and complete post-note for discharge to Phase II area. Do NOT discharge from procedure sedation or Phase 1 until post- sedation evaluation note is complete by procedure /sedation MD Sedation Discharge Instructions to be given to the patient at discharge to home.
--- NOTE | 2022-06-12 12:39 | Cardiac Catheterization ---
[employer] Data: Inspector Tool Cardiac Status Clinical evaluation leading to the procedure CAD Presenation: Unstable angina Anginal Classification: CCS IV Diagnostic Physicians Name: Ravinder Barraza MD Closure Device Recommendations: PCI without planned CABG Cardiac Cath Procedure Full Procedure Date June 12, 2022 Pre-Procedure Diagnosis Pre-Procedure Diagnosis: Acute Coronary Syndrome and CAD AUC Score AUC Score: 7 Post-Procedure Diagnosis Post-Procedure Diagnosis: Severe CAD and Successful PCI Procedure(s) Performed Procedure(s) Performed: Coronary Angiography and Drug Eluting Stent Ware Finisher Ravinder Barraza MD Lead Oxide Mill Tender(s) Arnolibler Estimated Blood Loss Estimated Blood Loss: 10 Medication(s) Medication(s): Clopidogrel, Fentanyl, Heparin, Lidocaine 1%, Nicardipine, Nitroglycerin and Versed Summary of Findings Indication: Unstable angina. History of coronary disease with prior PCI to first diagonal Access: 6 Fr right radial artery Catheters: EBU 3.5 guide Findings: For full details of patient's coronary angiography please see cath report dictated by Dr. Heart. Briefly, patient found to have multivessel disease with severe 95%+ mid LAD stenosis with CARLEE II distal flow. Decision to proceed with PCI. -- PCI -- Antithrombotic therapy: Heparin, clopidogrel Procedure: Left main cannulated with EBU 3.5 guide Pre-procedure flow CARLEE 2 Director Of Social Media Marketing 50 wire passed across lesion into distal vessel Mid LAD lesion predilated with 2.5 compliant balloon Dilated lesion stented with 2.75 x 18 mm Zap drug-eluting stent Stent post-dilated with stent balloon IC vasodilators administered for spasm Post procedure CARLEE 3 flow, stent well expanded with minimal residual stenosis and no apparent cardiac complications. Arterial Closure: TR band Summary: 1. Successful PCI of mid LAD with single drug-eluting stent (2.75 x 18 mm Misael). Recommendations: To PCU for continued monitoring Reloaded with clopidogrel 300 mg in Inspector Tool Continue dual therapy with clopidogrel, apixaban for at least 1 year. Continue statin, and ASCVD risk factor modification Consult cardiac Rehab Medical management of residual CAD. If refractory symptoms in the future further PCI to proximal circumflex could be considered. Hemodynamics Rest Ao:: 109/52/71 Final Ao: 94/47/63 LV: -- Recommendations Recommendations: PCI without planned CABG Specimens Specimens: None Radiation Exposure (mGy) 2027 Contrast (mls) 20 Anesthesia Moderate [id number] Procedural Complication(s) None Disposition PCU I attest to the content of the Intraoperative Record and any orders documented therein. Any exceptions are noted below. [facility] Card Cath Procedure Codes Moderate Sedation Procedure 1: Sedation/Anesthesia: 34292 Mod Sedation by the same physician; Ea [id number] Minutes Stenting Procedure 1: Cardiovascular Stent Procedures: 12636 Perc transcatheter placement of intracoronary stent(s), with ang PG Care Time/CCT Total # of Minutes Spent Total Time Spent with Patient: Total time spent is greater than 50% in coordination of care (as documented) at patient's floor/unit and/or counseling patient:
--- NOTE | 2022-06-12 13:30 | Electrocardiogram Report ---
Test Reason : Blood Pressure : / mmHG Vent. Rate : 083 BPM Atrial Rate : 080 BPM P-R Int : 000 ms QRS Dur : 092 ms QT Int : 414 ms P-R-T Axes : 000 012 151 degrees QTc Int : 486 ms Atrial fibrillation Low voltage QRS ST depression, consider subendocardial injury Abnormal ECG When compared with ECG of 10-JUN-2022 22:06, ST now depressed in Anterolateral leads Confirmed by Dane Bhatt ([id number]) on 06/12/2022 1:29:28 PM Referred By: REFERRED SELF Confirmed By:Dane Bhatt
--- NOTE | 2022-06-12 14:11 | Electrocardiogram Report ---
Test Reason : Blood Pressure : / mmHG Vent. Rate : 082 BPM Atrial Rate : 075 BPM P-R Int : 000 ms QRS Dur : 090 ms QT Int : 408 ms P-R-T Axes : 000 035 -64 degrees QTc Int : 476 ms Poor data quality, interpretation may be adversely affected Atrial fibrillation Nonspecific ST depression inferior and lateral leads Abnormal ECG When compared with ECG of 12-JUN-2022 00:45, (unconfirmed) No significant change Confirmed by Mark Parikh ([id number]) on 06/12/2022 2:10:59 PM Referred By: REFERRED SELF Confirmed By:Mark Parikh
[2022-06-12] MEDS ORDERED: HALOPERIDOL LACTATE 5 MG/ML 1 ML VIAL IV STA (14:51)
[2022-06-12] MEDS ORDERED: LORazepam 0.5 MG in SYRINGE 0.25 ML IV PRN (14:51)
[2022-06-12] MEDS ORDERED: Nursing to Pharmacy Communication SCH (15:15)
[2022-06-12] MEDS ORDERED: HALOPERIDOL LACTATE 5 MG/ML 1 ML VIAL IV PRN (15:58)
--- NOTE | 2022-06-12 16:04 | Electrocardiogram Report ---
Test Reason : Blood Pressure : / mmHG Vent. Rate : 059 BPM Atrial Rate : 000 BPM P-R Int : 000 ms QRS Dur : 098 ms QT Int : 474 ms P-R-T Axes : 000 -10 -20 degrees QTc Int : 469 ms Atrial fibrillation with slow ventricular response Nonspecific ST abnormality Abnormal ECG When compared with ECG of 12-JUN-2022 04:21, Nonspecific T wave abnormality no longer evident in Lateral leads Confirmed by Mark Parikh ([id number]) on 06/12/2022 4:03:38 PM Referred By: REFERRED SELF Confirmed By:Mark Parikh
--- NOTE | 2022-06-12 16:09 | Electrocardiogram Report ---
Test Reason : Blood Pressure : / mmHG Vent. Rate : 068 BPM Atrial Rate : 070 BPM P-R Int : 000 ms QRS Dur : 088 ms QT Int : 442 ms P-R-T Axes : 000 -06 -33 degrees QTc Int : 469 ms Poor data quality, interpretation may be adversely affected Atrial fibrillation Nonspecific ST abnormality Abnormal ECG When compared with ECG of 12-JUN-2022 12:59, (unconfirmed) No significant change was found Confirmed by Mark Parikh ([id number]) on 06/12/2022 4:08:54 PM Referred By: REFERRED SELF Confirmed By:Mark Parikh
[2022-06-12] MEDS: DIGOXIN 0.125 MG TAB PO SCH (20:37)
[2022-06-12] MEDS: HEPARIN SODIUM/DEXTROSE 25,000 UNITS/500 ML BAG IV SCH (22:36)
[2022-06-13] MEDS: ISOSORBIDE MONO EXTENDED REL 30 MG TABCR PO SCH (08:08)
[2022-06-13] MEDS: PRAVASTATIN SOD 40 MG TAB PO SCH (08:08)
[2022-06-13] MEDS: METOPROLOL SUCC 50MG EXT REL TAB PO SCH (08:08)
[2022-06-13] MEDS: APIXABAN 2.5 MG TAB PO SCH ×2 (08:08→20:45)
[2022-06-13] MEDS: ASPIRIN 81 MG ECTAB PO SCH (08:09)
[2022-06-13] MEDS: CLOPIDOGREL BISULFATE 75 MG TAB PO SCH (08:09)
[2022-06-13] MEDS: PANTOprazole 40 MG TAB PO SCH (08:10)
[2022-06-13] MEDS: INSULIN ASPART PER UNIT SC SCH ×4 (08:11→20:41)
[2022-06-13] MEDS: LANTUS PER UNIT CHARGE SQ SCH ×2 (08:19→20:45)
[2022-06-13 08:58] LABS: BUN Creatinine Ratio 12.2 (10-20); Calcium 9.2 mg/dl (8.5-10.1); Creatinine Clr Calc Pharmacy 37.9 ml/min; Est GFR (African American) 43.9 ml/min; Est GFR (Non-African American) 37.8 ml/min; Potassium 3.5 mmol/L (3.5-5.1)
--- NOTE | 2022-06-13 10:14 | Cardiology Progress Note ---
Date of Service June 13, 2022 Assessment & Plan (1) CKD (chronic kidney disease): (2) CAD (coronary artery disease): (3) Non-STEMI (non-ST elevated myocardial infarction): (4) Atrial fibrillation: Plan The patient is resting comfortably. He had a little chest pain postprocedure l ate yesterday afternoon but overnight he has been comfortable and chest pain- free. His son was in the room during my visit. Perla lives by himself but his son is approximately 1/4 mile from his home. He visits him frequently. That is helpful but he may require a little bit more supervision before returning to independent living. The patient would benefit from physical therapy evaluation. I stopped his aspirin. The plan is to send him home on Eliquis 2.5 mg twice daily and Plavix 75 mg daily. I also stopped his Pepcid in favor of Protonix several days ago. I think at least some of his chest pain may be related to reflux. I would keep him at least through today. Admission and Anticipated Discharge Date Admission Date: June 11, 2022 Subjective The patient is resting comfortably. His son is in the room with him. Review of Systems Review of Systems: Review of Systems: See HPI for pertinent positives. All other 10 point review of systems are negative. Physical Exam Physical Exam: General: no acute distress and stated age Head: normocephalic, no masses, lesions, tenderness or abnormalities Eyes: conjunctiva are pink and non-injected, sclera clear Neck: supple, no adenopathy, no bruits, normal jugular venous pulse, no hepatojugular reflux Chest: normal shape and normal respiratory effort Lungs: clear to auscultation and percussion Cardiac Exam: - irregular rate & rhythm, no murmurs gallops or rubs - normal S1, normal S2 Pulses: 2(+) throughout Abdomen: abdomen soft, non-tender, no abnormal masses and no hepatosplenomegaly Musculoskeletal: no gait disturbance, no joint inflammation, no deforming arthritis Extremities: no edema and no cyanosis Neuro: grossly normal exam ENMT: Mallampati Class: III Results & Data ([facility]) Vital Signs (Past 12 Hours) Vital Signs Temp Pulse Pulse Resp BP Pulse Ox O2 Del Method 06/13/22 07:11 36.9 C 57 L 18 157/83 H 92 Room Air 06/13/22 03:34 36.7 C 53 L 24 144/95 H 92 Room Air 06/12/22 23:30 36.4 C L 56 L 24 141/61 H 93 Room Air 06/12/22 22:57 64 Laboratory Results Laboratory Results - last 24 hr 06/12/22 06/12/22 06/12/22 12:24 16:20 19:43 Activ Coag Time Kaolin 242 H Sodium Potassium Chloride Carbon Dioxide Anion Gap BUN Creatinine Est Cr Clr Drug Dosing Est GFR ( Amer) Est GFR (Non-Af Amer) BUN/Creatinine Ratio Glucose POC Glucose 167 H 165 H Calcium Magnesium 06/13/22 06/13/22 07:10 08:01 Activ Coag Time Kaolin Sodium 138 Potassium 3.5 Chloride 103 Carbon Dioxide 28 Anion Gap 7 BUN 20 Creatinine 1.64 H D Est Cr Clr Drug Dosing 37.9 Est GFR ( Amer) 43.9 Est GFR (Non-Af Amer) 37.8 BUN/Creatinine Ratio 12.2 Glucose 122 H POC Glucose 105 H Calcium 9.2 Magnesium 2.0 Medications Administered Current Inpatient Medications Acetaminophen (Acetaminophen 325 Mg Tab) 650 mg PO Q4H PRN PRN Reason: pain/fever Stop: 07/11/22 01:26 Apixaban (Apixaban 2.5 Mg Tab) 2.5 mg PO BID [facility] Stop: 07/13/22 08:59 Last Admin: 06/13/22 08:08 Dose: 2.5 mg Calcium Carbonate (Calcium Carbonate 500 Mg Chewable Tab) 1,500 mg PO BID PRN PRN Reason: Indigestion Stop: 07/11/22 07:34 Last Admin: 06/12/22 07:40 Dose: 1,500 mg Clopidogrel Bisulfate (Clopidogrel Bisulfate 75 Mg Tab) 75 mg PO QAM [facility] Stop: 07/11/22 11:29 Last Admin: 06/13/22 08:09 Dose: 75 mg Dextrose (Dextrose 50% 50 Ml Syringe) 25 - 50 ml IV UD PRN; Protocol PRN Reason: Hypoglycemia Protocol Stop: 07/11/22 01:26 Digoxin (Digoxin 0.125 Mg Tab) 0.125 mg PO QPM [facility] Stop: 07/11/22 20:59 Last Admin: 06/12/22 20:37 Dose: 0.125 mg Glucagon (Glucagon For Inj 1 Mg Vial) 1 mg SQ UD PRN; Protocol PRN Reason: Hypoglycemia Protocol Stop: 07/11/22 01:26 Glucose (Glucose 40% Gel 15 Gm Tube) 15 - 30 gm PO UD PRN; Protocol PRN Reason: Hypoglycemia Protocol Stop: 07/11/22 01:26 Glucose (Glucose 10 Tab/Tube) 4 - 8 tab PO UD PRN; Protocol PRN Reason: Hypoglycemia Treatment Stop: 07/11/22 01:26 Haloperidol Lactate (Haloperidol Lactate 5 Mg/Ml 1 Ml Vial) 5 mg IV Q6 PRN PRN Reason: Agitation Stop: 07/12/22 15:57 Lorazepam 0.5 mg/ Syringe 0.5 mls @ 2 mls/min IV Q6H PRN PRN Reason: Anxiety/Agitation Stop: 07/12/22 14:50 Insulin Aspart (Insulin Aspart Per Unit) 0 units SC ACHS [facility] Stop: 07/12/22 16:29 Last Admin: 06/13/22 08:11 Dose: Not Given Insulin Glargine (Lantus Per Unit Charge) 15 units SQ BID [facility] Stop: 07/11/22 08:59 Last Admin: 06/13/22 08:19 Dose: 15 units Isosorbide Mononitrate (Isosorbide [place] Extended Rel 30 Mg Tabcr) 30 mg PO QAM [facility] Stop: 07/11/22 11:44 Last Admin: 06/13/22 08:08 Dose: 30 mg Metoprolol Succinate (Metoprolol Succ 50mg Ext Rel Tab) 100 mg PO DAILY [facility] Stop: 07/11/22 08:59 Last Admin: 06/13/22 08:08 Dose: 100 mg Miscellaneous (Carbohydrates For Hypoglycemia ) 15 - 30 gm PO UD PRN PRN Reason: Hypoglycemia Protocol Stop: 07/11/22 01:26 Nitroglycerin (Nitroglycerin Sl 0.4 Mg/Tab Tab) 0.4 mg SL PRN PRN PRN Reason: Chest Pain Stop: 07/11/22 01:26 Last Admin: 06/12/22 04:42 Dose: 0.4 mg Ondansetron HCl (Ondansetron Inj 2 Mg/Ml 2 Ml Vial) 4 mg IV Q6H PRN PRN Reason: Nausea Stop: 07/11/22 01:26 Pantoprazole Sodium (Pantoprazole 40 Mg Tab) 40 mg PO DAILY [facility] Stop: 07/13/22 08:59 Last Admin: 06/13/22 08:10 Dose: 40 mg Polyethylene Glycol (Polyethylene (Miralax) 17 Gm Pack) 34 gm PO DAILY PRN PRN Reason: Constipation Stop: 07/11/22 01:26 Pravastatin Sodium (Pravastatin Sod 40 Mg Tab) 40 mg PO DAILY [facility] Stop: 07/11/22 08:59 Last Admin: 06/13/22 08:08 Dose: 40 mg Sennosides (Senna 8.6 Mg Tab) 17.2 mg PO BID PRN PRN Reason: Constipation Stop: 07/11/22 01:26
--- NOTE | 2022-06-13 10:31 | Hospitalist Progress Note ---
Date of Service June 13, 2022 Assessment & Plan (1) Non-ST elevation DE (NSTEMI): Plan: pt with a non stemi, did have Left heart cath on 06/12/22, had LAD stent. will be on Plavix and and eliquis pt will follow up with [facility] (2) Encephalopathy: Plan: unclear if now is some baseline dementia associated with hearing loss (3) CAD (coronary artery disease): Plan: Patient had cardiac catheterization on the with Dr. Barraza with a successful PCI to mid LAD with a single drug-eluting stent. Diagnostic cardiology performed catheterization showing large ramus branch from the LAD which is evidence of her previous stent was 100% occluded 70% stenosis of the first marginal branch of the circumflex which is a dominant vessel previous stenting there was 80 to 90% stenosis of the LAD right coronary artery has diffuse nonobstructive disease Patient had bradycardia on the . Subsequently metoprolol succinate was reduced from 100 to 50 mg a dogoxin level was obtained and is normal but with the slower heart rates will hold the pm dose of digoxin on 06/13/22 (4) DM type 2 (diabetes mellitus, type 2): Plan: Patient on basal bolus insulin while here at home on basal bolus and alogiptin (5) HTN (hypertension): (6) Dyslipidemia: Plan: has been on pravastatin, consider change to high intensity statin (7) Atrial fibrillation: Plan: atrial fibrillation, on metorolol digoxin and apixiban (8) Hypokalemia: Plan: resolved (9) CKD (chronic kidney disease): Admission and Anticipated Discharge Date Admission Date: June 11, 2022 Subjective pt is sleepy today had some left shoulder pain without acute ECG changes bp lower after procedure, did cut metoprolol and hold isosorbide Review of Systems Review of Systems: Mild distress and confusion no headache, no visual changes no speech or swallowing issues Complains of some chest pain, left shoulder pain without ecg changes, denies sensation of pressure or palpitations no shortness of breath, cough or wheezes no abdominal pain, nausea or vomiting, diarrhea or constipation no dysuria, hematuria or frequency no focal joint pain or swelling T band in place on wrist no back pain, CVA tenderness or radicular pain Patient with some encephalopathy post procedure Physical Exam Physical Exam: The patient appeared well nourished and normally developed. Vital signs as documented. Head exam is normocephalic atraumatic Neck is without JVD, thyromegaly, or carotid bruits. Lungs are clear to auscultation, no focal loss of breath sounds Cardiac exam, Rhythm is bradycardic. No murmurs, rubs or gallops. Abdominal exam reveals normal bowel sounds, soft non tender, no masses Extremities are nonedematous and both pedal pulses are present Neurologic exam is alert and follows commands not oriented more than place or time, no focal loss of strength or sensation Skin is without bruises or rashes Psychologically is without concerns for some dementia Results & Data Results & Data ([facility]) Vital Signs (Past 12 Hours) Vital Signs Temp Pulse Pulse Resp BP Pulse Ox O2 Del Method 06/13/22 07:11 98.4 F 57 L 18 157/83 H 92 Room Air 06/13/22 03:34 98.1 F 53 L 24 144/95 H 92 Room Air 06/12/22 23:30 97.5 F L 56 L 24 141/61 H 93 Room Air 06/12/22 22:57 64 PG Care Time/CCT Total # of Minutes Spent Total Time Spent with Patient: Total time spent is greater than 50% in coordination of care (as documented) at patient's floor/unit and/or counseling patient: Coding Level of Care Code 06268 Subseq Hosp Care Lvl 3 Diagnoses Non-ST elevation DE (NSTEMI) I21.4 Encephalopathy G93.40 CAD (coronary artery disease) I25.10 DM type 2 (diabetes mellitus, type 2) E11.9 HTN (hypertension) I10 Dyslipidemia E78.5 Atrial fibrillation I48.91 Hypokalemia E87.6 CKD (chronic kidney disease) N18.9
[2022-06-13] MEDS: ACETAMINOPHEN 325 MG TAB PO PRN (15:38)
[2022-06-13] MEDS ORDERED: MoRPHine SULFATE 2 MG/ML CARP IV PRN (16:19)
[2022-06-13 16:20] LABS: BUN Creatinine Ratio 11.7 (10-20); Calcium 8.8 mg/dl (8.5-10.1); Creatinine Clr Calc Pharmacy 34.5 ml/min; Est GFR (African American) 39.2 ml/min; Est GFR (Non-African American) 33.8 ml/min; Magnesium 2.1 mg/dl (1.7-2.4); Potassium 3.6 mmol/L (3.5-5.1)
--- NOTE | 2022-06-13 16:52 | Electrocardiogram Report ---
Test Reason : Blood Pressure : / mmHG Vent. Rate : 045 BPM Atrial Rate : 054 BPM P-R Int : 000 ms QRS Dur : 094 ms QT Int : 496 ms P-R-T Axes : 000 005 -30 degrees QTc Int : 429 ms Atrial fibrillation with slow ventricular response with a competing junctional pacemaker Nonspecific ST and T wave abnormality Abnormal ECG When compared with ECG of 12-JUN-2022 14:30, Vent. rate has decreased BY 23 BPM Nonspecific T wave abnormality now evident in Anterolateral leads Confirmed by Dane Bhatt ([id number]) on 06/13/2022 4:52:18 PM Referred By: REFERRED SELF Confirmed By:Dane Bhatt
--- NOTE | 2022-06-13 16:54 | Electrocardiogram Report ---
Test Reason : Blood Pressure : / mmHG Vent. Rate : 044 BPM Atrial Rate : 055 BPM P-R Int : 000 ms QRS Dur : 092 ms QT Int : 508 ms P-R-T Axes : 000 -02 -41 degrees QTc Int : 434 ms Atrial fibrillation with slow ventricular response with a competing junctional pacemaker Nonspecific ST and T wave abnormality Abnormal ECG When compared with ECG of 13-JUN-2022 15:30, No significant change was found Confirmed by Dane Bhatt ([id number]) on 06/13/2022 4:53:34 PM Referred By: REFERRED SELF Confirmed By:Dane Bhatt
[2022-06-14] MEDS: ACETAMINOPHEN 325 MG TAB PO PRN ×3 (04:06→14:45)
[2022-06-14] MEDS: CLOPIDOGREL BISULFATE 75 MG TAB PO SCH (08:06)
[2022-06-14] MEDS: PANTOprazole 40 MG TAB PO SCH (08:06)
[2022-06-14] MEDS: APIXABAN 2.5 MG TAB PO SCH (08:07)
[2022-06-14] MEDS: INSULIN ASPART PER UNIT SC SCH ×2 (08:12→12:17)
[2022-06-14] MEDS: LANTUS PER UNIT CHARGE SQ SCH (08:15)
[2022-06-14 08:18] LABS: BUN Creatinine Ratio 13.3 (10-20); Calcium 8.6 mg/dl (8.5-10.1); Creatinine Clr Calc Pharmacy 34.5 ml/min; Est GFR (African American) 39.2 ml/min; Est GFR (Non-African American) 33.8 ml/min; Magnesium 2.1 mg/dl (1.7-2.4); Potassium 3.5 mmol/L (3.5-5.1)
--- NOTE | 2022-06-14 08:58 | Cardiology Progress Note ---
Date of Service June 14, 2022 Assessment & Plan (1) CKD (chronic kidney disease): (2) CAD (coronary artery disease): (3) Non-STEMI (non-ST elevated myocardial infarction): (4) Atrial fibrillation: Plan The patient from a cardiac standpoint can be discharged. Continue his current medications. I will arrange follow-up through our clinic. Admission and Anticipated Discharge Date Admission Date: June 11, 2022 Subjective The patient has had no further chest pain and has had an uneventful night. Review of Systems Review of Systems: Review of Systems: See HPI for pertinent positives. All other 10 point review of systems are negative. Physical Exam Physical Exam: General: no acute distress and stated age Head: normocephalic, no masses, lesions, tenderness or abnormalities Eyes: conjunctiva are pink and non-injected, sclera clear Neck: supple, no adenopathy, no bruits, normal jugular venous pulse, no hepatojugular reflux Chest: normal shape and normal respiratory effort Lungs: clear to auscultation and percussion Cardiac Exam: - irregular rate & rhythm, no murmurs gallops or rubs - normal S1, normal S2 Pulses: 2(+) throughout Abdomen: abdomen soft, non-tender, no abnormal masses and no hepatosplenomegaly Musculoskeletal: no gait disturbance, no joint inflammation, no deforming arthritis Extremities: no edema and no cyanosis, cath site clean and dry Neuro: grossly normal exam ENMT: Mallampati Class: III Results & Data ([facility]) Vital Signs (Past 12 Hours) Vital Signs Temp Pulse Pulse Resp BP BP Pulse Ox 06/14/22 07:39 50 L 06/14/22 07:08 36.4 C L 57 L 19 162/77 H 95 06/14/22 04:01 36.8 C 51 L 15 149/73 H 92 06/13/22 23:52 52 L O2 Del Method 06/14/22 07:39 06/14/22 07:08 Room Air 06/14/22 04:01 Room Air 06/13/22 23:52 Laboratory Results Laboratory Results - last 24 hr 06/13/22 06/13/22 06/13/22 08:01 11:18 15:44 Sodium 138 Potassium 3.5 Chloride 103 Carbon Dioxide 28 Anion Gap 7 BUN 20 Creatinine 1.64 H D Est Cr Clr Drug Dosing 37.9 Est GFR ( Amer) 43.9 Est GFR (Non-Af Amer) 37.8 BUN/Creatinine Ratio 12.2 Glucose 122 H POC Glucose 133 H Calcium 9.2 Magnesium 2.0 Digoxin 0.8 06/13/22 06/13/22 06/13/22 15:45 16:19 20:37 Sodium 137 Potassium 3.6 Chloride 103 Carbon Dioxide 28 Anion Gap 6 BUN 21 Creatinine 1.80 H Est Cr Clr Drug Dosing 34.5 Est GFR ( Amer) 39.2 Est GFR (Non-Af Amer) 33.8 BUN/Creatinine Ratio 11.7 Glucose 93 POC Glucose 129 H 138 H Calcium 8.8 Magnesium 2.1 Digoxin 06/14/22 06/14/22 06:53 07:00 Sodium 138 Potassium 3.5 Chloride 105 Carbon Dioxide 28 Anion Gap 5 BUN 24 H Creatinine 1.80 H Est Cr Clr Drug Dosing 34.5 Est GFR ( Amer) 39.2 Est GFR (Non-Af Amer) 33.8 BUN/Creatinine Ratio 13.3 Glucose 91 POC Glucose 90 Calcium 8.6 Magnesium 2.1 Digoxin Medications Administered Current Inpatient Medications Acetaminophen (Acetaminophen 325 Mg Tab) 650 mg PO Q4H PRN PRN Reason: pain/fever Stop: 07/11/22 01:26 Last Admin: 06/14/22 08:07 Dose: 650 mg Apixaban (Apixaban 2.5 Mg Tab) 2.5 mg PO BID [facility] Stop: 07/13/22 08:59 Last Admin: 06/14/22 08:07 Dose: 2.5 mg Atorvastatin Calcium (Atorvastatin 40 Mg Tab) 40 mg PO [facility] Stop: 07/14/22 08:59 Last Admin: 06/14/22 08:07 Dose: 40 mg Calcium Carbonate (Calcium Carbonate 500 Mg Chewable Tab) 1,500 mg PO BID PRN PRN Reason: Indigestion Stop: 07/11/22 07:34 Last Admin: 06/12/22 07:40 Dose: 1,500 mg Clopidogrel Bisulfate (Clopidogrel Bisulfate 75 Mg Tab) 75 mg PO [facility] Stop: 07/11/22 11:29 Last Admin: 06/14/22 08:06 Dose: 75 mg Dextrose (Dextrose 50% 50 Ml Syringe) 25 - 50 ml IV UD PRN; Protocol PRN Reason: Hypoglycemia Protocol Stop: 07/11/22 01:26 Digoxin (Digoxin 0.125 Mg Tab) 0.125 mg PO QPM [facility] Stop: 07/11/22 20:59 Last Admin: 06/12/22 20:37 Dose: 0.125 mg Glucagon (Glucagon For Inj 1 Mg Vial) 1 mg SQ UD PRN; Protocol PRN Reason: Hypoglycemia Protocol Stop: 07/11/22 01:26 Glucose (Glucose 40% Gel 15 Gm Tube) 15 - 30 gm PO UD PRN; Protocol PRN Reason: Hypoglycemia Protocol Stop: 07/11/22 01:26 Glucose (Glucose 10 Tab/Tube) 4 - 8 tab PO UD PRN; Protocol PRN Reason: Hypoglycemia Treatment Stop: 07/11/22 01:26 Haloperidol Lactate (Haloperidol Lactate 5 Mg/Ml 1 Ml Vial) 5 mg IV Q6 PRN PRN Reason: Agitation Stop: 07/12/22 15:57 Lorazepam 0.5 mg/ Syringe 0.5 mls @ 2 mls/min IV Q6H PRN PRN Reason: Anxiety/Agitation Stop: 07/12/22 14:50 Insulin Aspart (Insulin Aspart Per Unit) 0 units SC ACHS [facility] Stop: 07/12/22 16:29 Last Admin: 06/14/22 08:12 Dose: Not Given Insulin Glargine (Lantus Per Unit Charge) 15 units SQ BID [facility] Stop: 07/11/22 08:59 Last Admin: 06/14/22 08:15 Dose: 15 units Isosorbide Mononitrate (Isosorbide [place] Extended Rel 30 Mg Tabcr) 30 mg PO QAM [facility] Stop: 07/11/22 11:44 Last Admin: 06/13/22 08:08 Dose: 30 mg Metoprolol Succinate (Metoprolol Succ 50mg Ext Rel Tab) 50 mg PO DAILY [facility] Stop: 07/14/22 08:59 Last Admin: 06/14/22 08:04 Dose: Not Given Miscellaneous (Carbohydrates For Hypoglycemia ) 15 - 30 gm PO UD PRN PRN Reason: Hypoglycemia Protocol Stop: 07/11/22 01:26 Morphine Sulfate (Morphine Sulfate 2 Mg/Ml [place]) 2 mg IV Q4 PRN PRN Reason: Pain Scale: 2,3,4,5,6 Stop: 06/27/22 16:18 Last Admin: 06/13/22 16:35 Dose: 2 mg Nitroglycerin (Nitroglycerin Sl 0.4 Mg/Tab Tab) 0.4 mg SL PRN PRN PRN Reason: Chest Pain Stop: 07/11/22 01:26 Last Admin: 06/12/22 04:42 Dose: 0.4 mg Ondansetron HCl (Ondansetron Inj 2 Mg/Ml 2 Ml Vial) 4 mg IV Q6H PRN PRN Reason: Nausea Stop: 07/11/22 01:26 Pantoprazole Sodium (Pantoprazole 40 Mg Tab) 40 mg PO DAILY [facility] Stop: 07/13/22 08:59 Last Admin: 06/14/22 08:06 Dose: 40 mg Polyethylene Glycol (Polyethylene (Miralax) 17 Gm Pack) 34 gm PO DAILY PRN PRN Reason: Constipation Stop: 07/11/22 01:26 Sennosides (Senna 8.6 Mg Tab) 17.2 mg PO BID PRN PRN Reason: Constipation Stop: 07/11/22 01:26
[2022-06-14] MEDS ORDERED: METOPROLOL SUCC 50MG EXT REL TAB PO SCH (09:00)
[2022-06-14] MEDS ORDERED: ATORVASTATIN 40 MG TAB PO SCH (09:00)
--- NOTE | 2022-06-14 14:24 | Discharge Summary ---
Date of Service June 14, 2022 Principal Diagnosis N stemi left heart cath with stent placed mid LAD post procedure encephalopathy resolved Discharge Exam The patient appeared stable he was alert and appropriate he ambulated in [place] with a walker before discharge and family feels is at baseline Vital signs as documented. Cardiac exam, Rhythm is rate controlled Abdominal exam reveals normal bowel sounds, soft non tender, no masses Extremities are nonedematous and both pedal pulses are normal. Discharge Data Allergies Allergy/AdvReac Type Severity Reaction Status Date / Time Sulfa (Sulfonamide Allergy Intermediate RASH, DRY Verified 06/10/22 22:36 Antibiotics) MOUTH sulfamethoxazole Allergy Intermediate RASH, DRY Verified 06/10/22 22:36 MOUTH trimethoprim Allergy Intermediate RASH, DRY Verified 06/10/22 22:36 MOUTH felodipine AdvReac Intermediate EDEMA Verified 06/10/22 22:36 furosemide AdvReac Intermediate DERMATITIS Verified 06/10/22 22:36 metformin AdvReac Intermediate CONSTIPATIO Verified 06/10/22 22:36 N/DIARRHEA simvastatin AdvReac Intermediate Muscle Pain Verified 06/10/22 22:36 Consultations 06/10/22 23:17 ED Decision to Admit Stat 06/11/22 01:27 Consult Cardiology Routine HIM [Consult Health Information Management] Routine 06/12/22 12:48 Consult Cardiac Rehabilitation Routine Procedures Performed Operation Date: 06/12/22 11:00 Actual Procedures p Cath, Left with Cors and Vent - Fadi Heart, DO s Drug Eluting Stent SGl Vessel - Lc Barraza MD Ordered Studies 06/12/22 11:11 CL Cath Imgs for PACS use only Stat Hospital Course (1) Non-ST elevation [place] (NSTEMI): pt with a non stemi, did have Left heart cath on 06/12/22, had LAD stent. will be on Plavix and and eliquis in addition to metoprolol and atorvastatin pt will follow up with [facility], Dr Heart (2) Encephalopathy: resolved, likley from mak procedural medications (3) CAD (coronary artery disease): Patient had cardiac catheterization on the with Dr. Barraza with a successful PCI to mid LAD with a single drug-eluting stent. Diagnostic cardiology performed catheterization showing large ramus branch from the LAD which is evidence of her previous stent was 100% occluded 70% stenosis of the first marginal branch of the circumflex which is a dominant vessel previous stenting there was 80 to 90% stenosis of the LAD right coronary artery has diffuse nonobstructive disease Patient had bradycardia on the . a dogoxin level was obtained and is normal (4) DM type 2 (diabetes mellitus, type 2): a home on insulin plus alogliptin (5) HTN (hypertension): (6) Dyslipidemia: has been on pravastatin, change to atorvastatin (7) Atrial fibrillation: atrial fibrillation, on metorolol digoxin and apixiban (8) Hypokalemia: resolved (9) CKD (chronic kidney disease): Total Time Total Time Spent Total Time Spent (In Minutes): It required greater than 30 minutes to prepare this patient for discharge Discharge Plan Discharge Items Patient Disposition: Home - Self-Care Reason For Visit: EXERTIONAL CHEST PAIN Discharge Diagnosis: n stemi ( mild heart attack) coronary artery disease Condition on Discharge: Fair Activity: Per Instructions section Activity Comment: slowly increase activity, see cardiology before full activity Non-emergency contact: Primary Care Provider and Manager Shop Call non-emergency contact if: your symptoms worsen Follow-up/Referrals: Fadi Heart DO [Manager Shop] - García Melo MD [Primary Care Provider] - Diet: Heart Healthy Addtl Attending Provider Instructions: ACTIVITY RECOMMENDATIONS: Excess manipulation of the wrist should be avoided for the next 24-48 hours. * No lifting over 2 pounds (approximately a 1/2 gallon of milk) with the utilized arm for 24 hours. * No strenuous activity such as bowling or tennis for 3 days. * Keep the site of the procedure covered with a bandage for 24 hours. *You may shower the day after the procedure. Do not take a tub bath or submerge the puncture site in water for the next 3 days. *Do not operate any motorized equipment for 3 days. SPECIAL CARE INSTRUCTIONS: The site may be slightly bruised and sore following your procedure. Should any of the following occur, contact the Dr. who performed your procedure. 1. Redness/inflammation, swelling, chills, or fever, or colored drainage at proc edure site within 3-7 days after your procedure. 2. Coldness, discoloration, ongoing numbness, severe pain, or swelling. Expect mild tingling of hand and tenderness at the puncture site for up to three days. If this persists beyond three days, or other symptoms develop, notify the DrSavanna who performed your procedure. BLEEDING: If the procedure site on your wrist begins to bleed, do not panic 1. Place 1 or 2 fingers firmly just slightly above the insertion site to stop the bleeding. You may be able to feel your pulse as you hold pressure. 2. Lift your finger after 5 minutes to see if the bleeding has stopped. 3. Once the bleeding has stopped, gently wipe the wrist area clean with a bandage. * If the bleeding from your wrist does not stop after 10 minutes, or if there is a large amount of bleeding or spurting, call 911 (do not drive yourself to the hospital). SKIN IRRITATION: * You may experience some redness and/or swelling in the area where radiation was administered. If any skin irritation occurs, please contact your family physician. FOLLOW UP VISIT: Keep any scheduled doctor appointments. Addtl Convertible Sofa Bedspring Tester Provider Instructions: we have substituted a different cholesterol medicine that will be better to help reduce your heart disease atorvastatin you are given some nitroglycerin that can be used if your chest pain returns, if it does not help relieve your chest pain, seek medical attention, if it does relieve it please contact the office at the next time they are open Pending Studies at Discharge: No Stand-Alone Forms: [facility] [place], Smoking Cessation Medications and DC Order Prescriptions: New atorvastatin 40 mg Tablet 40 mg PO QAM Qty: 30 5RF clopidogrel 75 mg Tablet 75 mg PO QAM Qty: 30 5RF pantoprazole 40 mg Tablet,Delayed Release (Dr/Ec) 40 mg PO DAILY Qty: 30 1RF nitroglycerin [Nitrostat] 0.4 mg Tablet, Sublingual 0.4 mg sublingual PRN PRN (Reason: chest pain) Qty: 1 0RF Rx Instructions: 1 sublingual, if chest pain if no relief call 911 Continued sennosides [senna] 8.6 mg Tablet 17.2 mg PO BID PRN (Reason: Constipation) triamcinolone acetonide 0.5 % Ointment 1 applic TOPICAL BID Rx Instructions: TO LEGS, COVER WITH SARAN WRAP FOR 2 HOURS FOR DERMATITIS calcium carbonate [Tums] 200 mg calcium (500 mg) Tablet,Chewable 1,000 mg PO QPM urea 10 % Cream 1 applic TOPICAL DAILY digoxin [Digox] 125 mcg (0.125 mg) Tablet 125 mcg PO QPM Rx Instructions: at 6pm cholecalciferol (vitamin D3) 25 mcg (1,000 unit) Tablet 1,000 unit PO DAILY insulin glargine [Lantus Solostar U-100 Insulin] 100 unit/mL (3 mL) Insulin Pen 30 unit SUBCUT BID apixaban 5 mg Tablet 2.5 mg PO BID magnesium oxide 420 mg Tablet 420 mg PO DAILY ketotifen fumarate 0.025 % (0.035 %) Drops 1 drp OPB BID Rx Instructions: administer at least 8 hours apart metoprolol succinate 100 mg Tablet Extended Release 24 Hr 100 mg PO DAILY polyethylene glycol 3350 [Miralax] 17 gram/dose Powder 34 g PO DAILY PRN (Reason: Constipation) alogliptin 12.5 mg Tablet 12.5 mg PO DAILY Discontinued pravastatin 40 mg Tablet 40 mg PO DAILY famotidine 40 mg Tablet 40 mg PO BID amlodipine 10 mg Tablet 10 mg PO DAILY potassium chloride 20 mEq Tablet Extended Release 40 meq PO DAILY Discharge Orders: Discharge Order (Routine); Ordered 06/14/22 Ordered By: Amadou Sanders/Other Patient Handouts: Managing Type 2 Diabetes Admission Data Admit Date/Time: 06/11/22 00:26 Attending Provider: Amadou Lombardo Admit Provider: Neida Hinds Primary Care Provider: García Melo Other Providers: [facility] ; Neida Hinds ; Fadi Heart Coding Level of Care Code D/C DAY MANAGEMENT >30 MINS Diagnoses Non-ST elevation WI (NSTEMI) I21.4 Encephalopathy G93.40 CAD (coronary artery disease) I25.10 DM type 2 (diabetes mellitus, type 2) E11.9 HTN (hypertension) I10 Dyslipidemia E78.5 Atrial fibrillation I48.91 Hypokalemia E87.6 CKD (chronic kidney disease) N18.9
== END 2022-06-14 15:07 | disposition home or self-care (01) | DRG 247 ==
LOC: ED 21:31 → 2W 06-11 00:15 → EDINP 06-11 00:26 → SUATTDRO 06-11 00:26 → 2W 06-11 09:06 → 2E 06-12 14:37

== ENCOUNTER 2023-02-09 02:27 | Inpatient (IN) ==
[2023-02-09] MEDS ORDERED: ACETAMINOPHEN 1,000 MG/100 ML VIAL IV STA (04:28)
[2023-02-09] MEDS ORDERED: SODIUM CHLORIDE 0.9% 1000ML 1,000 ML IV SCH (04:30)
[2023-02-09 04:44] LABS: Basophils # (auto) 0.01 K/uL (0-0.2); Basophils % (auto) 0.1 %; Eosinophils # (auto) 0.13 K/uL (0-0.50); Eosinophils % (auto) 1.9 %; Hematocrit (blood only) 43.3 % (42.0-52.0); Hemoglobin 14.2 g/dl (14.0-18.0); Immature Granulocytes # (auto) 0.04 K/uL (0.01-0.20); Immature Granulocytes % (auto) 0.6 %; Lymphocytes # (auto) 0.97 K/uL (1.2-3.4); Lymphocytes % (auto) 14.5 %; Mean Corpuscular Hemoglobin 34.5 pg (25.0-34.0); Mean Corpuscular Hgb Conc 32.8 g/dL (32.0-36.0); Mean Corpuscular Volume 105.4 fL (80.0-100.0); Monocytes % (auto) 7.5 %; Neutrophils # (auto) 5.03 K/uL (1.40-6.50); Neutrophils % (auto) 75.4 %; Platelet Count 221 K/uL (130-400); RDW Coefficient of Variation 17.7 % (11.5-14.5); RDW Standard Deviation 68.6 fL (36.4-46.3); Red Blood Count 4.11 M/uL (4.70-6.10); White Blood Count 6.68 K/ul (4.8-10.8)
[2023-02-09 04:48] LABS: Albumin Globulin Ratio 0.9 (0.9-2); Albumin Level 3.6 gm/dl (3.4-5.0); Calcium 9.4 mg/dl (8.6-10.3); Creatinine Clr Calc Pharmacy 50.9 ml/min; Est GFR (African American) 63.5 ml/min; Est GFR (Non-African American) 54.8 ml/min; Globulin 3.8 gm/dl (2.5-4.0); Total Protein 7.4 gm/dl (6.0-8.3)
[2023-02-09 06:40] LABS: Appearance Urine Clear (Clear); Bilirubin Urine Negative (Negative); Blood Urine Negative (Negative); Color Urine Yellow; Glucose Urine UA Negative (Negative); Ketones Urine Negative (Negative); Leukocyte Esterase Urine Negative (Negative); Nitrite Urine Negative (Negative); Protein Urine Negative (Negative); Specific Gravity Urine 1.012 (1.000-1.030); Urobilinogen Urine Positive (Negative)
--- NOTE | 2023-02-09 06:42 | Emergency Department Note ---
Impression & Plan Fall, Closed intertrochanteric fracture of left hip ED Provider Note CHIEF COMPLAINT: Fall, left hip pain HISTORY OF PRESENT ILLNESS: This 87-year-old male patient presents to the emergency department with complaints of a fall that [facility] at the [facility]. The patient resides at [facility] and was found on the floor. Patient was walking with his walker at the time of the fall. He has done this several years ago and broke his right hip. Dr. Zurita operated at that [facility]. Patient denies any head injuries but is on Eliquis for history of atrial fibrillation. Patient also has a history of CAD, diabetes, CVA, CKD. REVIEW OF SYSTEMS: A review of systems was performed with positives and pertinent negatives listed in the history of present illness. 10 systems were reviewed and are otherwise negative. ALLERGIES: see below MEDICATIONS: see below PMH: see below SOCIAL HISTORY: see below DDx:Fracture, dislocation, neurovascular compromise, compartment syndrome, soft tissue injury, as well as other pathologies. PHYSICAL EXAM: Vital signs reviewed. General: Elderly, chronically ill-appearing 87-year-old male. Thin and frail. HEENT: No scleral icterus, PERRLA, neck supple. Atraumatic. Cardiovascular: Irregular but rate controlled Pulmonary: Clear to auscultation bilaterally, normal work of breathing. Abdomen: Soft, nontender, nondistended, positive bowel sounds. Musculoskeletal: Atraumatic, no peripheral edema. Pain to palpation over the left hip anteriorly. Pain with range of motion Neurologic: Patient awake alert and oriented x 3, speech is clear Skin: Warm, dry, no rash EMERGENCY DEPARTMENT COURSE/MDM: This patient was evaluated and appeared to be in no significant distress. Patient was placed on the secured entrance monitor noted to be in a rate controlled atrial fibrillation. Chest x-ray was performed and reveals no evidence of acute traumatic finding to my interpretation. X-rays of the hip and pelvis also appeared to be negative. The patient's pain and history would suggest fracture however therefore CT imaging was performed. IV Tylenol was administered. There is a nondisplaced fracture to my interpretation of the intertrochanteric femur. Case was discussed with [facility]. Montilla of [facility] as well as the hospitalist service for admission. Patient's son was informed of the findings and plan. MONITORING: An order for cardiac monitoring was placed and the patient is noted to be in atrial fibrillation at 72 beats per minute. RADIOLOGY: X-ray of the left hip reveals no evidence of obvious fracture. To my interpretation CT of the hip and pelvis reveals a left greater trochanteric fracture that is nondisplaced. Chest x-ray to my interpretation reveals no evidence of focal lung consolidation or failure. EKG: To my interpretation reveals atrial fibrillation at 69 bpm. Nonspecific T wave abnormality. QTc is 435. DISPOSITION:Admit Past Med/Surg History Medical History (Updated 02/09/23 @ 07:04 by Maris Patel MD) Atrial fibrillation CAD (coronary artery disease) "[place] ~ 2012, s/p 2 stents @ [facility] [place] - details unknown" Diastolic dysfunction "echo 11/2014 - EF 65-70%, diastolic dysfunction" DM type 2 (diabetes mellitus, type 2) Dyslipidemia Hip fracture, right "s/p OIRF and subsequent revision" History of CVA (cerebrovascular accident) HTN (hypertension) TIA (transient ischemic attack) Surgical History No pertinent past surgical history Family History Other Family history non-contributory Social History (Updated 02/09/23 @ 07:03 by Maris Patel MD) Smoking Status: Never smoker Hx Alcohol Use: No Hx Substance Use: No Preferred Language: Micronesian Communication Ability: Unable Sign Writer Letterer Or Painter Required: No Beliefs That Will Affect Care: None marital status: Single Current Living Situation: [facility] Current Living Situation Comment: [facility] How many Children do You have: 1 Feels Safe at Home: Yes Assistive Devices: Cane and Walker Allergies Allergies Allergy/AdvReac Type Severity Reaction Status Date / Time Sulfa (Sulfonamide Allergy Intermediate RASH, DRY Verified 06/10/22 22:36 Antibiotics) MOUTH sulfamethoxazole Allergy Intermediate RASH, DRY Verified 06/10/22 22:36 MOUTH trimethoprim Allergy Intermediate RASH, DRY Verified 06/10/22 22:36 MOUTH felodipine AdvReac Intermediate EDEMA Verified 06/10/22 22:36 furosemide AdvReac Intermediate DERMATITIS Verified 06/10/22 22:36 metformin AdvReac Intermediate CONSTIPATIO Verified 06/10/22 22:36 N/DIARRHEA simvastatin AdvReac Intermediate Muscle Pain Verified 06/10/22 22:36 Home Meds Home Medications Medication Instructions Recorded Confirmed calcium carbonate 200 mg calcium 1,000 mg PO QPM 10/15/19 02/09/23 (500 mg) chewable tablet (Tums) digoxin 125 mcg (0.125 mg) tablet 125 mcg PO QPM 10/15/19 02/09/23 (Digox) sennosides 8.6 mg tablet (senna) 17.2 mg PO BID PRN Constipation 10/15/19 02/09/23 alogliptin 12.5 mg tablet 12.5 mg PO DAILY 06/10/22 02/09/23 magnesium oxide 420 mg tablet 400 mg PO DAILY 06/10/22 02/09/23 metoprolol succinate 100 mg 100 mg PO DAILY 06/10/22 02/09/23 tablet,extended release 24 hr polyethylene glycol 3350 17 34 g PO DAILY PRN Constipation 06/10/22 02/09/23 gram/dose oral powder (Miralax) acetaminophen 325 mg tablet 650 mg PO DAILY 02/09/23 02/09/23 apixaban 2.5 mg tablet (Eliquis) 2.5 mg PO DAILY 02/09/23 02/09/23 atorvastatin 40 mg tablet 40 mg PO HS 02/09/23 02/09/23 duloxetine 20 mg capsule,delayed 20 mg PO DAILY 02/09/23 02/09/23 release lidocaine 5 % topical patch 1 patch transdermal DAILY 02/09/23 02/09/23 tuberculin PPD 5 tub. unit/0.1 mL 5 tb unit intradermal WK 02/09/23 02/09/23 intradermal injection solution (Tubersol) Previous Rx's Medication Instructions Recorded clopidogrel 75 mg tablet 75 mg PO QAM #30 tabs 06/14/22 nitroglycerin 0.4 mg sublingual 0.4 mg sublingual PRN PRN chest 06/14/22 tablet (Nitrostat) pain #1 btl pantoprazole 40 mg tablet,delayed 40 mg PO DAILY #30 tabs 06/14/22 release Results & Data (ED) Vital Signs Vital Signs - 24 hr 02/09/23 02:35 02/09/23 02:45 02/09/23 06:18 Temperature 36.4 C L Temperature Source Oral Pulse Rate 67 64 70 Pulse Rate from SpO2 Sensor Pulse Rhythm Respiratory Rate 22 Respiratory Effort / Characteristics Non-Labored Spontaneous Respiratory Depth Normal Respiratory Pattern Regular Blood Pressure 157/105 H Blood Pressure Mean 122 Blood Pressure Position Lying Pulse Oximetry 92 Oxygen Delivery Method Room Air Sepsis New/Unexplained Change in Mental Status N/A Sepsis Action Taken by Nursing No Action Required 02/09/23 06:22 02/09/23 03:30 02/09/23 03:30 Temperature Temperature Source Pulse Rate 72 72 Pulse Rate from SpO2 Sensor 66 Pulse Rhythm Irregular Respiratory Rate 22 Respiratory Effort / Characteristics Respiratory Depth Respiratory Pattern Blood Pressure 154/97 H Blood Pressure Mean 116 Blood Pressure Position Pulse Oximetry 91 92 Oxygen Delivery Method Room Air Room Air Sepsis New/Unexplained Change in Mental Status Sepsis Action Taken by Nursing 02/09/23 05:45 02/09/23 05:45 02/09/23 06:15 Temperature Temperature Source Pulse Rate 64 66 Pulse Rate from SpO2 Sensor 67 79 Pulse Rhythm Respiratory Rate 23 22 Respiratory Effort / Characteristics Respiratory Depth Respiratory Pattern Blood Pressure 156/85 H Blood Pressure Mean 108 Blood Pressure Position Pulse Oximetry 93 90 Oxygen Delivery Method Room Air Room Air Sepsis New/Unexplained Change in Mental Status Sepsis Action Taken by Nursing 02/09/23 06:15 Temperature Temperature Source Pulse Rate Pulse Rate from SpO2 Sensor Pulse Rhythm Respiratory Rate Respiratory Effort / Characteristics Respiratory Depth Respiratory Pattern Blood Pressure 150/81 H Blood Pressure Mean 104 Blood Pressure Position Pulse Oximetry Oxygen Delivery Method Sepsis New/Unexplained Change in Mental Status Sepsis Action Taken by [facility] Medications Current Medication List: was personally reviewed by me Laboratory Data Attestation: I reviewed the patient's lab results. 02/09/23 02:50 02/09/23 02:50 Lab Results 02/09/23 02/09/23 02/09/23 Range/Units 02:50 02:50 02:50 WBC 6.68 (4.8-10.8) K/ul RBC 4.11 L (4.70-6.10) M/uL Hgb 14.2 (14.0-18.0) g/dl Hct 43.3 (42.0-52.0) % MCV 105.4 H (80.0-100.0) fL MCH 34.5 H (25.0-34.0) pg MCHC 32.8 (32.0-36.0) g/dL RDW Std Deviation 68.6 H (36.4-46.3) fL RDW Coeff of Liya 17.7 H (11.5-14.5) % Plt Count 221 (130-400) K/uL MPV 12.0 (9.4-12.4) fL Immature Gran % (Auto) 0.6 % Neut % (Auto) 75.4 % Lymph % (Auto) 14.5 % [place] % (Auto) 7.5 % Eos % (Auto) 1.9 % Baso % (Auto) 0.1 % Neut # (Auto) 5.03 (1.40-6.50) K/uL Lymph # (Auto) 0.97 L (1.2-3.4) K/uL [place] # (Auto) 0.50 (0.11-0.59) K/uL Eos # (Auto) 0.13 (0-0.50) K/uL Baso # (Auto) 0.01 (0-0.2) K/uL Immature Gran # (Auto) 0.04 (0.01-0.20) K/uL Sodium 136 (136-145) mmol/L Potassium 4.0 (3.5-5.1) mmol/L Chloride 103 (98-107) mmol/L Carbon Dioxide 26 (21-32) mmol/L Anion Gap 7 (3-11) BUN 18 (6-23) mg/dl Creatinine 1.20 (0.6-1.4) mg/dl Est Cr Clr Drug Dosing 50.9 ml/min Est GFR ( Amer) 63.5 ml/min Est GFR (Non-Af Amer) 54.8 ml/min BUN/Creatinine Ratio 15.0 (10-20) Glucose 127 H (70-99(Fasting)) mg/dl Calcium 9.4 (8.6-10.3) mg/dl Magnesium 2.0 (1.7-2.4) mg/dl Total Bilirubin 2.0 H (0.2-1.0) mg/dl AST 42 H (13-39) U/L ALT 26 (7-52) U/L Alkaline Phosphatase 160 H (34-104) U/L Total Protein 7.4 (6.0-8.3) gm/dl Albumin 3.6 (3.4-5.0) gm/dl Globulin 3.8 (2.5-4.0) gm/dl Albumin/Globulin Ratio 0.9 (0.9-2) TSH 4.317 (0.300-4.500) uIu/ml Urine Color Urine Appearance (Clear) Urine pH (4.5-7.5) Ur Specific Ald[place] (1.000-1.030) Urine Protein (Negative) Urine Glucose (UA) (Negative) Urine Ketones (Negative) Urine Blood (Negative) Urine Nitrite (Negative) Urine Bilirubin (Negative) Urine Urobilinogen (Negative) Ur Leukocyte Esterase (Negative) SARS-CoV-2, RNA, NAAT (NEGATIVE) 02/09/23 02/09/23 Range/Units 05:17 05:50 WBC (4.8-10.8) K/ul RBC (4.70-6.10) M/uL Hgb (14.0-18.0) g/dl Hct (42.0-52.0) % MCV (80.0-100.0) fL MCH (25.0-34.0) pg MCHC (32.0-36.0) g/dL RDW Std Deviation (36.4-46.3) fL RDW Coeff of Liya (11.5-14.5) % Plt Count (130-400) K/uL MPV (9.4-12.4) fL Immature Gran % (Auto) % Neut % (Auto) % Lymph % (Auto) % [place] % (Auto) % Eos % (Auto) % Baso % (Auto) % Neut # (Auto) (1.40-6.50) K/uL Lymph # (Auto) (1.2-3.4) K/uL [place] # (Auto) (0.11-0.59) K/uL Eos # (Auto) (0-0.50) K/uL Baso # (Auto) (0-0.2) K/uL Immature Gran # (Auto) (0.01-0.20) K/uL Sodium (136-145) mmol/L Potassium (3.5-5.1) mmol/L Chloride (98-107) mmol/L Carbon Dioxide (21-32) mmol/L Anion Gap (3-11) BUN (6-23) mg/dl Creatinine (0.6-1.4) mg/dl Est Cr Clr Drug Dosing ml/min Est GFR ( Amer) ml/min Est GFR (Non-Af Amer) ml/min BUN/Creatinine Ratio (10-20) Glucose (70-99(Fasting)) mg/dl Calcium (8.6-10.3) mg/dl Magnesium (1.7-2.4) mg/dl Total Bilirubin (0.2-1.0) mg/dl AST (13-39) U/L ALT (7-52) U/L Alkaline Phosphatase (34-104) U/L Total Protein (6.0-8.3) gm/dl Albumin (3.4-5.0) gm/dl Globulin (2.5-4.0) gm/dl Albumin/Globulin Ratio (0.9-2) TSH (0.300-4.500) uIu/ml Urine Color Yellow Urine Appearance Clear (Clear) Urine pH 7.0 (4.5-7.5) Ur Specific Ald[place] 1.012 (1.000-1.030) Urine Protein Negative (Negative) Urine Glucose (UA) Negative (Negative) Urine Ketones Negative (Negative) Urine Blood Negative (Negative) Urine Nitrite Negative (Negative) Urine Bilirubin Negative (Negative) Urine Urobilinogen Positive H (Negative) Ur Leukocyte Esterase Negative (Negative) SARS-CoV-2, RNA, NAAT NEGATIVE (NEGATIVE) Administered Medications Sodium Chloride (Nss 1000ml) 1,000 mls @ 100 mls/hr IV .Q10H CHRIS Stop: 02/09/23 14:29 Last Admin: 02/09/23 05:07 Dose: 100 mls/hr Documented By: Discontinued Medications Acetaminophen (Ofirmev) 1,000 mg in 100 mls @ 400 mls/hr IV NOW STA Stop: 02/09/23 04:42 Last Infusion: 02/09/23 05:40 Dose: 0 mls/hr Documented By: Admin: 02/09/23 05:07 Dose: 400 mls/hr Documented By: Imaging Data Radiologist's Impression: Head CT 02/09/23 03:39 Exam(s): CT HEAD Without Contrast EXAM: CT Head Without Intravenous Contrast CLINICAL HISTORY: Reason for exam: fall, eliquis. TECHNIQUE: Axial computed tomography images of the head/brain without intravenous contrast. CTDI is 38.06 mGy and DLP is 691.05 mGy-cm. Automated exposure control was utilized for the study. A dose lowering technique was utilized adhering to the principles of ALARA. COMPARISON: No relevant prior studies available. 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 No hemorrhage. Ventricles: Unremarkable. No ventriculomegaly. Nodular calcifications seen medially in the right cerebellar hemisphere. Bones/joints: Unremarkable. No acute fracture. Soft tissues: Unremarkable. Sinuses: Unremarkable as visualized. No acute sinusitis. Mastoid air cells: Unremarkable as visualized. No mastoid effusion. IMPRESSION: No acute findings in the head/brain. Electronically signed by: Pepe Cedeno MD 02/09/23 06:[address] 02/09/23 04:26 Exam(s): CT PELVIS Without Contrast EXAM: CT Pelvis Without Intravenous Contrast CLINICAL HISTORY: Reason for exam: fall, L hip pain. TECHNIQUE: Axial computed tomography images of the pelvis without intravenous contrast. CTDI is 27.85 mGy and DLP is 1302.93 mGy-cm. Automated exposure control was utilized for the study. A dose lowering technique was utilized adhering to the principles of ALARA. COMPARISON: No relevant prior studies available. FINDINGS: Bones/joints: There is acute basicervical left femoral neck fracture with extension of the fracture line into the left greater trochanter. The bones are osteopenic. There is a total right hip arthroplasty. Severe degenerative disc disease changes seen at L4/5 and L5/S1 junction. Old healed fracture deformity seen in the S5 segment of the sacrum. No dislocation. Vasculature: Unremarkable. No lower abdominal aortic aneurysm. Lymph nodes: Unremarkable. No enlarged lymph nodes. IMPRESSION: Acute basicervical left femoral neck fracture with involvement of the left greater trochanter Electronically signed by: Pepe Cedeno MD 02/09/23 06:56 AM Discharge Plan Visit Data Chief Complaint: Fall Stated Complaint: Hip Pain, Knee Pain ED Provider: Maris Patel Discharge Problem: Fall, Closed intertrochanteric fracture of left hip Forms Stand Alone Forms: [facility] Prescriptions Prescriptions: No Action sennosides [senna] 8.6 mg Tablet 17.2 mg PO BID PRN (Reason: Constipation) calcium carbonate [Tums] 200 mg calcium (500 mg) Tablet,Chewable 1,000 mg PO QPM digoxin [Digox] 125 mcg (0.125 mg) Tablet 125 mcg PO QPM Rx Instructions: at 6pm magnesium oxide 420 mg Tablet 400 mg PO DAILY metoprolol succinate 100 mg Tablet Extended Release 24 Hr 100 mg PO DAILY polyethylene glycol 3350 [Miralax] 17 gram/dose Powder 34 g PO DAILY PRN (Reason: Constipation) alogliptin 12.5 mg Tablet 12.5 mg PO DAILY clopidogrel 75 mg Tablet 75 mg PO QAM Qty: 30 5RF pantoprazole 40 mg Tablet,Delayed Release (Dr/Ec) 40 mg PO DAILY Qty: 30 1RF nitroglycerin [Nitrostat] 0.4 mg Tablet, Sublingual 0.4 mg sublingual PRN PRN (Reason: chest pain) Qty: 1 0RF Rx Instructions: 1 sublingual, if chest pain if no relief call 911 Tubersol 5 tub. unit /0.1 mL Solution 5 tb unit INTRADERMAL WK acetaminophen 325 mg tablet 650 mg PO DAILY lidocaine 5 % adhesive patch,medicated 1 patch transdermal DAILY duloxetine 20 mg capsule,delayed release(DR/EC) 20 mg PO DAILY Eliquis 2.5 mg tablet 2.5 mg PO DAILY atorvastatin 40 mg tablet 40 mg PO HS Referrals Referrals: García Melo MD [Primary Care Provider] -
--- NOTE | 2023-02-09 06:52 | CT Scan Report ---
Exam(s): CT HEAD Without Contrast EXAM: CT Head Without Intravenous Contrast CLINICAL HISTORY: Reason for exam: fall, eliquis. TECHNIQUE: Axial computed tomography images of the head/brain without intravenous contrast. CTDI is 38.06 mGy and DLP is 691.05 mGy-cm. Automated exposure control was utilized for the study. A dose lowering technique was utilized adhering to the principles of ALARA. COMPARISON: No relevant prior studies available. 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 No hemorrhage. Ventricles: Unremarkable. No ventriculomegaly. Nodular calcifications seen medially in the right cerebellar hemisphere. Bones/joints: Unremarkable. No acute fracture. Soft tissues: Unremarkable. Sinuses: Unremarkable as visualized. No acute sinusitis. Mastoid air cells: Unremarkable as visualized. No mastoid effusion. IMPRESSION: No acute findings in the head/brain. Electronically signed by: Pepe Cedeno MD 02/09/23 06:51 AM
--- NOTE | 2023-02-09 06:57 | CT Scan Report ---
Exam(s): CT PELVIS Without Contrast EXAM: CT Pelvis Without Intravenous Contrast CLINICAL HISTORY: Reason for exam: fall, L hip pain. TECHNIQUE: Axial computed tomography images of the pelvis without intravenous contrast. CTDI is 27.85 mGy and DLP is 1302.93 mGy-cm. Automated exposure control was utilized for the study. A dose lowering technique was utilized adhering to the principles of ALARA. COMPARISON: No relevant prior studies available. FINDINGS: Bones/joints: There is acute basicervical left femoral neck fracture with extension of the fracture line into the left greater trochanter. The bones are osteopenic. There is a total right hip arthroplasty. Severe degenerative disc disease changes seen at L4/5 and L5/S1 junction. Old healed fracture deformity seen in the S5 segment of the sacrum. No dislocation. Vasculature: Unremarkable. No lower abdominal aortic aneurysm. Lymph nodes: Unremarkable. No enlarged lymph nodes. IMPRESSION: Acute basicervical left femoral neck fracture with involvement of the left greater trochanter Electronically signed by: Pepe Cedeno MD 02/09/23 06:56 AM
--- NOTE | 2023-02-09 08:22 | History & Physical Report ---
Date of Service February 09, 2023 Assessment & Plan (1) Fall: Plan: Unwitnessed, using walker at [facility] - hx dementia CT head negative, on eliquis for hx afib CT pelvis Acute basicervical left femoral neck fracture with involvement of the left greater trochanter UA w/o evidence for infection Admit to PCU Orthopedics consulted, Dr Montilla -- will hold off surgery for today Trop not elevated but will trend given complaints of discomfort, but likely from prior falls/trauma/rib fx reported EKG w/ afib, rates controlled Check ECHO given fall/reported dizziness/afib/murmur Check CXR w/ ribs for reported rib fractures, shoulder given prior falls RUQ US given TB/ALP elevation and pain on exam as cause for weakness/falls Check CK given fall, hold statin for now Check B12/folate given MCV >100 to r/o other causes for balance issues Pain control -- tylenol/morphine prn Antiemetics -- Zofran prn Ok'd w/ ortho to continue ASA 81mg daily in leui of plavix (stent may 2022) Monitor labs on repeat, NPO at midnight (2) Closed intertrochanteric fracture of left hip: Plan: as above ortho on consult pain control/SCDs for dvt proph (3) CKD (chronic kidney disease): Plan: BUN/Cr stable 18/1.2 IVF for some mild dehydration on exam, diet ordered DM/AHA BMP in AM (4) CAD (coronary artery disease): Plan: hx of stents in 2012, and 1DES in 2021 at [facility] On Plavix, holding for surgery as above EKG on admit w/ afib Trend trop/check ECHO Cards consulted for clearance/reported symptoms monitor on tele, EKG w/ CP Nitro available prn Continue metoprolol 100mg daily, resume statin after surgey (5) DM type 2 (diabetes mellitus, type 2): Plan: [facility] meds bsg ac/hs ssi while inpatient checking a1c w/ am labs (6) HTN (hypertension): Plan: resume metoprolol now, BP elevated 165/99 in setting of pain CT head negative on admit Monitor BP/pain control Will order hydralazine prn (7) Dyslipidemia: Plan: check CK, resume statin if not elevated (8) Atrial fibrillation: Plan: monitor on tele continue metoprolol, digoxin holding eliquis given above fracture for surgery TSH wnl Keep mag/K replete -- K4, Mag 2.0 on admit (9) Macrocytosis: Plan: mcv 105, will check B12/folate -- ? if B12 low/leading to underlying dementia/fall TSH wnl, checked given afib Plan admit to PCU NPO at midnight Trend trop/check ECHO/cards consulted as above History of Present Illness Chief Complaint: fall, hip fx Primary Care Provider: García Melo MD 87yo male with PMHx signifciant for CAD, HTN, HLD, Afib, DM II, dementia, residing at [facility] using walker for ambulation found down on the ground after an [facility] at [facility]. Multiple years ago w/ similar episode and broke right hip which was operated on by Dr Staton. Had cardiac cath May 2022, PCI w/ DEB and placed on Plavix at that time. On eliquis for history of afib, also on digoxin/metoprolol. Son at bedside, states patient at [facility] since Friday. Prior to that initially [facility] but was at [facility] for a fall previous weeks (bumped his head, CT neg on admit), found to have rib fractures and dc to [facility] on Friday. Patient with garbled speech at baseline but able to be understood. Stated he was using walker to get to doorway (sounds like commotion at [facility] and wanted to know what was going on) and turned around and slipped. He notes he had some chest discomfort after the fall. Denies any cardiac chest pain/radiation but does have right shoulder pain. Does have some right rib/upper abd discomfort, but no nausea/vomiting. Will check Xray shoulder/RUQ GB for eval. Seen by Dr Montilla at end of exam, planning for surgery tomorrow, possibly with Dr Staton. EKG w/ afib w/ junctional pacemaker , nonspecific ST. Trop minimally elevated and will trend. Prior hallucinations w/ anesthesia. Dementia at baseline. Allergies Allergy/AdvReac Type Severity Reaction Status Date / Time Sulfa (Sulfonamide Allergy Intermediate RASH, DRY Verified 02/09/23 08:13 Antibiotics) MOUTH sulfamethoxazole Allergy Intermediate RASH, DRY Verified 02/09/23 08:13 MOUTH trimethoprim Allergy Intermediate RASH, DRY Verified 02/09/23 08:13 MOUTH felodipine AdvReac Intermediate EDEMA Verified 02/09/23 08:13 furosemide AdvReac Intermediate DERMATITIS Verified 02/09/23 08:13 metformin AdvReac Intermediate CONSTIPATIO Verified 02/09/23 08:13 N/DIARRHEA simvastatin AdvReac Intermediate Muscle Pain Verified 02/09/23 08:13 Home Medications Medication Instructions Recorded Confirmed Type calcium carbonate 200 mg calcium 1,000 mg PO HS 10/15/19 02/09/23 History (500 mg) chewable tablet (Tums) digoxin 125 mcg (0.125 mg) tablet 125 mcg PO QPM 10/15/19 02/09/23 History (Digox) sennosides 8.6 mg tablet (senna) 17.2 mg PO BID PRN Constipation 10/15/19 02/09/23 History alogliptin 12.5 mg tablet 12.5 mg PO QAM 06/10/22 02/09/23 History metoprolol succinate 100 mg 100 mg PO QAM 06/10/22 02/09/23 History tablet,extended release 24 hr polyethylene glycol 3350 17 34 g PO DAILY PRN Constipation 06/10/22 02/09/23 History gram/dose oral powder (Miralax) clopidogrel 75 mg tablet 75 mg PO QAM #30 tabs 06/14/22 02/09/23 Rx nitroglycerin 0.4 mg sublingual 0.4 mg sublingual PRN PRN chest 06/14/22 02/09/23 Rx tablet (Nitrostat) pain #1 btl acetaminophen 325 mg tablet 650 mg PO TID PRN Pain 02/09/23 02/09/23 History apixaban 2.5 mg tablet (Eliquis) 2.5 mg PO BID 02/09/23 02/09/23 History atorvastatin 40 mg tablet 40 mg PO HS 02/09/23 02/09/23 History duloxetine 20 mg capsule,delayed 20 mg PO QAM 02/09/23 02/09/23 History release lidocaine 5 % topical patch 1 patch transdermal DAILY 02/09/23 02/09/23 History magnesium oxide 400 mg (241.3 mg 400 mg PO QAM 02/09/23 02/09/23 History magnesium) tablet nitroglycerin 0.4 mg sublingual 0.4 mg sublingual USEASDIRECTD PRN 02/09/23 02/09/23 History tablet Chest Pain pantoprazole 40 mg tablet,delayed 40 mg PO DAILYBB 02/09/23 02/09/23 History release tuberculin PPD 5 tub. unit/0.1 mL 5 tb unit intradermal WK 02/09/23 02/09/23 History intradermal injection solution (Tubersol) Past Med/Surg History Medical History (Updated 02/09/23 @ 13:45 by Som Martinez DO) Atrial fibrillation CAD (coronary artery disease) status post drug-eluting stent LAD May 2022 and previous stent to the ramus artery which is occluded Diastolic dysfunction "echo 11/2014 - EF 65-70%, diastolic dysfunction" DM type 2 (diabetes mellitus, type 2) Dyslipidemia Hip fracture, right "s/p OIRF and subsequent revision" History of CVA (cerebrovascular accident) HTN (hypertension) TIA (transient ischemic attack) Surgical History No pertinent past surgical history Family History Other Family history non-contributory Social History Smoking Status: Never smoker Hx Alcohol Use: No Hx Substance Use: No Preferred Language: Yoruba Communication Ability: Unable Sole Trimmer Required: No Beliefs That Will Affect Care: None marital status: Single Current Living Situation: Residential Current Living Situation Comment: [facility] How many Children do You have: 1 Feels Safe at Home: Yes Assistive Devices: Cane and Walker Physical Exam Physical Exam: General: elderly male sitting in bed, complaints mod discomfort to his knee, son at bedside HEENT: HARD of hearing, head normocephalic, mm slightly dry, trachea midline Resp: nonlabored, diminished in the bases, no w/c, 95% on RA CV: irregularly irregular (rates 70-90s on tele), +murmur, 1+ b/l LE edema/ecchymosis from prior falls, scabs, calves nontender, pulses palpable, skin shiny/atrophic GI: +BS, soft, slightly tender RUQ/under ribs, no guarding/rebound : no ramos MSK/Neuro; sensation intact, bruising to left hip, +pain w/ internal/external rotation, tender to palpation greater trochanter, NVI no pronator drift, strength equal b/l UE, garbled speech at times (baseline per son) but able to be understood Psych: alert to person/remembers falling/events, not alert to month cooperative and pleasant, not aggressive Results & Data Results & Data Vital Signs (Past 12 Hours) Vital Signs Temp Pulse Resp BP Pulse Ox O2 Del Method 02/09/23 08:11 71 20 163/98 H 95 Room Air 02/09/23 07:21 68 20 162/94 H 93 Room Air 02/09/23 06:15 150/81 H 02/09/23 06:15 66 22 90 Room Air 02/09/23 05:45 64 23 93 Room Air 02/09/23 05:45 156/85 H 02/09/23 03:30 72 22 92 Room Air 02/09/23 03:30 154/97 H 02/09/23 06:22 72 91 Room Air 02/09/23 06:18 70 02/09/23 02:45 36.4 C L 64 22 157/105 H 92 Room Air 02/09/23 02:35 67 Laboratory Results 02/09/23 02/09/23 02/09/23 Range/Units 05:50 05:17 02:50 WBC (4.8-10.8) K/ul RBC (4.70-6.10) M/uL Hgb (14.0-18.0) g/dl Hct (42.0-52.0) % MCV (80.0-100.0) fL MCH (25.0-34.0) pg MCHC (32.0-36.0) g/dL RDW Std Deviation (36.4-46.3) fL RDW Coeff of Liya (11.5-14.5) % Plt Count (130-400) K/uL MPV (9.4-12.4) fL Immature Gran % (Auto) % Neut % (Auto) % Lymph % (Auto) % [place] % (Auto) % Eos % (Auto) % Baso % (Auto) % Neut # (Auto) (1.40-6.50) K/uL Lymph # (Auto) (1.2-3.4) K/uL [place] # (Auto) (0.11-0.59) K/uL Eos # (Auto) (0-0.50) K/uL Baso # (Auto) (0-0.2) K/uL Immature Gran # (Auto) (0.01-0.20) K/uL Sodium (136-145) mmol/L Potassium (3.5-5.1) mmol/L Chloride (98-107) mmol/L Carbon Dioxide (21-32) mmol/L Anion Gap (3-11) BUN (6-23) mg/dl Creatinine (0.6-1.4) mg/dl Est Cr Clr Drug Dosing ml/min Est GFR ( Amer) ml/min Est GFR (Non-Af Amer) ml/min BUN/Creatinine Ratio (10-20) Glucose (70-99(Fasting)) mg/dl Calcium (8.6-10.3) mg/dl Magnesium (1.7-2.4) mg/dl Total Bilirubin (0.2-1.0) mg/dl AST (13-39) U/L ALT (7-52) U/L Alkaline Phosphatase (34-104) U/L Total Protein (6.0-8.3) gm/dl Albumin (3.4-5.0) gm/dl Globulin (2.5-4.0) gm/dl Albumin/Globulin Ratio (0.9-2) Vitamin B12 273 (180-914) pg/ml Folate 12.54 (>5.38) ng/ml TSH (0.300-4.500) uIu/ml Urine Color Yellow Urine Appearance Clear (Clear) Urine pH 7.0 (4.5-7.5) Ur Specific [place] 1.012 (1.000-1.030) Urine Protein Negative (Negative) Urine Glucose (UA) Negative (Negative) Urine Ketones Negative (Negative) Urine Blood Negative (Negative) Urine Nitrite Negative (Negative) Urine Bilirubin Negative (Negative) Urine Urobilinogen Positive H (Negative) Ur Leukocyte Esterase Negative (Negative) SARS-CoV-2, RNA, NAAT NEGATIVE (NEGATIVE) 02/09/23 02/09/23 02/09/23 Range/Units 02:50 02:50 02:50 WBC 6.68 (4.8-10.8) K/ul RBC 4.11 L (4.70-6.10) M/uL Hgb 14.2 (14.0-18.0) g/dl Hct 43.3 (42.0-52.0) % MCV 105.4 H (80.0-100.0) fL MCH 34.5 H (25.0-34.0) pg MCHC 32.8 (32.0-36.0) g/dL RDW Std Deviation 68.6 H (36.4-46.3) fL RDW Coeff of Liya 17.7 H (11.5-14.5) % Plt Count 221 (130-400) K/uL MPV 12.0 (9.4-12.4) fL Immature Gran % (Auto) 0.6 % Neut % (Auto) 75.4 % Lymph % (Auto) 14.5 % [place] % (Auto) 7.5 % Eos % (Auto) 1.9 % Baso % (Auto) 0.1 % Neut # (Auto) 5.03 (1.40-6.50) K/uL Lymph # (Auto) 0.97 L (1.2-3.4) K/uL [place] # (Auto) 0.50 (0.11-0.59) K/uL Eos # (Auto) 0.13 (0-0.50) K/uL Baso # (Auto) 0.01 (0-0.2) K/uL Immature Gran # (Auto) 0.04 (0.01-0.20) K/uL Sodium 136 (136-145) mmol/L Potassium 4.0 (3.5-5.1) mmol/L Chloride 103 (98-107) mmol/L Carbon Dioxide 26 (21-32) mmol/L Anion Gap 7 (3-11) BUN 18 (6-23) mg/dl Creatinine 1.20 (0.6-1.4) mg/dl Est Cr Clr Drug Dosing 50.9 ml/min Est GFR ( Amer) 63.5 ml/min Est GFR (Non-Af Amer) 54.8 ml/min BUN/Creatinine Ratio 15.0 (10-20) Glucose 127 H (70-99(Fasting)) mg/dl Calcium 9.4 (8.6-10.3) mg/dl Magnesium 2.0 (1.7-2.4) mg/dl Total Bilirubin 2.0 H (0.2-1.0) mg/dl AST 42 H (13-39) U/L ALT 26 (7-52) U/L Alkaline Phosphatase 160 H (34-104) U/L Total Protein 7.4 (6.0-8.3) gm/dl Albumin 3.6 (3.4-5.0) gm/dl Globulin 3.8 (2.5-4.0) gm/dl Albumin/Globulin Ratio 0.9 (0.9-2) Vitamin B12 (180-914) pg/ml Folate (>5.38) ng/ml TSH 4.317 (0.300-4.500) uIu/ml Urine Color Urine Appearance (Clear) Urine pH (4.5-7.5) Ur Specific [place] (1.000-1.030) Urine Protein (Negative) Urine Glucose (UA) (Negative) Urine Ketones (Negative) Urine Blood (Negative) Urine Nitrite (Negative) Urine Bilirubin (Negative) Urine Urobilinogen (Negative) Ur Leukocyte Esterase (Negative) SARS-CoV-2, RNA, NAAT (NEGATIVE) Diagnostic Findings Chest X-Ray 02/09/23 03:39 XR chest 1V portable CLINICAL HISTORY: trauma TECHNIQUE: Single frontal radiograph of the chest was obtained. Comparison: Comparison is made to chest radiograph 06/10/2022 FINDINGS: No lines and tubes are seen. Cardiomegaly is noted. The aortic arch is calcified. The lungs are clear. No evidence of pleural effusion or pneumothorax. IMPRESSION: No acute chest disease. ACT 112: Negative or not required by law. Electronically signed by: Tomi Luke M.D. 02/09/2023 8:51 AM Femur X-Ray 02/09/23 03:39 XR femur LT 2V routine, XR pelvis 1-2V routine CLINICAL HISTORY: fall, hip pain TECHNIQUE: 2 radiographic views of the left femur and 2 views of the pelvis were obtained. Comparison: Comparison is made to CT abdomen pelvis 09/18/2021 FINDINGS: There is a linear lucency in the intertrochanteric left femur. Degenerative changes are seen in the left hip joint. Right total hip arthroplasty noted. Vascular calcifications are noted. IMPRESSION: Linear lucency in the intertrochanteric left femur is new from prior exams. Findings may represent a nondisplaced intratrochanteric fracture. ACT 112: Negative or not required by law. Electronically signed by: Tomi Luke M.D. 02/09/2023 8:[address] 02/09/23 03:39 Exam(s): CT HEAD Without Contrast EXAM: CT Head Without Intravenous Contrast CLINICAL HISTORY: Reason for exam: fall, eliquis. TECHNIQUE: Axial computed tomography images of the head/brain without intravenous contrast. CTDI is 38.06 mGy and DLP is 691.05 mGy-cm. Automated exposure control was utilized for the study. A dose lowering technique was utilized adhering to the principles of ALARA. COMPARISON: No relevant prior studies available. 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 No hemorrhage. Ventricles: Unremarkable. No ventriculomegaly. Nodular calcifications seen medially in the right cerebellar hemisphere. Bones/joints: Unremarkable. No acute fracture. Soft tissues: Unremarkable. Sinuses: Unremarkable as visualized. No acute sinusitis. Mastoid air cells: Unremarkable as visualized. No mastoid effusion. IMPRESSION: No acute findings in the head/brain. Electronically signed by: Pepe Cedeno MD 02/09/23 06:51 AM Pelvis X-Ray 02/09/23 03:39 XR femur LT 2V routine, XR pelvis 1-2V routine CLINICAL HISTORY: fall, hip pain TECHNIQUE: 2 radiographic views of the left femur and 2 views of the pelvis were obtained. Comparison: Comparison is made to CT abdomen pelvis 09/18/2021 FINDINGS: There is a linear lucency in the intertrochanteric left femur. Degenerative changes are seen in the left hip joint. Right total hip arthroplasty noted. Vascular calcifications are noted. IMPRESSION: Linear lucency in the intertrochanteric left femur is new from prior exams. Findings may represent a nondisplaced intratrochanteric fracture. ACT 112: Negative or not required by law. Electronically signed by: Tomi Luke M.D. 02/09/2023 8:[address] 02/09/23 04:26 Exam(s): CT PELVIS Without Contrast EXAM: CT Pelvis Without Intravenous Contrast CLINICAL HISTORY: Reason for exam: fall, L hip pain. TECHNIQUE: Axial computed tomography images of the pelvis without intravenous contrast. CTDI is 27.85 mGy and DLP is 1302.93 mGy-cm. Automated exposure control was utilized for the study. A dose lowering technique was utilized adhering to the principles of ALARA. COMPARISON: No relevant prior studies available. FINDINGS: Bones/joints: There is acute basicervical left femoral neck fracture with extension of the fracture line into the left greater trochanter. The bones are osteopenic. There is a total right hip arthroplasty. Severe degenerative disc disease changes seen at L4/5 and L5/S1 junction. Old healed fracture deformity seen in the S5 segment of the sacrum. No dislocation. Vasculature: Unremarkable. No lower abdominal aortic aneurysm. Lymph nodes: Unremarkable. No enlarged lymph nodes. IMPRESSION: Acute basicervical left femoral neck fracture with involvement of the left greater trochanter Electronically signed by: Pepe Cedeno MD 02/09/23 06:56 AM Supervising Physician Co-Signing Physician Notes The patient was seen and examined by me. The chart was reviewed. I spoke to the patient and his son who was present. The son was advised to continue bed hold at [facility] in [place] so the patient can return there later this week after the hip fracture is repaired. Case discussed with NICK Meza. Samanthajimiis is on hold. PG Care Time/CCT Total # of Minutes Spent Total Time Spent with Patient: Total time spent is greater than 50% in coordination of care (as documented) at patient's floor/unit and/or counseling patient: Coding Level of Care Code 26228 INT INP/OBS CARE 3/75MIN Diagnoses Fall W19.XXXA Closed intertrochanteric fracture of left hip S72.142A CKD (chronic kidney disease) N18.9 CAD (coronary artery disease) I25.10 DM type 2 (diabetes mellitus, type 2) E11.9 HTN (hypertension) I10 Dyslipidemia E78.5 Atrial fibrillation I48.91 Macrocytosis D75.89
[2023-02-09] MEDS ORDERED: MoRPHine SULFATE 2 MG/ML CARP IV PRN ×2 (08:35→10:16)
--- NOTE | 2023-02-09 08:53 | XRay Report ---
XR chest 1V portable CLINICAL HISTORY: trauma TECHNIQUE: Single frontal radiograph of the chest was obtained. Comparison: Comparison is made to chest radiograph 06/10/2022 FINDINGS: No lines and tubes are seen. Cardiomegaly is noted. The aortic arch is calcified. The lungs are clear . No evidence of pleural effusion or pneumothorax. IMPRESSION: No acute chest disease. ACT 112: Negative or not required by law. Electronically signed by: Tomi Luke M.D. 02/09/2023 8:51 AM
--- NOTE | 2023-02-09 08:53 | XRay Report ---
XR femur LT 2V routine, XR pelvis 1-2V routine CLINICAL HISTORY: fall, hip pain TECHNIQUE: 2 radiographic views of the left femur and 2 views of the pelvis were obtained. Comparison: Comparison is made to CT abdomen pelvis 09/18/2021 FINDINGS: There is a linear lucency in the intertrochanteric left femur. Degenerative changes are seen in the left hip joint. Right total hip arthroplasty noted. Vascular calcifications are noted. IMPRESSION: Linear lucency in the intertrochanteric left femur is new from prior exams. Findings may represent a nondisplaced intratrochanteric fracture. ACT 112: Negative or not required by law. Electronically signed by: Tomi Luke M.D. 02/09/2023 8:52 AM
[2023-02-09] MEDS ORDERED: ASPIRIN 81 MG ECTAB PO STA (09:02)
--- NOTE | 2023-02-09 09:11 | Anesthesiology Consultation ---
Date of Service February 09, 2023 Assessment & Plan Chart Review Chart Review: entry rep initiated History Height/Weight Height: 6 ft 1 in Weight: 84.2 kg Allergies Allergy/AdvReac Type Severity Reaction Status Date / Time Sulfa (Sulfonamide Allergy Intermediate RASH, DRY Verified 02/09/23 08:13 Antibiotics) MOUTH sulfamethoxazole Allergy Intermediate RASH, DRY Verified 02/09/23 08:13 MOUTH trimethoprim Allergy Intermediate RASH, DRY Verified 02/09/23 08:13 MOUTH felodipine AdvReac Intermediate EDEMA Verified 02/09/23 08:13 furosemide AdvReac Intermediate DERMATITIS Verified 02/09/23 08:13 metformin AdvReac Intermediate CONSTIPATIO Verified 02/09/23 08:13 N/DIARRHEA simvastatin AdvReac Intermediate Muscle Pain Verified 02/09/23 08:13 Medications Home Medications Medication Instructions Recorded Confirmed Last Taken calcium carbonate 200 mg calcium 1,000 mg PO HS 10/15/19 02/09/23 02/08/23 21:00 (500 mg) chewable tablet (Tums) digoxin 125 mcg (0.125 mg) tablet 125 mcg PO QPM 10/15/19 02/09/23 02/08/23 18:00 (Digox) sennosides 8.6 mg tablet (senna) 17.2 mg PO BID PRN Constipation 10/15/1902/0902/08/23 09:00 alogliptin 12.5 mg tablet 12.5 mg PO QAM 06/10/22 02/09/23 02/08/23 09:00 metoprolol succinate 100 mg 100 mg PO QAM 06/10/22 02/09/23 02/08/23 09:00 tablet,extended release 24 hr polyethylene glycol 3350 17 34 g PO DAILY PRN Constipation 06/10/22 02/09/23 Unknown gram/dose oral powder (Miralax) clopidogrel 75 mg tablet 75 mg PO QAM #30 tabs 06/14/22 02/09/23 02/08/23 09:00 nitroglycerin 0.4 mg sublingual 0.4 mg sublingual PRN PRN chest 06/14/22 02/09/23 Unknown tablet (Nitrostat) pain #1 btl acetaminophen 325 mg tablet 650 mg PO TID PRN Pain 02/09/23 02/09/23 02/08/23 apixaban 2.5 mg tablet (Eliquis) 2.5 mg PO BID 02/09/23 02/09/23 02/08/23 09:00 atorvastatin 40 mg tablet 40 mg PO HS 02/09/23 02/09/23 02/08/23 21:00 duloxetine 20 mg capsule,delayed 20 mg PO QAM 02/09/23 02/09/23 02/08/23 release lidocaine 5 % topical patch 1 patch transdermal DAILY 02/09/23 02/09/23 02/08/23 magnesium oxide 400 mg (241.3 mg 400 mg PO QAM 02/09/23 02/09/23 02/08/23 09:00 magnesium) tablet nitroglycerin 0.4 mg sublingual 0.4 mg sublingual USEASDIRECTD PRN 02/09/23 02/09/23 Unknown tablet Chest Pain pantoprazole 40 mg tablet,delayed 40 mg PO DAILYBB 02/09/23 02/09/23 02/08/23 06:30 release tuberculin PPD 5 tub. unit/0.1 mL 5 tb unit intradermal WK 02/09/23 02/09/23 Unknown intradermal injection solution (Tubersol) Active Medications Generic Name Dose Route Start Last Admin Trade Name Freq PRN Reason Stop Dose Admin Sodium Chloride 1,000 mls @ 100 mls/hr 02/09/23 04:30 02/09/23 05:07 Nss 1000ml IV 02/09/23 14:29 100 mls/hr .Q10H CHRIS Administration Morphine Sulfate 2 mg 02/09/23 08:35 02/09/23 08:48 Morphine Sulfate 2 Mg/Ml Carp IV 02/23/23 08:34 2 mg Q3H PRN Administration Pain Past Medical History Medical History (Updated 02/09/23 @ 08:23 by Nati Harper PA-C) Atrial fibrillation CAD (coronary artery disease) "[place] ~ 2012, s/p 2 stents @ [facility] [place] - details unknown" Diastolic dysfunction "echo 11/2014 - EF 65-70%, diastolic dysfunction" DM type 2 (diabetes mellitus, type 2) Dyslipidemia Hip fracture, right "s/p OIRF and subsequent revision" History of CVA (cerebrovascular accident) HTN (hypertension) TIA (transient ischemic attack) Past Family History Family History Other Family history non-contributory Past Surgical History Surgical History No pertinent past surgical history Social History Smoking Status: Never smoker Hx Alcohol Use: No Hx Substance Use: No Physical Exam Vital Signs Last Vital Signs Temp 97.5 F L 02/09/23 02:45 Pulse 71 02/09/23 08:11 Resp 20 02/09/23 08:11 BP 163/98 H 02/09/23 08:11 Pulse Ox 95 02/09/23 08:11 O2 Del Method Room Air 02/09/23 08:11 Testing Laboratory Results 02/09/23 02:50 02/09/23 02:50 Urine Color Yellow 02/09/23 05:50 Urine Appearance Clear (Clear) 02/09/23 05:50 Urine pH 7.0 (4.5-7.5) 02/09/23 05:50 Ur Specific [place] 1.012 (1.000-1.030) 02/09/23 05:50 Urine Protein Negative (Negative) 02/09/23 05:50 Urine Glucose (UA) Negative (Negative) 02/09/23 05:50 Urine Ketones Negative (Negative) 02/09/23 05:50 Urine Nitrite Negative (Negative) 02/09/23 05:50 Ur Leukocyte Esterase Negative (Negative) 02/09/23 05:50 Electrocardiogram Date: 02/09/23 Atrial fibrillation with a competing junctional pacemaker, rate [address] abnormality Abnormal ECG When compared with ECG of 13-JUN-2022 16:12, Vent. rate has increased BY 25 BPM Nonspecific T wave abnormality no longer evident in Anterolateral leads Chest X-Ray Date: 02/09/23 Findings: + NAD Echocardiogram Date: 06/12/22 Mild concentric LVH LV systolic function is normal EF 55-60% LV wall motion is normal RV systolic function is normal LA/RA is severely dilated Mild MR Severe TR Cardiac Catheterization Date: 06/12/22 Briefly, patient found to have multivessel disease with severe 95%+ mid LAD stenosis with CARLEE II distal flow. Decision to proceed with PCI. -- PCI -- Antithrombotic therapy: Heparin, clopidogrel Procedure: Left main cannulated with EBU 3.5 guide Pre-procedure flow CARLEE 2 Motion Study Technician 50 wire passed across lesion into distal vessel Mid LAD lesion predilated with 2.5 compliant balloon Dilated lesion stented with 2.75 x 18 mm Misael drug-eluting stent Stent post-dilated with stent balloon IC vasodilators administered for spasm Post procedure CARLEE 3 flow, stent well expanded with minimal residual stenosis and no apparent cardiac complications. Arterial Closure: TR band Summary: 1. Successful PCI of mid LAD with single drug-eluting stent (2.75 x 18 mm [place]). Recommendations: To PCU for continued monitoring Reloaded with clopidogrel 300 mg in Spindle Repairer Continue dual therapy with clopidogrel, apixaban for at least 1 year. Continue statin, and ASCVD risk factor modification Consult cardiac Rehab Medical management of residual CAD. If refractory symptoms in the future further PCI to proximal circumflex could be considered.
--- NOTE | 2023-02-09 09:27 | Orthopedic Consultation ---
Date of Service February 09, 2023 Assessment & Plan (1) Closed intertrochanteric fracture of left hip: Ambulatory 87-year-old male with multiple medical problems including heart disease requiring direct oral anticoagulant admitted with a minimally displaced left intertrochanteric hip fracture. -Surgical stabilization of the fracture likely represents the most conservative treatment of this fracture, with the goal of stabilizing and returning to an ambulatory status -Appreciate medical work-up by the hospitalist and surgical clearance. -Hold apixaban if able. -Recommend TXA preoperatively and perioperatively, unless any other contraindications -Nonweightbearing to the left lower extremity until surgery. -Surgery tentatively scheduled for tomorrow, pending medical clearance. N.p.o. at midnight please History of Present Illness Reason for Consultation: left hip fracture Requesting Physician: . 87-year-old male brought to the emergency room after the report of a fall and subsequent left hip pain. He also describes some left flank pain that was likely from a previous. Seen in the ER with son at the bedside. Son reports there is been multiple falls lately. He has been unable to bear weight since the fall due to left hip pain last evening. Allergies Allergy/AdvReac Type Severity Reaction Status Date / Time Sulfa (Sulfonamide Allergy Intermediate RASH, DRY Verified 02/09/23 08:13 Antibiotics) MOUTH sulfamethoxazole Allergy Intermediate RASH, DRY Verified 02/09/23 08:13 MOUTH trimethoprim Allergy Intermediate RASH, DRY Verified 02/09/23 08:13 MOUTH felodipine AdvReac Intermediate EDEMA Verified 02/09/23 08:13 furosemide AdvReac Intermediate DERMATITIS Verified 02/09/23 08:13 metformin AdvReac Intermediate CONSTIPATIO Verified 02/09/23 08:13 N/DIARRHEA simvastatin AdvReac Intermediate Muscle Pain Verified 02/09/23 08:13 Home Medications Medication Instructions Recorded Confirmed Type calcium carbonate 200 mg calcium 1,000 mg PO HS 10/15/19 02/09/23 History (500 mg) chewable tablet (Tums) digoxin 125 mcg (0.125 mg) tablet 125 mcg PO QPM 10/15/19 02/09/23 History (Digox) sennosides 8.6 mg tablet (senna) 17.2 mg PO BID PRN Constipation 10/15/19 History alogliptin 12.5 mg tablet 12.5 mg PO QAM 06/10/22 02/09/23 History metoprolol succinate 100 mg 100 mg PO QAM 06/10/22 02/09/23 History tablet,extended release 24 hr polyethylene glycol 3350 17 34 g PO DAILY PRN Constipation 06/10/22 02/09/23 History gram/dose oral powder (Miralax) clopidogrel 75 mg tablet 75 mg PO QAM #30 tabs 06/14/22 02/09/23 Rx nitroglycerin 0.4 mg sublingual 0.4 mg sublingual PRN PRN chest 06/14/22 02/09/23 Rx tablet (Nitrostat) pain #1 btl acetaminophen 325 mg tablet 650 mg PO TID PRN Pain 02/09/23 02/09/23 History apixaban 2.5 mg tablet (Eliquis) 2.5 mg PO BID 02/09/23 02/09/23 History atorvastatin 40 mg tablet 40 mg PO HS 02/09/23 02/09/23 History duloxetine 20 mg capsule,delayed 20 mg PO QAM 02/09/23 02/09/23 History release lidocaine 5 % topical patch 1 patch transdermal DAILY 02/09/23 02/09/23 History magnesium oxide 400 mg (241.3 mg 400 mg PO QAM 02/09/23 02/09/23 History magnesium) tablet nitroglycerin 0.4 mg sublingual 0.4 mg sublingual USEASDIRECTD PRN 02/09/23 02/09/23 History tablet Chest Pain pantoprazole 40 mg tablet,delayed 40 mg PO DAILYBB 02/09/23 02/09/23 History release tuberculin PPD 5 tub. unit/0.1 mL 5 tb unit intradermal WK 02/09/23 02/09/23 History intradermal injection solution (Tubersol) Past Med/Surg History Medical History Atrial fibrillation CAD (coronary artery disease) "[place] ~ 2012, s/p [address] [facility] [place] - details unknown" Diastolic dysfunction "echo 11/2014 - EF 65-70%, diastolic dysfunction" DM type 2 (diabetes mellitus, type 2) Dyslipidemia Hip fracture, right "s/p OIRF and subsequent revision" History of CVA (cerebrovascular accident) HTN (hypertension) TIA (transient ischemic attack) Surgical History No pertinent past surgical history Family History Other Family history non-contributory Social History Smoking Status: Never smoker Hx Alcohol Use: No Hx Substance Use: No Preferred Language: Arabic Communication Ability: Unable Sexual Assault Counselor Required: No Beliefs That Will Affect Care: None marital status: Single Current Living Situation: Assisted Current Living Situation Comment: [facility] How many Children do You have: 1 Feels Safe at Home: Yes Assistive Devices: Cane and Walker Review of Systems All systems reviewed & are unremarkable except as noted in HPI & below. Physical Exam LLE: Lying on the gurney with a bump on the left hip. leg lengths equal. Tender over the groin. Mildly tender over the greater trochanter. [place] elicits pain at the left hip. Constitutional WD/WN, vitals as above Respiratory normal respiratory effort; no respiratory distress Cardiovascular Extremities: normal capillary refill; no edema Chest (Breasts) Chest: normal inspection of chest Skin no rashes, warm and dry Psychiatric A+Ox3, euthymic affect Results & Data Results & Data Laboratory Results H & H 02/09/23 Range/Units 02:50 Hgb 14.2 (14.0-18.0) g/dl Hct 43.3 (42.0-52.0) % Diagnostic Findings Radiographs of the pelvis and left femur were reviewed. In addition there is a CT scan of the pelvis. The radiographs show evidence of a linear lucency suggestive of an intertrochanteric fracture. The CT scan shows a basicervical femoral neck fracture with extension into the intertrochanteric region. It is minimally displaced. PG Care Time/CCT Total # of Minutes Spent Total Time Spent with Patient: Total time spent is greater than 50% in coordination of care (as documented) at patient's floor/unit and/or counseling patient: Coding Level of Care Code 88781 IN/OBS CONSULT LVL 4,60M (57 - DECISION FOR SURGERY) Diagnoses Closed intertrochanteric fracture of left hip S72.142A
[2023-02-09] MEDS ORDERED: DEXTROSE 50% 50 ML SYRINGE IV PRN (10:16)
[2023-02-09] MEDS ORDERED: hydrALAZINE HCL 20 MG/ML VIAL IV PRN (10:16)
[2023-02-09] MEDS ORDERED: GLUCAGON FOR INJ 1 MG VIAL SQ PRN (10:16)
[2023-02-09] MEDS ORDERED: GLUCOSE 40% GEL 15 GM TUBE PO PRN (10:16)
[2023-02-09] MEDS ORDERED: NITROGLYCERIN SL 0.4 MG/TAB TAB SL PRN (10:16)
[2023-02-09] MEDS ORDERED: CARBOHYDRATES FOR HYPOGLYCEMIA PO PRN (10:16)
[2023-02-09] MEDS ORDERED: SENNA 8.6 MG TAB PO PRN (10:16)
[2023-02-09] MEDS ORDERED: GLUCOSE 10 TAB/TUBE PO PRN (10:16)
[2023-02-09] MEDS ORDERED: ONDANSETRON INJ 2 MG/ML 2 ML VIAL IV PRN (10:16)
[2023-02-09] MEDS ORDERED: POLYETHYLENE (MIRALAX) 17 GM PACK PO PRN (10:16)
[2023-02-09 11:19] LABS: Troponin I High Sensitivity 18.6 pg/ml (0-20)
--- NOTE | 2023-02-09 11:57 | XRay Report ---
XR shoulder RT min 2V routine CLINICAL HISTORY: s/p fall, right shoulder pain TECHNIQUE: 3 views of the right shoulder were obtained. Comparison: None available at the time of this dictation. FINDINGS: There is no evidence of an acute fracture. Joint spaces are well-preserved. The overlying soft tissue s are unremarkable. The visualized portions of the lungs are clear. IMPRESSION: No evidence of acute osseous injury. ACT 112: Negative or not required by law. Electronically signed by: Tomi Luke M.D. 02/09/2023 11:55 AM
--- NOTE | 2023-02-09 12:09 | XRay Report ---
XR ribs BI min 2V CLINICAL HISTORY: s/p fall, eval rib fx TECHNIQUE: 3 views of the bilateral ribs were obtained Comparison: Comparison is made to chest radiograph 02/09/2023 FINDINGS: No fractures are seen. Old healed rib fractures are seen on the right. The chest wall and soft tissu es are normal. The cardiomediastinal silhouette is normal. The lungs are clear. No evidence of pleural effusion or p neumothorax. IMPRESSION: No evidence of acute rib fractures. Old healed fractures are seen in the right ribs. ACT 112: Negative or not required by law. Electronically signed by: Tomi Luke M.D. 02/09/2023 12:06 PM
[2023-02-09] MEDS: METOPROLOL SUCC 50MG EXT REL TAB PO SCH (12:14)
[2023-02-09] MEDS: LIDOCAINE 5% 1 PATCH TD SCH (12:15)
[2023-02-09] MEDS: CYANOCOBALAMIN 1000 MCG/ML VIAL IM SCH (12:15)
[2023-02-09] MEDS ORDERED: amLODIPine BESYLATE 5 MG TAB PO ONE (13:41)
--- NOTE | 2023-02-09 13:43 | Electrocardiogram Report ---
Test Reason : Blood Pressure : / mmHG Vent. Rate : 069 BPM Atrial Rate : 075 BPM P-R Int : 000 ms QRS Dur : 092 ms QT Int : 406 ms P-R-T Axes : 000 -07 -34 degrees QTc Int : 435 ms Poor data quality, interpretation may be adversely affected Atrial fibrillation with a competing junctional pacemaker Nonspecific ST abnormality Abnormal ECG When compared with ECG of 13-JUN-2022 16:12, Vent. rate has increased BY 25 BPM Nonspecific T wave abnormality no longer evident in Anterolateral leads Confirmed by Kelvin Glynn ([id number]) on 02/09/2023 1:43:02 PM Referred By: REFERRED SELF Confirmed By:Kelvin Glynn
--- NOTE | 2023-02-09 13:45 | Cardiology Consultation ---
Date of Consultation February 09, 2023 Assessment & Plan (1) Preop cardiovascular exam: (2) Fall: (3) Closed intertrochanteric fracture of left hip: (4) CKD (chronic kidney disease): (5) CAD (coronary artery disease): (6) Atrial fibrillation: (7) Diastolic dysfunction: (8) TIA (transient ischemic attack): (9) DM type 2 (diabetes mellitus, type 2): (10) HTN (hypertension): (11) Dyslipidemia: Plan Patient suffering recurrent mechanical falls with resultant hip fracture and bruised ribs No current cardiac complaints The patient has been on combined therapy with Plavix and Eliquis for his history of PCI, CVA and paroxysmal atrial fibrillation Preoperatively, agree with holding Eliquis and changing Plavix to aspirin for the time being Going forward with his recurrent falls may need to readdress Eliquis usage Patient's blood pressure is significantly elevated with continued hip and rib pain We will give him a one-time dose of amlodipine 5 mg now Also recommend pain control In terms of his preop risk assessment the patient and his son were counseled that I place him as a moderate risk for any adverse perioperative cardiovascular events with his risk being approximately less than 5%. There were further counseled that no further cardiac test intervention would further lower that risk. They both state that they understand, they are excepting that risk and wish to proceed. So I see no need to delay from a cardiac standpoint Recommend following the patient postoperatively on telemetry History of Present Illness Reason for Consultation: Preop cardiovascular risk assessment Requesting Physician: [facility] hospitalist group Attending Physician: Enrique Cox MD History of Present Illness It was my pleasure to see the patient in cardiac consultation today February 09, 2023. He is a very pleasant 87-year-old gentleman who normally follows with Dr. Heart of our cardiology practice. He presented to [facility] emergency department early in the a.m. of 02/09/2023 with complaints of left hip pain status post fall. Majority of history obtained through discussion with his son who is at the bedside. The patient has had a number of mechanical falls recently at [facility] including on the day of presentation where he had a recurrent fall that was unwitnessed. He also had a recent fall on his walker which resulted in left-sided bruised ribs and has had persistent pleuritic chest discomfort since then. Prior to that his rib injury though he denied any cardiac complaints of chest pain, shortness of breath, palpitations or lightheadedness. Past cardiac history: 1. Coronary artery disease status post drug-eluting stent LAD May 2022 and previous stent to the ramus artery which is occluded 2. Paroxysmally atrial fibrillation 3. Previous CVA Allergies Allergy/AdvReac Type Severity Reaction Status Date / Time Sulfa (Sulfonamide Allergy Intermediate RASH, DRY Verified 02/09/23 08:13 Antibiotics) MOUTH sulfamethoxazole Allergy Intermediate RASH, DRY Verified 02/09/23 08:13 MOUTH trimethoprim Allergy Intermediate RASH, DRY Verified 02/09/23 08:13 MOUTH felodipine AdvReac Intermediate EDEMA Verified 02/09/23 08:13 furosemide AdvReac Intermediate DERMATITIS Verified 02/09/23 08:13 metformin AdvReac Intermediate CONSTIPATIO Verified 02/09/23 08:13 N/DIARRHEA simvastatin AdvReac Intermediate Muscle Pain Verified 02/09/23 08:13 Home Medications Medication Instructions Recorded Confirmed Type calcium carbonate 200 mg calcium 1,000 mg PO HS 10/15/19 02/09/23 History (500 mg) chewable tablet (Tums) digoxin 125 mcg (0.125 mg) tablet 125 mcg PO QPM 10/15/19 02/09/23 History (Digox) sennosides 8.6 mg tablet (senna) 17.2 mg PO BID PRN Constipation 10/15/19 02/09/23 History alogliptin 12.5 mg tablet 12.5 mg PO QAM 06/10/22 02/09/23 History metoprolol succinate 100 mg 100 mg PO QAM 06/10/22 02/09/23 History tablet,extended release 24 hr polyethylene glycol 3350 17 34 g PO DAILY PRN Constipation 06/10/22 02/09/23 History gram/dose oral powder (Miralax) clopidogrel 75 mg tablet 75 mg PO QAM #30 tabs 06/14/22 02/09/23 Rx nitroglycerin 0.4 mg sublingual 0.4 mg sublingual PRN PRN chest 06/14/22 02/09/23 Rx tablet (Nitrostat) pain #1 btl acetaminophen 325 mg tablet 650 mg PO TID PRN Pain 02/09/23 02/09/23 History apixaban 2.5 mg tablet (Eliquis) 2.5 mg PO BID 02/09/23 02/09/23 History atorvastatin 40 mg tablet 40 mg PO HS 02/09/23 02/09/23 History duloxetine 20 mg capsule,delayed 20 mg PO QAM 02/09/23 02/09/23 History release lidocaine 5 % topical patch 1 patch transdermal DAILY 02/09/23 02/09/23 History magnesium oxide 400 mg (241.3 mg 400 mg PO QAM 02/09/23 02/09/23 History magnesium) tablet nitroglycerin 0.4 mg sublingual 0.4 mg sublingual USEASDIRECTD PRN 02/09/23 02/09/23 History tablet Chest Pain pantoprazole 40 mg tablet,delayed 40 mg PO DAILYBB 02/09/23 02/09/23 History release tuberculin PPD 5 tub. unit/0.1 mL 5 tb unit intradermal WK 02/09/23 02/09/23 History intradermal injection solution (Tubersol) Patient History Medical History Atrial fibrillation CAD (coronary artery disease) status post drug-eluting stent LAD May 2022 and previous stent to the ramus artery which is occluded Diastolic dysfunction "echo 11/2014 - EF 65-70%, diastolic dysfunction" DM type 2 (diabetes mellitus, type 2) Dyslipidemia Hip fracture, right "s/p OIRF and subsequent revision" History of CVA (cerebrovascular accident) HTN (hypertension) TIA (transient ischemic attack) Surgical History No pertinent past surgical history Family History Other Family history non-contributory Social History Smoking Status: Never smoker Hx Alcohol Use: No Hx Substance Use: No Preferred Language: Tamazight Communication Ability: Unable Associate Application Developer Required: No Beliefs That Will Affect Care: None marital status: Single Current [facility] Sit[facility] How many Children do You have: 1 Feels Safe at Home: Yes Assistive Devices: Cane and Walker Review of Systems Review of Systems: All systems reviewed & are unremarkable except as noted in HPI & below Physical Exam Physical Exam: General: Awake, alert and oriented x 3. No acute distress. HEENT: Normocephalic, atraumatic. Pupils equal, round and reactive to light and accommodation. Extraocular muscles are intact. Anicteric sclera. Moist mucous membranes. Neck: No JVD. No bruit. Cardiovascular: Regular. Positive S-4. Normal S-1 and S-2. No S-3. 3/6 mid to late systolic ejection murmur, greatest at the right sternal border, second intercostal space with radiation to the bilateral carotids. No rubs. Pulmonary: Clear to auscultation bilaterally. No rales, rhonchi, or wheezing. Abdomen: Bowel sounds x 4, soft. No rebound, guarding or tenderness. No organomegaly. Extremities: No clubbing, cyanosis or edema. +2 pedal pulses bilaterally. Skin: Warm and dry. Results & Data Vital Signs (Past 12 Hours) Vital Signs Temp Pulse Pulse Resp BP BP Pulse Ox 02/09/23 11:30 02/09/23 11:30 77 16 190/107 H 95 02/09/23 10:01 84 02/09/23 09:22 81 20 165/99 H 96 02/09/23 08:11 71 20 163/98 H 95 02/09/23 07:21 68 20 162/94 H 93 02/09/23 06:15 150/81 H 02/09/23 06:15 66 22 90 02/09/23 05:45 64 23 93 02/09/23 05:45 156/85 H 02/09/23 03:30 72 22 92 02/09/23 03:30 154/97 H 02/09/23 06:22 72 91 02/09/23 06:18 70 02/09/23 02:45 36.4 C L 64 22 157/105 H 92 02/09/23 02:35 67 Pulse Ox O2 Del Method O2 Del Method 02/09/23 11:30 95 Room Air 02/09/23 11:30 Room Air 02/09/23 10:01 02/09/23 09:22 Room Air 02/09/23 08:11 Room Air 02/09/23 07:21 Room Air 02/09/23 06:15 02/09/23 06:15 Room Air 02/09/23 05:45 Room Air 02/09/23 05:45 02/09/23 03:30 Room Air 02/09/23 03:30 02/09/23 06:22 Room Air 02/09/23 06:18 02/09/23 02:45 Room Air 02/09/23 02:35
[2023-02-09] MEDS: INSULIN ASPART PER UNIT CHARGE SC SCH ×3 (14:32→20:41)
[2023-02-09] MEDS ORDERED: hydrALAZINE HCL 25 MG TAB PO STA (14:51)
[2023-02-09] MEDS: DIGOXIN 0.125 MG TAB PO SCH (15:42)
[2023-02-09] MEDS: DULoxetine HCL 20 MG CAP PO SCH (15:42)
[2023-02-09] MEDS: ACETAMINOPHEN 1,000 MG/100 ML VIAL IV PRN (15:47)
[2023-02-09] MEDS: CALCIUM CARBONATE 500 MG CHEWABLE TAB PO SCH (20:27)
[2023-02-10] MEDS: PANTOprazole 40 MG TAB PO SCH (05:38)
[2023-02-10] MEDS ORDERED: DIGOXIN 0.125 MG TAB PO SCH (06:00)
[2023-02-10] MEDS ORDERED: VANCOMYCIN HCL 1,250 MG in SODIUM CHLORIDE 0.9% 250 ML IV SCH (06:00)
[2023-02-10 06:27] LABS: Hematocrit (blood only) 36.7 % (42.0-52.0); Hemoglobin 11.8 g/dl (14.0-18.0); Mean Corpuscular Hemoglobin 34.5 pg (25.0-34.0); Mean Corpuscular Hgb Conc 32.2 g/dL (32.0-36.0); Mean Corpuscular Volume 107.3 fL (80.0-100.0); Mean Platelet Volume 12.1 fL (9.4-12.4); Platelet Count 184 K/uL (130-400); RDW Coefficient of Variation 17.7 % (11.5-14.5); RDW Standard Deviation 69.6 fL (36.4-46.3); Red Blood Count 3.42 M/uL (4.70-6.10); White Blood Count 8.92 K/ul (4.8-10.8)
[2023-02-10 06:46] LABS: BUN Creatinine Ratio 16.7 (10-20); Calcium 8.9 mg/dl (8.6-10.3); Creatinine Clr Calc Pharmacy 48.3 ml/min; Est GFR (African American) 59.9 ml/min; Est GFR (Non-African American) 51.7 ml/min; Magnesium 1.9 mg/dl (1.7-2.4); Potassium 4.3 mmol/L (3.5-5.1)
[2023-02-10] MEDS ORDERED: MAGNESIUM SULFATE / D5W 1 GM/100 ML BAG IV ONE (07:30)
[2023-02-10] MEDS: INSULIN ASPART PER UNIT CHARGE SC SCH ×4 (07:31→20:36)
[2023-02-10 08:18] LABS: Albumin Level 3.2 gm/dl (3.4-5.0); Bilirubin Direct 0.8 mg/dl (0-0.2); Bilirubin,Total 2.3 mg/dl (0.2-1.0); Total Protein 6.5 gm/dl (6.0-8.3)
[2023-02-10] MEDS ORDERED: ASPIRIN 81 MG ECTAB PO SCH (09:00)
[2023-02-10] MEDS: ACETAMINOPHEN 1,000 MG/100 ML VIAL IV PRN (09:05)
[2023-02-10] MEDS: METOPROLOL SUCC 50MG EXT REL TAB PO SCH (09:06)
[2023-02-10] MEDS: LIDOCAINE 5% 1 PATCH TD SCH (09:07)
[2023-02-10] MEDS: CYANOCOBALAMIN 1000 MCG/ML VIAL IM SCH (09:07)
[2023-02-10] MEDS: MAGNESIUM OXIDE 400 MG TAB PO SCH (09:07)
[2023-02-10] MEDS: DULoxetine HCL 20 MG CAP PO SCH (09:53)
--- NOTE | 2023-02-10 10:06 | Orthopedic Progress Note ---
Date of Service February 10, 2023 Assessment & Plan (1) Closed intertrochanteric fracture of left hip: Plan: I informed the patient of his hip fracture and treatment options. Reviewed risks/benefits of surgery, alternatives and expected outcomes. He has significant medical history, which increases the risk of complications. Also spoke with his son, Fadi, over the phone. All questions answered. They would like to proceed with surgery. Informed consent signed. Surgical site marked. Will proceed to the OR today for ORIF L intertrochanteric femur fracture with intramedullary nail. (2) DM type 2 (diabetes mellitus, type 2): Admission and Anticipated Discharge Date Admission Date: February 09, 2023 Subjective Patient has had Eliquis held since yesterday. On ASA. Seen by Cardiology and no additional testing indicated. Has been NPO since midnight last night. MRSA nasal screen came back positive. On isolation precautions. Physical Exam Physical Exam: Gen: sitting up in bed in no acute distress. Speech is difficult to understand. Oriented to his name, alert. L leg: Skin over the left hip intact. tender to palpation over the greater trochanter. Distally NVI with palpable dorsalis pedis pulses. Results & Data Vital Signs (Past 12 Hours) Vital Signs Temp Pulse Resp BP BP Pulse Ox O2 Del Method 02/10/23 07:25 37.0 C 76 19 162/106 H 96 Room Air 02/10/23 03:04 36.6 C 80 20 155/76 H 95 Room Air 02/09/23 22:40 36.5 C 73 18 155/76 H 94 Room Air Diagnostic Findings Chest X-Ray 02/09/23 03:39 XR chest 1V portable CLINICAL HISTORY: trauma TECHNIQUE: Single frontal radiograph of the chest was obtained. Comparison: Comparison is made to chest radiograph 06/10/2022 FINDINGS: No lines and tubes are seen. Cardiomegaly is noted. The aortic arch is calcified. The lungs are clear. No evidence of pleural effusion or pneumothorax. IMPRESSION: No acute chest disease. ACT 112: Negative or not required by law. Electronically signed by: Tomi Luke M.D. 02/09/2023 8:51 AM Femur X-Ray 02/09/23 03:39 XR femur LT 2V routine, XR pelvis 1-2V routine CLINICAL HISTORY: fall, hip pain TECHNIQUE: 2 radiographic views of the left femur and 2 views of the pelvis were obtained. Comparison: Comparison is made to CT abdomen pelvis 09/18/2021 FINDINGS: There is a linear lucency in the intertrochanteric left femur. Degenerative changes are seen in the left hip joint. Right total hip arthroplasty noted. Vascular calcifications are noted. IMPRESSION: Linear lucency in the intertrochanteric left femur is new from prior exams. Findings may represent a nondisplaced intratrochanteric fracture. ACT 112: Negative or not required by law. Electronically signed by: Tomi Luke M.D. 02/09/2023 8:[address] 02/09/23 03:39 Exam(s): CT HEAD Without Contrast EXAM: CT Head Without Intravenous Contrast CLINICAL HISTORY: Reason for exam: fall, eliquis. TECHNIQUE: Axial computed tomography images of the head/brain without intravenous contrast. CTDI is 38.06 mGy and DLP is 691.05 mGy-cm. Automated exposure control was utilized for the study. A dose lowering technique was utilized adhering to the principles of ALARA. COMPARISON: No relevant prior studies available. 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 No hemorrhage. Ventricles: Unremarkable. No ventriculomegaly. Nodular calcifications seen medially in the right cerebellar hemisphere. Bones/joints: Unremarkable. No acute fracture. Soft tissues: Unremarkable. Sinuses: Unremarkable as visualized. No acute sinusitis. Mastoid air cells: Unremarkable as visualized. No mastoid effusion. IMPRESSION: No acute findings in the head/brain. Electronically signed by: Pepe Cedeno MD 02/09/23 06:51 AM Pelvis X-Ray 02/09/23 03:39 XR femur LT 2V routine, XR pelvis 1-2V routine CLINICAL HISTORY: fall, hip pain TECHNIQUE: 2 radiographic views of the left femur and 2 views of the pelvis were obtained. Comparison: Comparison is made to CT abdomen pelvis 09/18/2021 FINDINGS: There is a linear lucency in the intertrochanteric left femur. Degenerative changes are seen in the left hip joint. Right total hip arthroplasty noted. Vascular calcifications are noted. IMPRESSION: Linear lucency in the intertrochanteric left femur is new from prior exams. Findings may represent a nondisplaced intratrochanteric fracture. ACT 112: Negative or not required by law. Electronically signed by: Tomi Luke M.D. 02/09/2023 8:[address] 02/09/23 04:26 Exam(s): CT PELVIS Without Contrast EXAM: CT Pelvis Without Intravenous Contrast CLINICAL HISTORY: Reason for exam: fall, L hip pain. TECHNIQUE: Axial computed tomography images of the pelvis without intravenous contrast. CTDI is 27.85 mGy and DLP is 1302.93 mGy-cm. Automated exposure control was utilized for the study. A dose lowering technique was utilized adhering to the principles of ALARA. COMPARISON: No relevant prior studies available. FINDINGS: Bones/joints: There is acute basicervical left femoral neck fracture with extension of the fracture line into the left greater trochanter. The bones are osteopenic. There is a total right hip arthroplasty. Severe degenerative disc disease changes seen at L4/5 and L5/S1 junction. Old healed fracture deformity seen in the S5 segment of the sacrum. No dislocation. Vasculature: Unremarkable. No lower abdominal aortic aneurysm. Lymph nodes: Unremarkable. No enlarged lymph nodes. IMPRESSION: Acute basicervical left femoral neck fracture with involvement of the left greater trochanter Electronically signed by: Pepe Cedeno MD 02/09/23 06:56 AM Ribs X-Ray 02/09/23 10:16 XR ribs BI min 2V CLINICAL HISTORY: s/p fall, eval rib fx TECHNIQUE: 3 views of the bilateral ribs were obtained Comparison: Comparison is made to chest radiograph 02/09/2023 FINDINGS: No fractures are seen. Old healed rib fractures are seen on the right. The chest wall and soft tissues are normal. The cardiomediastinal silhouette is normal. The lungs are clear. No evidence of pleural effusion or pneumothorax. IMPRESSION: No evidence of acute rib fractures. Old healed fractures are seen in the right ribs. ACT 112: Negative or not required by law. Electronically signed by: Tomi Luke M.D. 02/09/2023 12:06 PM Shoulder X-Ray 02/09/23 10:16 XR shoulder RT min 2V routine CLINICAL HISTORY: s/p fall, right shoulder pain TECHNIQUE: 3 views of the right shoulder were obtained. Comparison: None available at the time of this dictation. FINDINGS: There is no evidence of an acute fracture. Joint spaces are well-preserved. The overlying soft tissues are unremarkable. The visualized portions of the lungs are clear. IMPRESSION: No evidence of acute osseous injury. ACT 112: Negative or not required by law. Electronically signed by: Tomi Luke M.D. 02/09/2023 11:55 AM
[2023-02-10] MEDS ORDERED: VANCOMYCIN CONSULT ACTIVE PRN (10:09)
[2023-02-10] MEDS ORDERED: TRANEXAMIC ACID 100 MG/ML 10 ML VIAL IV ONE (10:10)
[2023-02-10] MEDS ORDERED: TRANEXAMIC ACID / 0.7% NACL 1000MG/100ML BAG IV ONE (10:30)
[2023-02-10] MEDS ORDERED: ceFAZolin 2000MG 2,000 MG/15 ML SYR IV ONE (10:30)
[2023-02-10 10:45] LABS: Estimated Average Glucose 108 mg/dl; Hemoglobin A1C 5.4 % (4.5-5.6)
[2023-02-10] MEDS ORDERED: LIDOCAINE 2% MPF LOCAL 5 ML VIAL ONE (11:07)
[2023-02-10] MEDS ORDERED: ONDANSETRON INJ 2 MG/ML 2 ML VIAL ONE (11:07)
[2023-02-10] MEDS ORDERED: PROPOFOL IV EMULSION 10 MG/ML 20 ML VIAL IV ONE (11:07)
[2023-02-10] MEDS ORDERED: fentaNYL citrate PF 100 MCG/2 ML VIAL ONE (11:07)
[2023-02-10] MEDS ORDERED: PROMETHAZINE HCL 12.5 MG in SODIUM CHLORIDE 0.9% 50 ML IV PRN (11:15)
[2023-02-10] MEDS ORDERED: ATROPINE SULFATE 0.1 MG/ML 10ML SYR IV PRN (11:15)
[2023-02-10] MEDS ORDERED: fentaNYL citrate PF 100 MCG/2 ML VIAL IV PRN (11:15)
[2023-02-10] MEDS ORDERED: HYDROmorphone INJ 1 MG/ML SYRINGE IV PRN (11:15)
[2023-02-10] MEDS ORDERED: ONDANSETRON INJ 2 MG/ML 2 ML VIAL IV PRN (11:15)
[2023-02-10] MEDS ORDERED: ePHEDrine sulfate 50 MG/ML AMP IV PRN (11:15)
[2023-02-10] MEDS ORDERED: BUPIVACAINE 0.5 % 5 MG/1 ML MPF 30ML VIAL ONE (11:31)
--- NOTE | 2023-02-10 11:59 | Cardiology Progress Note ---
Date of Service February 10, 2023 Assessment & Plan (1) Preop cardiovascular exam: (2) Fall: (3) Closed intertrochanteric fracture of left hip: (4) CKD (chronic kidney disease): (5) CAD (coronary artery disease): (6) Atrial fibrillation: (7) Diastolic dysfunction: (8) TIA (transient ischemic attack): (9) DM type 2 (diabetes mellitus, type 2): (10) HTN (hypertension): (11) Dyslipidemia: Plan Patient suffering recurrent mechanical falls with resultant hip fracture and bruised ribs No current cardiac complaints The patient has been on combined therapy with Plavix and Eliquis for his history of PCI, CVA and paroxysmal atrial fibrillation Preoperatively, agree with holding Eliquis and changing Plavix to aspirin for the time being Going forward with his recurrent falls may need to readdress Eliquis usage Patient's blood pressure is significantly elevated with continued hip and rib pain We will continue to follow after surgery Also recommend pain control In terms of his preop risk assessment the patient and his son were counseled that I place him as a moderate risk for any adverse perioperative cardiovascular events with his risk being approximately less than 5%. There were further counseled that no further cardiac test intervention would further lower that ri sk. They both state that they understand, they are excepting that risk and wish to proceed. So I see no need to delay from a cardiac standpoint Recommend following the patient postoperatively on telemetry Admission and Anticipated Discharge Date Admission Date: February 09, 2023 Subjective Patient seen and examined with son at bedside. Chart reviewed. Telemetry reviewed. Review of Systems Review of Systems: Unobtainable due to reduced consciousness Physical Exam Physical Exam: General: Awake, alert and oriented x 3. No acute distress. HEENT: Normocephalic, atraumatic. Pupils equal, round and reactive to light and accommodation. Extraocular muscles are intact. Anicteric sclera. Moist mucous membranes. Neck: No JVD. No bruit. Cardiovascular: Regular. Positive S-4. Normal S-1 and S-2. No S-3. 3/6 mid to late systolic ejection murmur, greatest at the right sternal border, second intercostal space with radiation to the bilateral carotids. No rubs. Pulmonary: Clear to auscultation bilaterally. No rales, rhonchi, or wheezing. Abdomen: Bowel sounds x 4, soft. No rebound, guarding or tenderness. No organomegaly. Extremities: No clubbing, cyanosis or edema. +2 pedal pulses bilaterally. Skin: Warm and dry. Results & Data Vital Signs (Past 12 Hours) Vital Signs Temp Pulse Pulse Resp BP BP Pulse Ox 02/10/23 10:56 36.7 C 75 20 159/96 H 95 02/10/23 07:25 37.0 C 76 19 162/106 H 96 02/10/23 03:04 36.6 C 80 20 155/76 H 95 O2 Del Method 02/10/23 10:56 Room Air 02/10/23 07:25 Room Air 02/10/23 03:04 Room Air
[2023-02-10] MEDS ORDERED: ROCURONIUM BROMIDE 10 MG/ML 5 ML VIAL IV ONE (12:06)
[2023-02-10] MEDS ORDERED: ePHEDrine sulfate 50 MG/ML SYR ONE (12:31)
[2023-02-10] MEDS ORDERED: PHENYLEPHRINE HCL 10 MG/ML VIAL ONE (12:31)
[2023-02-10] MEDS ORDERED: PHENYLEPHRINE 100MCG/ML 5ML SYR ONE (12:31)
[2023-02-10] MEDS ORDERED: VASOPRESSIN 20 UNIT/ML VIAL ONE (12:31)
[2023-02-10] MEDS ORDERED: SUGAMMADEX SODIUM 200 MG/2 ML VIAL IV ONE (13:28)
--- NOTE | 2023-02-10 13:50 | Operative Report ---
Post Operative Report Pre & Post Diagnosis Operation Date: 02/10/23 09:20 Pre-Op Diagnosis: Closed displaced intertrochanteric fracture of left hip Post-Op Diagnosis: Closed displaced intertrochanteric fracture of left hip I identified the patient and participated in the time-out.: Yes Procedure Operation Date: 02/10/23 09:20 Actual Procedures p Open reduction, internal fixation left intertrochanteric femur fracture with intramedullary nail(Left) - Luis Alberto Reynolds MD Surgeon Luis Alberto Reynolds MD Process Steward Leonel Michael DO. Estimated Blood Loss 100 Findings Consistent with Post-Op Diagnosis Specimens None Anesthesia Type General Complications none Disposition Disposition: Recovery Room Indications 87-year-old male, fell at his assisted living facility this weekend. He was brought to the emergency room where x-rays demonstrated a nondisplaced intertrochanteric left femur fracture. He was admitted to the hospital on the internal medicine service.. He is on Eliquis and Plavix and therefore he was not allowed to have surgery yesterday. He was seen by cardiology and no further testing was indicated. I had a long discussion with the patient and his son Fadi about his diagnosis, treatment options, risks and benefits of surgery, and expected outcomes. After reviewing all these they elected to proceed with surgery. All questions were answered. Informed consent was signed. Description of Procedure Patient was identified in the preoperative holding area where his surgical site was marked. He is brought back to main operating room where general anesthesia administered on the hospital bed. He was then carefully moved over onto the fracture table. Perineal post was placed. He has previously had a hip replacement on the right side and had significant amount of stiffness in his right hip. Therefore elected to scissor his legs on the fracture table. Both feet were placed in well-padded boots. The nonoperative right leg was placed closer to the floor and the operative left leg was flexed through the hip slightly. Operating room table was slightly airplane towards the right. We were able to get good fluoroscopic visualization of the fracture on AP and lateral views. We were able to see however the fracture displaced at some point between when his x-rays were done in the emergency room yesterday and at the time of fluoroscopic evaluation in the operating room. Therefore we had to perform a reduction maneuver by placing traction on the operative leg as well as adduction and slight internal rotation. Once we had optimize the reduction the leg was then prepped and draped in the usual sterile fashion. Prior to incision a multidiscipline timeout was called. All in the room were in agreement. We began by marking out the proper trajectory of the nail on the AP and lateral fluoroscopic views. 4 cm incision was made approximately 4 fingerbreadths proximal to the tip of the greater trochanter. We dissected down through cerna bcutaneous tissues to the level of the fascia. A K wire was placed at the tip of the trochanter and the starting point was optimized on the AP and lateral fluoroscopic views. K wire was then driven down to just below the level of the lesser trochanter. The opening reamer was then used. A ball-tipped guidewire was then inserted down the femoral canal and tapped so that it would be at the superior pole of the patella. We then measured him for a 420 mm long nail. We then began to ream. We reamed all the way up to a 13 mm diameter reamer at which time we had a reasonable amount of chatter. An 11 mm diameter by 420 mm length Synthes titanium left femoral nail was then opened up. This was attached to the outrigger device. The nail was then inserted over the guidewire and tapped down to the appropriate level. Next a small stab incision was made in the lateral aspect of the femur. The drill sleeve was inserted through this incision through the subcutaneous tissues and fascia all the way down onto the bone under fluoroscopic visualization. We optimized the position of the drill guide on both AP and lateral fluoroscopic views. Guidewire was then drilled up into the femoral head under AP and lateral fluoroscopic visualization all the way to the subchondral bone. We took our measurement which came at 113 mm. I elected to use 105 mm helical blade. The cortical opening drill was used followed by the step reamer which was set at 110 mm. We did drill under fluoroscopic visualization to ensure that our guidewire did not move which was confirmed. We then impacted the helical blade up over the wire all the way to the center center position of the femoral head. The setscrew was then placed down from the top tightened all the way down and then backed off a quarter turn to allow the blade to slide in the fracture to compress. At this point we turned our attention towards placing a single distal cross locking screw. Perfect circles technique was used to visualize a static locking hole distally. Small stab incision 1 cm in length was made over the lateral aspect of the distal femur. The drill was then used to make a 4 mm hole through the nail. We took our measurement. We then placed a 46 mm length by 5 mm diameter distal locking screw through the static locking hole. Excellent fixation was obtained. This point we took our final fluoroscopic images which were saved to the system. The wounds were irrigated out with copious amounts normal saline. 0 Vicryl suture was used to close the subcutaneous layer at the proximal incision site. 2-0 Vicryl was used in the deep dermal layer for all of the incisions. [place] were used for the skin. 30 cc of half percent Marcaine was injected into the subcutaneous tissues for postoperative pain control. Xeroform 4 x 4 and Tegaderm were placed for dressings. Patient was then awoke from anesthesia and transferred recovery room in stable condition. Postoperative course: Patient will be readmitted to the internal medicine service. He will be weightbearing as tolerated on the left lower extremity with a walker and assistance. He is high risk for fall given his history of recent falls. DVT prophylaxis per the internal medicine service. There was some discussion of switching him off Eliquis given his fall history. He will be allowed to resume Eliquis or other DVT chemoprophylaxis starting tomorrow morning. I attest to the content of the Intraoperative Record and any orders documented therein. Any exceptions are noted below.
--- NOTE | 2023-02-10 14:01 | Operative Report ---
Post Operative Report Pre & Post Diagnosis Operation Date: 02/10/23 09:20 Pre-Op Diagnosis: Closed intertrochanteric fracture of left hip Post-Op Diagnosis: Closed intertrochanteric fracture of left hip I identified the patient and participated in the time-out.: Yes Procedure Operation Date: 02/10/23 09:20 Actual Procedures p Open reduction, internal fixation left intertrochanteric femur fracture with intramedullary nail(Left) - Luis Alberto Reynolds MD Surgeon Rodolfo Quality Improvement Engineer Leonel Michael DO. Estimated Blood Loss 100 Findings Consistent with Post-Op Diagnosis Specimens None Description of Procedure Patient was taken to the operating room where anesthesia was administered. Patient was prepped and draped in the usual sterile fashion. Please see attending's operative report for specifics of the procedure. I was present for the entire case from initial patient positioning through final wound closure. Assistance was provided in tissue retraction, hemostasis, and final wound closure. Patient was taken to the recovery room in satisfactory condition. I attest to the content of the Intraoperative Record and any orders documented therein. Any exceptions are noted below.
--- NOTE | 2023-02-10 14:33 | XRay Report ---
XR hip LT min 2V CLINICAL HISTORY: Post-Operative implant position. Left hip fracture. COMPARISON STUDY: Left femur 02/09/2023. FINDINGS: Status post internal fixation of the mildly displaced intertrochanteric fracture of the pro ximal left femur with an intramedullary cornelia and interlocking femoral neck pin. Hardware appears intac t. Skin mike are in place. Vascular calcifications are noted. IMPRESSION: Status post internal fixation of the mildly displaced intertrochanteric fracture of the proximal left femur with an intramedullary cornelia and interlocking femoral neck pin. ACT 112: Negative or not required by law. Electronically signed by: Andrea Nixon M.D. 02/10/2023 2:32 PM
--- NOTE | 2023-02-10 14:40 | Anesthesiology Progress Note ---
Date of Service February 10, 2023 Anesthesia Post Procedure Vital Signs Vital Signs: Temp Pulse Pulse Pulse Resp BP BP 02/10/23 14:30 88 17 145/94 H 02/10/23 14:20 88 22 132/89 02/10/23 14:10 82 20 184/86 H 02/10/23 14:00 36.2 C L 80 14 136/95 02/10/23 10:56 36.7 C 75 20 159/96 H 02/10/23 07:25 37.0 C 76 19 162/106 H 02/10/23 03:04 36.6 C 80 20 155/76 H 02/09/23 22:40 36.5 C 73 18 155/76 H 02/09/23 19:13 36.6 C 80 22 165/93 H 02/09/23 16:57 36.7 C 70 15 156/101 H 02/09/23 16:41 76 02/09/23 15:00 74 155/96 H 02/09/23 15:42 76 Pulse Ox O2 Del Method O2 Flow Rate 02/10/23 14:30 100 Room Air 02/10/23 14:20 100 Oxymask 9 02/10/23 14:10 100 Oxymask 9 02/10/23 14:00 98 Oxymask 9 02/10/23 10:56 95 Room Air 02/10/23 07:25 96 Room Air 02/10/23 03:04 95 Room Air 02/09/23 22:40 94 Room Air 02/09/23 19:13 97 Room Air 02/09/23 16:57 96 Room Air 02/09/23 16:41 02/09/23 15:00 95 Room Air 02/09/23 15:42 Pain Intensity Left Hip: Pain Intensity: 8 Transfer of Care Handoff Completed per policy Notes Mental Status: alert / awake / arousable and participated in evaluation Patient Amnestic to Procedure: Yes Nausea / Vomiting: adequately controlled Pain: adequately controlled Airway Patency, RR, SpO2: stable & adequate BP & HR: stable & adequate Hydration State: stable & adequate Anesthetic Complications: no major complications apparent
--- NOTE | 2023-02-10 15:05 | Electrocardiogram Report ---
Test Reason : Blood Pressure : / mmHG Vent. Rate : 079 BPM Atrial Rate : 082 BPM P-R Int : 000 ms QRS Dur : 092 ms QT Int : 380 ms P-R-T Axes : 000 -06 -84 degrees QTc Int : 435 ms Atrial fibrillation Nonspecific ST and T wave abnormality Abnormal ECG When compared with ECG of 09-FEB-2023 03:10, No significant change was found Confirmed by Kelvin Glynn ([id number]) on 02/10/2023 3:05:24 PM Referred By: REFERRED SELF Confirmed By:Kelvin Glynn
--- NOTE | 2023-02-10 15:08 | Fluoroscopy Report ---
INTRAOPERATIVE RADIOGRAPHS CLINICAL HISTORY: Open reduction and internal fixation of the left proximal femur. Fluoro time: 176 seconds Exposure: 33.67 mGy FINDINGS: 6 spot fluoroscopic views of the left femur are correlated with radiographs dated 02/09/2023 . There has been intertrochanteric and intramedullary nail fixation of an intertrochanteric fracture of the left proximal femur. Near-anatomic alignment is maintained. A single cortical lag screw transf ixes the distal end of the intramedullary nail. IMPRESSION: Intraoperative images from open reduction and interval fixation of a left proximal femora l fracture as above. Electronically signed by: Jamaal Cordova M.D. 02/10/2023 3:07 PM
--- NOTE | 2023-02-10 18:48 | Hospitalist Progress Note ---
Date of Service February 10, 2023 Assessment & Plan (1) Fall: Plan: Unwitnessed, using walker at [facility] - hx dementia CT head negative, on eliquis for hx afib CT pelvis Acute basicervical left femoral neck fracture with involvement of the left greater trochanter UA w/o evidence for infection Trop not elevated but will trend given complaints of discomfort, but likely from prior falls/trauma/rib fx reported EKG w/ afib, rates controlled Check ECHO given fall/reported dizziness/afib/murmur-report pending Check CXR w/ ribs for reported rib fractures, shoulder given prior falls Pain control -- tylenol/morphine prn Antiemetics -- Zofran prn Ok'd w/ ortho to continue ASA 81mg daily in lieu of plavix (stent may 2022) Reconsider continuation of Eliquis as per Cardiology (2) Closed intertrochanteric fracture of left hip: Plan: Age-related osteoporosis with current pathological fracture, left femur ortho performed repair on 02/10-appreciate management pain control, bowel regimen DVT proph with SCDs, can restart Eliquis tomorrow PT/OT evals pending (3) CKD (chronic kidney disease): Plan: CKD stage 3 BUN/Cr stable BMP in AM (4) CAD (coronary artery disease): Plan: hx of stents in 2012, and 1DES in May 2022 On Plavix, holding for surgery as above, but restarted for tomorrow by Ortho EKG on admit w/ afib Trend trop-serially negative/check ECHO Cards consulted for clearance/reported symptoms-appreciated monitor on tele, EKG w/ CP Nitro available prn Continue metoprolol 100mg daily, continue statin (5) DM type 2 (diabetes mellitus, type 2): Plan: hold home meds bsg ac/hs ssi while inpatient checking a1c w/ am labs-pending (6) HTN (hypertension): Plan: BPs were high from pain on admit, now improved continue metoprolol, IV hydralazine prn (7) Dyslipidemia: Plan: continue statin (8) Atrial fibrillation: Plan: monitor on tele continue metoprolol, digoxin holding eliquis given above fracture for surgery-restart tomorrow TSH wnl Keep mag/K replete -give Mag 1 gram IV today (9) Macrocytosis: Plan: mcv 105, B12 low at 267--> replace with IM B12 x 3 doses, then convert to po folate normal TSH wnl, checked given afib Plan DVT prophylaxis-Arielle Doe Dispo-continued stay on tele, will need rehab Admission and Anticipated Discharge Date Admission Date: February 09, 2023 Subjective Pt is sleeping after his surgery. Vitals stable, no acute issues. Tele with rate controlled Afib. Physical Exam Constitutional: WD/WN, vitals as above Respiratory: normal respiratory effort, lungs clear to auscultation Cardiovascular: Rate/Rhythm: regular rate and + irregularly irregular Heart Sounds: no murmur Extremities: no edema Musculoskeletal: Extremities: + extremities abnormal to inspection (left hip dressing in place c/d/i) Neurologic: sleeping Results & Data Results & Data Vital Signs (Past 12 Hours) Vital Signs Temp Pulse Pulse Pulse Resp BP BP 02/10/23 16:00 82 19 02/10/23 15:30 87 16 02/10/23 15:57 60 02/10/23 14:53 36.0 C L 60 14 117/68 02/10/23 14:40 36.1 C L 77 20 115/82 02/10/23 14:30 88 17 145/94 H 02/10/23 14:20 88 22 132/89 02/10/23 14:10 82 20 184/86 H 02/10/23 14:00 36.2 C L 80 14 136/95 02/10/23 10:56 36.7 C 75 20 02/10/23 07:25 37.0 C 76 19 BP Pulse Ox O2 Del Method O2 Flow Rate 02/10/23 16:00 128/95 94 Room Air 02/10/23 15:30 134/85 98 Room Air 02/10/23 15:57 02/10/23 14:53 99 Room Air 02/10/23 14:40 98 Room Air 02/10/23 14:30 100 Room Air 02/10/23 14:20 100 Oxymask 9 02/10/23 14:10 100 Oxymask 9 02/10/23 14:00 98 Oxymask 9 02/10/23 10:56 159/96 H 95 Room Air 02/10/23 07:25 162/106 H 96 Room Air Laboratory Results CBC and BMP reviewed PG Care Time/CCT Total # of Minutes Spent Total Time Spent with Patient: Total time spent is greater than 50% in coordination of care (as documented) at patient's floor/unit and/or counseling patient: Coding Level of Care Code 01307 SUB INP/OBS CARE 235MIN Diagnoses Fall W19.XXXA Closed intertrochanteric fracture of left hip S72.142A CKD (chronic kidney disease) N18.9 CAD (coronary artery disease) I25.10 DM type 2 (diabetes mellitus, type 2) E11.9 HTN (hypertension) I10 Dyslipidemia E78.5 Atrial fibrillation I48.91 Macrocytosis D75.89
[2023-02-10] MEDS ORDERED: ACETAMINOPHEN 325 MG TAB PO PRN (19:03)
[2023-02-10] MEDS: ceFAZolin 2000MG 2,000 MG/15 ML SYR IV SCH (20:12)
[2023-02-10] MEDS: DIGOXIN 0.125 MG TAB PO SCH (20:18)
[2023-02-10] MEDS: APIXABAN 2.5 MG TAB PO SCH (20:18)
[2023-02-10] MEDS: CALCIUM CARBONATE 500 MG CHEWABLE TAB PO SCH (20:23)
[2023-02-10] MEDS ORDERED: ATORVASTATIN 40 MG TAB PO SCH (21:00)
[2023-02-11] MEDS: ceFAZolin 2000MG 2,000 MG/15 ML SYR IV SCH (03:56)
[2023-02-11] MEDS ORDERED: VANCOMYCIN HCL 1,000 MG/270 ML BAG IV SCH (06:00)
[2023-02-11] MEDS: PANTOprazole 40 MG TAB PO SCH (06:18)
[2023-02-11 07:13] LABS: BUN Creatinine Ratio 14.3 (10-20); Calcium 9.4 mg/dl (8.6-10.3); Creatinine Clr Calc Pharmacy 26.5 ml/min; Est GFR (African American) 28.9 ml/min; Magnesium 2.5 mg/dl (1.7-2.4); Potassium 5.8 mmol/L (3.5-5.1)
[2023-02-11 07:30] LABS: Hematocrit (blood only) 34.8 % (42.0-52.0); Hemoglobin 10.4 g/dl (14.0-18.0); Mean Corpuscular Hemoglobin 34.7 pg (25.0-34.0); Mean Corpuscular Hgb Conc 29.9 g/dL (32.0-36.0); Mean Platelet Volume 12.9 fL (9.4-12.4); Nucleated RBC # (auto) 0.03 K/uL (0-0.12); Nucleated RBC % (auto) 0.2 %; Platelet Count 194 K/uL (130-400); RDW Coefficient of Variation 18.3 % (11.5-14.5); RDW Standard Deviation 77.9 fL (36.4-46.3); White Blood Count 13.63 K/ul (4.8-10.8)
[2023-02-11 07:31] LABS: Anisocytosis Present; Basophils # (auto) 0.02 K/uL (0-0.2); Basophils % (auto) 0.1 %; Echinocytes 2+; Immature Granulocytes # (auto) 0.22 K/uL (0.01-0.20); Immature Granulocytes % (auto) 1.6 %; Lymphocytes # (auto) 0.64 K/uL (1.2-3.4); Lymphocytes % (auto) 4.7 %; Macrocytosis Present; Monocytes # (auto) 0.99 K/uL (0.11-0.59); Monocytes % (auto) 7.3 %; Neutrophils # (auto) 11.76 K/uL (1.40-6.50); Neutrophils % (auto) 86.3 %; Polychromasia 1+
[2023-02-11] MEDS ORDERED: SODIUM CHLORIDE 0.9% 1000ML 500 ML IV ONE (07:46)
[2023-02-11] MEDS ORDERED: PATIROMER CALCIUM SORBITEX 8.4 GM PACK PO ONE (07:47)
--- NOTE | 2023-02-11 08:17 | XRay Report ---
XR chest 1V portable HISTORY: hypoxia COMPARISON: Chest 02/09/2023. FINDINGS: Slightly rotated study. No pneumothorax. No pleural effusions. There are low lung volumes. The cardiac silhouette remains mildly enlarged. No new focal lung consolidations to suggest a pneumon ia. No evidence for pulmonary edema. Old, healed right-sided rib fractures again noted. IMPRESSION: Stable cardiomegaly. Otherwise, no acute process within the chest. ACT 112: Negative or not required by law. Electronically signed by: Andrea Nixon M.D. 02/11/2023 8:16 AM
[2023-02-11 08:23] LABS: Base Excess ABG -21.8 mEq/L (-9-1.8); HCO3 ABG 5 mmol/L (19-24); Oxygen Saturation ABG 99.8 % (90-95); PCO2 ABG 14 mmHg (35-46); PO2 ABG 121 mmHg (80-95)
[2023-02-11 08:28] LABS: Allen Test Pos (Pos)
[2023-02-11 08:29] LABS: pH ABG 7.15 (7.35-7.45)
--- NOTE | 2023-02-11 08:32 | Orthopedic Progress Note ---
Date of Service February 11, 2023 Assessment & Plan (1) Closed intertrochanteric fracture of left hip: Plan: Patient is status postop day #1 status post ORIF L intertrochanteric femur fracture with intramedullary nail He will be weightbearing as tolerated in the left lower extremity with walker and assistance he is a fall risk Recommend PT/OT Dressings are in place and on soiled were not changed today. DVT prophylaxis per primary (was on long-term anticoagulation possibly transitioning from Eliquis due to history of falls?) Case management for discharge planning recommend SNF for rehabilitation Continue with pain control per primary and using ice to left hip daily Present on Admission?: Yes (2) DM type 2 (diabetes mellitus, type 2): Plan: Continue treatment per primary Admission and Anticipated Discharge Date Admission Date: February 09, 2023 Subjective Patient is an 87-year-old male who is a known patient to Dr. Milka marcelino. He is postop day #1 status post ORIF L intertrochanteric femur fracture with intramedullary nail. He was seen this a.m. approximately 810 and phlebotomists x2 are present. He is sleeping and does not easily arouse. Nursing reports he had some pain during shift change last night however he has not been complaining of pain since. Review of Systems Review of Systems: Unable to obtain Physical Exam Physical Exam: General: Patient sleeping does not easily arouse. Does not appear to be in any acute distress Integumentary/musculoskeletal: Left lower extremity skin has resolving ecchymosis. 3 dressings are intact over left hip and distal thigh. Dressings are clean nonsoiled. Patient tolerates gentle hip flexion AB duction and internal and external rotation and does not awaken or grimace. Negative logroll. Calf is soft and nontender. Left lower extremity is neurovascular intact Results & Data Vital Signs (Past 12 Hours) Vital Signs Temp Pulse Pulse Resp BP BP BP 02/11/23 08:11 36.5 C 98 H 18 97/71 L 02/11/23 07:11 97/71 L 02/11/23 07:11 96 H 30 H 02/11/23 07:00 93 H 33 H 02/11/23 06:30 106 H 36 H 02/11/23 06:24 99/63 L 02/11/23 06:24 96 H 35 H 03/28/23 06:00 103 H 33 H 02/11/23 05:30 108 H 33 H 02/11/23 05:00 98 H 34 H 02/11/23 04:40 89/64 L 02/11/23 04:40 120 H 28 H 02/11/23 04:39 105 H 33 H 02/11/23 04:30 94 H 32 H 02/11/23 04:00 99 H 33 H 02/11/23 03:30 106 H 31 H 02/11/23 03:00 110 H 26 H 02/11/23 02:30 117 H 24 02/11/23 02:00 104 H 35 H 02/11/23 01:30 103 H 24 02/11/23 01:00 101 H 23 02/11/23 00:30 107 H 27 H 02/11/23 00:01 108 H 26 H 02/11/23 00:01 93/70 L 02/11/23 00:00 92 H 21 02/10/23 23:34 90/71 L 02/10/23 23:34 102 H 19 02/10/23 23:32 80/67 L 02/10/23 23:32 106 H 27 H 02/10/23 23:30 100 H 23 02/10/23 23:00 92 H 20 02/10/23 22:30 94 H 27 H 02/10/23 22:01 82 26 H 02/10/23 22:01 117/68 02/10/23 22:00 80 20 02/10/23 21:30 87 23 02/10/23 21:01 85 30 H 02/10/23 21:01 98/62 L 02/10/23 21:00 77 24 02/10/23 20:30 79 16 02/11/23 06:21 95 H 99/63 L 02/11/23 04:36 36.5 C 101 H 18 89/64 L 02/10/23 23:32 36.6 C 109 H 18 90/71 L Pulse Ox O2 Del Method O2 Flow Rate 02/11/23 08:11 92 Nasal Cannula 2 02/11/23 07:11 02/11/23 07:11 02/11/23 07:00 02/11/23 06:30 02/11/23 06:24 02/11/23 06:24 02/11/23 06:00 02/11/23 05:30 02/11/23 05:00 02/11/23 04:40 02/11/23 04:40 02/11/23 04:39 02/11/23 04:30 02/11/23 04:00 02/11/23 03:30 02/11/23 03:00 02/11/23 02:30 02/11/23 02:00 02/11/23 01:30 02/11/23 01:00 02/11/23 00:30 02/11/23 00:01 02/11/23 00:01 02/11/23 00:00 02/10/23 23:34 02/10/23 23:34 96 02/10/23 23:32 02/10/23 23:32 02/10/23 23:30 02/10/23 23:00 02/10/23 22:30 96 02/10/23 22:01 100 02/10/23 22:01 02/10/23 22:00 100 02/10/23 21:30 58 L 02/10/23 21:01 100 02/10/23 21:01 02/10/23 21:00 93 02/10/23 20:30 100 02/11/23 06:21 02/11/23 04:36 95 Room Air 02/10/23 23:32 96 Room Air Laboratory Results 02/11/23 02/11/23 02/11/23 Range/Units 07:57 07:57 07:11 WBC (4.8-10.8) K/ul RBC (4.70-6.10) M/uL Hgb (14.0-18.0) g/dl Hct (42.0-52.0) % MCV (80.0-100.0) fL MCH (25.0-34.0) pg MCHC (32.0-36.0) g/dL RDW Std Deviation (36.4-46.3) fL RDW Coeff of Liya (11.5-14.5) % Plt Count (130-400) K/uL MPV (9.4-12.4) fL Immature Gran % (Auto) % Neut % (Auto) % Lymph % (Auto) % Gove % (Auto) % Eos % (Auto) % Baso % (Auto) % Neut # (Auto) (1.40-6.50) K/uL Lymph # (Auto) (1.2-3.4) K/uL Gove # (Auto) (0.11-0.59) K/uL Eos # (Auto) (0-0.50) K/uL Baso # (Auto) (0-0.2) K/uL Immature Gran # (Auto) (0.01-0.20) K/uL Absolute Nucleated RBC (0-0.12) K/uL Nucleated RBC % (auto) % Polychromasia Anisocytosis Macrocytosis Echinocytes ABG pH Pending ABG pCO2 Pending ABG pO2 Pending ABG HCO3 Pending ABG O2 Saturation Pending ABG Base Excess Pending Darnell Test Pending Oxygen Given Pending Sodium (136-145) mmol/L Potassium (3.5-5.1) mmol/L Chloride (98-107) mmol/L Carbon Dioxide (21-32) mmol/L Anion Gap (3-11) BUN (6-23) mg/dl Creatinine (0.6-1.4) mg/dl Est Cr Clr Drug Dosing ml/min Est GFR ( Amer) ml/min Est GFR (Non-Af Amer) ml/min BUN/Creatinine Ratio (10-20) Glucose (70-99(Fasting)) mg/dl POC Glucose 94 (70-99) mg/dl Estimat Average Glucose mg/dl Hemoglobin A1c (4.5-5.6) % Lactate Pending Calcium (8.6-10.3) mg/dl Magnesium (1.7-2.4) mg/dl 25-OH Vitamin D Total (30-100) ng/ml 02/11/23 02/11/23 02/11/23 Range/Units 05:54 05:54 05:54 WBC 13.63 H (4.8-10.8) K/ul RBC 3.00 L (4.70-6.10) M/uL Hgb 10.4 L (14.0-18.0) g/dl Hct 34.8 L (42.0-52.0) % MCV 116.0 H D (80.0-100.0) fL MCH 34.7 H (25.0-34.0) pg MCHC 29.9 L (32.0-36.0) g/dL RDW Std Deviation 77.9 H (36.4-46.3) fL RDW Coeff of Liya 18.3 H (11.5-14.5) % Plt Count 194 (130-400) K/uL MPV 12.9 H (9.4-12.4) fL Immature Gran % (Auto) 1.6 % Neut % (Auto) 86.3 % Lymph % (Auto) 4.7 % Gove % (Auto) 7.3 % Eos % (Auto) 0.0 % Baso % (Auto) 0.1 % Neut # (Auto) 11.76 H (1.40-6.50) K/uL Lymph # (Auto) 0.64 L (1.2-3.4) K/uL Gove # (Auto) 0.99 H (0.11-0.59) K/uL Eos # (Auto) 0.00 (0-0.50) K/uL Baso # (Auto) 0.02 (0-0.2) K/uL Immature Gran # (Auto) 0.22 H (0.01-0.20) K/uL Absolute Nucleated RBC 0.03 (0-0.12) K/uL Nucleated RBC % (auto) 0.2 % Polychromasia 1+ Anisocytosis Present Macrocytosis Present Echinocytes 2+ ABG pH ABG pCO2 ABG pO2 ABG HCO3 ABG O2 Saturation ABG Base Excess Darnell Test Oxygen Given Sodium 137 (136-145) mmol/L Potassium 5.8 H D (3.5-5.1) mmol/L Chloride 102 (98-107) mmol/L Carbon Dioxide 11 L (21-32) mmol/L Anion Gap 24 H (3-11) BUN 33 H (6-23) mg/dl Creatinine 2.30 H D (0.6-1.4) mg/dl Est Cr Clr Drug Dosing 26.5 ml/min Est GFR ( Amer) 28.9 ml/min Est GFR (Non-Af Amer) 25.0 ml/min BUN/Creatinine Ratio 14.3 (10-20) Glucose 114 H (70-99(Fasting)) mg/dl POC Glucose (70-99) mg/dl Estimat Average Glucose mg/dl Hemoglobin A1c (4.5-5.6) % Lactate Calcium 9.4 (8.6-10.3) mg/dl Magnesium 2.5 H (1.7-2.4) mg/dl 25-OH Vitamin D Total 37.4 (30-100) ng/ml 02/10/23 02/10/23 02/10/23 Range/Units 20:18 16:19 14:04 WBC (4.8-10.8) K/ul RBC (4.70-6.10) M/uL Hgb (14.0-18.0) g/dl Hct (42.0-52.0) % MCV (80.0-100.0) fL MCH (25.0-34.0) pg MCHC (32.0-36.0) g/dL RDW Std Deviation (36.4-46.3) fL RDW Coeff of Liya (11.5-14.5) % Plt Count (130-400) K/uL MPV (9.4-12.4) fL Immature Gran % (Auto) % Neut % (Auto) % Lymph % (Auto) % Gove % (Auto) % Eos % (Auto) % Baso % (Auto) % Neut # (Auto) (1.40-6.50) K/uL Lymph # (Auto) (1.2-3.4) K/uL Gove # (Auto) (0.11-0.59) K/uL Eos # (Auto) (0-0.50) K/uL Baso # (Auto) (0-0.2) K/uL Immature Gran # (Auto) (0.01-0.20) K/uL Absolute Nucleated RBC (0-0.12) K/uL Nucleated RBC % (auto) % Polychromasia Anisocytosis Macrocytosis Echinocytes ABG pH ABG pCO2 ABG pO2 ABG HCO3 ABG O2 Saturation ABG Base Excess Darnell Test Oxygen Given Sodium (136-145) mmol/L Potassium (3.5-5.1) mmol/L Chloride (98-107) mmol/L Carbon Dioxide (21-32) mmol/L Anion Gap (3-11) BUN (6-23) mg/dl Creatinine (0.6-1.4) mg/dl Est Cr Clr Drug Dosing ml/min Est GFR ( Amer) ml/min Est GFR (Non-Af Amer) ml/min BUN/Creatinine Ratio (10-20) Glucose (70-99(Fasting)) mg/dl POC Glucose 151 H 148 H 124 H (70-99) mg/dl Estimat Average Glucose mg/dl Hemoglobin A1c (4.5-5.6) % Lactate Calcium (8.6-10.3) mg/dl Magnesium (1.7-2.4) mg/dl 25-OH Vitamin D Total (30-100) ng/ml 02/10/23 02/10/23 Range/Units 10:52 05:56 WBC (4.8-10.8) K/ul RBC (4.70-6.10) M/uL Hgb (14.0-18.0) g/dl Hct (42.0-52.0) % MCV (80.0-100.0) fL MCH (25.0-34.0) pg MCHC (32.0-36.0) g/dL RDW Std Deviation (36.4-46.3) fL RDW Coeff of Liya (11.5-14.5) % Plt Count (130-400) K/uL MPV (9.4-12.4) fL Immature Gran % (Auto) % Neut % (Auto) % Lymph % (Auto) % Gove % (Auto) % Eos % (Auto) % Baso % (Auto) % Neut # (Auto) (1.40-6.50) K/uL Lymph # (Auto) (1.2-3.4) K/uL Gove # (Auto) (0.11-0.59) K/uL Eos # (Auto) (0-0.50) K/uL Baso # (Auto) (0-0.2) K/uL Immature Gran # (Auto) (0.01-0.20) K/uL Absolute Nucleated RBC (0-0.12) K/uL Nucleated RBC % (auto) % Polychromasia Anisocytosis Macrocytosis Echinocytes ABG pH ABG pCO2 ABG pO2 ABG HCO3 ABG O2 Saturation ABG Base Excess Darnell Test Oxygen Given Sodium (136-145) mmol/L Potassium (3.5-5.1) mmol/L Chloride (98-107) mmol/L Carbon Dioxide (21-32) mmol/L Anion Gap (3-11) BUN (6-23) mg/dl Creatinine (0.6-1.4) mg/dl Est Cr Clr Drug Dosing ml/min Est GFR ( Amer) ml/min Est GFR (Non-Af Amer) ml/min BUN/Creatinine Ratio (10-20) Glucose (70-99(Fasting)) mg/dl POC Glucose 158 H (70-99) mg/dl Estimat Average Glucose 108 mg/dl Hemoglobin A1c 5.4 (4.5-5.6) % Lactate Calcium (8.6-10.3) mg/dl Magnesium (1.7-2.4) mg/dl 25-OH Vitamin D Total (30-100) ng/ml Diagnostic Findings Hip X-Ray 02/10/23 00:00 INTRAOPERATIVE RADIOGRAPHS CLINICAL HISTORY: Open reduction and internal fixation of the left proximal femur. Fluoro time: 176 seconds Exposure: 33.67 mGy FINDINGS: 6 spot fluoroscopic views of the left femur are correlated with radi ographs dated 02/09/2023. There has been intertrochanteric and intramedullary nail fixation of an intertrochanteric fracture of the left proximal femur. Near- anatomic alignment is maintained. A single cortical lag screw transfixes the distal end of the intramedullary nail. IMPRESSION: Intraoperative images from open reduction and interval fixation of a left proximal femoral fracture as above. Electronically signed by: Jamaal Cordova M.D. 02/10/2023 3:07 PM Hip X-Ray 02/10/23 13:57 XR hip LT min 2V CLINICAL HISTORY: Post-Operative implant position. Left hip fracture. COMPARISON STUDY: Left femur 02/09/2023. FINDINGS: Status post internal fixation of the mildly displaced intertrochanteric fracture of the proximal left femur with an intramedullary cornelia and interlocking femoral neck pin. Hardware appears intact. Skin mike are in place. Vascular calcifications are noted. IMPRESSION: Status post internal fixation of the mildly displaced intertro chanteric fracture of the proximal left femur with an intramedullary cornelia and interlocking femoral neck pin. ACT 112: Negative or not required by law. Electronically signed by: Andrea Nixon M.D. 02/10/2023 2:32 PM Chest X-Ray 02/11/23 07:49 XR chest 1V portable HISTORY: hypoxia COMPARISON: Chest 02/09/2023. FINDINGS: Slightly rotated study. No pneumothorax. No pleural effusions. There are low lung volumes. The cardiac silhouette remains mildly enlarged. No new focal lung consolidations to suggest a pneumonia. No evidence for pulmonary edema. Old, healed right-sided rib fractures again noted. IMPRESSION: Stable cardiomegaly. Otherwise, no acute process within the chest. ACT 112: Negative or not required by law. Electronically signed by: Andrea Nixon M.D. 02/11/2023 8:16 AM
[2023-02-11] MEDS ORDERED: CLOPIDOGREL BISULFATE 75 MG TAB PO SCH (09:00)
--- NOTE | 2023-02-11 09:05 | Hospitalist Progress Note ---
Date of Service February 11, 2023 Assessment & Plan (1) Acute metabolic encephalopathy: (2) Hypotension: (3) Lactic acidosis: (4) High anion gap metabolic acidosis: (5) Hyperkalemia: (6) Fall: Plan: Unwitnessed, using walker at [facility] - hx dementia CT head negative, on eliquis for hx afib CT pelvis Acute basicervical left femoral neck fracture with involvement of the left greater trochanter UA w/o evidence for infection Trop not elevated but will trend given complaints of discomfort, but likely from prior falls/trauma/rib fx reported EKG w/ afib, rates controlled Check ECHO given fall/reported dizziness/afib/murmur-report pending Check CXR w/ ribs for reported rib fractures, shoulder given prior falls Pain control -- tylenol/morphine prn Antiemetics -- Zofran prn Ok'd w/ ortho to continue ASA 81mg daily in lieu of plavix (stent may 2022) Reconsider continuation of Eliquis as per Cardiology (7) Closed intertrochanteric fracture of left hip: Plan: Age-related osteoporosis with current pathological fracture, left femur ortho performed repair on 02/10-appreciate management pain control, bowel regimen DVT proph with SCDs, can restart Eliquis tomorrow PT/OT evals pending (8) CKD (chronic kidney disease): Plan: CKD stage 3 BUN/Cr stable BMP in AM (9) CAD (coronary artery disease): Plan: hx of stents in 2012, and 1DES in May 2022 On Plavix, holding for surgery as above, but restarted for tomorrow by Ortho EKG on admit w/ afib Trend trop-serially negative/check ECHO Cards consulted for clearance/reported symptoms-appreciated monitor on tele, EKG w/ CP Nitro available prn Continue metoprolol 100mg daily, continue statin (10) DM type 2 (diabetes mellitus, type 2): Plan: hold home meds bsg ac/hs ssi while inpatient checking a1c w/ am labs-pending (11) HTN (hypertension): Plan: BPs were high from pain on admit, now improved continue metoprolol, IV hydralazine prn (12) Dyslipidemia: Plan: continue statin (13) Atrial fibrillation: Plan: monitor on tele continue metoprolol, digoxin holding eliquis given above fracture for surgery-restart tomorrow TSH wnl Keep mag/K replete -give Mag 1 gram IV today (14) Macrocytosis: Plan: mcv 105, B12 low at 267--> replace with IM B12 x 3 doses, then convert to po folate normal TSH wnl, checked given afib Plan DVT prophylaxis-[place] SCDs Dispo-continued stay on tele, will need rehab Admission and Anticipated Discharge Date Admission Date: February 09, 2023 Physical Exam Respiratory: normal respiratory effort, lungs clear to auscultation Cardiovascular: Rate/Rhythm: regular rate and + irregularly irregular Heart Sounds: no murmur Extremities: no edema Musculoskeletal: Extremities: + extremities abnormal to inspection (left hip dressing in place c/d/i) Results & Data Results & Data Vital Signs (Past 12 Hours) Vital Signs Temp Pulse Pulse Resp BP BP BP 02/11/23 08:11 36.5 C 98 H 18 97/71 L 02/11/23 07:11 97/71 L 02/11/23 07:11 96 H 30 H 02/11/23 07:00 93 H 33 H 02/11/23 06:30 106 H 36 H 02/11/23 06:24 99/63 L 02/11/23 06:24 96 H 35 H 02/11/23 06:00 103 H 33 H 02/11/23 05:30 108 H 33 H 02/11/23 05:00 98 H 34 H 02/11/23 04:40 89/64 L 02/11/23 04:40 120 H 28 H 02/11/23 04:39 105 H 33 H 02/11/23 04:30 94 H 32 H 02/11/23 04:00 99 H 33 H 02/11/23 03:30 106 H 31 H 02/11/23 03:00 110 H 26 H 02/11/23 02:30 117 H 24 02/11/23 02:00 104 H 35 H 02/11/23 01:30 103 H 24 02/11/23 01:00 101 H 23 02/11/23 00:30 107 H 27 H 02/11/23 00:01 108 H 26 H 02/11/23 00:01 93/70 L 02/11/23 00:00 92 H 21 02/10/23 23:34 90/71 L 02/10/23 23:34 102 H 19 02/10/23 23:32 80/67 L 02/10/23 23:32 106 H 27 H 02/10/23 23:30 100 H 23 02/10/23 23:00 92 H 20 02/10/23 22:30 94 H 27 H 02/10/23 22:01 82 26 H 02/10/23 22:01 117/68 02/10/23 22:00 80 20 02/10/23 21:30 87 23 02/11/23 06:21 95 H 99/63 L 02/11/23 04:36 36.5 C 101 H 18 89/64 L 02/10/23 23:32 36.6 C 109 H 18 90/71 L Pulse Ox O2 Del Method O2 Flow Rate 02/11/23 08:11 92 Nasal Cannula 2 02/11/23 07:11 02/11/23 07:11 02/11/23 07:00 02/11/23 06:30 02/11/23 06:24 02/11/23 06:24 02/11/23 06:00 02/11/23 05:30 02/11/23 05:00 02/11/23 04:40 02/11/23 04:40 02/11/23 04:39 02/11/23 04:30 02/11/23 04:00 02/11/23 03:30 02/11/23 03:00 02/11/23 02:30 02/11/23 02:00 02/11/23 01:30 02/11/23 01:00 02/11/23 00:30 02/11/23 00:01 02/11/23 00:01 02/11/23 00:00 02/10/23 23:34 02/10/23 23:34 96 02/10/23 23:32 02/10/23 23:32 02/10/23 23:30 02/10/23 23:00 02/10/23 22:30 96 02/10/23 22:01 100 02/10/23 22:01 02/10/23 22:00 100 02/10/23 21:30 58 L 02/11/23 06:21 02/11/23 04:36 95 Room Air 02/10/23 23:32 96 Room Air PG Care Time/CCT Total # of Minutes Spent Total Time Spent with Patient: Total time spent is greater than 50% in coordination of care (as documented) at patient's floor/unit and/or counseling patient: Coding Diagnoses Acute metabolic encephalopathy G93.41 Hypotension I95.9 Lactic acidosis E87.20 High anion gap metabolic acidosis E87.29 Hyperkalemia E87.5 Fall W19.XXXA Closed intertrochanteric fracture of left hip S72.142A CKD (chronic kidney disease) N18.9 CAD (coronary artery disease) I25.10 DM type 2 (diabetes mellitus, type 2) E11.9 HTN (hypertension) I10 Dyslipidemia E78.5 Atrial fibrillation I48.91 Macrocytosis D75.89
--- NOTE | 2023-02-11 09:19 | CT Scan Report ---
CT head/brain wo con CLINICAL HISTORY: 87 years-old Male with unresponsive. Acutely altered mental status TECHNIQUE: Multiple axial CT images of the head were obtained without contrast. A dose lowering tech nique was utilized adhering to the principles of ALARA. COMPARISON: 02/09/2023 FINDINGS: No acute intracranial hemorrhage, midline shift, territorial ischemia or abnormal extra-axial collect ion. Motion degraded exam. Involutional changes with unchanged ventriculomegaly, likely on an ex vacu o basis. White matter hypodensities suggestive of chronic microvascular ischemic disease. Unchanged 1 .5 cm calcified focus within the right cerebellar dentate nuclei. Cerebral vascular calcifications. The calvarium is intact. Prior bilateral lens repair. The paranasal sinuses, mastoid air cells, and m iddle ear cavities are clear. IMPRESSION: Motion degraded exam. No acute intracranial abnormality identified. ACT 112: Negative or not required by law. The above report was generated using voice recognition software. It may contain grammatical, syntax o r spelling errors. Electronically signed by: Kg Mcbride M.D. 02/11/2023 9:18 AM
[2023-02-11] MEDS ORDERED: MoRPHine SULFATE 2 MG/ML CARP ONE (09:29)
[2023-02-11] MEDS ORDERED: MoRPHine SULFATE 2 MG/ML CARP IV STA (09:31)
[2023-02-11 09:36] LABS: BUN Creatinine Ratio 13.8 (10-20); Calcium 9.5 mg/dl (8.6-10.3); Creatinine Clr Calc Pharmacy 25.4 ml/min; Est GFR (African American) 27.5 ml/min; Est GFR (Non-African American) 23.7 ml/min; Potassium 5.9 mmol/L (3.5-5.1)
[2023-02-11] MEDS ORDERED: LORazepam 2 MG/1 ML VIAL IV PRN (09:43)
[2023-02-11] MEDS ORDERED: LORazepam 0.5 MG TAB PO PRN (09:43)
[2023-02-11] MEDS ORDERED: MoRPHine BOLUS from BAG IV PRN (09:43)
[2023-02-11] MEDS ORDERED: ONDANSETRON INJ 2 MG/ML 2 ML VIAL IV PRN (09:43)
[2023-02-11] MEDS ORDERED: ONDANSETRON 4 MG OD TAB SL PRN (09:43)
[2023-02-11] MEDS ORDERED: MoRPHine SULFATE 2 MG/ML CARP IV PRN (09:43)
--- NOTE | 2023-02-11 09:43 | Procedure Note ---
Procedure Note Date of Service February 11, 2023 Note Patient underwent hip arthroplasty yesterday and became increasingly hypotensive overnight. He was found to be in renal failure with lactic acidosis. Patient was also unresponsive to commands. SIENNA MEDRANO called overhead in room 104. I presented to the room and the patient was already undergoing CPR. He was initially in a nonshockable rhythm (PEA). He just came back from a duff CT of his head chest and abdomen. No acute findings were seen on the CT scan. It was known that he was profoundly acidotic with an elevated lactic acidosis. Patient received 1 dose of epinephrine through ongoing CPR. I also ordered for 4 A of bicarbonate to be given. Soon after bicarbonate was infused, the patient regained ROSC. I had a discussion with the patient's son over the phone as his CODE STATUS was a bit unclear. The patient is listed as a DNI but okay for ACLS otherwise. I reiterated to the patient's son the severity of the patient's illness and his overall poor prognosis. He changed the CODE STATUS from DNI and okay for CPR to comfort measures only. We did not place an invasive airway given the change of CODE STATUS. The patient was given 2 mg of IV morphine and appears a bit more comfortable. Patient's son is on his way and should be here in the next 25 minutes. We will proceed with comfort measures. Coding CPT Codes Resuscitation - Resuscitation: 21122 Heart/lung resuscitation CPR ([id number]) [facility] [place] Procedure Codes (Charges) Resuscitation Resuscitation: 32408 Heart/lung resuscitation CPR
[2023-02-11] MEDS ORDERED: MoRPHine SULF/NSS 250 MG/250 ML BTL IV SCH (09:45)
--- NOTE | 2023-02-11 09:46 | CT Scan Report ---
CT chest diagnostic wo con CT DOSE: 1732.21 mGy.cm CLINICAL HISTORY: 87 years-old Male with lactic acidosis,hypotension. Acute hypertension with acidos is and reported ischemic bowel TECHNIQUE: Multiaxial CT images of the chest were performed without contrast. A dose lowering techni que was utilized adhering to the principles of ALARA. COMPARISON: CT abdomen and pelvis of same day and also 09/18/2021 FINDINGS: Unremarkable thyroid. No lymphadenopathy. Moderate cardiomegaly without pericardial effusio n. Extensive coronary artery calcifications. Atherosclerosis of the thoracic aorta without aneurysm. Dilated pulmonary artery. Small right and trace left pleural effusions. No pneumothorax or overt pulmonary edema. Suggestion of mild pulmonary emphysema. Mild dependent subsegmental bibasilar atelectasis. Mild tracheobronchial s ecretions. No suspicious pulmonary nodules or masses. Mildly distended stomach. Hepatic steatosis. Distended gallbladder. Degenerative changes of the shoul ders and spine. Chronic T12 compression deformity without retropulsion. Partially imaged superior end plate compression deformity of the L1 vertebral body is new compared to 09/18/2021 exam and demonstrat es no retropulsion. IMPRESSION: 1. Cardiomegaly without pulmonary edema. 2. Small right and trace left pleural effusions with mild bibasilar atelectasis. 3. Suggestion of pulmonary arterial hypertension. 4. Partially imaged L1 superior endplate compression deformity, new from 09/18/2021. 5. Please refer to the CT abdomen and pelvis study of same day for additional findings. ACT 112: Negative or not required by law. Electronically signed by: Kg Mcbride M.D. 02/11/2023 9:43 AM
[2023-02-11 10:09] LABS: Troponin I High Sensitivity 66.3 pg/ml (0-20)
--- NOTE | 2023-02-11 10:12 | CT Scan Report ---
ABDOMEN AND PELVIS CT WITHOUT CONTRAST CT DOSE: HISTORY: severe lactic acidosis,assess for ischemic bowel TECHNIQUE: Multiaxial CT images of the abdomen and pelvis were performed without contrast. A dose lo wering technique was utilized adhering to the principles of ALARA. COMPARISON STUDY: Pelvis CT 02/09/2023. FINDINGS: Mild superior endplate compression fracture at L1. This is likely subacute. There is also a moderate superior endplate compression fracture at T12 which is likely chronic. There is an old, hea led distal sacral fracture noted. There is a right total arthroplasty. Interval internal fixation of the left proximal femoral fracture with an intramedullary cornelia and interlocking femoral neck pin. Ther e are acute subacute left posterior ninth through 11th rib fractures. Nondisplaced fractures within t he left T9-T10 transverse processes. No pneumoperitoneum. No pneumatosis. Soft tissue edema and gas w ithin the left lateral hip consistent with a recent postoperative change. Fullness within the left il iopsoas muscle suggestive of a small intramuscular hematoma. There is also a small intramuscular renate crystal within the left piriformis muscle, unchanged. This measures 3.4 cm. Mild presacral edema is note d. 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 Trace bilateral pleural effusions. The heart is enl arged. The unenhanced liver, gallbladder, pancreas, spleen, and adrenal glands unremarkable. No hydro nephrosis. Mild bilateral perinephric edema. There is a 2 cm right renal cyst. Calcified plaque withi n the normal caliber abdominal aorta. The bladder is not well assessed due to the metallic artifact i n the pelvis. There is a Peterson catheter and gas within the bladder lumen. Suboptimal evaluation for b owel pathology due to the lack of intravenous and oral contrast. However, there is no definite bowel wall thickening or obstruction. Moderate fecal retention. IMPRESSION: 1. No definite bowel wall thickening or obstruction. 2. Left lower posterior rib fractures as well as nondisplaced fractures of the left T9 and T10 transv erse processes. 3. Subacute/healing mild superior endplate compression fracture at L1. 4. Small intramuscular hematomas within the left iliopsoas and left piriformis muscles. 5. Interval internal fixation of the proximal left femoral fracture. 6. Bilateral internal iliac artery aneurysms with the largest on the right measuring 3.4 cm. 7. Additional findings as described above. ACT 112: Negative or not required by law. Electronically signed by: Andrea Nixon M.D. 02/11/2023 10:10 AM
[2023-02-11] MEDS: DULoxetine HCL 20 MG CAP PO SCH (10:19)
[2023-02-11] MEDS: LIDOCAINE 5% 1 PATCH TD SCH (10:19)
[2023-02-11] MEDS: INSULIN ASPART PER UNIT CHARGE SC SCH (10:20)
[2023-02-11] MEDS: APIXABAN 2.5 MG TAB PO SCH (10:20)
[2023-02-11] MEDS: CYANOCOBALAMIN 1000 MCG/ML VIAL IM SCH (10:20)
[2023-02-11] MEDS: MAGNESIUM OXIDE 400 MG TAB PO SCH (10:21)
[2023-02-11] MEDS: METOPROLOL SUCC 50MG EXT REL TAB PO SCH (10:21)
--- NOTE | 2023-02-11 10:21 | Critical Care Consultation ---
Date of Consultation February 11, 2023 Assessment & Plan (1) due to cardiac arrest: (2) STEMI (ST elevation myocardial infarction): (3) Lactic acidosis: (4) CKD (chronic kidney disease): Plan It appears that the patient had cardiac arrest secondary to STEMI. Patient underwent ACLS protocol and we obtained ROSC. However, due to the severity of the patient's illness, the patient's son elected for the patient to be on comfort measures. Patient would not like to be intubated based on prior discussion and son's wishes. Patient was given IV morphine after ROSC was achieved. Time of was 10:04 AM. Condolences to the son were given. History of Present Illness Reason for Consultation: Severe lactic lactic acidosis and obtundation Attending Physician: Debbie Mott MD History of Present Illness 87-year-old male with hip arthroplasty postop day 1 who presented to the ICU due to obtundation and hypotension. Prior to surgery, he was evaluated by cardiology who felt that he was a moderate risk for perioperative complications. He does have a history of coronary artery disease with stenting and was previously on Plavix. He also has a history of CKD stage III. He underwent a duff CT of his head chest and abdomen which was unrevealing. Had lengthy discussions with the bedside RN and hospitalist will transfer the patient to the ICU. He was hypotensive overnight. He underwent ACLS protocol while in the ICU and we obtained ROSC. Post ROSC EKG revealed a lateral STEMI which is likely the etiology of his lactic acidosis. Lengthy discussion was had with the patient's son over the phone who agreed to change his CODE STATUS to comfort measures only. Time of was 10:04 AM. Allergies Allergy/AdvReac Type Severity Reaction Status Date / Time Sulfa (Sulfonamide Allergy Intermediate RASH, DRY Verified 02/09/23 08:13 Antibiotics) MOUTH sulfamethoxazole Allergy Intermediate RASH, DRY Verified 02/09/23 08:13 MOUTH trimethoprim Allergy Intermediate RASH, DRY Verified 02/09/23 08:13 MOUTH felodipine AdvReac Intermediate EDEMA Verified 02/09/23 08:13 furosemide AdvReac Intermediate DERMATITIS Verified 02/09/23 08:13 metformin AdvReac Intermediate CONSTIPATIO Verified 02/09/23 08:13 N/DIARRHEA simvastatin AdvReac Intermediate Muscle Pain Verified 02/09/23 08:13 Home Medications Medication Instructions Recorded Confirmed Type calcium carbonate 200 mg calcium 1,000 mg PO HS 10/15/19 02/09/23 History (500 mg) chewable tablet (Tums) digoxin 125 mcg (0.125 mg) tablet 125 mcg PO QPM 10/15/19 02/09/23 History (Digox) sennosides 8.6 mg tablet (senna) 17.2 mg PO BID PRN Constipation 10/15/19 02/09/23 History alogliptin 12.5 mg tablet 12.5 mg PO QAM 06/10/22 02/09/23 History metoprolol succinate 100 mg 100 mg PO QAM 06/10/22 02/09/23 History tablet,extended release 24 hr polyethylene glycol 3350 17 34 g PO DAILY PRN Constipation 06/10/22 02/09/23 History gram/dose oral powder (Miralax) clopidogrel 75 mg tablet 75 mg PO QAM #30 tabs 06/14/22 02/09/23 Rx nitroglycerin 0.4 mg sublingual 0.4 mg sublingual PRN PRN chest 06/14/22 02/09/23 Rx tablet (Nitrostat) pain #1 btl acetaminophen 325 mg tablet 650 mg PO TID PRN Pain 02/09/23 02/09/23 History apixaban 2.5 mg tablet (Eliquis) 2.5 mg PO BID 02/09/23 02/09/23 History atorvastatin 40 mg tablet 40 mg PO HS 02/09/23 02/09/23 History duloxetine 20 mg capsule,delayed 20 mg PO QAM 02/09/23 02/09/23 History release lidocaine 5 % topical patch 1 patch transdermal DAILY 02/09/23 02/09/23 History magnesium oxide 400 mg (241.3 mg 400 mg PO QAM 02/09/23 02/09/23 History magnesium) tablet nitroglycerin 0.4 mg sublingual 0.4 mg sublingual USEASDIRECTD PRN 02/09/23 02/09/23 History tablet Chest Pain pantoprazole 40 mg tablet,delayed 40 mg PO DAILYBB 02/09/23 02/09/23 History release tuberculin PPD 5 tub. unit/0.1 mL 5 tb unit intradermal WK 02/09/23 02/09/23 History intradermal injection solution (Tubersol) Patient History Medical History (Updated 02/11/23 @ 10:18 by Luis Alberto Deleon MD) Atrial fibrillation CAD (coronary artery disease) status post drug-eluting stent LAD May 2022 and previous stent to the ramus artery which is occluded due to cardiac arrest Diastolic dysfunction "echo 11/2014 - EF 65-70%, diastolic dysfunction" DM type 2 (diabetes mellitus, type 2) Dyslipidemia Hip fracture, right "s/p OIRF and subsequent revision" History of CVA (cerebrovascular accident) HTN (hypertension) Lactic acidosis STEMI (ST elevation myocardial infarction) TIA (transient ischemic attack) Surgical History No pertinent past surgical history Family History Other Family history non-contributory Social History Smoking Status: Never smoker Hx Alcohol Use: No Hx Substance Use: No Preferred Language: Malawian Communication Ability: Effective Communications Project Manager Required: No Beliefs That Will Affect Care: None marital status: Single Current Living Situation: [facility] Current Living Situation Comment: [facility] How many Children do You have: 1 Feels Safe at Home: Yes Assistive Devices: Cane and Walker Review of Systems Review of Systems: Unobtainable due to reduced consciousness Physical Exam Physical Exam: Constitutional: Patient was obtunded on exam. Eyes: Fixed and dilated. Ears nose, mouth and throat: Mallampati class 2. Normal posterior oropharynx. Uvula is midline. Neck: Trachea is midline. Visual inspection is normal. Respiratory: Tachypneic diminished lung sounds. Cardiovascular: Tachycardic. No murmur. No edema. Gastrointestinal: Normal bowel sounds, soft, nontender and nondistended. No hepatosplenomegaly noted. Musculoskeletal: Diffusely cyanotic. Skin: No rashes, warm dry and intact. Neurologic: Obtunded Psychiatric: Obtunded Results & Data Results & Data Vital Signs (Past 12 Hours) Vital Signs Temp Pulse Pulse Resp BP BP BP 02/11/23 08:11 36.5 C 98 H 18 97/71 L 02/11/23 07:11 97/71 L 02/11/23 07:11 96 H 30 H 02/11/23 07:00 93 H 33 H 02/11/23 06:30 106 H 36 H 02/11/23 06:24 99/63 L 02/11/23 06:24 96 H 35 H 02/11/23 06:00 103 H 33 H 02/11/23 05:30 108 H 33 H 02/11/23 05:00 98 H 34 H 02/11/23 04:40 89/64 L 02/11/23 04:40 120 H 28 H 02/11/23 04:39 105 H 33 H 02/11/23 04:30 94 H 32 H 02/11/23 04:00 99 H 33 H 02/11/23 03:30 106 H 31 H 02/11/23 03:00 110 H 26 H 02/11/23 02:30 117 H 24 02/11/23 02:00 104 H 35 H 02/11/23 01:30 103 H 24 02/11/23 01:00 101 H 23 02/11/23 00:30 107 H 27 H 02/11/23 00:01 108 H 26 H 02/11/23 00:01 93/70 L 02/11/23 00:00 92 H 21 02/10/23 23:34 90/71 L 02/10/23 23:34 102 H 19 02/10/23 23:32 80/67 L 02/10/23 23:32 106 H 27 H 02/10/23 23:30 100 H 23 02/10/23 23:00 92 H 20 02/10/23 22:30 94 H 27 H 02/11/23 06:21 95 H 99/63 L 02/11/23 04:36 36.5 C 101 H 18 89/64 L 02/10/23 23:32 36.6 C 109 H 18 90/71 L Pulse Ox O2 Del Method O2 Flow Rate 02/11/23 08:11 92 Nasal Cannula 2 02/11/23 07:11 02/11/23 07:11 02/11/23 07:00 02/11/23 06:30 02/11/23 06:24 02/11/23 06:24 02/11/23 06:00 02/11/23 05:30 02/11/23 05:00 02/11/23 04:40 02/11/23 04:40 02/11/23 04:39 02/11/23 04:30 02/11/23 04:00 02/11/23 03:30 02/11/23 03:00 02/11/23 02:30 02/11/23 02:00 02/11/23 01:30 02/11/23 01:00 02/11/23 00:30 02/11/23 00:01 02/11/23 00:01 02/11/23 00:00 02/10/23 23:34 02/10/23 23:34 96 02/10/23 23:32 02/10/23 23:32 02/10/23 23:30 02/10/23 23:00 02/10/23 22:30 96 02/11/23 06:21 02/11/23 04:36 95 Room Air 02/10/23 23:32 96 Room Air Coding Level of Care Code 41533 CRITICAL CARE 1ST 30-74M Diagnoses due to cardiac arrest I46.9 STEMI (ST elevation myocardial infarction) I21.3 Lactic acidosis E87.20 CKD (chronic kidney disease) N18.9 Time Spent (min) 42
--- NOTE | 2023-02-11 10:26 | Discharge Summary ---
Date of Service February 11, 2023 Admission HPI Per Admitting Provider 87yo male with PMHx signifciant for CAD, HTN, HLD, Afib, DM II, dementia, residing at [facility] using walker for ambulation found down on the ground after an unwitnessed fall at residential. Multiple years ago w/ similar episode and broke right hip which was operated on by Dr Staton. Had cardiac cath May 2022, PCI w/ DEB and placed on Plavix at that time. On eliquis for history of afib, also on digoxin/metoprolol. Son at bedside, states patient at [facility] since Friday. Prior to that initially [facility] but was at [facility] for a fall previous weeks (bumped his head, CT neg on admit), found to have rib fractures and dc to [facility] on Friday. Patient with garbled speech at baseline but able to be understood. Stated he was using walker to get to doorway (sounds like commotion at residential and wanted to know what was going on) and turned around and slipped. He notes he had some chest discomfort after the fall. Denies any cardiac chest pain/radiation but does have right shoulder pain. Does have some right rib/upper abd discomfort, but no nausea/vomiting. Will check Xray shoulder/RUQ GB for eval. Seen by Dr Montilla at end of exam, planning for surgery tomorrow, possibly with Dr Staton. EKG w/ afib w/ junctional pacemaker , nonspecific ST. Trop minimally elevated and will trend. Prior hallucinations w/ anesthesia. Dementia at baseline. Discharge Exam Constitutional WD/WN, vitals as above Respiratory normal respiratory effort, lungs clear to auscultation Cardiovascular Rate/Rhythm: regular rate and + irregularly irregular Heart Sounds: no murmur Extremities: no edema Musculoskeletal Extremities: + extremities abnormal to inspection (left hip dressing in place c/d/i) Discharge Data Allergies Allergy/AdvReac Type Severity Reaction Status Date / Time Sulfa (Sulfonamide Allergy Intermediate RASH, DRY Verified 02/09/23 08:13 Antibiotics) MOUTH sulfamethoxazole Allergy Intermediate RASH, DRY Verified 02/09/23 08:13 MOUTH trimethoprim Allergy Intermediate RASH, DRY Verified 02/09/23 08:13 MOUTH felodipine AdvReac Intermediate EDEMA Verified 02/09/23 08:13 furosemide AdvReac Intermediate DERMATITIS Verified 02/09/23 08:13 metformin AdvReac Intermediate CONSTIPATIO Verified 02/09/23 08:13 N/DIARRHEA simvastatin AdvReac Intermediate Muscle Pain Verified 02/09/23 08:13 Consultations 02/09/23 06:40 ED Decision to Admit Stat 02/09/23 09:02 Consult Cardiology Routine 02/11/23 07:44 Consult Orthopedic Surgery Routine 02/11/23 09:02 Consult Industrial Furnace Fabricator Stat 02/11/23 09:43 Consult Palliative Care Routine Procedures Performed Operation Date: 02/10/23 09:20 Actual Procedures p Open reduction, internal fixation left intertrochanteric femur fracture with intramedullary nail(Left) - Luis Alberto Reynolds MD Ordered Studies 02/09/23 03:39 CT head/brain wo con Stat 02/09/23 04:26 CT pelvis wo con Stat 02/10/23 FL hip LT 2-3V Routine 02/11/23 08:45 CT Abd and Pelvis [CT abd pelvis wo con] Stat CT head/brain wo con Stat 02/11/23 09:02 CT chest diagnostic wo con Stat Hospital Course (1) Acute metabolic encephalopathy: (2) Hypotension: (3) Lactic acidosis: (4) High anion gap metabolic acidosis: (5) Hyperkalemia: (6) Fall: Unwitnessed, using walker at [facility] - hx dementia CT head negative, on eliquis for hx afib CT pelvis Acute basicervical left femoral neck fracture with involvement of the left greater trochanter UA w/o evidence for infection Trop not elevated but will trend given complaints of discomfort, but likely from prior falls/trauma/rib fx reported EKG w/ afib, rates controlled Check ECHO given fall/reported dizziness/afib/murmur-report pending Check CXR w/ ribs for reported rib fractures, shoulder given prior falls Pain control -- tylenol/morphine prn Antiemetics -- Zofran prn Ok'd w/ ortho to continue ASA 81mg daily in lieu of plavix (stent may 2022) Reconsider continuation of Eliquis as per Cardiology (7) Closed intertrochanteric fracture of left hip: Age-related osteoporosis with current pathological fracture, left femur ortho performed repair on 02/10-appreciate management pain control, bowel regimen DVT proph with SCDs, can restart Eliquis tomorrow PT/OT evals pending (8) CKD (chronic kidney disease): CKD stage 3 BUN/Cr stable BMP in AM (9) CAD (coronary artery disease): hx of stents in 2012, and 1DES in May 2022 On Plavix, holding for surgery as above, but restarted for tomorrow by Ortho EKG on admit w/ afib Trend trop-serially negative/check ECHO Cards consulted for clearance/reported symptoms-appreciated monitor on tele, EKG w/ CP Nitro available prn Continue metoprolol 100mg daily, continue statin (10) DM type 2 (diabetes mellitus, type 2): hold home meds bsg ac/hs ssi while inpatient checking a1c w/ am labs-pending (11) HTN (hypertension): BPs were high from pain on admit, now improved continue metoprolol, IV hydralazine prn (12) Dyslipidemia: continue statin (13) Atrial fibrillation: monitor on tele continue metoprolol, digoxin holding eliquis given above fracture for surgery-restart tomorrow TSH wnl Keep mag/K replete -give Mag 1 gram IV today (14) Macrocytosis: mcv 105, B12 low at 267--> replace with IM B12 x 3 doses, then convert to po folate normal TSH wnl, checked given afib Plan DVT prophylaxis-ELiquis, SCDs Dispo-continued stay on tele, will need rehab Discharge Plan Discharge Items Reason For Visit: FALL, HIP FRACTURE Follow-up/Referrals: García Melo MD [Primary Care Provider] - Medications and DC Order Prescriptions: No Action sennosides [senna] 8.6 mg Tablet 17.2 mg PO BID PRN (Reason: Constipation) calcium carbonate [Tums] 200 mg calcium (500 mg) Tablet,Chewable 1,000 mg PO HS digoxin [Digox] 125 mcg (0.125 mg) Tablet 125 mcg PO QPM Rx Instructions: at 6pm metoprolol succinate 100 mg Tablet Extended Release 24 Hr 100 mg PO QAM polyethylene glycol 3350 [Miralax] 17 gram/dose Powder 34 g PO DAILY PRN (Reason: Constipation) alogliptin 12.5 mg Tablet 12.5 mg PO QAM clopidogrel 75 mg Tablet 75 mg PO QAM Qty: 30 5RF nitroglycerin [Nitrostat] 0.4 mg Tablet, Sublingual 0.4 mg sublingual PRN PRN (Reason: chest pain) Qty: 1 0RF Rx Instructions: 1 sublingual, if chest pain if no relief call 911 Tubersol 5 tub. unit /0.1 mL Solution 5 tb unit INTRADERMAL WK acetaminophen 325 mg tablet 650 mg PO TID PRN (Reason: Pain) lidocaine 5 % adhesive patch,medicated 1 patch transdermal DAILY Rx Instructions: Apply in AM; Take off in PM; Apply on right shoulder duloxetine 20 mg capsule,delayed release(DR/EC) 20 mg PO QAM Eliquis 2.5 mg tablet 2.5 mg PO BID atorvastatin 40 mg tablet 40 mg PO HS magnesium oxide 400 mg (241.3 mg magnesium) tablet 400 mg PO QAM nitroglycerin 0.4 mg tablet, sublingual 0.4 mg sublingual USEASDIRECTD PRN (Reason: Chest Pain) pantoprazole 40 mg tablet,delayed release (DR/EC) 40 mg PO DAILYBB Admission Data Admit Date/Time: 02/09/23 09:10 Attending Provider: Debbie Mott Admit Provider: Enrique Cox Primary Care Provider: García Melo Other Providers: Enrique Cox ; Fadi Heart ; Shravan Montilla ; Luis Alberto Deleon ; Kavya Theodore Coding Diagnoses Acute metabolic encephalopathy G93.41 Hypotension I95.9 Lactic acidosis E87.20 High anion gap metabolic acidosis E87.29 Hyperkalemia E87.5 Fall W19.XXXA Closed intertrochanteric fracture of left hip S72.142A CKD (chronic kidney disease) N18.9 CAD (coronary artery disease) I25.10 DM type 2 (diabetes mellitus, type 2) E11.9 HTN (hypertension) I10 Dyslipidemia E78.5 Atrial fibrillation I48.91 Macrocytosis D75.89
[2023-02-11] MEDS ORDERED: VASOPRESSIN 20 UNIT/ML VIAL IV ONE (12:19)
[2023-02-11] MEDS ORDERED: ATROPINE SULFATE 0.1 MG/ML 10ML SYR IV ONE (12:19)
[2023-02-11] MEDS ORDERED: METOPROLOL TARTRATE 1 MG/ML VIAL IV ONE (12:19)
[2023-02-11] MEDS ORDERED: CALCIUM CHLORIDE 10% 10 ML SYR IV ONE (12:19)
[2023-02-11] MEDS ORDERED: EpINEphrine HCL INJ 1 MG/ML 1ML SYRINGE IV ONE (12:19)
[2023-02-11] MEDS ORDERED: SODIUM BICARB 8.4% INJ 50 MEQ/50 ML SYR IV ONE (12:19)
--- NOTE | 2023-02-11 13:46 | Electrocardiogram Report ---
Test Reason : Blood Pressure : / mmHG Vent. Rate : 134 BPM Atrial Rate : 120 BPM P-R Int : 000 ms QRS Dur : 152 ms QT Int : 366 ms P-R-T Axes : 000 -22 123 degrees QTc Int : 546 ms Poor data quality, interpretation may be adversely affected Atrial fibrillation with rapid ventricular response Right bundle branch block Abnormal ECG When compared with ECG of 11-FEB-2023 09:35, (unconfirmed) Right bundle branch block is now Present Confirmed by Kelvin Glynn ([id number]) on 02/11/2023 1:46:33 PM Referred By: REFERRED SELF Confirmed By:Kelvin Glynn
--- NOTE | 2023-02-11 16:15 | Cardiology Progress Note ---
Date of Service February 11, 2023 Assessment & Plan (1) Preop cardiovascular exam: (2) Fall: (3) Closed intertrochanteric fracture of left hip: (4) CKD (chronic kidney disease): (5) CAD (coronary artery disease): (6) Atrial fibrillation: (7) Diastolic dysfunction: (8) TIA (transient ischemic attack): (9) DM type 2 (diabetes mellitus, type 2): (10) HTN (hypertension): (11) Dyslipidemia: Plan CODE BLUE called this a.m. EKG shows anterior STEMI along with complex metabolic acidosis, acute renal failure and unresponsiveness CODE STATUS was discussed with the family he was changed to DNR and comfort care Admission and Anticipated Discharge Date Admission Date: February 09, 2023 Subjective I was notified by the primary team of the events of last evening and this early a.m. Patient went asystolic at the time of my arrival to his room. I discussed the findings in detail with the patient's son and daughter at the bedside. They both state that they understand and are appreciative. Results & Data Vital Signs (Past 12 Hours) Vital Signs Temp Pulse Pulse Resp BP BP BP 02/11/23 10:00 0 L 28 H 02/11/23 09:49 130 H 02/11/23 08:52 104/62 02/11/23 08:52 98 H 35 H 02/11/23 08:30 108 H 30 H 02/11/23 08:00 95 H 28 H 02/11/23 07:30 94 H 33 H 02/11/23 07:30 02/11/23 08:11 36.5 C 98 H 18 97/71 L 02/11/23 07:11 97/71 L 02/11/23 07:11 96 H 30 H 02/11/23 07:00 93 H 33 H 02/11/23 06:30 106 H 36 H 02/11/23 06:24 99/63 L 02/11/23 06:24 96 H 35 H 02/11/23 06:00 103 H 33 H 02/11/23 05:30 108 H 33 H 02/11/23 05:00 98 H 34 H 02/11/23 04:40 89/64 L 02/11/23 04:40 120 H 28 H 02/11/23 04:39 105 H 33 H 02/11/23 04:30 94 H 32 H 02/11/23 06:21 95 H 99/63 L 02/11/23 04:36 36.5 C 101 H 18 89/64 L Pulse Ox O2 Del Method O2 Flow Rate 02/11/23 10:00 02/11/23 09:49 02/11/23 08:52 02/11/23 08:52 02/11/23 08:30 02/11/23 08:00 02/11/23 07:30 80 L 02/11/23 07:30 Nasal Cannula 2 02/11/23 08:11 92 Nasal Cannula 2 02/11/23 07:11 02/11/23 07:11 02/11/23 07:00 02/11/23 06:30 02/11/23 06:24 02/11/23 06:24 02/11/23 06:00 02/11/23 05:30 02/11/23 05:00 02/11/23 04:40 02/11/23 04:40 02/11/23 04:39 02/11/23 04:30 02/11/23 06:21 02/11/23 04:36 95 Room Air
== END 2023-02-11 12:20 | disposition expired | DRG 480 ==
LOC: ED 02:27 → EDINP 09:10 → SUATTDRO 09:10 → 2E 10:12 → 1E 02-11 09:13